=== PATIENT | female | born 1965 | race Caucasian/White ===

== ENCOUNTER 2017-04-22 16:47 | Emergency (ER) | payer OTHER ==
[2017-04-22 16:56] VITALS: TEMP 98.2
[2017-04-22 19:36] LABS: Basophils # (A) 0.1 k/uL (0-0.2); Basophils % (A) 0 %; Eosinophils # (A) 0.7 k/uL (0-0.7); Eosinophils % (A) 6 %; HCT 38.9 % (34.0-46.0); Hypochromasia Slight; Lymphocytes # (A) 2.4 k/uL (1.0-4.8); Lymphocytes % (A) 23 %; MCH 26.1 pg (25.0-35.0); MCHC 30.9 g/dL (31.0-37.0); MCV 84.5 fL (80.0-100.0); Mean Platelet Volume 7.1; Monocytes # (A) 0.6 k/uL (0-1.0); Monocytes % (A) 6 %; Neutrophils # (A) 6.9 k/uL (1.3-7.7); Neutrophils % (A) 64 %; Platelet Count 452 k/uL (150-450); RDW 14.7 % (11.5-15.5); WBC 10.8 k/uL (3.8-10.6)
[2017-04-22 19:46] LABS: Partial Thromboplastin Time 22.3 sec (22.0-30.0)
[2017-04-22 19:47] LABS: Anion Gap 12 mmol/L; Blood Urea Nitrogen 22 mg/dL (7-17); Carbon Dioxide 32 mmol/L (22-30); Chloride 96 mmol/L (98-107); Glucose 332 mg/dL (74-99); Potassium 5.9 mmol/L (3.5-5.1); Sodium 140 mmol/L (137-145)
[2017-04-22 19:48] LABS: ALT 27 U/L (9-52); AST 28 U/L (14-36); Albumin 3.9 g/dL (3.5-5.0); Alkaline Phosphatase 129 U/L (38-126); Magnesium 1.9 mg/dL (1.6-2.3); Total Bilirubin 0.6 mg/dL (0.2-1.3); Total Protein 7.1 g/dL (6.3-8.2)
[2017-04-22 19:50] LABS: Prothrombin Time 9.5 sec (9.0-12.0)
--- NOTE | 2017-04-22 19:55 | XR ---
EXAMINATION TYPE: XR chest 2V DATE OF EXAM: 04/22/2017 COMPARISON: 05/04/2014 HISTORY: Chest pain TECHNIQUE: Frontal and lateral views of the chest are obtained. FINDINGS: There is consolidation in the left lower lobe with blunting of left costophrenic angle. Th ere is slight blunting of right costophrenic angle. There is no gross heart failure. There are chest leads. Heart appears enlarged. There is cervical spine fusion surgery. There are chest leads. IMPRESSION: There is new left lower lobe pulmonary consolidation compared to old exam and consistent with pneumonia. New bilateral pleural effusions. Mild heart failure cannot be entirely excluded.
[2017-04-22 19:56] LABS: Creatine Kinase 28 U/L (30-135)
[2017-04-22 20:09] LABS: Creatine Kinase MB 0.3 ng/mL (0.0-2.4); Troponin I <0.012 ng/mL (0.000-0.034)
--- NOTE | 2017-04-22 20:21 | ED ---
Chest Pain HPI - General Chief Complaint: Chest Pain Stated Complaint: Chest Pain Time Seen by Provider: 04/22/17 16:58 Source: patient, RN notes reviewed Mode of arrival: ambulatory Limitations: no limitations - History of Present Illness Initial Comments: Is a 51-year-old female who presents with complaints of some sharp left-sided chest pain that occurred after she was vacuuming today and while she was vacuuming. Lasted for short period time is been gone she has no new complaints of shortness of breath fevers chills nausea vomiting sweats or cough. She recently did have a prolonged period at [facility] he did have a pleural effusion that was drained somewhat she was just discharged in the last several days. Other than this she voices no new complaints. MD Complaint: chest pain - Related Data Home Medications Medication Instructions Recorded Confirmed Acetaminophen-Codeine 300-30mg 1 tab PO Q6H PRN 04/22/17 04/22/17 [Tylenol #3] Atorvastatin [Lipitor] 40 mg PO HS 04/22/17 04/22/17 Cetirizine HCl [Zyrtec] 10 mg PO DAILY 04/22/17 04/22/17 Cyclobenzaprine [Flexeril] 10 mg PO TID 04/22/17 04/22/17 DULoxetine HCL [Cymbalta] 30 mg PO HS 04/22/17 04/22/17 Furosemide [Lasix] 20 mg PO DAILY 04/22/17 04/22/17 Gabapentin [Neurontin] 300 mg PO TID 04/22/17 04/22/17 Insulin Regular, Human [humulin R 90 unit SQ AC-TID 04/22/17 04/22/17 U-500 Kwikpen] Ipratropium-Albuterol Nebulize 3 ml INHALATION RT-Q4H PRN 04/22/17 04/22/17 [Duoneb 0.5 mg-3 mg/3 ml Soln] Lisdexamfetamine Dimesylate 50 mg PO QAM 04/22/17 04/22/17 [Vyvanse] Losartan Potassium [Cozaar] 100 mg PO HS 04/22/17 04/22/17 Metoclopramide HCl [Reglan] 10 mg PO DAILY 04/22/17 04/22/17 Montelukast [Singulair] 10 mg PO HS 04/22/17 04/22/17 Ondansetron HCl [Zofran] 8 mg PO Q8H PRN 04/22/17 04/22/17 Pantoprazole Sodium [Protonix] 40 mg PO DAILY 04/22/17 04/22/17 Ranitidine HCl [Zantac] 150 mg PO BID 04/22/17 04/22/17 Tolterodine ER [Detrol LA] 4 mg PO HS 04/22/17 04/22/17 amLODIPine [Norvasc] 10 mg PO DAILY 04/22/17 04/22/17 traMADol HCL [Ultram] 50 mg PO Q8H PRN 04/22/17 04/22/17 Previous Rx's Medication Instructions Recorded Aspirin 81 mg PO DAILY #1 chewable 05/05/14 Allergies Allergy/AdvReac Type Severity Reaction Status Date / Time Sulfa (Sulfonamide Allergy Anaphylaxis Verified 04/22/17 18:58 Antibiotics) Review of Systems ROS Statement: Those systems with pertinent positive or pertinent negative responses have been documented in the HPI. ROS Other: All systems not noted in ROS Statement are negative. EKG Findings - EKG Results: EKG: interpreted by ERMD (Sinus rhythm rate of 11. Interval 182 QRS duration 90 QT since QTC 312/404 possible left atrial enlargement nonspecific T-wave configuration.) Past Medical History Past Medical History: Diabetes Mellitus, Eye Disorder, Hyperlipidemia, Hypertension Additional Past Medical History / Comment(s): 05/04/14 Pt presented to [facility] ER with substernal chest pain that started 24 hhours before coming to ER. She noticed the chest pain when she woke up yesterday. It is a heaviness and is intermittent with variable duration. She also states she had alittle nausea with it. Other HX: Pt had recent (03/30/14)cataract surgery with lens implants bilaterally at [facility]-post op she had low O2 saturations and was told she had a very narrow airway-instead of going home same day, she was in the hospital for a couple days until her saturations improved. She was discharged with home O2 which she wears at 2L/NC at [facility] and was to follow up today for testing for sleep apnea. Pt states she also has diarrhea fairly frequently. 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 History of Any Multi-Drug Resistant Organisms: MRSA Date of last positivie culture/infection: 2010 MDRO Source:: legs and breasts. Past Surgical History: Cholecystectomy, Hysterectomy, Orthopedic Surgery Additional Past Surgical History / Comment(s): Bilateral cataract sx with lens implants, bilateral retinal repair. Cervical rodding for 3 ruptured discs. Past Anesthesia/Blood Transfusion Reactions: Postoperative Nausea & Vomiting ( PONV) Additional Past Anesthesia/Blood Transfusion Reaction / Comment(s): Pt had cataract and lens implant at [facility] on 03/30/14 and afterwards she desaturated and was hospitalized. She was told she has a very narrow airway. Pt has never recieved blood. Past Psychological History: No Psychological Hx Reported Smoking Status: Former smoker Past Alcohol Use History: None Reported Past Drug Use History: None Reported - Past Family History Father Family Medical History: Cancer, Diabetes Mellitus, Myocardial Infarction (SD) Additional Family Medical History / Comment(s): Father had 5 SD's and of bone cancer. Mother Family Medical History: Cancer, Diabetes Mellitus Additional Family Medical History / Comment(s): Mother had cervical cancer and from it. General Exam - General Exam Comments Initial Comments: This is a well-developed well-nourished awake alert oriented 3 female Limitations: no limitations General appearance: alert, in no apparent distress Head exam: Present: atraumatic, normocephalic, normal inspection Eye exam: Present: normal appearance, PERRL, EOMI. Absent: scleral icterus, conjunctival injection, periorbital swelling ENT exam: Present: normal exam, mucous membranes moist Neck exam: Present: normal inspection. Absent: tenderness, meningismus, lymphadenopathy Respiratory exam: Present: chest wall tenderness (Reproducible tenderness palpation along the left costochondral margin.), other (Decreased breath sounds otherwise breath sounds are clear with good aeration.). Absent: respiratory distress, wheezes, rales, rhonchi, stridor Cardiovascular Exam: Present: regular rate, normal rhythm, normal heart sounds. Absent: systolic murmur, diastolic murmur, rubs, gallop, clicks GI/Abdominal exam: Present: soft, normal bowel sounds. Absent: distended, tenderness, guarding, rebound, rigid Extremities exam: Present: normal inspection, full ROM, normal capillary refill. Absent: tenderness, pedal edema, joint swelling, calf tenderness Back exam: Present: normal inspection Neurological exam: Present: alert, oriented X3, CN II-XII intact Psychiatric exam: Present: normal affect, normal mood Skin exam: Present: warm, dry, intact, normal color. Absent: rash Course Vital Signs 04/22/17 04/22/17 04/22/17 16:52 18:51 20:25 Temperature 98.2 F Pulse Rate 98 97 94 Respiratory 20 18 16 Rate Blood Pressure 171/70 158/72 158/67 O2 Sat by Pulse 94 L 95 97 Oximetry Chest Pain MDM - MDM Review the imaging shows evidence of some fluid in the left lung is patient already knows. She is a follow-up with her doctor the presentation consistent with costochondritis. She does have ibuprofen home she'll be discharged she is to use her ibuprofen as needed. He will follow-up with her doctors and return when necessary Disposition Clinical Impression: Costalchondritis, Chest wall syndrome Disposition: HOME SELF-CARE Condition: Good Instructions: Costochondritis (ED) Additional Instructions: Usual ibuprofen for pain at home Referrals: Lavon Garza MD [Primary Care Provider] - 1-2 days
[2017-04-22 20:26] VITALS: BP 158/67; PULSE 94; RESP 16
== END 2017-04-22 21:02 | disposition home or self-care (01) ==
LOC: EC 16:47
DX: M94.0 Chondrocostal junction syndrome [Tietze] (principal); E11.9 Type 2 diabetes mellitus without complications; E78.5 Hyperlipidemia, unspecified; I10 Essential (primary) hypertension; Z86.14 Personal history of Methicillin resistant Staphylococcus aureus infection; Z88.2 Allergy status to sulfonamides; Z79.4 Long term (current) use of insulin; Z79.899 Other long term (current) drug therapy; Z87.891 Personal history of nicotine dependence
CPT/HCPCS: 36415; 71046; 80053; 82550; 82553; 83735; 84484; 85025; 85610; 85730; 93005; 99285

== ENCOUNTER → 2019-11-11 | Outpatient (CLI) | payer MEDICARE, OTHER ==
[2019-11-11 13:12] LABS: Anisocytosis Slight; HCT 38.6 % (34.0-46.0); Hypochromasia Slight; MCH 26.2 pg (25.0-35.0); MCHC 31.2 g/dL (31.0-37.0); MCV 83.8 fL (80.0-100.0); Mean Platelet Volume 7.9; Platelet Count 287 k/uL (150-450); RDW 16.9 % (11.5-15.5); WBC 13.3 k/uL (3.8-10.6)
[2019-11-11 18:32] LABS: INR 0.92 (0.90-1.11); Partial Thromboplastin Time 26.9 sec (24.7-29.9); Prothrombin Time 9.9 sec (9.9-11.9)
[2019-11-11 19:13] LABS: % Iron Saturation 11.8 (12.00-45.00); Albumin 4.2 g/dL (3.80-4.90); Albumin/Globulin Ratio 1.83 (1.60-3.17); Anion Gap 11.5 mmol/L (4.00-12.00); Calcium 9.3 mg/dL (8.7-10.3); Carbon Dioxide 28.5 mmol/L (21.6-31.8); Chol/HDL Ratio 2.81; Globulin 2.3 g/dL (1.6-3.3); LDL Cholesterol,Calculated 75.8 mg/dL (0.0-131.0); Magnesium 1.9 mg/dL (1.5-2.4); Non-African American GFR(CKD) 72.5 (60.0-200.0); Phosphorus 4.2 mg/dL (2.4-5.1); Potassium 4.6 mmol/L (3.5-5.5); Total Bilirubin 0.6 mg/dL (0.3-1.2); Total Protein 6.5 g/dL (6.2-8.2); VLDL Calculation 27.2 mg/dL (5.00-40.00)
[2019-11-11 19:20] LABS: Ferritin 91.3 ng/mL (10.0-291.0)
[2019-11-11 19:29] LABS: Folate, Serum 12.8 ng/mL
[2019-11-12 14:22] LABS: Vit B1(Thiamine) 82 ug/L (38-122)
[2019-11-12 15:09] LABS: Zinc, Serum 50 ug/dL (60-130)
== END | disposition home or self-care (01) ==
LOC: LABWHC1 11:00
PROVIDERS: ATTEND Surgery Plastic and Reconstructive Surgery
DX: E89.1 Postprocedural hypoinsulinemia (principal); D50.8 Other iron deficiency anemias; K90.89 Other intestinal malabsorption; E55.9 Vitamin D deficiency, unspecified; K74.1 Hepatic sclerosis; N19 Unspecified kidney failure; K50.90 Crohn's disease, unspecified, without complications; E66.01 Morbid (severe) obesity due to excess calories
CPT/HCPCS: 36415; 80053; 80061; 82306; 82525; 82607; 82728; 82746; 83540; 83550; 83735; 83970; 84100; 84134; 84255; 84425; 84443; 84590; 84630; 85027; 85610; 85730; 93005

== ENCOUNTER → 2019-11-19 | Outpatient (CLI) | payer MEDICARE, OTHER ==
--- NOTE | 2019-11-19 11:56 | FL ---
Barium swallow history: Dysphagia 0.47 minutes fluoroscopy time. 7 images obtained. Patient was given high density barium to drink. The swallowing mechanism is normal. There is no extrinsic or intrinsic esophageal lesion. No hiatal h ernia or gastroesophageal reflux. IMPRESSION: Normal barium swallow.
== END | disposition home or self-care (01) ==
LOC: RADUSWWP 10:01
PROVIDERS: ATTEND Surgery Plastic and Reconstructive Surgery
DX: R13.10 Dysphagia, unspecified (principal)
CPT/HCPCS: 74220

== ENCOUNTER → 2020-01-17 | Outpatient (CLI) | payer MEDICARE, OTHER ==
[2020-01-17 12:43] VITALS: BMI 59.2
== END | disposition home or self-care (01) ==
LOC: BARWHC3 08:28
PROVIDERS: ATTEND Surgery Plastic and Reconstructive Surgery
DX: E66.01 Morbid (severe) obesity due to excess calories (principal); Z71.3 Dietary counseling and surveillance; Z68.43 Body mass index [BMI] 50.0-59.9, adult
CPT/HCPCS: 97804

== ENCOUNTER → 2020-03-22 | Outpatient (CLI) | payer MEDICARE, OTHER ==
[2020-03-22 15:16] VITALS: BP 166/63; PULSE 88; RESP 18; TEMP 98.1; BMI 56.4
--- NOTE | 2020-03-22 15:37 | P.PN ---
Subjective Progress Note Date: 03/22/20 DATE OF SERVICE: 03/22/2020 CHIEF COMPLAINT: Morbid obesity HISTORY OF PRESENT ILLNESS: Anjali Jha is a 54-year-old female who comes with lifelong morbid obesity. She is looking into the sleeve gastrectomy. She has completed medical supervised weight loss with moderate improvement of her blood sugar glucose to 117 in the mornings. She has lost weight. She has completed cardiac risk assessment. She is excited for her weight loss procedure. She is taking her multivitamin. She has completed psych assessment and medical risk assessment. At height of 5 feet 5 inches, her ideal body weight is 149 pounds. She comes in 338 pounds from 346 pounds, 4 months ago. She has lost 8 pounds in 4 months. Her body mass index is down from 57.7 to 56.4. She is 189 pounds overweight. PAST MEDICAL HISTORY: 1. Morbid obesity due to excess calories 2. Body mass index of 57.7, initial 3. Gastroesophageal reflux disease 4. Obstructive sleep apnea 5. Hyperlipidemia 6. Diabetes type 2, insulin dependent 7. Osteoarthritis of the knees 8. Osteoarthritis of the back 9. Neuropathy 10. Depressive disorder 11. History of MRSA infection 12. Post op nausea and vomiting PAST SURGICAL HISTORY: 1. Cholecystectomy 2. Hysterectomy 3. Cervical rodding 4. Bilateral retinal repair HOME MEDICATIONS: Home Medications Medication Instructions Recorded Confirmed Atorvastatin [Lipitor] 20 mg PO HS 04/22/17 01/19/20 Gabapentin [Neurontin] 400 mg PO TID 04/22/17 01/19/20 Insulin Regular, Human [humulin R 90 unit SQ AC-TID 04/22/17 01/19/20 U-500 Kwikpen] Montelukast [Singulair] 10 mg PO HS 04/22/17 01/19/20 Pantoprazole Sodium [Protonix] 40 mg PO DAILY 04/22/17 01/19/20 amLODIPine [Norvasc] 10 mg PO DAILY 04/22/17 01/19/20 Canagliflozin [Invokana] 300 mg PO DAILY 11/10/19 01/19/20 Ibuprofen [Motrin] 800 mg PO Q6H 11/10/19 01/19/20 Ketoconazole 2% Cream [Nizoral 2%] 1 unit TOPICAL BID 11/10/19 01/19/20 Meloxicam [Mobic] 7.5 mg PO DAILY 11/10/19 01/19/20 Mirabegron [Myrbetriq] 50 mg PO DAILY 11/10/19 01/19/20 PARoxetine HCL 30 mg PO DAILY 11/10/19 01/19/20 Semaglutide [Ozempic] 1 mg SQ WEEKLY 11/10/19 01/19/20 metFORMIN HCL [metFORMIN HCL ER] 500 mg PO BID 11/10/19 01/19/20 Ergocalciferol [Vitamin D2 5,000 unit PO WEEKLY 11/12/19 01/19/20 (DRISDOL)] Iron 64 mg PO BID 11/12/19 01/19/20 Previous Rx's Medication Instructions Recorded Aspirin 81 mg PO DAILY #1 chewable 05/05/14 ALLERGIES: Allergies Allergy/AdvReac Type Severity Reaction Status Date / Time Sulfa (Sulfonamide Allergy Anaphylaxis Verified 04/22/17 18:58 Antibiotics) SOCIAL HISTORY: Past tobacco use. FAMILY HISTORY: No family history of ulcerative colitis disease or Crohn's disease. Family history of morbid obesity. No lupus in the family. No reports of stomach or esophageal cancer. REVIEW OF ORGAN SYSTEMS: CONSTITUTIONAL: At height of 5 feet 5 inches, her ideal body weight is 149 pounds. Her highest weight is 346 pounds. Her body mass index is 57.7. She is 197 pounds overweight. HEENT: Denies any active troubles with vision or hearing. Has troubles with swallowing. ENDOCRINE: Has diabetes. No hypothyroidism. CARDIOVASCULAR: Past reports of palpitations or heart attacks or chest pain. Has hyperlipidemia. Has hypertension. RESPIRATORY: Has daytime somnolence. Has asthma. GASTROINTESTINAL: Denies any bright red blood per rectum. No diarrhea. No constipation. Has gastroesophageal reflux disease. MUSCULOSKELETAL: Has lower back pain and joint pain. Has osteoarthritis of the knees. NEURO: No headaches. No seizure disorders. Has neuropathy. PSYCH: Has depression. No suicidal ideation. RHEUMATOLOGIC: No lupus. No rheumatoid arthritis. HEMATOLOGIC: Denies any abnormal bleeding or bruising. No personal history of DVTs. SKIN: No rash. No skin cancer. PHYSICAL EXAM: VITAL SIGNS: Height 5 foot 5 inches, weight 338 pounds. BMI 56.4 Vital Signs Temp 98.1 F 03/22/20 15:11 Pulse 88 03/22/20 15:11 Resp 18 01/13/21 15:11 BP 166/63 03/22/20 15:11 Pulse Ox GENERAL: Well-developed in no acute distress. HEENT: No scleral icterus. Extraocular movements grossly intact. Hears conversational speech. No nasal drainage. NECK: Supple without lymphadenopathy. CHEST: Nonlabored respirations with equal bilateral excursions. CARDIOVASCULAR: Regular rate and regular rhythm. Distal 2+ pulses. ABDOMEN: Obese, soft, nontender, nondistended. MUSCULOSKELETAL: No clubbing, cyanosis. NEURO: No focal or lateralizing signs. Cranial nerves 2 through 12 grossly within normal limits. PSYCH: Appropriate affect. Alert and oriented to person, place and time. SKIN: Good skin turgor. Well perfused. LABS: WBC elevated. Iron is low. Vitamin D is low. Zinc is low. EKG: Left atrial enlargement STUDIES: Barium swallow independently reviewed with evidence of intra-esophageal reflux disease. No large hiatal hernia identified. ASSESSMENT: 1. Morbid obesity due to excess calories 2. Body mass index of 57.7, initial 3. Gastroesophageal reflux disease 4. Obstructive sleep apnea 5. Hyperlipidemia 6. Diabetes type 2, insulin dependent 7. Osteoarthritis of the knees 8. Osteoarthritis of the back 9. Neuropathy 10. Depressive disorder 11. History of MRSA infection 12. 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 Iron deficiency anemia 15. Vitamin D deficiency 16. Zinc deficiency. PLAN: 1. Bariatric options between a sleeve, band and a Fern-en-Y gastric bypass were reviewed in detail. The patient elected for a sleeve gastrectomy. Robotic assisted approach described. 2. The [place] [facility] Data was also reviewed with benefits and risks as described. 3. An 8 page second-generation bariatric consent form was reviewed in detail including potential of bleeding, infection, leaks, adequate weight loss, nutritional deficiencies which the patient demonstrated understanding of the risks. 4. A 2 week high-protein low caloric 800 kcal diet described to address hepatomegaly. 5. Preoperative labs including complete metabolic panel and CBC with type and screen recommended. 6. DVT prophylaxis per [place] [facility]. 7. Antibiotic prophylaxis. 8. Inpatient hospitalization anticipated for more than 2 nights. 9. All questions and concerns were addressed with the patient. 10. She is at elevated risk for perioperative complications with pre-existing heart disease and BMI over 50. 11. Overall, patient has expressed understanding of bariatric care including postoperative diet and commitment of lifestyle. Patient should benefit from surgical intervention for correction of her morbid obesity. 12. Vitamin D 50,000 units weekly advised 13. Zinc 50 mg daily advised 14. She is taking iron supplements 15. Monitor WBC. Persistent elevated will need referral to fraud examiner. 16. Cardiac risk assessment was obtained for abnormal EKG. Objective - Vital Signs Vital signs: Vital Signs Temp 98.1 F 03/22/20 15:11 Pulse 88 03/22/20 15:11 Resp 18 03/22/20 15:11 BP 166/63 03/22/20 15:11 Pulse Ox Intake & Output 03/21/20 03/22/20 03/22/20 18:59 06:59 18:59 Weight 153.768 kg
== END | disposition home or self-care (01) ==
LOC: BARWHC3 14:15
PROVIDERS: ATTEND Surgery Plastic and Reconstructive Surgery
DX: E66.1 Drug-induced obesity (principal); K21.9 Gastro-esophageal reflux disease without esophagitis; G47.33 Obstructive sleep apnea (adult) (pediatric); E78.5 Hyperlipidemia, unspecified; E11.9 Type 2 diabetes mellitus without complications; M17.0 Bilateral primary osteoarthritis of knee; M47.9 Spondylosis, unspecified; E11.40 Type 2 diabetes mellitus with diabetic neuropathy, unspecified; F32.9 Major depressive disorder, single episode, unspecified; R11.2 Nausea with vomiting, unspecified; D72.829 Elevated white blood cell count, unspecified; D50.9 Iron deficiency anemia, unspecified; E55.9 Vitamin D deficiency, unspecified; E60 Dietary zinc deficiency; Z86.14 Personal history of Methicillin resistant Staphylococcus aureus infection; Z68.43 Body mass index [BMI] 50.0-59.9, adult; Z88.2 Allergy status to sulfonamides; Z79.4 Long term (current) use of insulin; Z79.82 Long term (current) use of aspirin; Z79.899 Other long term (current) drug therapy; Z79.891 Long term (current) use of opiate analgesic; Z79.1 Long term (current) use of non-steroidal anti-inflammatories (NSAID); Z90.49 Acquired absence of other specified parts of digestive tract; Z90.710 Acquired absence of both cervix and uterus
CPT/HCPCS: 99211

== ENCOUNTER → 2020-03-24 | Outpatient (CLI) | payer MEDICARE, OTHER ==
[2020-03-24 15:42] LABS: Anisocytosis Slight; Basophils # (A) 0.1 k/uL (0-0.2); Basophils % (A) 0 %; Eosinophils # (A) 0.3 k/uL (0-0.7); Eosinophils % (A) 2 %; HCT 41.5 % (34.0-46.0); HGB 13.9 gm/dL (11.4-16.0); Lymphocytes # (A) 2.5 k/uL (1.0-4.8); Lymphocytes % (A) 17 %; MCHC 33.3 g/dL (31.0-37.0); MCV 81.1 fL (80.0-100.0); Mean Platelet Volume 7.7; Monocytes # (A) 0.6 k/uL (0-1.0); Monocytes % (A) 4 %; Neutrophils # (A) 10.9 k/uL (1.3-7.7); Neutrophils % (A) 75 %; Platelet Count 287 k/uL (150-450); RBC 5.12 m/uL (3.80-5.40); WBC 14.4 k/uL (3.8-10.6)
[2020-03-24 15:44] LABS: ALT 28 U/L (4-34); AST 39 U/L (14-36); African American GFR (CKD) >90 (>60 ml/min/1.73 sqM); Albumin 4.1 g/dL (3.5-5.0); Alkaline Phosphatase 113 U/L (38-126); Anion Gap 15 mmol/L; Blood Urea Nitrogen 25 mg/dL (7-17); Calcium 9.2 mg/dL (8.4-10.2); Carbon Dioxide 20 mmol/L (22-30); Chloride 102 mmol/L (98-107); Glucose 129 mg/dL (74-99); Non-African American GFR(CKD) 87 (>60 ml/min/1.73 sqM); Potassium 4.6 mmol/L (3.5-5.1); Sodium 137 mmol/L (137-145); Total Bilirubin 0.7 mg/dL (0.2-1.3); Total Protein 7.3 g/dL (6.3-8.2)
== END | disposition home or self-care (01) ==
LOC: LABPAT 14:54
PROVIDERS: ATTEND Surgery Plastic and Reconstructive Surgery
DX: Z01.818 Encounter for other preprocedural examination (principal)
CPT/HCPCS: 36415; 80053; 85025

== ENCOUNTER → 2020-03-29 | Outpatient (CLI) | payer MEDICARE, OTHER ==
[2020-03-29 15:18] VITALS: BP 148/73; PULSE 89; RESP 18; TEMP 98.2; BMI 56.0
--- NOTE | 2020-03-29 15:35 | P.PN ---
Subjective Progress Note Date: 03/29/20 DATE OF SERVICE: 03/29/2020 CHIEF COMPLAINT: Morbid obesity HISTORY OF PRESENT ILLNESS: Anjali Jha is a 54-year-old female who comes in looking into the sleeve gastrectomy. She comes in with new pain along her pannus. She has persistently high WBC getting worse over 3+ years. She saw her primary care provider and was prescribed Nystatin and cefuroxime for severe panniculitis. She has an active infection. At height of 5 feet 5 inches, her ideal body weight is 149 pounds. She comes in 336 pounds from 338 pounds, 1 week ago. She has lost 2 pounds in 1 week. Her body mass index is down from 57.7 to 56.1. She is 187 pounds overweight. PHYSICAL EXAM: VITAL SIGNS: Height 5 foot 5 inches, weight 336 pounds. BMI 56.1 Vital Signs Temp 98.2 F 03/29/20 15:14 Pulse 89 03/29/20 15:14 Resp 18 03/29/20 15:14 BP 148/73 03/29/20 15:14 Pulse Ox GENERAL: Well-developed in no acute distress. HEENT: No scleral icterus. Extraocular movements grossly intact. Hears conversational speech. No nasal drainage. NECK: Supple without lymphadenopathy. CHEST: Nonlabored respirations with equal bilateral excursions. CARDIOVASCULAR: Regular rate and regular rhythm. Distal 2+ pulses. ABDOMEN: Obese, soft, nontender, nondistended. Severe panniculitis MUSCULOSKELETAL: No clubbing, cyanosis. NEURO: No focal or lateralizing signs. Cranial nerves 2 through 12 grossly within normal limits. PSYCH: Appropriate affect. Alert and oriented to person, place and time. SKIN: Good skin turgor. Well perfused. LABS: WBC elevated over 14.4. AST is elevated. ASSESSMENT: 1. Morbid obesity due to excess calories 2. Body mass index of 57.7, initial 3. Gastroesophageal reflux disease 4. Obstructive sleep apnea 5. Hyperlipidemia 6. Diabetes type 2, insulin dependent 7. Osteoarthritis of the knees 8. Osteoarthritis of the back 9. Neuropathy 10. Depressive disorder 11. History of MRSA infection 12. 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 Iron deficiency anemia 15. Vitamin D deficiency 16. Zinc deficiency. PLAN: 1. She has an active infection and recommend continued antibiotics. 2. Recommend Dr. Hastings assessment for persistent leukocytosis over 3+ years. Objective - Vital Signs Vital signs: Vital Signs Temp 98.2 F 03/29/20 15:14 Pulse 89 03/29/20 15:14 Resp 18 03/29/20 15:14 BP 148/73 03/29/20 15:14 Pulse Ox Intake & Output 03/28/20 03/29/20 03/29/20 18:59 06:59 18:59 Weight 152.861 kg
== END | disposition home or self-care (01) ==
LOC: BARWHC3 14:18
PROVIDERS: ATTEND Surgery Plastic and Reconstructive Surgery
DX: E66.01 Morbid (severe) obesity due to excess calories (principal); K21.9 Gastro-esophageal reflux disease without esophagitis; G47.33 Obstructive sleep apnea (adult) (pediatric); E78.5 Hyperlipidemia, unspecified; E11.40 Type 2 diabetes mellitus with diabetic neuropathy, unspecified; M17.0 Bilateral primary osteoarthritis of knee; F32.9 Major depressive disorder, single episode, unspecified; Z86.14 Personal history of Methicillin resistant Staphylococcus aureus infection; R11.2 Nausea with vomiting, unspecified; D50.9 Iron deficiency anemia, unspecified; E55.9 Vitamin D deficiency, unspecified; D72.829 Elevated white blood cell count, unspecified; E60 Dietary zinc deficiency; Z79.2 Long term (current) use of antibiotics
CPT/HCPCS: 99211

== ENCOUNTER → 2020-05-05 | Outpatient (CLI) | payer MEDICARE, OTHER ==
[2020-05-05 09:29] LABS: Anisocytosis Slight; Basophils % (A) 0 %; Eosinophils # (A) 0.4 k/uL (0-0.7); Eosinophils % (A) 3 %; HCT 41.6 % (34.0-46.0); HGB 13.7 gm/dL (11.4-16.0); Lymphocytes # (A) 2.5 k/uL (1.0-4.8); Lymphocytes % (A) 19 %; MCH 27.2 pg (25.0-35.0); MCV 82.4 fL (80.0-100.0); Mean Platelet Volume 7.7; Microcytosis Slight; Monocytes # (A) 0.5 k/uL (0-1.0); Monocytes % (A) 4 %; Neutrophils # (A) 9.7 k/uL (1.3-7.7); Neutrophils % (A) 73 %; Platelet Count 270 k/uL (150-450); RBC 5.05 m/uL (3.80-5.40); RDW 17.8 % (11.5-15.5); WBC 13.2 k/uL (3.8-10.6)
[2020-05-05 09:39] LABS: African American GFR (CKD) >90 (>60 ml/min/1.73 sqM); Blood Urea Nitrogen 19 mg/dL (7-17); Non-African American GFR(CKD) 87 (>60 ml/min/1.73 sqM); Potassium 4.3 mmol/L (3.5-5.1)
== END | disposition home or self-care (01) ==
LOC: LABPAT 08:57
PROVIDERS: ATTEND Surgery Plastic and Reconstructive Surgery
DX: Z01.818 Encounter for other preprocedural examination (principal)
CPT/HCPCS: 36415; 82565; 84132; 84520; 85025

== ENCOUNTER 2020-05-08 07:30 | Inpatient (IN) | payer MEDICARE, OTHER ==
--- NOTE | 2020-05-08 05:49 | P.GSHP ---
History of Present Illness H&P Date: 05/08/20 CHIEF COMPLAINT: Morbid obesity HISTORY OF PRESENT ILLNESS: Anjali Jha is a 54-year-old female who comes with lifelong morbid obesity. She is looking into the sleeve gastrectomy. She has comorbidities including obstructive sleep apnea, insulin-dependent diabetes type 2, osteoarthritis of the knees and back At height of 5 feet 5 inches, her ideal body weight is 149 pounds. She comes in 339 pounds. Her body mass index is down from 57.7 to 56.6. She is 189 pounds overweight. PAST MEDICAL HISTORY: 1. Morbid obesity due to excess calories 2. Body mass index of 57.7, initial 3. Gastroesophageal reflux disease 4. Obstructive sleep apnea 5. Hyperlipidemia 6. Diabetes type 2, insulin dependent 7. Osteoarthritis of the knees 8. Osteoarthritis of the back 9. Neuropathy 10. Depressive disorder 11. History of MRSA infection 12. Post op nausea and vomiting PAST SURGICAL HISTORY: 1. Cholecystectomy 2. Hysterectomy 3. Cervical rodding 4. Bilateral retinal repair HOME MEDICATIONS: Home Medications Medication Instructions Recorded Confirmed Atorvastatin [Lipitor] 20 mg PO HS 04/22/17 01/19/20 Gabapentin [Neurontin] 400 mg PO TID 04/22/17 01/19/20 Insulin Regular, Human [humulin R 90 unit SQ AC-TID 04/22/17 01/19/20 U-500 Kwikpen] Montelukast [Singulair] 10 mg PO HS 04/22/17 01/19/20 Pantoprazole Sodium [Protonix] 40 mg PO DAILY 04/22/17 01/19/20 amLODIPine [Norvasc] 10 mg PO DAILY 04/22/17 01/19/20 Canagliflozin [Invokana] 300 mg PO DAILY 11/10/19 01/19/20 Ibuprofen [Motrin] 800 mg PO Q6H 11/10/19 01/19/20 Ketoconazole 2% Cream [Nizoral 2%] 1 unit TOPICAL BID 11/10/19 01/19/20 Meloxicam [Mobic] 7.5 mg PO DAILY 11/10/19 01/19/20 Mirabegron [Myrbetriq] 50 mg PO DAILY 11/10/19 01/19/20 PARoxetine HCL 30 mg PO DAILY 11/10/19 01/19/20 Semaglutide [Ozempic] 1 mg SQ WEEKLY 11/10/19 01/19/20 metFORMIN HCL [metFORMIN HCL ER] 500 mg PO BID 11/10/19 01/19/20 Ergocalciferol [Vitamin D2 5,000 unit PO WEEKLY 11/12/19 01/19/20 (DRISDOL)] Iron 64 mg PO BID 11/12/19 01/19/20 Previous Rx's Medication Instructions Recorded Aspirin 81 mg PO DAILY #1 chewable 05/05/14 ALLERGIES: Allergies Allergy/AdvReac Type Severity Reaction Status Date / Time Sulfa (Sulfonamide Allergy Anaphylaxis Verified 04/22/17 18:58 Antibiotics) SOCIAL HISTORY: Past tobacco use. FAMILY HISTORY: No family history of ulcerative colitis disease or Crohn's disease. Family history of morbid obesity. No lupus in the family. No reports of stomach or esophageal cancer. REVIEW OF ORGAN SYSTEMS: CONSTITUTIONAL: At height of 5 feet 5 inches, her ideal body weight is 149 pounds. Her highest weight is 346 pounds. Her body mass index is 57.7. She is 197 pounds overweight. HEENT: Denies any active troubles with vision or hearing. Has troubles with swallowing. ENDOCRINE: Has diabetes. No hypothyroidism. CARDIOVASCULAR: Past reports of palpitations or heart attacks or chest pain. Has hyperlipidemia. Has hypertension. RESPIRATORY: Has daytime somnolence. Has asthma. GASTROINTESTINAL: Denies any bright red blood per rectum. No diarrhea. No constipation. Has gastroesophageal reflux disease. MUSCULOSKELETAL: Has lower back pain and joint pain. Has osteoarthritis of the knees. NEURO: No headaches. No seizure disorders. Has neuropathy. PSYCH: Has depression. No suicidal ideation. RHEUMATOLOGIC: No lupus. No rheumatoid arthritis. HEMATOLOGIC: Denies any abnormal bleeding or bruising. No personal history of DVTs. SKIN: No rash. No skin cancer. PHYSICAL EXAM: VITAL SIGNS: Height 5 foot 5 inches, weight 338 pounds. BMI 56.4 GENERAL: Well-developed in no acute distress. HEENT: No scleral icterus. Extraocular movements grossly intact. Hears conversational speech. No nasal drainage. NECK: Supple without lymphadenopathy. CHEST: Nonlabored respirations with equal bilateral excursions. CARDIOVASCULAR: Regular rate and regular rhythm. Distal 2+ pulses. ABDOMEN: Obese, soft, nontender, nondistended. MUSCULOSKELETAL: No clubbing, cyanosis. NEURO: No focal or lateralizing signs. Cranial nerves 2 through 12 grossly within normal limits. PSYCH: Appropriate affect. Alert and oriented to person, place and time. SKIN: Good skin turgor. Well perfused. ASSESSMENT: 1. Morbid obesity due to excess calories 2. Body mass index of 57.7, initial 3. Gastroesophageal reflux disease 4. Obstructive sleep apnea 5. Hyperlipidemia 6. Diabetes type 2, insulin dependent 7. Osteoarthritis of the knees 8. Osteoarthritis of the back 9. Neuropathy 10. Depressive disorder 11. History of MRSA infection 12. 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 Iron deficiency anemia 15. Vitamin D deficiency 16. Zinc deficiency. PLAN: 1. Bariatric options between a sleeve, band and a Fern-en-Y gastric bypass were reviewed in detail. The patient elected for a sleeve gastrectomy. Robotic assisted approach described. 2. DVT prophylaxis per [place] [facility] collaborative. 3. Antibiotic prophylaxis. 4. Inpatient hospitalization anticipated for more than 2 nights. 5. She is at elevated risk for perioperative complications with pre-existing heart disease and BMI over 50. Past Medical History Past Medical History: Diabetes Mellitus, Eye Disorder, GERD/Reflux, Hyperlipidemia, Hypertension, Skin Disorder, Sleep Apnea/CPAP/BIPAP Additional Past Medical History / Comment(s): 2018 - fluid on lungs removed, DDD., uses c-pap machine., claustrophobic., diabetic retinapathy-legally blind right eye., neuropathy feet., gout., occasional yeast infection in folds of skin., OAB., Iron deficiency anemia- states iron transfusion at [facility] on 05/05/20., chronic elevated wbc's., pt states currently on high protein diet per Dr. Torres instructions. History of Any Multi-Drug Resistant Organisms: MRSA Date of last positivie culture/infection: 2010 MDRO Source:: legs and breasts. Past Surgical History: Cholecystectomy, Hysterectomy, Orthopedic Surgery Additional Past Surgical History / Comment(s): cataract sx with lens implants, iftikhar retinal repair. Cervical rodding for 3 ruptured discs. Past Anesthesia/Blood Transfusion Reactions: Postoperative Nausea & Vomiting (PONV) Additional Past Anesthesia/Blood Transfusion Reaction / Comment(s): cataract surgery @ [facility] on 03/30/14 and afterwards oxygen was low and she was hospitalized (later diagnosed with sleep apnea), states they told her she had a very narrow airway.-denies receiving a letter . Past Psychological History: No Psychological Hx Reported Additional Psychological History / Comment(s): states severe claustrophobic. Smoking Status: Former smoker Past Alcohol Use History: None Reported Additional Past Alcohol Use History / Comment(s): quit smoking 2013, smoked 1 ppd, started smoking age 18. Past Drug Use History: None Reported - Past Family History Father Family Medical History: Cancer, Myocardial Infarction (MA) Additional Family Medical History / Comment(s): Father had 5 MA's and of bone cancer. Mother Family Medical History: Cancer Additional Family Medical History / Comment(s): cervical cancer Medications and Allergies Home Medications Medication Instructions Recorded Confirmed Type Aspirin 81 mg PO DAILY #1 chewable 05/05/14 05/05/20 Rx Atorvastatin [Lipitor] 20 mg PO DAILY 04/22/17 05/05/20 History Gabapentin [Neurontin] 800 mg PO BID 04/22/17 05/05/20 History Montelukast [Singulair] 10 mg PO DAILY 04/22/17 05/05/20 History Pantoprazole Sodium [Protonix] 40 mg PO DAILY 04/22/17 05/05/20 History amLODIPine [Norvasc] 10 mg PO DAILY 04/22/17 05/05/20 History Canagliflozin [Invokana] 300 mg PO DAILY 11/10/19 05/05/20 History Ibuprofen [Motrin] 800 mg PO DIRECTED PRN 11/10/19 05/05/20 History Mirabegron [Myrbetriq] 50 mg PO DAILY 11/10/19 05/05/20 History PARoxetine HCL 30 mg PO DAILY 11/10/19 05/05/20 History metFORMIN HCL [metFORMIN HCL ER] 1,000 mg PO AC-BID 11/10/19 05/05/20 History Allopurinol [Zyloprim] 100 mg PO DAILY 03/28/20 05/05/20 History Ergocalciferol [Vitamin D2 (1250 1,250 mcg PO WE 03/28/20 05/05/20 History Mcg = 64157 Iu)] Ferrous Sulfate [Iron (65 MG 325 mg PO QAM 03/28/20 05/05/20 History Elemental)] Gabapentin [Neurontin] 400 mg PO 1200 03/28/20 05/05/20 History Insulin Glargine,Hum.rec.anlog 50 unit SQ QAM 03/28/20 05/05/20 History [Lantus Solostar] Loratadine 10 mg PO DAILY 03/28/20 05/05/20 History Nystatin 100,000 Unit/gm Oint 1 applic TOPICAL BID 03/29/20 05/05/20 History [Mycostatin Oint] Zinc 22 mg PO TID 05/01/20 05/05/20 History Allergies Allergy/AdvReac Type Severity Reaction Status Date / Time Sulfa (Sulfonamide Allergy Anaphylaxis Verified 05/05/20 09:17 Antibiotics)
[~2020-05-08 07:30] MED LIST: ACETAMINOPHEN TAB 500 MG TAB PO STA; CHLORHEXIDINE GLUCONATE 15 ML CUP MUCOUS MEM PRN; DEXAMETHASONE SOD PHOSPHATE 4 MG/ML 1 ML VIAL IV ONE; ENOXAPARIN 40 MG/0.4 ML SYRINGE SQ PRN; GABAPENTIN 300 MG CAP PO STA; LIDOCAINE 1% (10MG/ML) FOR IV START INTRADERMA PRN; MELOXICAM 7.5 MG TAB PO STA; MIDAZOLAM 2 MG/2 ML VIAL IV PRN; PANTOPRAZOLE 40 MG/10 ML VIAL IVP PRN; SCOPOLAMINE 1.5MG/72HR PATCH TRANSDERM SCH; ceFAZolin 3 GM in SODIUM CHLORIDE 0.9% 100 ML IVPB PRN
[2020-05-08] MEDS: LACTATED RINGERS 1,000 ML IV SCH (10:10)
[2020-05-08 10:11] LABS: Glucose,Whole Blood 127 mg/dL (75-99)
[2020-05-08] MEDS: ONDANSETRON 4 MG/2 ML VIAL IVP ONE ×2 (10:25→14:38)
[2020-05-08] MEDS ORDERED: HYDROmorphone (PF) 1 MG/ML ONE (11:58)
[2020-05-08] MEDS ORDERED: GLYCOPYRROLATE 0.2 MG/ML 2 ML VIAL ONE (11:58)
[2020-05-08] MEDS ORDERED: fentaNYL (PF) 50 MCG/ML 2 ML AMP ONE (11:58)
[2020-05-08] MEDS ORDERED: KETOROLAC 15 MG/ML 1 ML VIAL ONE (11:58)
[2020-05-08] MEDS ORDERED: SUCCINYLCHOLINE CHLORIDE VIAL 200 MG/10 ML VIAL IV ONE (11:58)
[2020-05-08] MEDS ORDERED: MIDAZOLAM 2 MG/2 ML VIAL ONE (11:58)
[2020-05-08] MEDS ORDERED: NEOSTIGMINE 1 MG/ML 10 ML VIAL ONE (11:58)
[2020-05-08] MEDS ORDERED: PROPOFOL 10 MG/ML 20 ML VIAL IV ONE (11:58)
[2020-05-08] MEDS ORDERED: ROCURONIUM 10 MG/ML (5 ML VIAL) IV ONE (11:58)
[2020-05-08] MEDS ORDERED: LACTATED RINGERS 1,000 ML IV ONE (12:30)
[2020-05-08] MEDS ORDERED: LIDOCAINE 2%-EPI 1:100,000 20 ML VIAL SQ ONE (12:31)
[2020-05-08] MEDS ORDERED: diphenhydrAMINE 50 MG/ML 1 ML VIAL IVP PRN (14:02)
[2020-05-08] MEDS ORDERED: NALOXONE 0.4 MG/ML 1 ML VIAL IV PRN (14:02)
[2020-05-08] MEDS ORDERED: DEXAMETHASONE SOD PHOSPHATE 10 MG/ML 1 ML VIAL IV PRN (14:06)
--- NOTE | 2020-05-08 14:13 | P.OP ---
Date of Procedure: 05/08/20 Description of Procedure: SURGEON: QIAN VELOZ MD PREOPERATIVE DIAGNOSES: 1. Morbid obesity due to excess calories 2. Body mass index of 57.7, initial 3. Gastroesophageal reflux disease 4. Obstructive sleep apnea 5. Hyperlipidemia 6. Diabetes type 2, insulin dependent 7. Osteoarthritis of the knees 8. Osteoarthritis of the back 9. Neuropathy 10. Depressive disorder 11. History of MRSA infection 12. 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 Iron deficiency anemia 15. Vitamin D deficiency 16. Zinc deficiency. POSTOPERATIVE DIAGNOSES: 1. Morbid obesity due to excess calories 2. Body mass index of 57.7, initial 3. Gastroesophageal reflux disease 4. Obstructive sleep apnea 5. Hyperlipidemia 6. Diabetes type 2, insulin dependent 7. Osteoarthritis of the knees 8. Osteoarthritis of the back 9. Neuropathy 10. Depressive disorder 11. History of MRSA infection 12. 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 Iron deficiency anemia 15. Vitamin D deficiency 16. Zinc deficiency. OPERATION: 1. Robotic assisted daVinci Xi laparoscopic sleeve gastrectomy with 40-Northern Irish bougie, multiport. 2. Intraoperative esophagogastroduodenoscopy. ANESTHESIA: Gen. local anesthetic ESTIMATED BLOOD LOSS: 5 mL SPECIMENS REMOVED: Sleeve gastrectomy COMPLICATIONS: None. FINDINGS: 1. Negative intraoperative esophagogastrojejunoscopy leak test. 2. No hepatomegaly and no large hiatus hernia. 3. Total of 7 staplers used including 2 - 60 mm black robot dell and 5 - 60 mm green robot loads used to create the gastric sleeve. 4. Sleeve gastrectomy, 31 x 6 cm INDICATIONS: Anjali Jha is a 54-year-old female who comes with lifelong morbid obesity. She is looking into the sleeve gastrectomy. She has comorbidities including obstructive sleep apnea, insulin-dependent diabetes type 2, osteoarthritis of the knees and back At height of 5 feet 5 inches, her ideal body weight is 149 pounds. She comes in 316 pounds from 339 pounds, 1 month ago. She lost 23 pounds in 1 month. Her body mass index is down from 57.7 to 51.2. She is 167 pounds overweight. All surgical options for morbid obesity had been described using the [place] bariat[facility] surgery collaborative comorbidity resolution including complication risk score. A second-generation bariatric consent form was described in detail including the possibility of protein malnutrition, leaks, gastric stricture, venous thrombosis, gastroesophageal reflux disease, need for further surgery for which she demonstrated understanding. Benefits and risks of the procedure were described at length. Informed consent was obtained. DESCRIPTION: The patient was brought into the operating room theater. Preoperatively she had received Lovenox subcutaneously for DVT prophylaxis. Additionally she had Peridex oral solution as an oral decontaminant. After general induction, the abdomen was prepped and draped in standard sterile fashion. An Ioban draping was placed along the abdomen. A robotic da Skye Xi system was prepped and primed. Length of her torso from xiphoid to umbilicus is 31 cm. At 15 cm from the xiphoid, proposed port sites were marked with indelible marker along the anterior axillary line bilaterally, mid axillary line bilaterally with each ports were marked 10 to 15 cm from each other. The assistant produce manager port was marked along the left lateral abdominal wall. The robotic stapler port was marked for the right midclavicular line. A 5 mm 0 degrees laparoscopic trocar entry was performed along the left upper quadrant. The abdomen was insufflated to 15 mmHg pressure was tolerated well. Diagnostic laparoscopy demonstrated no injury to bowel, viscera, or mesentery. No evidence of large hiatus hernia was identified. The liver edge was sharp consistent with 2 week low-carb high-protein diet. A 8 mm port was placed along the left upper abdominal wall after exchanging the 5 mm port. A separate 8 mm port was placed along the left lateral abdominal wall. Please note that the ports were placed at least 20 cm away from the target anatomy. Care was taken to check each robotic arms were safely away from collision with the bed or the patient. At the epigastrium, a medium sized Maria L liver retractor was placed under direct visualization with the Iron Shop Teacher placed under the right shoulder of the patient. Next, 12-mm robot stapler port was placed along the right upper quadrant. The camera 8-mm port was maintained along the epigastrium. The patient was repositioned in reverse Trendelenburg position at 21-degrees after lowering the bed. The robot was docked along the left side of the patient. Using a grasper for arm 4, a vessel sealer for arm 3, including grasper for arm 1, the robotic system was docked and primed as described. Instruments were interchanged by the assistant produce manager for stapler loads. The camera was placed at 30- degrees down. I had sat at the console. The pylorus was identified and 6 cm proximally along the greater curvature of the stomach, the short gastrics were mobilized upwards to the angle of His using a vessel sealer. Hemostasis was excellent during this portion of the procedure. Next, the upper pole of the stomach was adherent to the left calos, which was gently dissected free using atraumatic grasper. I went to the head of the bed and placed 40-Northern Irish blunt bougie into the stomach. The bougie was readjusted by the nurse behavior management specialist. Robotic stapler black load 60 mm 2 followed by green 60 mm x 5 loads were used to create the sleeve. Initial firing was across the antrum of the stomach towards the angle of His. The staple line was linear without corkscrewing. The space from the angularis incisura of the sleeve was approximately 4 cm. I then went to the head of the bed to perform the intraoperative esophagogastroduodenoscopy leak test. The bougie was withdrawn. The upper pole of the stomach was bathed using normal saline solution. The scope was withdrawn with careful inspection along the staple line for which no leaks were found along the entire length. Additionally,the sleeve was completely hemostatic without any encroachment along the angularis incisura. Its topology was a soft "J". No stricture was encountered upon placement of the scope. The GI tract was desufflated. The patient tolerated this portion of the procedure well. The scope was completely withdrawn. The robot was undocked. I then rescrubbed into case, whereby the irrigation fluid was aspirated from the abdominal cavity. Tisseel fibrin sealant was placed along the entire staple length. Once dried the Maria L liver retractor was removed. Attention was now brought to removal of the specimen. The distal end of the sleeve gastrectomy specimen was brought out through the 12 mm port at the left upper quadrant. The specimen was gently removed en total. No contamination had occurred during this process. All instruments and pneumoperitoneum including irrigation fluid was removed from the abdominal cavity. The 12 mm port site was closed using 0-Vicryl and Jose Miguelquita Dawnson and irrigated with diluted hydrogen peroxide. The final incisions were closed using subcuticular interrupted suture of 4-0 Monocryl. Exofin was applied to the skin once the skin had been cleansed. OptiFoam dressing was placed along the stomach extraction site. The sleeve specimen was measured and checked also for leaks which none were found. At the end of the procedure, needle, sponge, and instrument count was verified correct by the surgical dental assistant. The patient was taken to the postanesthesia care unit in stable condition. She had tolerated the procedure well. Intraoperative films and findings were reviewed with the patient's family.
[2020-05-08 14:17] LABS: Glucose,Whole Blood 197 mg/dL (75-99)
[2020-05-08] MEDS: HYDROmorphone 0.5 MG/0.5 ML SYRINGE IVP PRN ×2 (14:38→14:43)
[2020-05-08] MEDS: 0.9% NACL WITH KCL 20 MEQ/L 1,000 ML IV SCH ×2 (14:51→20:45)
[2020-05-08] MEDS ORDERED: IPRATROPIUM-ALBUTEROL 3 ML NEB ONE (17:11)
[2020-05-08] MEDS: ALBUTEROL NEBULIZED 2.5 MG/3 ML INHALATION SCH ×2 (17:12→19:52)
[2020-05-08] MEDS: ACETAMINOPHEN IV (For NPO) 1,000 MG in EMPTY BAG 1 BAG IVPB SCH ×2 (17:32→23:29)
[2020-05-08] MEDS: KETOROLAC 15 MG/ML 1 ML VIAL IVP SCH ×2 (17:33→23:11)
[2020-05-08] MEDS: DEXAMETHASONE SOD PHOSPHATE 4 MG/ML 1 ML VIAL IV SCH ×2 (17:33→23:11)
[2020-05-08] MEDS: SIMETHICONE 40 MG/0.6 ML DROPS 2,000 MG/30 ML BOTTLE PO SCH ×2 (17:33→23:12)
[2020-05-08] MEDS: HYOSCYAMINE ORAL DROPS 1.875 MG/15 ML BOTTLE PO SCH ×2 (17:34→23:12)
[2020-05-08] MEDS: GABAPENTIN 400 MG CAP PO SCH (19:17)
[2020-05-08] MEDS ORDERED: ceFAZolin 3 GM in SODIUM CHLORIDE 0.9% 100 ML IVPB SCH (20:00)
[2020-05-09] MEDS: LACTATED RINGERS 1,000 ML IV SCH (00:02)
[2020-05-09] MEDS: 0.9% NACL WITH KCL 20 MEQ/L 1,000 ML IV SCH (00:02)
[2020-05-09] MEDS: KETOROLAC 15 MG/ML 1 ML VIAL IVP SCH ×4 (05:18→23:08)
[2020-05-09] MEDS: HYOSCYAMINE ORAL DROPS 1.875 MG/15 ML BOTTLE PO SCH ×4 (05:19→23:09)
[2020-05-09] MEDS: ACETAMINOPHEN IV (For NPO) 1,000 MG in EMPTY BAG 1 BAG IVPB SCH ×4 (05:19→23:08)
[2020-05-09] MEDS: DEXAMETHASONE SOD PHOSPHATE 4 MG/ML 1 ML VIAL IV SCH ×4 (05:19→23:08)
[2020-05-09] MEDS: SIMETHICONE 40 MG/0.6 ML DROPS 2,000 MG/30 ML BOTTLE PO SCH ×4 (05:20→23:09)
[2020-05-09 07:18] LABS: Glucose,Whole Blood 228 mg/dL (75-99)
[2020-05-09] MEDS: allopurinoL 100 MG TAB PO SCH (08:00)
[2020-05-09] MEDS ORDERED: 1: MVI, ADULT NO.4 WITH VIT K 10 ML, THIAMINE 100 MG, FOLIC ACID 1 MG, POTASSIUM CHLORID IV SCH ×6 (08:00)
[2020-05-09] MEDS: MONTELUKAST 10 MG TAB PO SCH (08:00)
[2020-05-09] MEDS: amLODIPine 10 MG TAB PO SCH (08:00)
[2020-05-09] MEDS: ENOXAPARIN 40 MG/0.4 ML SYRINGE SQ SCH (08:00)
[2020-05-09] MEDS: GABAPENTIN 400 MG CAP PO SCH ×3 (08:01→21:55)
[2020-05-09] MEDS: PARoxetine 10 MG TAB PO SCH (08:01)
[2020-05-09] MEDS ORDERED: SODIUM CHLORIDE 0.9% 1,000 ML IV ONE ×2 (08:51)
[2020-05-09] MEDS: ALBUTEROL NEBULIZED 2.5 MG/3 ML INHALATION SCH ×4 (08:58→19:35)
[2020-05-09 09:27] LABS: Basophils # (A) 0.03 X 10*3/uL (0.00-0.10); Basophils % (A) 0.2 %; Eosinophils # (A) 0 X 10*3/uL (0.04-0.35); Eosinophils % (A) 0 %; HCT 40.9 % (37.2-46.3); HGB 12.9 g/dL (12.0-15.0); Lymphocytes % (A) 10.1 %; MCH 26.8 pg (27.0-32.0); MCHC 31.5 g/dL (32.0-37.0); MCV 84.9 fL (80.0-97.0); Mean Platelet Volume 10.4 fL (9.5-12.2); Monocytes % (A) 2.3 %; Neutrophils # (A) 11.13 X 10*3/uL (1.80-7.70); Neutrophils % (A) 86.4 %; Platelet Count 301 X 10*3/uL (140-440); RBC 4.82 X 10*6/uL (4.10-5.20); RDW 19.2 % (11.5-14.5); WBC 12.89 X 10*3/uL (4.50-10.00)
[2020-05-09 09:47] LABS: African American GFR (CKD) 49.2 (60.0-200.0); Anion Gap 21.8 mmol/L (4.00-12.00); Calcium 8.6 mg/dL (8.7-10.3); Carbon Dioxide 14.2 mmol/L (21.6-31.8); Non-African American GFR(CKD) 42.5 (60.0-200.0); Phosphorus 4.2 mg/dL (2.4-5.1); Potassium 5.3 mmol/L (3.5-5.5)
[2020-05-09 11:17] VITALS: BMI 51.1
[2020-05-09] MEDS: INSULIN ASPART (NovoLOG) 100 UNIT/ML VIAL SQ SCH ×3 (11:46→21:55)
[2020-05-09 11:48] LABS: Glucose,Whole Blood 225 mg/dL (75-99)
--- NOTE | 2020-05-09 12:09 | FL ---
EXAMINATION TYPE: FL UGI DATE OF EXAM: 05/09/2020 COMPARISON: None HISTORY: Postop gastric sleeve TECHNIQUE: A single contrast UGI study is performed. FINDINGS: Fluoroscopy time: 26 seconds Images: 26 Contrast passes from the distal esophagus through the gastric sleeve with mild hesitancy. No extravas ation of contrast is evident. No free air is noted during this examination. Overhead radiographs were obtained which are unremarkable. IMPRESSIONS: 1. Normal post gastric sleeve without obstruction or hesitancy. No extravasation.
--- NOTE | 2020-05-09 13:59 | P.PN ---
Subjective Progress Note Date: 05/09/20 CHIEF COMPLAINT: Morbid obesity HISTORY OF PRESENT ILLNESS: Patient is postop day #1 status post Robotic assisted daVinci Xi laparoscopic sleeve gastrectomy and Intraoperative esophagogastroduodenoscopy. Her upper GI shows normal post gastric sleeve without obstruction or hesitancy. No extravasation. Patient received reports being able to swallow her bariatric clear liquids without difficulty. She denies any nausea or vomiting. She reports that her pain is controlled. She has been up and ambulating. Denies any flatus or BM. Afebrile. Heart rate 111 blood pressure 170/75 WBC 12.89 slightly elevated possibly due to steroids. Hgb 12.9 sodium 139 potassium 5.3 creatinine 1.4 magnesium 2.0 glucose 225 PHYSICAL EXAM: VITAL SIGNS: Reviewed GENERAL: Well-developed in no acute distress. HEENT: No sclera icterus. Extraocular movements grossly intact. Moist buccal mucosa. Head is atraumatic, normocephalic. Hears conversational speech. No nasal drainage. NECK: Supple without lymphadenopathy. CHEST: Non-labored respirations and equal bilateral excursions. CARDIOVASCULAR: Palpable 2+ radial pulses. ABDOMEN: Soft. Nondistended. Nontender. MUSCULOSKELETAL: No clubbing or cyanosis. NEUROLOGIC: No focal or lateralizing signs. Cranial nerves II through XII grossly intact. PSYCH: Appropriate affect. Alert and oriented to person, place and time. SKIN: Well perfused. Good skin turgor. ASSESSMENT: 1. Morbid obesity due to excess calories 2. Body mass index of 57.7, initial 3. Gastroesophageal reflux disease 4. Obstructive sleep apnea 5. Hyperlipidemia 6. Diabetes type 2, insulin dependent 7. Osteoarthritis of the knees 8. Osteoarthritis of the back 9. Neuropathy 10. Depressive disorder 11. History of MRSA infection 12. 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 Iron deficiency anemia 15. Vitamin D deficiency 16. Zinc deficiency. PLAN: -Patient received a 2 L fluid bolus this morning -Continue bariatric clear liquid diet -Continue pain medications -Add Humalog sliding scale coverage for elevated blood sugars -Check hemoglobin A1c -We'll remove potassium from fluids due to K level of 5.3 -Continue hypertensive medications -Encourage incentive spirometer use and to ambulate Physician Cafeteria Cook note has been reviewed by physician. Signing provider agrees with the documented findings, assessment, and plan of care. Objective - Vital Signs Vital signs: Vital Signs Temp 98 F 05/09/20 13:47 Pulse 111 H 05/09/20 13:47 Resp 19 05/09/20 13:47 BP 170/75 05/09/20 13:47 Pulse Ox 96 05/09/20 13:47 Intake & Output 05/08/20 05/09/20 05/09/20 18:59 06:59 18:59 Intake Total 2100 Output Total 5 Balance 2094 Weight 143.8 kg 143.8 kg Intake: IV 2100 Output: Estimated Blood Loss 5 Other: Voiding Method Toilet # Voids 2 - Labs CBC & Chem 7: 05/09/20 06:27 05/09/20 06:27 Labs: Abnormal Lab Results - Last 24 Hours (Table) 05/08/20 05/09/20 05/09/20 Range/Units 14:16 06:27 06:27 WBC 12.89 H (4.50-10.00) X 10*3/uL MCH 26.8 L (27.0-32.0) pg MCHC 31.5 L (32.0-37.0) g/dL RDW 19.2 H (11.5-14.5) % Immature Gran # 0.13 H (0.00-0.04) X 10*3/uL Neutrophils # 11.13 H (1.80-7.70) X 10*3/uL Eosinophils # 0 L (0.04-0.35) X 10*3/uL Carbon Dioxide 14.2 L (21.6-31.8) mmol/L Anion Gap 21.80 H (4.00-12.00) mmol/L Est GFR (CKD-EPI)AfAm 49.2 L (60.0-200.0) Est GFR (CKD-EPI)NonAf 42.5 L (60.0-200.0) POC Glucose (mg/dL) 197 H (75-99) mg/dL Calcium 8.6 L (8.7-10.3) mg/dL 05/09/20 05/09/20 Range/Units 07:17 11:45 WBC (4.50-10.00) X 10*3/uL MCH (27.0-32.0) pg MCHC (32.0-37.0) g/dL RDW (11.5-14.5) % Immature Gran # (0.00-0.04) X 10*3/uL Neutrophils # (1.80-7.70) X 10*3/uL Eosinophils # (0.04-0.35) X 10*3/uL Carbon Dioxide (21.6-31.8) mmol/L Anion Gap (4.00-12.00) mmol/L Est GFR (CKD-EPI)AfAm (60.0-200.0) Est GFR (CKD-EPI)NonAf (60.0-200.0) POC Glucose (mg/dL) 228 H 225 H (75-99) mg/dL Calcium (8.7-10.3) mg/dL
[2020-05-09 15:09] LABS: Hemoglobin A1C 9.8 % (4.0-6.0)
[2020-05-09] MEDS: 1: MVI, ADULT NO.4 WITH VIT K 10 ML, THIAMINE 100 MG, FOLIC ACID 1 MG in SODIUM CHLORIDE IV SCH ×4 (16:38)
[2020-05-09 17:05] LABS: Glucose,Whole Blood 235 mg/dL (75-99)
[2020-05-09 21:26] LABS: Glucose,Whole Blood 201 mg/dL (75-99)
[2020-05-10] MEDS: KETOROLAC 15 MG/ML 1 ML VIAL IVP SCH ×2 (05:30→11:58)
[2020-05-10] MEDS: ACETAMINOPHEN IV (For NPO) 1,000 MG in EMPTY BAG 1 BAG IVPB SCH ×2 (05:30→11:58)
[2020-05-10] MEDS: DEXAMETHASONE SOD PHOSPHATE 4 MG/ML 1 ML VIAL IV SCH ×2 (05:30→12:00)
[2020-05-10] MEDS: SIMETHICONE 40 MG/0.6 ML DROPS 2,000 MG/30 ML BOTTLE PO SCH ×2 (05:31→11:59)
[2020-05-10] MEDS: 1: MVI, ADULT NO.4 WITH VIT K 10 ML, THIAMINE 100 MG, FOLIC ACID 1 MG in SODIUM CHLORIDE IV SCH ×4 (05:31)
[2020-05-10] MEDS: HYOSCYAMINE ORAL DROPS 1.875 MG/15 ML BOTTLE PO SCH ×2 (05:31→12:00)
[2020-05-10] MEDS ORDERED: INSULIN DETEMIR (LEVEMIR) 100 UNIT/ML SYR SQ SCH (07:00)
[2020-05-10 07:26] LABS: Glucose,Whole Blood 182 mg/dL (75-99)
[2020-05-10] MEDS: PARoxetine 10 MG TAB PO SCH (07:38)
[2020-05-10] MEDS: MONTELUKAST 10 MG TAB PO SCH (07:38)
[2020-05-10] MEDS: amLODIPine 10 MG TAB PO SCH (07:38)
[2020-05-10] MEDS: INSULIN ASPART (NovoLOG) 100 UNIT/ML VIAL SQ SCH ×2 (07:38→11:59)
[2020-05-10] MEDS: GABAPENTIN 400 MG CAP PO SCH ×2 (07:38→11:58)
[2020-05-10] MEDS: allopurinoL 100 MG TAB PO SCH (07:38)
[2020-05-10] MEDS: ENOXAPARIN 40 MG/0.4 ML SYRINGE SQ SCH (07:38)
[2020-05-10] MEDS: ALBUTEROL NEBULIZED 2.5 MG/3 ML INHALATION SCH ×3 (07:57→15:26)
[2020-05-10] MEDS ORDERED: bisacodyL 5 MG TABLET.DR PO PRN (08:00)
[2020-05-10 09:37] VITALS: TEMP 98.2
[2020-05-10 10:34] LABS: Basophils # (A) 0.03 X 10*3/uL (0.00-0.10); Basophils % (A) 0.2 %; Eosinophils # (A) 0 X 10*3/uL (0.04-0.35); Eosinophils % (A) 0 %; HCT 41.5 % (37.2-46.3); HGB 13.1 g/dL (12.0-15.0); Lymphocytes # (A) 1.48 X 10*3/uL (0.90-5.00); Lymphocytes % (A) 12.2 %; MCH 26.4 pg (27.0-32.0); MCHC 31.6 g/dL (32.0-37.0); MCV 83.7 fL (80.0-97.0); Monocytes # (A) 0.37 X 10*3/uL (0.20-1.00); Monocytes % (A) 3.1 %; Neutrophils # (A) 10.15 X 10*3/uL (1.80-7.70); Neutrophils % (A) 83.8 %; Platelet Count 310 X 10*3/uL (140-440); RBC 4.96 X 10*6/uL (4.10-5.20); RDW 19.9 % (11.5-14.5); WBC 12.11 X 10*3/uL (4.50-10.00)
[2020-05-10 10:49] LABS: African American GFR (CKD) 59.3 (60.0-200.0); Anion Gap 16.1 mmol/L (4.00-12.00); BUN/Creat Ratio 17.5 Ratio (12.00-20.00); Calcium 8.8 mg/dL (8.7-10.3); Carbon Dioxide 16.9 mmol/L (21.6-31.8); Non-African American GFR(CKD) 51.2 (60.0-200.0); Potassium 4.7 mmol/L (3.5-5.5)
[2020-05-10 11:25] LABS: Glucose,Whole Blood 209 mg/dL (75-99)
--- NOTE | 2020-05-10 15:12 | P.DS ---
Providers Date of admission: 05/08/20 09:12 Expected date of discharge: 05/10/20 Attending physician: Octavia Hein Primary care physician: Jesi Huizar Hospital Course: Discharge diagnosis 1. Morbid obesity due to excess calories 2. Body mass index of 57.7, initial 3. Gastroesophageal reflux disease 4. Obstructive sleep apnea 5. Hyperlipidemia 6. Diabetes type 2, insulin dependent 7. Osteoarthritis of the knees 8. Osteoarthritis of the back 9. Neuropathy 10. Depressive disorder 11. History of MRSA infection 12. 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 Iron deficiency anemia 15. Vitamin D deficiency 16. Zinc deficiency. Hospital course June Abhijeet is a 54-year-old female who comes with lifelong morbid obesity. She has comorbidities including obstructive sleep apnea, insulin-dependent diabetes type 2, osteoarthritis of the knees and back. Patient is status post Robotic assisted daVinci Xi laparoscopic sleeve gastrectomy and Intraoperative esophagogastroduodenoscopy. Her upper GI shows normal post gastric sleeve without obstruction or hesitancy. No extravasation. Patient is tolerating her bariatric clear liquid diet. She is up and ambulating. She is passing gas. Her pain is controlled. She is afebrile. Patient is stable for discharge. Physician [employer] note has been reviewed by physician. Signing provider agrees with the documented findings, assessment, and plan of care. Patient Condition at Discharge: Stable Plan - Discharge Summary Discharge Rx Participant: Yes New Discharge Prescriptions: Continue Pantoprazole Sodium [Protonix] 40 mg PO DAILY amLODIPine [Norvasc] 10 mg PO DAILY Montelukast [Singulair] 10 mg PO DAILY Gabapentin [Neurontin] 800 mg PO BID metFORMIN HCL [metFORMIN HCL ER] 1,000 mg PO AC-BID PARoxetine HCL 30 mg PO DAILY Mirabegron [Myrbetriq] 50 mg PO DAILY Allopurinol [Zyloprim] 100 mg PO DAILY Gabapentin [Neurontin] 400 mg PO 1200 Insulin Glargine,Hum.rec.anlog [Lantus Solostar] 50 unit SQ QAM Loratadine 10 mg PO DAILY Discontinued Aspirin 81 mg PO DAILY #1 chewable Atorvastatin [Lipitor] 20 mg PO DAILY Canagliflozin [Invokana] 300 mg PO DAILY Ibuprofen [Motrin] 800 mg PO DIRECTED PRN PRN Reason: Pain Ergocalciferol [Vitamin D2 (1250 Mcg = 85561 Iu)] 1,250 mcg PO WE Ferrous Sulfate [Iron (65 MG Elemental)] 325 mg PO QAM Nystatin 100,000 Unit/gm Oint [Mycostatin Oint] 1 applic TOPICAL BID Zinc 22 mg PO TID Discharge Medication List Gabapentin [Neurontin] 800 mg PO BID 04/22/17 [History] Montelukast [Singulair] 10 mg PO DAILY 04/22/17 [History] Pantoprazole Sodium [Protonix] 40 mg PO DAILY 04/22/17 [History] amLODIPine [Norvasc] 10 mg PO DAILY 04/22/17 [History] Mirabegron [Myrbetriq] 50 mg PO DAILY 11/10/19 [History] PARoxetine HCL 30 mg PO DAILY 11/10/19 [History] metFORMIN HCL [metFORMIN HCL ER] 1,000 mg PO AC-BID 11/10/19 [History] Allopurinol [Zyloprim] 100 mg PO DAILY 03/28/20 [History] Gabapentin [Neurontin] 400 mg PO 1200 03/28/20 [History] Insulin Glargine,Hum.rec.anlog [Lantus Solostar] 50 unit SQ QAM 03/28/20 [History] Loratadine 10 mg PO DAILY 03/28/20 [History] [facility] [place] [facility] [place] [facility]12[facility]20 9:00 am Patient Instructions/Handouts: Nutrition after Bariatric Surgery (GEN), Laparoscopic Sleeve Gastrectomy (GEN) Activity/Diet/Wound Care/Special Instructions: Liquid diet only for 2 weeks until May 22 No lifting over 4 pounds in 4 weeks, June 05July Shower. No soaking in bath tubs, May 22 Please notify your surgeon if you develop nausea and vomiting including new onset of abdominal pain. Continue to use incentive spirometry to prevent pneumonias. Please continue to ambulate at home to prevent blood clots in legs. You have new prescriptions at your local pharmacy. Follow-up at the bariatric center. May shower. Dressings to be discontinued by surgeon in the office. Drink 64 oz of fluid daily. Start protein shakes on . Notify bariatric center for temp over 101.0, increased pain, drainage from incisions. No straws or carbonated beverages. Liquid diet only. Sugar content should be less than 6 g to avoid dumping syndrome. Take MOM for constipation. CRUSH, OPEN, OR CUT TABLETS LARGER THAN A SIZE OF A TIC TAC Discharge Disposition: HOME SELF-CARE
[2020-05-10 15:13] VITALS: BP 140/74; PULSE 81; RESP 18
== END 2020-05-10 16:42 | disposition home or self-care (01) | DRG 621 ==
LOC: 2ORMAIN 09:12 → 4SSUR 14:37
PROVIDERS: ADMIT Surgery Plastic and Reconstructive Surgery; ATTEND Surgery Plastic and Reconstructive Surgery
PROC: 8E0W4CZ Robotic Assisted Procedure of Trunk Region, Percutaneous Endoscopic Approach (ICD-10-PCS; 2020-05-08)
PROC: 0DJ08ZZ Inspection of Upper Intestinal Tract, Via Natural or Artificial Opening Endoscopic (ICD-10-PCS; 2020-05-08)
PROC: 0DB64Z3 Excision of Stomach, Percutaneous Endoscopic Approach, Vertical (ICD-10-PCS; principal; 2020-05-08 10:40)
DX: E66.01 Morbid (severe) obesity due to excess calories (principal); E11.319 Type 2 diabetes mellitus with unspecified diabetic retinopathy without macular edema; E11.42 Type 2 diabetes mellitus with diabetic polyneuropathy; Z68.43 Body mass index [BMI] 50.0-59.9, adult; K21.9 Gastro-esophageal reflux disease without esophagitis; Z79.4 Long term (current) use of insulin; G47.33 Obstructive sleep apnea (adult) (pediatric); E78.5 Hyperlipidemia, unspecified; M17.0 Bilateral primary osteoarthritis of knee; M47.9 Spondylosis, unspecified; F32.9 Major depressive disorder, single episode, unspecified; D50.9 Iron deficiency anemia, unspecified; E55.9 Vitamin D deficiency, unspecified; E60 Dietary zinc deficiency; I10 Essential (primary) hypertension; M10.9 Gout, unspecified; H54.8 Legal blindness, as defined in USA; M51.36 Other intervertebral disc degeneration, lumbar region; F40.240 Claustrophobia; B37.9 Candidiasis, unspecified; Z79.899 Other long term (current) drug therapy; Z79.82 Long term (current) use of aspirin; Z87.891 Personal history of nicotine dependence; Z86.14 Personal history of Methicillin resistant Staphylococcus aureus infection; Z90.710 Acquired absence of both cervix and uterus; Z90.49 Acquired absence of other specified parts of digestive tract; Z98.42 Cataract extraction status, left eye; Z98.41 Cataract extraction status, right eye; Z96.1 Presence of intraocular lens; Z98.890 Other specified postprocedural states; Z88.2 Allergy status to sulfonamides; Z83.49 Family history of other endocrine, nutritional and metabolic diseases; Z82.49 Family history of ischemic heart disease and other diseases of the circulatory system; Z80.49 Family history of malignant neoplasm of other genital organs
CPT/HCPCS: 36415; 74240; 80048; 80051; 82310; 82565; 83036; 83735; 84100; 84132; 84520; 85025; 86850; 86900; 86901; 88307; 94640; 94760; 94762; 96365

== ENCOUNTER → 2020-05-12 | Outpatient (CLI) | payer MEDICARE, OTHER ==
--- NOTE | 2020-05-12 09:29 | P.PN ---
Subjective Progress Note Date: 05/12/20 DATE OF SERVICE: 05/12/2020 CHIEF COMPLAINT: Status post sleeve gastrectomy HISTORY OF PRESENT ILLNESS: Anjali Jha is a 54-year-old female status post sleeve gastrectomy, 05/08/2020. She is doing well. She is postop day 4. She is passing flatus. No bowel movement. She has pre-existing constipation. She is taking omeprazole. Her blood sugars under 120 with no additional insulin. She is on metformin. Andrez instructions are for pounds 4 weeks described. Additionally discontinuing antihyperglycemic medication should blood sugar dropped under 100. Adequate protein intake 75 g daily and described including adequate IV fluid hydration at least 64 ounces reviewed. Follow-up in 2 weeks. At height of 5 feet 5 inches, her ideal body weight is 149 pounds. She comes in 319 pounds from 336 pounds, 2 months ago. She has lost 17 pounds in 2 months. Her body mass index is down from 57.7 to 56.1. Her lifetime weight loss is 27 pounds. Percent excess lifetime weight loss is 14%. She is 170 pounds overweight. PHYSICAL EXAM: VITAL SIGNS: Height 5 foot 5 inches, weight 319 pounds. BMI 53.3 Vital Signs Temp 98.0 F 05/12/20 09:04 Pulse 80 05/12/20 09:04 Resp BP 145/78 05/12/20 09:04 Pulse Ox GENERAL: Well-developed in no acute distress. HEENT: No scleral icterus. Extraocular movements grossly intact. Hears conversational speech. No nasal drainage. NECK: Supple without lymphadenopathy. CHEST: Nonlabored respirations with equal bilateral excursions. CARDIOVASCULAR: Regular rate and regular rhythm. Distal 2+ pulses. ABDOMEN: Obese, soft, nontender, nondistended. Severe panniculitis MUSCULOSKELETAL: No clubbing, cyanosis. NEURO: No focal or lateralizing signs. Cranial nerves 2 through 12 grossly within normal limits. PSYCH: Appropriate affect. Alert and oriented to person, place and time. SKIN: Good skin turgor. Well perfused. ASSESSMENT: 1. Morbid obesity due to excess calories 2. Body mass index of 57.7, initial to 53.3 3. Gastroesophageal reflux disease 4. Obstructive sleep apnea 5. Hyperlipidemia 6. Diabetes type 2, insulin dependent 7. Osteoarthritis of the knees 8. Osteoarthritis of the back 9. Neuropathy 10. Depressive disorder 11. History of MRSA infection 12. 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 Iron deficiency anemia 15. Vitamin D deficiency 16. Zinc deficiency. 17. Status post sleeve gastrectomy PLAN: 1. Discharge instructions included no lifting over 4 pounds in 4 weeks d escribed. 2. Recommend discontinue antihyperglycemic medication should her blood sugar drop under 100. 3. Will need adequate protein intake 75 g daily. 4. Recommend IV fluid hydration at least 64 ounces reviewed. 5. Follow-up in 2 weeks. Objective - Vital Signs Vital signs: Intake & Output 05/11/20 05/12/20 05/12/20 18:59 06:59 18:59 Weight 145.15 kg
== END | disposition home or self-care (01) ==
CPT/HCPCS: 99211

== ENCOUNTER 2020-05-14 21:54 | Emergency (ER) | payer MEDICARE, OTHER ==
[2020-05-14 21:57] VITALS: TEMP 97.6
[2020-05-14] MEDS ORDERED: SODIUM CHLORIDE 0.9% 500 ML 500 ML IV STA (22:38)
[2020-05-14] MEDS ORDERED: MORPHINE SULFATE 4 MG/ML SYRINGE IV STA (22:38)
[2020-05-14] MEDS ORDERED: ONDANSETRON 4 MG/2 ML VIAL IVP STA (22:38)
[2020-05-14] MEDS ORDERED: METOCLOPRAMIDE 5 MG/ML 2 ML VIAL IVP STA (22:38)
[2020-05-14] MEDS ORDERED: SODIUM CHLORIDE 0.9% 1,000 ML IV STA ×2 (22:38)
[2020-05-14] MEDS ORDERED: PANTOPRAZOLE 40 MG/10 ML VIAL IVP STA (22:38)
[2020-05-14 23:25] LABS: Anisocytosis Slight; Basophils % (A) 0 %; Eosinophils # (A) 0.5 k/uL (0-0.7); Eosinophils % (A) 4 %; HCT 41.6 % (34.0-46.0); HGB 13.7 gm/dL (11.4-16.0); Lymphocytes # (A) 2.8 k/uL (1.0-4.8); Lymphocytes % (A) 23 %; MCH 27.1 pg (25.0-35.0); MCHC 32.9 g/dL (31.0-37.0); MCV 82.5 fL (80.0-100.0); Mean Platelet Volume 8.4; Microcytosis Slight; Monocytes # (A) 0.6 k/uL (0-1.0); Monocytes % (A) 5 %; Neutrophils # (A) 8.2 k/uL (1.3-7.7); Neutrophils % (A) 66 %; Platelet Count 256 k/uL (150-450); RBC 5.04 m/uL (3.80-5.40); RDW 18.6 % (11.5-15.5); WBC 12.4 k/uL (3.8-10.6)
[2020-05-14 23:38] LABS: Albumin 3.9 g/dL (3.5-5.0); Calcium 9.1 mg/dL (8.4-10.2); Potassium 4.2 mmol/L (3.5-5.1); Total Bilirubin 0.5 mg/dL (0.2-1.3); Total Protein 6.7 g/dL (6.3-8.2)
--- NOTE | 2020-05-14 23:39 | ED ---
Dizziness HPI - General Chief Complaint: Dizziness Stated Complaint: Dizziness Time Seen by Provider: 05/14/20 22:29 Source: patient, RN notes reviewed, old records reviewed Mode of arrival: ambulatory Limitations: no limitations - History of Present Illness Initial Comments: This is a 54-year-old female DF for evaluation of dizziness dizziness lighthea dedness especially change of position. Patient feels very weak when she goes from positions of sitting or lying down to standing. Patient also has complicated recent medical history of surgery, patient had a gastric bypass by Dr. Pinzon a week ago. Otherwise no travel show sick contacts no fevers. Patient has no postop complications at this point MD Complaint: dizziness, lightheadedness, difficulty walking -: hour(s) Timing: gradual onset Description: "room spinning", lightheadedness History of Same: Yes History of Trauma: No Severity: moderate Improves With: nothing Worsens With: position, exertion Associated Symptoms: weakness - Related Data Home Medications Medication Instructions Recorded Confirmed Gabapentin [Neurontin] 800 mg PO BID 04/22/17 05/12/20 Montelukast [Singulair] 10 mg PO DAILY 04/22/17 05/12/20 Pantoprazole Sodium [Protonix] 40 mg PO DAILY 04/22/17 05/12/20 amLODIPine [Norvasc] 10 mg PO DAILY 04/22/17 05/12/20 Mirabegron [Myrbetriq] 50 mg PO DAILY 11/10/19 05/12/20 PARoxetine HCL 30 mg PO DAILY 11/10/19 05/12/20 metFORMIN HCL [metFORMIN HCL ER] 1,000 mg PO AC-BID 11/10/19 05/12/20 Allopurinol [Zyloprim] 100 mg PO DAILY 03/28/20 05/12/20 Gabapentin [Neurontin] 400 mg PO 1200 03/28/20 05/12/20 Insulin Glargine,Hum.rec.anlog 50 unit SQ QAM 03/28/20 05/12/20 [Lantus Solostar] Loratadine 10 mg PO DAILY 03/28/20 05/12/20 Previous Rx's Medication Instructions Recorded Acetaminophen Oral Susp [Tylenol] 1,000 mg PO Q4-6H #400 ml 05/10/20 Omeprazole [PriLOSEC] 40 mg PO DAILY #30 capsule. 05/10/20 Ondansetron Odt [Zofran Odt] 4 mg PO Q8HR PRN #9 tab 05/10/20 Simethicone 40 mg/0.6 ml Drops 40 mg PO PCHS PRN #30 ml 05/10/20 [Mylicon Drops] bisacodyL [Dulcolax] 5 mg PO DAILY PRN #10 tablet. 05/10/20 Allergies Allergy/AdvReac Type Severity Reaction Status Date / Time Sulfa (Sulfonamide Allergy Anaphylaxis Verified 05/14/20 21:57 Antibiotics) Review of Systems ROS Statement: Those systems with pertinent positive or pertinent negative responses have been documented in the HPI. ROS Other: All systems not noted in ROS Statement are negative. Past Medical History Past Medical History: Diabetes Mellitus, Eye Disorder, Hyperlipidemia, Hypertension Additional Past Medical History / Comment(s): 05/04/14 Pt presented to [facility] ER with substernal chest pain that started 24 hhours before coming to ER. She noticed the chest pain when she woke up yesterday. It is a heaviness and is intermittent with variable duration. She also states she had alittle nausea with it. Other HX: Pt had recent (03/30/14)cataract surgery with lens implants bilaterally at [facility]-post op she had low O2 saturations and was told she had a very narrow airway-instead of going home same day, she was in the hospital for a couple days until her saturations improved. She was discharged with home O2 which she wears at 2L/NC at nite and was to follow up today for testing for sleep apnea. Pt states she also has diarrhea fairly frequently. 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 2018 - intermittently in hospital for 3 months for fluid on lungs, had fluid removed History of Any Multi-Drug Resistant Organisms: MRSA Date of last positivie culture/infection: 2010 MDRO Source:: legs and breasts. Past Surgical History: Bariatric Surgery, Cholecystectomy, Hysterectomy, Orthopedic Surgery Additional Past Surgical History / Comment(s): Bilateral cataract sx with lens implants, bilateral retinal repair. Cervical rodding for 3 ruptured discs. sleeve gastrectomy 05-08-20 Past Anesthesia/Blood Transfusion Reactions: Postoperative Nausea & Vomiting (PONV) Additional Past Anesthesia/Blood Transfusion Reaction / Comment(s): Pt had cataract and lens implant at [facility] on 03/30/14 and afterwards she de saturated and was hospitalized. She was told she has a very narrow airway. Pt has never recieved blood. Past Psychological History: No Psychological Hx Reported Smoking Status: Former smoker Past Alcohol Use History: None Reported Past Drug Use History: None Reported - Past Family History Father Family Medical History: Cancer, Myocardial Infarction (LA) Additional Family Medical History / Comment(s): Father had 5 LA's and of bone cancer. Mother Family Medical History: Cancer Additional Family Medical History / Comment(s): cervical cancer General Exam Limitations: no limitations General appearance: alert, in no apparent distress Head exam: Present: atraumatic, normocephalic, normal inspection Eye exam: Present: normal appearance, PERRL, EOMI. Absent: scleral icterus, conjunctival injection, periorbital swelling ENT exam: Present: normal exam, mucous membranes moist Neck exam: Present: normal inspection. Absent: tenderness, meningismus, lymphadenopathy Respiratory exam: Present: normal lung sounds bilaterally. Absent: respiratory distress, wheezes, rales, rhonchi, stridor Cardiovascular Exam: Present: regular rate, normal rhythm, normal heart sounds. Absent: systolic murmur, diastolic murmur, rubs, gallop, clicks GI/Abdominal exam: Present: soft, normal bowel sounds. Absent: distended, tenderness, guarding, rebound, rigid Extremities exam: Present: normal inspection, full ROM, normal capillary refill. Absent: tenderness, pedal edema, joint swelling, calf tenderness Back exam: Present: normal inspection Neurological exam: Present: alert, oriented X3, CN II-XII intact Psychiatric exam: Present: normal affect, normal mood Skin exam: Present: warm, dry, intact, normal color. Absent: rash Course Vital Signs 05/14/20 21:55 Temperature 97.6 F Pulse Rate 88 Respiratory 18 Rate Blood Pressure 134/68 O2 Sat by Pulse 99 Oximetry - Reevaluation(s) Reevaluation #1: 05/15/20 00:46 Medical record is reviewed Reevaluation #2: 05/15/20 00:46 Patient symptoms are improved Reevaluation #3: 05/15/20 00:46 Patient feels okay for discharge home, informed of results - Consultations Consultation #1: spoke w DR Campbell for Dr Hein a patient to get hydration and discharged EKG Findings - EKG Comments: EKG Findings:: EKG shows sinus rhythm 77 NE 192 QRS 86 QTc 434 Medical Decision Making - Medical Decision Making 54 female with dizziness. Patient has had dizziness for quite some time presents today with dizziness at this point patient has no significant complaints or findings feeling improved and can be discharged home - Lab Data Result diagrams: 05/14/20 22:51 05/14/20 22:51 Lab Results 05/14/20 05/14/20 05/14/20 Range/Units 22:51 22:51 22:51 WBC 12.4 H (3.8-10.6) k/uL RBC 5.04 (3.80-5.40) m/uL Hgb 13.7 (11.4-16.0) gm/dL Hct 41.6 (34.0-46.0) % MCV 82.5 (80.0-100.0) fL MCH 27.1 (25.0-35.0) pg MCHC 32.9 (31.0-37.0) g/dL RDW 18.6 H (11.5-15.5) % Plt Count 256 (150-450) k/uL MPV 8.4 Neutrophils % 66 % Lymphocytes % 23 % Monocytes % 5 % Eosinophils % 4 % Basophils % 0 % Neutrophils # 8.2 H (1.3-7.7) k/uL Lymphocytes # 2.8 (1.0-4.8) k/uL Monocytes # 0.6 (0-1.0) k/uL Eosinophils # 0.5 (0-0.7) k/uL Basophils # 0.0 (0-0.2) k/uL Anisocytosis Slight Microcytosis Slight Sodium 136 L (137-145) mmol/L Potassium 4.2 (3.5-5.1) mmol/L Chloride 102 (98-107) mmol/L Carbon Dioxide 15 L (22-30) mmol/L Anion Gap 19 mmol/L BUN 20 H (7-17) mg/dL Creatinine 0.86 (0.52-1.04) mg/dL Est GFR (CKD-EPI)AfAm 89 (>60 ml/min/1.73 sqM) Est GFR (CKD-EPI)NonAf 77 (>60 ml/min/1.73 sqM) Glucose 238 H (74-99) mg/dL Plasma Lactic Acid Alejandro 1.2 (0.7-2.0) mmol/L Calcium 9.1 (8.4-10.2) mg/dL Total Bilirubin 0.5 (0.2-1.3) mg/dL AST 24 (14-36) U/L ALT 16 (4-34) U/L Alkaline Phosphatase 96 (38-126) U/L Creatine Kinase 54 (30-135) U/L Total Protein 6.7 (6.3-8.2) g/dL Albumin 3.9 (3.5-5.0) g/dL Amylase 40 (30-110) U/L Lipase 210 (23-300) U/L - Radiology Data Radiology results: report reviewed (X-ray KUB is negative for acute disease), image reviewed Disposition Clinical Impression: Dehydration, Dizziness Disposition: HOME SELF-CARE Condition: Good Instructions (If sedation given, give patient instructions): Dizziness (ED) Is patient prescribed a controlled substance at d/c from ED?: No Referrals: Deshawn Lyon MD [Primary Care Provider] - 1-2 days
--- NOTE | 2020-05-14 23:41 | XR ---
EXAMINATION TYPE: XR KUB DATE OF EXAM: 05/14/2020 COMPARISON: NONE HISTORY: Abnormal pain. Gastric surgery. TECHNIQUE: 2 views supine FINDINGS: There is no sign of intestinal obstruction or pneumoperitoneum. Fecal pattern is normal. Th ere is no evidence of a mass. There is some gas-filled small bowel in the mid abdomen. This could be minimal ileus. There are clips from cholecystectomy. IMPRESSION: Possible minimal jejunal ileus. No free air.
[2020-05-15 01:39] VITALS: BP 115/68; PULSE 79; RESP 16
== END 2020-05-15 01:39 | disposition home or self-care (01) ==
LOC: EC 21:54
DX: E86.0 Dehydration (principal); E11.9 Type 2 diabetes mellitus without complications; E78.5 Hyperlipidemia, unspecified; I10 Essential (primary) hypertension; Z79.4 Long term (current) use of insulin; Z79.899 Other long term (current) drug therapy; Z88.2 Allergy status to sulfonamides; Z90.49 Acquired absence of other specified parts of digestive tract; Z98.84 Bariatric surgery status; Z98.42 Cataract extraction status, left eye; Z98.41 Cataract extraction status, right eye; Z96.1 Presence of intraocular lens; Z90.710 Acquired absence of both cervix and uterus; Z86.14 Personal history of Methicillin resistant Staphylococcus aureus infection; Z87.891 Personal history of nicotine dependence; Z80.49 Family history of malignant neoplasm of other genital organs; Z82.49 Family history of ischemic heart disease and other diseases of the circulatory system; Z80.8 Family history of malignant neoplasm of other organs or systems
CPT/HCPCS: 93005; 80053; 82150; 82550; 83605; 83690; 85025; 74018; J2270; J2765; J2405; C9113; 36415; 96361; 96374; 96375; 99285

== ENCOUNTER 2020-05-15 14:37 | Inpatient (IN) | payer MEDICARE, OTHER ==
[2020-05-15] MEDS ORDERED: SODIUM CHLORIDE 0.9% 1,000 ML IV STA (15:43)
--- NOTE | 2020-05-15 15:59 | ED ---
General Adult HPI - General Chief complaint: Dizziness Stated complaint: dizziness Time Seen by Provider: 05/15/20 15:31 Source: patient, RN notes reviewed, old records reviewed Mode of arrival: wheelchair Limitations: no limitations - History of Present Illness Initial comments: 54-year-old female presenting for evaluation of lightheadedness, dizziness. Symptoms 7 present for the past several days. She was seen in the emergency department yesterday and had been discharged home feeling somewhat better. She states she has been drinking but had recent bariatric surgery and her intake has been limited. She denies worsening abdominal pain. She denies fever. She has had no dysuria. She reports good urine output and has not had any bowel moveme nts, no diarrhea. No chest pain or dyspnea. No focal numbness or weakness. - Related Data Home Medications Medication Instructions Recorded Confirmed Gabapentin [Neurontin] 800 mg PO BID 04/22/17 05/12/20 Montelukast [Singulair] 10 mg PO DAILY 04/22/17 05/12/20 Pantoprazole Sodium [Protonix] 40 mg PO DAILY 04/22/17 05/12/20 amLODIPine [Norvasc] 10 mg PO DAILY 04/22/17 05/12/20 Mirabegron [Myrbetriq] 50 mg PO DAILY 11/10/19 05/12/20 PARoxetine HCL 30 mg PO DAILY 11/10/19 05/12/20 metFORMIN HCL [metFORMIN HCL ER] 1,000 mg PO AC-BID 11/10/19 05/12/20 Allopurinol [Zyloprim] 100 mg PO DAILY 03/28/20 05/12/20 Gabapentin [Neurontin] 400 mg PO 1200 03/28/20 05/12/20 Insulin Glargine,Hum.rec.anlog 50 unit SQ QAM 03/28/20 05/12/20 [Lantus Solostar] Loratadine 10 mg PO DAILY 03/28/20 05/12/20 Previous Rx's Medication Instructions Recorded Acetaminophen Oral Susp [Tylenol] 1,000 mg PO Q4-6H #400 ml 05/10/20 Omeprazole [PriLOSEC] 40 mg PO DAILY #30 capsule. 05/10/20 Ondansetron Odt [Zofran Odt] 4 mg PO Q8HR PRN #9 tab 05/10/20 Simethicone 40 mg/0.6 ml Drops 40 mg PO PCHS PRN #30 ml 05/10/20 [Mylicon Drops] bisacodyL [Dulcolax] 5 mg PO DAILY PRN #10 tablet. 05/10/20 Allergies Allergy/AdvReac Type Severity Reaction Status Date / Time Sulfa (Sulfonamide Allergy Anaphylaxis Verified 05/15/20 14:41 Antibiotics) Review of Systems ROS Statement: Those systems with pertinent positive or pertinent negative responses have been documented in the HPI. ROS Other: All systems not noted in ROS Statement are negative. Past Medical History Past Medical History: Diabetes Mellitus, Eye Disorder, Hyperlipidemia, Hypertension Additional Past Medical History / Comment(s): 05/04/14 Pt presented to [facility] ER with substernal chest pain that started 24 hhours before coming to ER. She noticed the chest pain when she woke up yesterday. It is a heaviness and is intermittent with variable duration. She also states she had alittle nausea with it. Other HX: Pt had recent (03/30/14)cataract surgery with lens implants bilaterally at [facility]-post op she had low O2 saturations and was told she had a very narrow airway-instead of going home same day, she was in the hospital for a couple days until her saturations improved. She was discharged with home O2 which she wears at 2L/NC at [facility] and was to follow up today for testing for sleep apnea. Pt states she also has diarrhea fairly frequently. 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 2018 - intermittently in hospital for 3 months for fluid on lungs, had fluid removed History of Any Multi-Drug Resistant Organisms: MRSA Date of last positivie culture/infection: 2010 MDRO Source:: legs and breasts. Past Surgical History: Bariatric Surgery, Cholecystectomy, Hysterectomy, Orthopedic Surgery Additional Past Surgical History / Comment(s): Bilateral cataract sx with lens implants, bilateral retinal repair. Cervical rodding for 3 ruptured discs. 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 She was told she has a very narrow airway. Pt has never recieved blood. Past Psychological History: No Psychological Hx Reported Smoking Status: Former smoker Past Alcohol Use History: None Reported Past Drug Use History: None Reported - Past Family History Father Family Medical History: Cancer, Myocardial Infarction ([place]) Additional Family Medical History / Comment(s): Father had 5 [place]'s and of bone cancer. Mother Family Medical History: Cancer Additional Family Medical History / Comment(s): cervical cancer General Exam Limitations: no limitations General appearance: alert, in no apparent distress Head exam: Present: atraumatic, normocephalic Eye exam: Present: normal appearance, PERRL ENT exam: Present: mucous membranes dry Neck exam: Present: normal inspection Respiratory exam: Present: normal lung sounds bilaterally. Absent: respiratory distress, wheezes Cardiovascular Exam: Present: regular rate, normal rhythm GI/Abdominal exam: Present: soft, tenderness (Mild postoperative tenderness,). Absent: distended, guarding, rebound Extremities exam: Present: normal inspection, normal capillary refill. Absent: pedal edema Neurological exam: Present: alert, oriented X3, CN II-XII intact. Absent: motor sensory deficit Psychiatric exam: Present: normal affect, normal mood Skin exam: Present: warm, dry, intact Course Vital Signs 05/15/20 05/15/20 14:39 16:27 Temperature 98.0 F Pulse Rate 88 Pulse Rate [ 82 Sitting Pulse Oximetery] Pulse Rate [ 99 Standing Pulse Oximetery] Pulse Rate [ 78 Supine Pulse Oximetery] Respiratory 18 Rate Blood Pressure 128/69 Blood Pressure 109/51 [Right Arm Sitting] Blood Pressure 107/58 [Right Arm Standing] Blood Pressure 127/60 [Right Arm Supine] O2 Sat by Pulse 100 Oximetry EKG Findings - EKG Comments: EKG Findings:: EKG: Sinus rhythm with arrhythmia, rate of 75, WI interval 176, QRS duration 88, QTC 424 Medical Decision Making - Medical Decision Making 54-year-old female presenting for evaluation of lightheadedness, dehydration. Patient does appear dehydrated, she has orthostatic positive. She has mild leukocytosis, stable hemoglobin. CMP showing an anion gap of 22 and a CO2 of 14 with a mildly elevated blood glucose. This is consistent with a combination of likely diabetic ketoacidosis and the starvation ketosis. There is no concurrent lactic acidosis. Urinalysis shows 4+ glucose, 4+ ketones, as well as signs of UTI. She is started on IV fluid, IV antibiotics and IV insulin. She will be admitted to Dr. Ramirez who is aware of the patient. - Lab Data Result diagrams: 05/15/20 16:25 05/15/20 16:25 Lab Results 05/15/20 05/15/20 05/15/20 Range/Units 16:11 16:25 16:25 WBC 13.5 H (3.8-10.6) k/uL RBC 5.24 (3.80-5.40) m/uL Hgb 14.4 (11.4-16.0) gm/dL Hct 43.5 (34.0-46.0) % MCV 82.9 (80.0-100.0) fL MCH 27.5 (25.0-35.0) pg MCHC 33.2 (31.0-37.0) g/dL RDW 18.5 H (11.5-15.5) % Plt Count 239 (150-450) k/uL MPV 7.6 Neutrophils % 75 % Lymphocytes % 18 % Monocytes % 3 % Eosinophils % 2 % Basophils % 0 % Neutrophils # 10.2 H (1.3-7.7) k/uL Lymphocytes # 2.4 (1.0-4.8) k/uL Monocytes # 0.5 (0-1.0) k/uL Eosinophils # 0.3 (0-0.7) k/uL Basophils # 0.0 (0-0.2) k/uL Poikilocytosis Slight Anisocytosis Slight Microcytosis Slight PT 9.9 (9.0-12.0) sec INR 0.9 (<1.2) APTT 22.0 (22.0-30.0) sec Sodium (137-145) mmol/L Potassium (3.5-5.1) mmol/L Chloride (98-107) mmol/L Carbon Dioxide (22-30) mmol/L Anion Gap mmol/L BUN (7-17) mg/dL Creatinine (0.52-1.04) mg/dL Est GFR (CKD-EPI)AfAm (>60 ml/min/1.73 sqM) Est GFR (CKD-EPI)NonAf (>60 ml/min/1.73 sqM) Glucose (74-99) mg/dL Plasma Lactic Acid Alejandro (0.7-2.0) mmol/L Calcium (8.4-10.2) mg/dL Magnesium (1.6-2.3) mg/dL Total Bilirubin (0.2-1.3) mg/dL AST (14-36) U/L ALT (4-34) U/L Alkaline Phosphatase (38-126) U/L Troponin I (0.000-0.034) ng/mL Total Protein (6.3-8.2) g/dL Albumin (3.5-5.0) g/dL Urine Color Light Yellow Urine Appearance Cloudy H (Clear) Urine pH 5.5 (5.0-8.0) Ur Specific [place] 1.019 (1.001-1.035) Urine Protein 1+ H (Negative) Urine Glucose (UA) 4+ H (Negative) Urine Ketones 4+ H (Negative) Urine Blood Moderate H (Negative) Urine Nitrite Negative (Negative) Urine Bilirubin Negative (Negative) Urine Urobilinogen <2.0 (<2.0) mg/dL Ur Leukocyte Esterase Large H (Negative) Urine RBC 55 H (0-5) /hpf Urine WBC >182 H (0-5) /hpf Urine WBC Clumps Many H (None) /hpf Ur Squamous Epith Cells 3 (0-4) /hpf Hyaline Casts 3 H (0-2) /lpf Urine Yeast (Budding) Many H (None) /hpf 05/15/20 05/15/20 05/15/20 Range/Units 16:25 16:25 16:25 WBC (3.8-10.6) k/uL RBC (3.80-5.40) m/uL Hgb (11.4-16.0) gm/dL Hct (34.0-46.0) % MCV (80.0-100.0) fL MCH (25.0-35.0) pg MCHC (31.0-37.0) g/dL RDW (11.5-15.5) % Plt Count (150-450) k/uL MPV Neutrophils % % Lymphocytes % % Monocytes % % Eosinophils % % Basophils % % Neutrophils # (1.3-7.7) k/uL Lymphocytes # (1.0-4.8) k/uL Monocytes # (0-1.0) k/uL Eosinophils # (0-0.7) k/uL Basophils # (0-0.2) k/uL Poikilocytosis Anisocytosis Microcytosis PT (9.0-12.0) sec INR (<1.2) APTT (22.0-30.0) sec Sodium 138 (137-145) mmol/L Potassium 4.2 (3.5-5.1) mmol/L Chloride 102 (98-107) mmol/L Carbon Dioxide 14 L (22-30) mmol/L Anion Gap 22 mmol/L BUN 18 H (7-17) mg/dL Creatinine 0.84 (0.52-1.04) mg/dL Est GFR (CKD-EPI)AfAm >90 (>60 ml/min/1.73 sqM) Est GFR (CKD-EPI)NonAf 79 (>60 ml/min/1.73 sqM) Glucose 237 H (74-99) mg/dL Plasma Lactic Acid Alejandro 0.9 (0.7-2.0) mmol/L Calcium 9.0 (8.4-10.2) mg/dL Magnesium 2.1 (1.6-2.3) mg/dL Total Bilirubin 0.5 (0.2-1.3) mg/dL AST 23 (14-36) U/L ALT 17 (4-34) U/L Alkaline Phosphatase 100 (38-126) U/L Troponin I <0.012 (0.000-0.034) ng/mL Total Protein 6.9 (6.3-8.2) g/dL Albumin 4.2 (3.5-5.0) g/dL Urine Color Urine Appearance (Clear) Urine pH (5.0-8.0) Ur Specific [place] (1.001-1.035) Urine Protein (Negative) Urine Glucose (UA) (Negative) Urine Ketones (Negative) Urine Blood (Negative) Urine Nitrite (Negative) Urine Bilirubin (Negative) Urine Urobilinogen (<2.0) mg/dL Ur Leukocyte Esterase (Negative) Urine RBC (0-5) /hpf Urine WBC (0-5) /hpf Urine WBC Clumps (None) /hpf Ur Squamous Epith Cells (0-4) /hpf Hyaline Casts (0-2) /lpf Urine Yeast (Budding) (None) /hpf Disposition Clinical Impression: Dehydration, DKA (diabetic ketoacidoses), UTI (urinary tract infection) Disposition: ADMITTED IP TO THIS HOSP Condition: Stable Is patient prescribed a controlled substance at d/c from ED?: No Referrals: Deshawn Lyon MD [Primary Care Provider] - 1-2 days Decision Date: 05/15/20 Decision Time: 17:29
[2020-05-15 16:22] LABS: Appearance,Urine Cloudy (Clear); Bilirubin,Urine Negative (Negative); Blood,Urine Moderate (Negative); Budding Yeast,Urine Many /hpf; Color,Urine Light Yellow; Glucose,Urine (UA) 4+ (Negative); Hyaline Casts,Urine 3 /lpf (0-2); Leukocyte Esterase,Urine Large (Negative); Nitrite,Urine Negative (Negative); PH, Urine 5.5 (5.0-8.0); Protein,Urine 1+ (Negative); RBC,Urine 55 /hpf (0-5); Specific Gravity,Urine 1.019 (1.001-1.035); Squamous Epithelial Cell,Urine 3 /hpf (0-4); Urobilinogen,Urine <2.0 mg/dL (<2.0); WBC,Urine >182 /hpf (0-5)
[2020-05-15 16:23] LABS: Ketones,Urine 4+ (Negative)
[2020-05-15 16:37] LABS: Anisocytosis Slight; Basophils % (A) 0 %; Eosinophils # (A) 0.3 k/uL (0-0.7); Eosinophils % (A) 2 %; HCT 43.5 % (34.0-46.0); HGB 14.4 gm/dL (11.4-16.0); Lymphocytes # (A) 2.4 k/uL (1.0-4.8); Lymphocytes % (A) 18 %; MCH 27.5 pg (25.0-35.0); MCHC 33.2 g/dL (31.0-37.0); MCV 82.9 fL (80.0-100.0); Mean Platelet Volume 7.6; Microcytosis Slight; Monocytes # (A) 0.5 k/uL (0-1.0); Monocytes % (A) 3 %; Neutrophils # (A) 10.2 k/uL (1.3-7.7); Neutrophils % (A) 75 %; Platelet Count 239 k/uL (150-450); Poikilocytosis Slight; RBC 5.24 m/uL (3.80-5.40); RDW 18.5 % (11.5-15.5); WBC 13.5 k/uL (3.8-10.6)
[2020-05-15 16:46] LABS: ALT 17 U/L (4-34); AST 23 U/L (14-36); African American GFR (CKD) >90 (>60 ml/min/1.73 sqM); Albumin 4.2 g/dL (3.5-5.0); Alkaline Phosphatase 100 U/L (38-126); Anion Gap 22 mmol/L; Blood Urea Nitrogen 18 mg/dL (7-17); Carbon Dioxide 14 mmol/L (22-30); Chloride 102 mmol/L (98-107); Glucose 237 mg/dL (74-99); Magnesium 2.1 mg/dL (1.6-2.3); Non-African American GFR(CKD) 79 (>60 ml/min/1.73 sqM); Potassium 4.2 mmol/L (3.5-5.1); Sodium 138 mmol/L (137-145); Total Bilirubin 0.5 mg/dL (0.2-1.3); Total Protein 6.9 g/dL (6.3-8.2)
[2020-05-15 16:47] LABS: INR 0.9 (<1.2); Prothrombin Time 9.9 sec (9.0-12.0)
[2020-05-15] MEDS ORDERED: cefTRIAXone IN SWFI 1,000 MG/10 ML SYRINGE IVP STA (16:58)
[2020-05-15] MEDS ORDERED: SODIUM CHLORIDE 0.9% 500 ML 500 ML IV ONE (17:20)
[2020-05-15] MEDS ORDERED: ACETAMINOPHEN TAB 325 MG TAB PO PRN (17:22)
[2020-05-15] MEDS ORDERED: NALOXONE 0.4 MG/ML 1 ML VIAL IV PRN (17:22)
[2020-05-15] MEDS: SODIUM CHLORIDE 0.9% 1,000 ML IV SCH (17:47)
[2020-05-15] MEDS: INSULIN REGULAR 100 UNIT in SODIUM CHLORIDE 0.9% 100 ML IV SCH (17:59)
[2020-05-15 18:03] LABS: Glucose,Whole Blood 203 mg/dL (75-99)
[2020-05-15] MEDS: D5-0.45% NACL WITH KCL 20MEQ/L 1,000 ML IV SCH (18:44)
[2020-05-15 19:08] LABS: Glucose,Whole Blood 134 mg/dL (75-99)
[2020-05-15 20:06] LABS: Glucose,Whole Blood 105 mg/dL (75-99)
[2020-05-15 20:50] LABS: African American GFR (CKD) >90 (>60 ml/min/1.73 sqM); Anion Gap 17 mmol/L; Carbon Dioxide 11 mmol/L (22-30); Chloride 108 mmol/L (98-107); Glucose 100 mg/dL (74-99); Non-African American GFR(CKD) >90 (>60 ml/min/1.73 sqM); Phosphorus 2.5 mg/dL (2.5-4.5); Potassium 4.6 mmol/L (3.5-5.1); Sodium 136 mmol/L (137-145)
[2020-05-15] MEDS ORDERED: IBUPROFEN 800 MG TAB PO PRN (21:33)
[2020-05-15 21:51] LABS: Glucose,Whole Blood 90 mg/dL (75-99)
[2020-05-15] MEDS: GABAPENTIN 400 MG CAP PO SCH (23:11)
[2020-05-15 23:19] LABS: Glucose,Whole Blood 113 mg/dL (75-99)
[2020-05-16 00:46] LABS: African American GFR (CKD) >90 (>60 ml/min/1.73 sqM); Anion Gap 14 mmol/L; Carbon Dioxide 15 mmol/L (22-30); Chloride 107 mmol/L (98-107); Glucose 126 mg/dL (74-99); Non-African American GFR(CKD) >90 (>60 ml/min/1.73 sqM); Phosphorus 2.8 mg/dL (2.5-4.5); Potassium 4.1 mmol/L (3.5-5.1); Sodium 136 mmol/L (137-145)
[2020-05-16 01:19] LABS: Glucose,Whole Blood 121 mg/dL (75-99)
[2020-05-16 03:17] LABS: Glucose,Whole Blood 140 mg/dL (75-99)
[2020-05-16 05:18] LABS: Glucose,Whole Blood 190 mg/dL (75-99)
[2020-05-16] MEDS: INSULIN REGULAR 100 UNIT in SODIUM CHLORIDE 0.9% 100 ML IV SCH ×2 (07:28→10:16)
[2020-05-16 07:30] LABS: Glucose,Whole Blood 179 mg/dL (75-99)
[2020-05-16] MEDS: D5-0.45% NACL WITH KCL 20MEQ/L 1,000 ML IV SCH (07:31)
[2020-05-16] MEDS: SODIUM CHLORIDE 0.9% 1,000 ML IV SCH ×2 (07:31→10:16)
[2020-05-16] MEDS ORDERED: PANTOPRAZOLE 40 MG TABLET PO SCH (09:00)
[2020-05-16 09:19] LABS: Glucose,Whole Blood 210 mg/dL (75-99)
[2020-05-16 10:13] LABS: Anisocytosis Slight; HGB 13.9 gm/dL (11.4-16.0); MCH 27.2 pg (25.0-35.0); MCHC 32.4 g/dL (31.0-37.0); MCV 84.1 fL (80.0-100.0); Mean Platelet Volume 7.6; Platelet Count 226 k/uL (150-450); Poikilocytosis Slight; RBC 5.12 m/uL (3.80-5.40); RDW 18.6 % (11.5-15.5); WBC 10.5 k/uL (3.8-10.6)
[2020-05-16 10:15] LABS: Glucose,Whole Blood 198 mg/dL (75-99)
[2020-05-16] MEDS: ASPIRIN 81 MG PO SCH (10:15)
[2020-05-16] MEDS: allopurinoL 100 MG TAB PO SCH (10:15)
[2020-05-16] MEDS: PARoxetine 10 MG TAB PO SCH (10:15)
[2020-05-16] MEDS: GABAPENTIN 400 MG CAP PO SCH ×3 (10:15→22:45)
[2020-05-16] MEDS: amLODIPine 10 MG TAB PO SCH (10:15)
[2020-05-16] MEDS: PANTOPRAZOLE 40 MG TABLET PO SCH (10:15)
[2020-05-16] MEDS: INSULIN DETEMIR (LEVEMIR) 100 UNIT/ML SYR SQ SCH (10:15)
[2020-05-16] MEDS: ATORVASTATIN 20 MG TAB PO SCH (10:15)
[2020-05-16] MEDS: NYSTATIN 100,000UNIT/GM CREAM 30 GM TUBE TOPICAL SCH ×2 (10:17→21:59)
[2020-05-16] MEDS: NON FORMULARY DRUG (Mirabegron [Myrbetriq] 50 MG Tab.Er.24h) PO SCH (10:17)
[2020-05-16] MEDS: LORATADINE 10 MG TAB PO SCH (10:20)
[2020-05-16 10:21] LABS: African American GFR (CKD) >90 (>60 ml/min/1.73 sqM); Anion Gap 16 mmol/L; Blood Urea Nitrogen 13 mg/dL (7-17); Calcium 8.9 mg/dL (8.4-10.2); Carbon Dioxide 15 mmol/L (22-30); Chloride 106 mmol/L (98-107); Glucose 221 mg/dL (74-99); Non-African American GFR(CKD) 78 (>60 ml/min/1.73 sqM); Sodium 137 mmol/L (137-145)
--- NOTE | 2020-05-16 11:15 | P.HPIM ---
History of Present Illness H&P Date: 05/16/20 Chief Complaint: Dizziness HISTORY OF PRESENT ILLNESS This is a 54-year-old female patient of Dr. Lyon and Dr. Kory Hanna with past medical history of hypertension, hyperlipidemia, diabetes mellitus type 2, diabetic neuropathy, chronic gout, recurrent depression, gastroesophageal reflux disease, morbid obesity with BMI of 47. On May 08, patient underwent robotic-assisted da Skye laparoscopic sleeve gastrectomy with Dr. Hein. Patient presented to the ER on May 14 with complaints of dizziness and lightheadedness especially when changing positions. Patient was discharged home. She returned to the emergency center on May 15 again with dizziness lightheadedness. She has had decreased oral intake due to recent gastric surgery. She does complain of abdominal pain. No fever or chills. No diarrhea. WBC was 13.5, hemoglobin 14.4 platelet count 239. Sodium 138, potassium 4.2, chloride 102, CO2 14, BUN 18 and creatinine 0.84. Blood sugar 237. Troponin was negative. Urinalysis was blood moderate, nitrate negative leukoesterase large, RBCs 55, WBCs greater than 182. Patient was started on IV antibiotics and admitted to the [facility] floor on insulin drip and protocol. This morning, patient states that she still has dizziness about the same as yesterday. Her blood sugars are running 179-221. Orthostatics were positive yesterday and will be rechecked. REVIEW OF SYSTEMS Constitutional: No fever, no chills, no night sweats. No weight change. No weakness, fatigue or lethargy. No daytime sleepiness. EENT: No headache. No blurred vision or double vision, no loss of vision. No loss of Hearing, no ringing in the ears, no dizziness. No nasal drainage or congestion. No epistaxis. No sore throat. Lungs: No shortness of breath, cough, no sputum production. No wheezing. Cardiovascular: No chest pain, no lower extremity edema. No palpitations. No paroxysmal nocturnal dyspnea. No orthopnea. Reports lightheadedness and dizziness. No syncopal episodes. Abdominal: No abdominal pain. No nausea, vomiting. No diarrhea. No constipation. No bloody or tarry stools.. No loss of appetite. Genitourinary: No dysuria, increased frequency, urgency. No urinary retention. Musculoskeletal: No myalgias. No muscle weakness, no gait dysfunction, no frequent falls. No back pain. No neck pain. Integumentary: No wounds, no lesions. No rash or pruritus. No unusual bruising. No change in hair or nails. Neurologic: No aphasia. No facial droop. No change in mentation. No head injury. No headache. No paralysis. No paresthesia. Psychiatric: No depression. No anxiety. No mood swings. Endocrine: Reports abnormal blood sugars. No weight change. No excessive sweating or thirst. No cold intolerance. SOCIAL HISTORY Patient was a smoker and quit 7 years ago. She denies any alcohol or illicit drug use. FAMILY HISTORY Father in his 60s after his fifth myocardial infarction. He from bone cancer. Mother at age 62 and cervical cancer with history of diabetes. Patient has a total of 4 sisters all have diabetes. One is past with end-stage renal disease. Patient has one brother living. Patient has 2 brothers passed 1 from an overdose and one from pneumonia. PHYSICAL EXAMINATION Gen: This is a morbidly obese 54-year-old female. Patient is resting in a recliner and appears to be comfortable. HEENT: Head is atraumatic, normocephalic. Pupils equal, round. Sclerae is anicteric. NECK: Supple. No JVD. No lymphadenopathy. No thyromegaly. LUNGS: Clear to auscultation. No wheezes or rhonchi. No intercostal retractions. HEART: Regular rate and rhythm. No murmur. ABDOMEN: Morbidly obese. Soft. Bowel sounds are present. No masses. No tenderness. Puncture sites show no signs of infection. EXTREMITIES: No pedal edema. No calf tenderness. NEUROLOGICAL: Patient is awake, alert and oriented x3. Cranial nerves 2 through 12 are grossly intact. ASSESSMENT AND PLAN 1. Hyperosmolar hyperglycemic state in a patient with diabetes mellitus type 2. Insulin drip will be discontinued. Patient will be resumed on Lantus 30 units daily and NovoLog scale before meals and at bedtime, consistent carb diet has been changed to bariatric diet. Hold Invokana, hold metformin 2. Dizziness most likely secondary to orthostatic hypotension. Repeat orthostatics today. Continue IV fluids changed to 0.9 normal saline at 100 mL per hour. 3. Diabetes mellitus type 2. Continue as in #1. 4. Diabetic neuropathy. Continue gabapentin 800 mg 3 times daily. 5. Acute urinary tract infection. Continue Rocephin 1 g IV piggyback daily, monitor urinary culture. 6. Morbid obesity status post gastric sleeve on May 08. Patient to be on a bariatric diet. 7. Hypertension. Continue Norvasc 10 mg daily. 8. Hyperlipidemia. Continue Lipitor 20 g daily. 9. Chronic gout. Continue allopurinol 100 mg daily. 10. Gastroesophageal reflux disease. Continue Protonix 40 mg daily. 11. Recurrent depression. Continue Paxil 30 mg daily. 12. DVT prophylaxis. Lovenox subcu. Patient will be admitted to the hospital for a minimum of 2 night stay. DISCHARGE PLAN [ ]. Impression and plan of care have been directed as dictated by the signing physician. Vida Shah nurse practitioner acting as scribe for signing physician. Past Medical History Past Medical History: Diabetes Mellitus, Eye Disorder, Hyperlipidemia, Hypertension Additional Past Medical History / Comment(s): 05/04/14 Pt presented to [facility] ER with substernal chest pain that started 24 hhours before coming to ER. She noticed the chest pain when she woke up yesterday. It is a heaviness and is intermittent with variable duration. She also states she had alittle nausea with it. Other HX: Pt had recent (03/30/14)cataract surgery with lens implants bilaterally at [facility]-post op she had low O2 saturations and was told she had a very narrow airway-instead of going home same day, she was in the hospital for a couple days until her saturations improved. She was discharged with home O2 which she wears at 2L/NC at [facility] and was to follow up today for testing for sleep apnea. Pt states she also has diarrhea fairly frequently. 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 2018 - intermittently in hospital for 3 months for fluid on lungs, had fluid removed History of Any Multi-Drug Resistant Organisms: MRSA Date of last positivie culture/infection: 2010 MDRO Source:: legs and breasts. Past Surgical History: Bariatric Surgery, Cholecystectomy, Hysterectomy, Orthopedic Surgery Additional Past Surgical History / Comment(s): Bilateral cataract sx with lens implants, bilateral retinal repair. Cervical rodding for 3 ruptured discs. sleeve gastrectomy 05-08-20 Past Anesthesia/Blood Transfusion Reactions: Postoperative Nausea & Vomiting (PONV) Additional Past Anesthesia/Blood Transfusion Reaction / Comment(s): Pt had cataract and lens implant at [facility] on 03/30/14 and afterwards she desaturated and was hospitalized. She was told she has a very narrow airway. Pt has never recieved blood. Past Psychological History: No Psychological Hx Reported Additional Psychological History / Comment(s): Pt has severe clausterphobia which is getting worse as she ages. Pt recently placed on home O2 at 2L/NC which she wears at [facility]. She was to have a sleep apnea workup and was to have her 1st appt for that today. She lives at home with her . She is independent. She drives school bus. She uses no assistive devices. Smoking Status: Former smoker Past Alcohol Use History: None Reported Additional Past Alcohol Use History / Comment(s): quit smoking 2013, smoked 1 ppd, started smoking age 18. Past Drug Use History: None Reported - Past Family History Father Family Medical History: Cancer, Myocardial Infarction (LA) Additional Family Medical History / Comment(s): Father had 5 LA's and of bone cancer. Mother Family Medical History: Cancer Additional Family Medical History / Comment(s): cervical cancer Medications and Allergies Home Medications Medication Instructions Recorded Confirmed Type Montelukast [Singulair] 10 mg PO DAILY 04/22/17 05/15/20 History Pantoprazole Sodium [Protonix] 40 mg PO DAILY 04/22/17 05/15/20 History amLODIPine [Norvasc] 10 mg PO DAILY 04/22/17 05/15/20 History Mirabegron [Myrbetriq] 50 mg PO DAILY 11/10/19 05/15/20 History PARoxetine HCL 30 mg PO DAILY 11/10/19 05/15/20 History metFORMIN HCL [metFORMIN HCL ER] 1,000 mg PO AC-BID 11/10/19 05/15/20 History Allopurinol [Zyloprim] 100 mg PO DAILY 03/28/20 05/15/20 History Gabapentin [Neurontin] 800 mg PO TID 03/28/20 05/15/20 History Insulin Glargine,Hum.rec.anlog 50 unit SQ DAILY 03/28/20 05/15/20 History [Lantus Solostar] Omeprazole [PriLOSEC] 40 mg PO DAILY #30 capsule. 05/10/20 05/15/20 Rx Aspirin EC [Ecotrin Low Dose] 81 mg PO DAILY 05/15/20 05/15/20 History Atorvastatin [Lipitor] 20 mg PO DAILY 05/15/20 05/15/20 History Canagliflozin [Invokana] 300 mg PO DAILY 05/15/20 05/15/20 History Cetirizine HCl [Zyrtec] 10 mg PO DAILY 05/15/20 05/15/20 History Ergocalciferol (Vitamin D2) 1,250 mcg PO Q7D 05/15/20 05/15/20 History [Drisdol (50,000 Iu)] Ibuprofen [Motrin] 800 mg PO Q6H PRN 05/15/20 05/15/20 History Nystatin 100,000Unit/gm Cream 1 applic TOPICAL BID 05/15/20 05/15/20 History [Mycostatin Cream] Allergies Allergy/AdvReac Type Severity Reaction Status Date / Time Sulfa (Sulfonamide Allergy Anaphylaxis Verified 05/15/20 18:47 Antibiotics) Physical Exam Vitals: Vital Signs Temp Pulse Pulse Pulse Pulse Resp BP 05/16/20 03:43 97.8 F 71 18 05/16/20 01:56 71 99 78 18 05/16/20 00:00 97.8 F 71 18 05/15/20 20:30 98.0 F 83 18 156/85 05/15/20 20:00 97.8 F 105 H 18 05/15/20 18:49 84 18 125/67 05/15/20 16:27 82 99 78 05/15/20 14:39 98.0 F 88 18 128/69 BP BP BP Pulse Ox 05/16/20 03:43 109/69 94 L 05/16/20 01:56 05/16/20 00:00 89/54 95 05/15/20 20:30 97 05/15/20 20:00 129/74 93 L 05/15/20 18:49 100 05/15/20 16:27 109/51 107/58 127/60 05/15/20 14:39 100 Intake and Output 05/15/20 05/16/20 05/16/20 22:59 06:59 14:59 Intake Total 21.690 16.072 0.95 Output Total 0 Balance 21.690 16.072 0.95 Intake: Intake, IV Titration 21.690 16.072 0.95 Amount Insulin Regular 100 unit 21.690 16.072 0.95 In Sodium Chloride 0.9% 100 ml @ 0.1 UNITS/KG/HR 13.148 mls/hr IV .Q7H41M [facility] Rx#:[id number] Output: Urine 0 Other: Voiding Method Toilet # Voids 0 Weight 130.181 kg 133.1 kg Results CBC & Chem 7: 05/16/20 09:48 05/16/20 09:48 Labs: Abnormal Lab Results - Last 24 Hours (Table) 05/15/20 05/15/20 05/15/20 Range/Units 16:11 16:25 16:25 WBC 13.5 H (3.8-10.6) k/uL RDW 18.5 H (11.5-15.5) % Neutrophils # 10.2 H (1.3-7.7) k/uL Sodium (137-145) mmol/L Chloride (98-107) mmol/L Carbon Dioxide 14 L (22-30) mmol/L BUN 18 H (7-17) mg/dL Glucose 237 H (74-99) mg/dL POC Glucose (mg/dL) (75-99) mg/dL Urine Appearance Cloudy H (Clear) Urine Protein 1+ H (Negative) Urine Glucose (UA) 4+ H (Negative) Urine Ketones 4+ H (Negative) Urine Blood Moderate H (Negative) Ur Leukocyte Esterase Large H (Negative) Urine RBC 55 H (0-5) /hpf Urine WBC >182 H (0-5) /hpf Urine WBC Clumps Many H (None) /hpf Hyaline Casts 3 H (0-2) /lpf Urine Yeast (Budding) Many H (None) /hpf 05/15/20 05/15/20 05/15/20 Range/Units 17:56 19:06 20:05 WBC (3.8-10.6) k/uL RDW (11.5-15.5) % Neutrophils # (1.3-7.7) k/uL Sodium (137-145) mmol/L Chloride (98-107) mmol/L Carbon Dioxide (22-30) mmol/L BUN (7-17) mg/dL Glucose (74-99) mg/dL POC Glucose (mg/dL) 203 H 134 H 105 H (75-99) mg/dL Urine Appearance (Clear) Urine Protein (Negative) Urine Glucose (UA) (Negative) Urine Ketones (Negative) Urine Blood (Negative) Ur Leukocyte Esterase (Negative) Urine RBC (0-5) /hpf Urine WBC (0-5) /hpf Urine WBC Clumps (None) /hpf Hyaline Casts (0-2) /lpf Urine Yeast (Budding) (None) /hpf 05/15/20 05/15/20 05/16/20 Range/Units 20:27 23:10 00:15 WBC (3.8-10.6) k/uL RDW (11.5-15.5) % Neutrophils # (1.3-7.7) k/uL Sodium 136 L 136 L (137-145) mmol/L Chloride 108 H (98-107) mmol/L Carbon Dioxide 11 L 15 L (22-30) mmol/L BUN (7-17) mg/dL Glucose 100 H 126 H (74-99) mg/dL POC Glucose (mg/dL) 113 H (75-99) mg/dL Urine Appearance (Clear) Urine Protein (Negative) Urine Glucose (UA) (Negative) Urine Ketones (Negative) Urine Blood (Negative) Ur Leukocyte Esterase (Negative) Urine RBC (0-5) /hpf Urine WBC (0-5) /hpf Urine WBC Clumps (None) /hpf Hyaline Casts (0-2) /lpf Urine Yeast (Budding) (None) /hpf 05/16/20 05/16/20 05/16/20 Range/Units 01:18 03:16 05:07 WBC (3.8-10.6) k/uL RDW (11.5-15.5) % Neutrophils # (1.3-7.7) k/uL Sodium (137-145) mmol/L Chloride (98-107) mmol/L Carbon Dioxide (22-30) mmol/L BUN (7-17) mg/dL Glucose (74-99) mg/dL POC Glucose (mg/dL) 121 H 140 H 190 H (75-99) mg/dL Urine Appearance (Clear) Urine Protein (Negative) Urine Glucose (UA) (Negative) Urine Ketones (Negative) Urine Blood (Negative) Ur Leukocyte Esterase (Negative) Urine RBC (0-5) /hpf Urine WBC (0-5) /hpf Urine WBC Clumps (None) /hpf Hyaline Casts (0-2) /lpf Urine Yeast (Budding) (None) /hpf 05/16/20 Range/Units 07:15 WBC (3.8-10.6) k/uL RDW (11.5-15.5) % Neutrophils # (1.3-7.7) k/uL Sodium (137-145) mmol/L Chloride (98-107) mmol/L Carbon Dioxide (22-30) mmol/L BUN (7-17) mg/dL Glucose (74-99) mg/dL POC Glucose (mg/dL) 179 H (75-99) mg/dL Urine Appearance (Clear) Urine Protein (Negative) Urine Glucose (UA) (Negative) Urine Ketones (Negative) Urine Blood (Negative) Ur Leukocyte Esterase (Negative) Urine RBC (0-5) /hpf Urine WBC (0-5) /hpf Urine WBC Clumps (None) /hpf Hyaline Casts (0-2) /lpf Urine Yeast (Budding) (None) /hpf Microbiology - Last 24 Hours (Table) 05/15/20 16:11 Urine Culture - Preliminary Urine,Clean Catch Thrombosis Risk Factor Assmnt - Choose All That Apply Each Factor Represents 1 point: Age 41-60 years Thrombosis Risk Factor Assessment Total Risk Factor Score: 1 Thrombosis Risk Factor Assessment Level: Low Risk
[2020-05-16 11:34] VITALS: BMI 47.3
[2020-05-16 11:57] LABS: Glucose,Whole Blood 193 mg/dL (75-99)
[2020-05-16 12:53] LABS: Glucose,Whole Blood 208 mg/dL (75-99)
[2020-05-16] MEDS: INSULIN ASPART (NovoLOG) 100 UNIT/ML VIAL SQ SCH ×3 (12:56→20:38)
[2020-05-16 17:06] LABS: Glucose,Whole Blood 186 mg/dL (75-99)
[2020-05-16 20:26] LABS: Glucose,Whole Blood 204 mg/dL (75-99)
[2020-05-16] MEDS: MONTELUKAST 10 MG TAB PO SCH (20:38)
[2020-05-17 06:12] LABS: Glucose,Whole Blood 125 mg/dL (75-99)
[2020-05-17] MEDS: INSULIN ASPART (NovoLOG) 100 UNIT/ML VIAL SQ SCH ×4 (06:40→20:40)
[2020-05-17 07:41] LABS: Glucose,Whole Blood 145 mg/dL (75-99)
[2020-05-17] MEDS: ENOXAPARIN 40 MG/0.4 ML SYRINGE SQ SCH (07:44)
[2020-05-17] MEDS: SODIUM CHLORIDE 0.9% 1,000 ML IV SCH ×3 (07:45→12:16)
[2020-05-17] MEDS: INSULIN DETEMIR (LEVEMIR) 100 UNIT/ML SYR SQ SCH (07:45)
[2020-05-17] MEDS: PANTOPRAZOLE 40 MG TABLET PO SCH (07:46)
[2020-05-17] MEDS: ASPIRIN 81 MG PO SCH (07:46)
[2020-05-17] MEDS: amLODIPine 10 MG TAB PO SCH (07:46)
[2020-05-17] MEDS: allopurinoL 100 MG TAB PO SCH (07:47)
[2020-05-17] MEDS: NON FORMULARY DRUG (Mirabegron [Myrbetriq] 50 MG Tab.Er.24h) PO SCH (07:47)
[2020-05-17] MEDS: PARoxetine 10 MG TAB PO SCH (07:47)
[2020-05-17] MEDS: ATORVASTATIN 20 MG TAB PO SCH (07:47)
[2020-05-17] MEDS: NYSTATIN 100,000UNIT/GM CREAM 30 GM TUBE TOPICAL SCH ×2 (07:47→22:00)
[2020-05-17] MEDS: LORATADINE 10 MG TAB PO SCH (07:47)
[2020-05-17] MEDS: GABAPENTIN 400 MG CAP PO SCH ×3 (07:47→22:36)
[2020-05-17 08:12] LABS: Anisocytosis Slight; HCT 40.6 % (34.0-46.0); HGB 13.7 gm/dL (11.4-16.0); MCH 28.1 pg (25.0-35.0); MCHC 33.7 g/dL (31.0-37.0); MCV 83.4 fL (80.0-100.0); Microcytosis Slight; Platelet Count 205 k/uL (150-450); RBC 4.86 m/uL (3.80-5.40); RDW 18.7 % (11.5-15.5); WBC 8.7 k/uL (3.8-10.6)
[2020-05-17 08:24] LABS: African American GFR (CKD) >90 (>60 ml/min/1.73 sqM); Anion Gap 13 mmol/L; Blood Urea Nitrogen 12 mg/dL (7-17); Calcium 8.8 mg/dL (8.4-10.2); Carbon Dioxide 18 mmol/L (22-30); Chloride 108 mmol/L (98-107); Glucose 138 mg/dL (74-99); Non-African American GFR(CKD) >90 (>60 ml/min/1.73 sqM); Potassium 3.6 mmol/L (3.5-5.1); Sodium 139 mmol/L (137-145)
[2020-05-17] MEDS ORDERED: SODIUM CHLORIDE 0.9% 1,000 ML IV ONE (09:27)
[2020-05-17 11:49] LABS: Glucose,Whole Blood 190 mg/dL (75-99)
--- NOTE | 2020-05-17 14:12 | P.PN ---
Subjective Progress Note Date: 05/17/20 HISTORY OF PRESENT ILLNESS This is a 54-year-old female patient of Dr. Lyon and Dr. Kory Hanna with past medical history of hypertension, hyperlipidemia, diabetes mellitus type 2, diabetic neuropathy, chronic gout, recurrent depression, gastroesophageal reflux disease, morbid obesity with BMI of 47. On May 08, patient underwent robotic-assisted da [place] laparoscopic sleeve gastrectomy with Dr. Hein. Patient presented to the ER on May 14 with complaints of diz ziness and lightheadedness especially when changing positions. Patient was discharged home. She returned to the emergency center on May 15 again with dizziness lightheadedness. She has had decreased oral intake due to recent gastric surgery. She does complain of abdominal pain. No fever or chills. No diarrhea. WBC was 13.5, hemoglobin 14.4 platelet count 239. Sodium 138, potassium 4.2, chloride 102, CO2 14, BUN 18 and creatinine 0.84. Blood sugar 237. Troponin was negative. Urinalysis was blood moderate, nitrate negative leukoesterase large, RBCs 55, WBCs greater than 182. Patient was started on IV antibiotics and admitted to the [facility] floor on insulin drip and protocol. This morning, patient states that she still has dizziness about the same as yesterday. Her blood sugars are running 179-221. Orthostatics were positive yesterday and will be rechecked. 05/17: The patient had orthostatic changes yesterday. Repeat orthostatics done today revealed systolic of 127 flat and 78 standing. Patient ordered for 1 L of IV fluids. Cortisol level ordered for the morning. She has been afebrile, heart rate 75, blood pressure 143/66, pulse ox 100% on room air. Blood sugars are improved running between 125 and 190. CBC is unremarkable. CO2 18. Urine culture finalized with skin aga. Patient was anticipating discharge home today but we will plan to monitor overnight and check cortisol level and repeat orthostatics. Possible discharge by tomorrow. REVIEW OF SYSTEMS Constitutional: No fever, no chills, no night sweats. No weight change. No weakness, fatigue or lethargy. No daytime sleepiness. EENT: No headache. No blurred vision or double vision, no loss of vision. No loss of Hearing, no ringing in the ears, no dizziness. No nasal drainage or congestion. No epistaxis. No sore throat. Lungs: No shortness of breath, cough, no sputum production. No wheezing. Cardiovascular: No chest pain, no lower extremity edema. No palpitations. No paroxysmal nocturnal dyspnea. No orthopnea. Reports lightheadedness and reports dizziness. No syncopal episodes. Abdominal: No abdominal pain. No nausea, vomiting. No diarrhea. No c onstipation. No bloody or tarry stools.. No loss of appetite. Genitourinary: No dysuria, increased frequency, urgency. No urinary retention. Musculoskeletal: No myalgias. No muscle weakness, no gait dysfunction, no frequent falls. No back pain. No neck pain. Integumentary: No wounds, no lesions. No rash or pruritus. No unusual bruising. No change in hair or nails. Neurologic: No aphasia. No facial droop. No change in mentation. No head injury. No headache. No paralysis. No paresthesia. Psychiatric: No depression. No anxiety. No mood swings. Endocrine: Reports abnormal blood sugars. No weight change. No excessive sweating or thirst. No cold intolerance. PHYSICAL EXAMINATION Gen: This is a morbidly obese 54-year-old female. Patient is resting in a recliner and appears to be comfortable. HEENT: Head is atraumatic, normocephalic. Pupils equal, round. Sclerae is anicteric. NECK: Supple. No JVD. No lymphadenopathy. No thyromegaly. LUNGS: Clear to auscultation. No wheezes or rhonchi. No intercostal retractions. HEART: Regular rate and rhythm. No murmur. ABDOMEN: Morbidly obese. Soft. Bowel sounds are present. No masses. No tendern ess. Puncture sites show no signs of infection. EXTREMITIES: No pedal edema. No calf tenderness. NEUROLOGICAL: Patient is awake, alert and oriented x3. Cranial nerves 2 through 12 are grossly intact. ASSESSMENT AND PLAN 1. Hyperosmolar hyperglycemic state in a patient with diabetes mellitus type 2. Continue Lantus 30 units daily and NovoLog scale before meals and at bedtime, consistent carb diet has been changed to bariatric diet. Hold Invokana, hold metformin 2. Dizziness most likely secondary to orthostatic hypotension. Repeat orthostatics in the morning. 1 L of IV fluids. 3. Diabetes mellitus type 2. Continue as in #1. 4. Diabetic neuropathy. Continue gabapentin 800 mg 3 times daily. 5. Acute urinary tract infection. Continue Rocephin 1 g IV piggyback daily, monitor urinary culture. 6. Morbid obesity status post gastric sleeve on May 08. Patient to be on a bariatric diet. 7. Hypertension. Continue Norvasc 10 mg daily. 8. Hyperlipidemia. Continue Lipitor 20 g daily. 9. Chronic gout. Continue allopurinol 100 mg daily. 10. Gastroesophageal reflux disease. Continue Protonix 40 mg daily. 11. Recurrent depression. Continue Paxil 30 mg daily. 12. DVT prophylaxis. Lovenox subcu. Patient will be admitted to the hospital for a minimum of 2 night stay. DISCHARGE PLAN Home on . Impression and plan of care have been directed as dictated by the signing physician. Vida Shah nurse practitioner acting as scribe for signing physician. Objective - Vital Signs Vital signs: Vital Signs Temp 97.4 F L 05/17/20 07:56 Pulse 75 05/17/20 07:56 Resp 20 05/17/20 07:56 BP 143/66 05/17/20 07:56 Pulse Ox 100 05/17/20 07:56 Intake & Output 05/16/20 05/17/20 05/17/20 18:59 06:59 18:59 Intake Total 1760.95 480 Balance 1760.95 480 Weight 133.1 kg 133 kg Intake: Intake, IV Titration 0.95 Amount Insulin Regular 100 unit 0.95 In Sodium Chloride 0.9% 100 ml @ 0.1 UNITS/KG/HR 13.148 mls/hr IV .Q7H41M [facility] Rx#:[id number] Oral 1760 480 Other: Voiding Method Toilet # Voids 1 - Labs CBC & Chem 7: 05/17/20 07:20 05/17/20 07:20 Labs: Abnormal Lab Results - Last 24 Hours (Table) 05/16/20 05/16/20 05/16/20 Range/Units 09:48 09:48 10:14 RDW 18.6 H (11.5-15.5) % Chloride (98-107) mmol/L Carbon Dioxide 15 L (22-30) mmol/L Glucose 221 H (74-99) mg/dL POC Glucose (mg/dL) 198 H (75-99) mg/dL 05/16/20 05/16/20 05/16/20 Range/Units 11:54 12:52 17:01 RDW (11.5-15.5) % Chloride (98-107) mmol/L Carbon Dioxide (22-30) mmol/L Glucose (74-99) mg/dL POC Glucose (mg/dL) 193 H 208 H 186 H (75-99) mg/dL 05/16/20 05/17/20 05/17/20 Range/Units 20:24 06:11 07:20 RDW 18.7 H (11.5-15.5) % Chloride (98-107) mmol/L Carbon Dioxide (22-30) mmol/L Glucose (74-99) mg/dL POC Glucose (mg/dL) 204 H 125 H (75-99) mg/dL 05/17/20 05/17/20 Range/Units 07:20 07:40 RDW (11.5-15.5) % Chloride 108 H (98-107) mmol/L Carbon Dioxide 18 L (22-30) mmol/L Glucose 138 H (74-99) mg/dL POC Glucose (mg/dL) 145 H (75-99) mg/dL Microbiology - Last 24 Hours (Table) 05/15/20 16:11 Urine Culture - Final Urine,Clean Catch
[2020-05-17 16:46] LABS: Glucose,Whole Blood 183 mg/dL (75-99)
[2020-05-17 20:05] LABS: Glucose,Whole Blood 177 mg/dL (75-99)
[2020-05-17] MEDS: MONTELUKAST 10 MG TAB PO SCH (20:40)
[2020-05-17 22:38] VITALS: RESP 16
[2020-05-18 05:55] LABS: Glucose,Whole Blood 110 mg/dL (75-99)
[2020-05-18] MEDS: SODIUM CHLORIDE 0.9% 1,000 ML IV SCH (06:30)
[2020-05-18] MEDS: INSULIN ASPART (NovoLOG) 100 UNIT/ML VIAL SQ SCH (08:52)
[2020-05-18] MEDS: allopurinoL 100 MG TAB PO SCH (09:01)
[2020-05-18] MEDS: PANTOPRAZOLE 40 MG TABLET PO SCH (09:01)
[2020-05-18] MEDS: LORATADINE 10 MG TAB PO SCH (09:01)
[2020-05-18] MEDS: ASPIRIN 81 MG PO SCH (09:01)
[2020-05-18] MEDS: GABAPENTIN 400 MG CAP PO SCH (09:01)
[2020-05-18] MEDS: ATORVASTATIN 20 MG TAB PO SCH (09:01)
[2020-05-18] MEDS: amLODIPine 10 MG TAB PO SCH (09:01)
[2020-05-18] MEDS: NYSTATIN 100,000UNIT/GM CREAM 30 GM TUBE TOPICAL SCH (09:02)
[2020-05-18] MEDS: NON FORMULARY DRUG (Mirabegron [Myrbetriq] 50 MG Tab.Er.24h) PO SCH (09:02)
[2020-05-18] MEDS: INSULIN DETEMIR (LEVEMIR) 100 UNIT/ML SYR SQ SCH (09:02)
[2020-05-18] MEDS: ENOXAPARIN 40 MG/0.4 ML SYRINGE SQ SCH (09:02)
[2020-05-18] MEDS: PARoxetine 10 MG TAB PO SCH (09:03)
[2020-05-18 09:39] VITALS: BP 138/87; PULSE 85; TEMP 98.6
--- NOTE | 2020-05-18 10:05 | P.DS ---
Providers Date of admission: 05/15/20 17:22 Expected date of discharge: 05/18/20 Attending physician: Melisa Ramirez MD Primary care physician: Deshawn Lyon [facility] Course: HISTORY OF PRESENT ILLNESS This is a 54-year-old female patient of Dr. Lyon and Dr. Kory Hanna with past medical history of hypertension, hyperlipidemia, diabetes mellitus type 2, diabetic neuropathy, chronic gout, recurrent depression, gastroesophageal reflux disease, morbid obesity with BMI of 47. On May 08, patient underwent robotic-assisted [place] laparoscopic sleeve gastrectomy with Dr. Hein. Patient presented to the ER on May 14 with complaints of dizziness and lightheadedness especially when changing positions. Patient was discharged home. She returned to the emergency center on May 15 again with dizziness lightheadedness. She has had decreased oral intake due to recent gastric surgery. She does complain of abdominal pain. No fever or chills. No diarrhea. WBC was 13.5, hemoglobin 14.4 platelet count 239. Sodium 138, potassium 4.2, chloride 102, CO2 14, BUN 18 and creatinine 0.84. Blood sugar 237. Troponin was negative. Urinalysis was blood moderate, nitrate negative leukoesterase large, RBCs 55, WBCs greater than 182. Patient was started on IV antibiotics and admitted to the [facility] floor on insulin drip and protocol. This morning, patient states that she still has dizziness about the same as yesterday. Her blood sugars are running 179-221. Orthostatics were positive yesterday and will be rechecked. 05/17: The patient had orthostatic changes yesterday. Repeat orthostatics done today revealed systolic of 127 flat and 78 standing. Patient ordered for 1 L of IV fluids. Cortisol level ordered for the morning. She has been afebrile, heart rate 75, blood pressure 143/66, pulse ox 100% on room air. Blood sugars are improved running between 125 and 190. CBC is unremarkable. CO2 18. Urine culture finalized with skin aga. Patient was anticipating discharge home to day but we will plan to monitor overnight and check cortisol level and repeat orthostatics. Possible discharge by tomorrow. 05/18: Patient is seen today in follow-up. She states she has no dizziness. Patient stood up and ambulated in the room and experienced no dizziness or lightheadedness. Overall blood pressures are improved this morning at 138/87, pulse ox 100%, heart rate 85, afebrile. Blood sugars are running between 110 in the 183. The patient will be discharged home today in stable condition. No changes made to her home medication list. ASSESSMENT AND PLAN 1. Hyperosmolar hyperglycemic state in a patient with diabetes mellitus type 2. 2. Dizziness most likely secondary to orthostatic hypotension status post IV fluids. 3. Diabetes mellitus type 2. 4. Diabetic neuropathy. 5. Acute urinary tract infection, completed antibiotics. 6. Morbid obesity status post gastric sleeve on May 08. 7. Hypertension. 8. Hyperlipidemia. 9. Chronic gout. 10. Gastroesophageal reflux disease. 11. Recurrent depression. DISCHARGE PLAN Home. Impression and plan of care have been directed as dictated by the signing physician. Vida Shah nurse practitioner acting as scribe for signing physician. Patient Condition at Discharge: Good Plan - Discharge Summary New Discharge Prescriptions: Continue Pantoprazole Sodium [Protonix] 40 mg PO DAILY amLODIPine [Norvasc] 10 mg PO DAILY Montelukast [Singulair] 10 mg PO DAILY metFORMIN HCL [metFORMIN HCL ER] 1,000 mg PO AC-BID PARoxetine HCL 30 mg PO DAILY Mirabegron [Myrbetriq] 50 mg PO DAILY Allopurinol [Zyloprim] 100 mg PO DAILY Gabapentin [Neurontin] 800 mg PO TID Insulin Glargine,Hum.rec.anlog [Lantus Solostar] 50 unit SQ DAILY Omeprazole [PriLOSEC] 40 mg PO DAILY #30 capsule. Canagliflozin [Invokana] 300 mg PO DAILY Aspirin EC [Ecotrin Low Dose] 81 mg PO DAILY Atorvastatin [Lipitor] 20 mg PO DAILY Nystatin 100,000Unit/gm Cream [Mycostatin Cream] 1 applic TOPICAL BID Ibuprofen [Motrin] 800 mg PO Q6H PRN PRN Reason: Pain Ergocalciferol (Vitamin D2) [Drisdol (50,000 Iu)] 1,250 mcg PO Q7D Cetirizine HCl [Zyrtec] 10 mg PO DAILY Discharge Medication List Montelukast [Singulair] 10 mg PO DAILY 04/22/17 [History] Pantoprazole Sodium [Protonix] 40 mg PO DAILY 04/22/17 [History] amLODIPine [Norvasc] 10 mg PO DAILY 04/22/17 [History] Mirabegron [Myrbetriq] 50 mg PO DAILY 11/10/19 [History] PARoxetine HCL 30 mg PO DAILY 11/10/19 [History] metFORMIN HCL [metFORMIN HCL ER] 1,000 mg PO AC-BID 11/10/19 [History] Allopurinol [Zyloprim] 100 mg PO DAILY 03/28/20 [History] Gabapentin [Neurontin] 800 mg PO TID 03/28/20 [History] Insulin Glargine,Hum.rec.anlog [Lantus Solostar] 50 unit SQ DAILY 03/28/20 [History] Omeprazole [PriLOSEC] 40 mg PO DAILY #30 capsule. 05/10/20 [Rx] Aspirin EC [Ecotrin Low Dose] 81 mg PO DAILY 05/15/20 [History] Atorvastatin [Lipitor] 20 mg PO DAILY 05/15/20 [History] Canagliflozin [Invokana] 300 mg PO DAILY 05/15/20 [History] Cetirizine HCl [Zyrtec] 10 mg PO DAILY 05/15/20 [History] Ergocalciferol (Vitamin D2) [Drisdol (50,000 Iu)] 1,250 mcg PO Q7D 05/15/20 [History] Ibuprofen [Motrin] 800 mg PO Q6H PRN 05/15/20 [History] Nystatin 100,000Unit/gm Cream [Mycostatin Cream] 1 applic TOPICAL BID 05/15/20 [History] Follow up Appointment(s)/Referral(s): Melisa Ramirez MD [Medical Doctor] - 05/25/20 1:00 pm (Call office for new patient registration.) Patient Instructions/Handouts: Dehydration (DC), Hyperosmolar Hyperglycemic State (DC) Discharge Disposition: HOME SELF-CARE
[2020-05-18 12:17] LABS: Glucose,Whole Blood 162 mg/dL (75-99)
[2020-05-19] MEDS ORDERED: ERGOCALCIFEROL 1,250 MCG (50,000 IU) CAPSULE PO SCH (09:00)
== END 2020-05-18 13:38 | disposition home or self-care (01) | DRG 638 ==
LOC: EC 14:37 → 3SCARD 17:22
PROVIDERS: ADMIT Internal Medicine; ATTEND Internal Medicine
DX: E11.00 Type 2 diabetes mellitus with hyperosmolarity without nonketotic hyperglycemic-hyperosmolar coma (NKHHC) (principal); N39.0 Urinary tract infection, site not specified; F33.9 Major depressive disorder, recurrent, unspecified; Z68.42 Body mass index [BMI] 45.0-49.9, adult; E11.40 Type 2 diabetes mellitus with diabetic neuropathy, unspecified; E66.01 Morbid (severe) obesity due to excess calories; Z79.4 Long term (current) use of insulin; Z20.822 Contact with and (suspected) exposure to COVID-19; E86.0 Dehydration; I95.1 Orthostatic hypotension; K21.9 Gastro-esophageal reflux disease without esophagitis; M1A.9XX0 Chronic gout, unspecified, without tophus (tophi); E78.5 Hyperlipidemia, unspecified; I10 Essential (primary) hypertension; Z98.84 Bariatric surgery status; Z88.2 Allergy status to sulfonamides; Z79.899 Other long term (current) drug therapy; Z87.891 Personal history of nicotine dependence
CPT/HCPCS: 36415; 80048; 80051; 80053; 81001; 82565; 82947; 83605; 83735; 84100; 84484; 85025; 85027; 85610; 85730; 87086; 87635; 93005; 96361; 96374; 99285

== ENCOUNTER 2020-05-18 21:32 | Emergency (ER) | payer MEDICARE, OTHER ==
[2020-05-18 21:41] VITALS: BP 123/66; PULSE 83; TEMP 99.2
[2020-05-18 22:31] VITALS: RESP 20
--- NOTE | 2020-05-18 23:18 | ED ---
URI HPI - General Chief Complaint: Upper Respiratory Infection Stated Complaint: chest congestion/cough Time Seen by Provider: 05/18/20 22:12 Source: patient Mode of arrival: ambulatory Limitations: no limitations - History of Present Illness Initial Comments: Patient is a 54-year-old female presenting to the emergency Department with complaints of cold exposure. Patient states she was discharged today from the hospital for dehydration and found out her daughter had tested positive for Covid. Patient states she started having a headache, nausea and a mild cough that started today. Patient would like a Covid test. She denies any fever or chills, no shortness of breath, no chest pain. She has no further complaints at this time. Upon arrival to the ER, her vital signs are stable. - Related Data Home Medications Medication Instructions Recorded Confirmed Montelukast [Singulair] 10 mg PO DAILY 04/22/17 05/15/20 Pantoprazole Sodium [Protonix] 40 mg PO DAILY 04/22/17 05/15/20 amLODIPine [Norvasc] 10 mg PO DAILY 04/22/17 05/15/20 Mirabegron [Myrbetriq] 50 mg PO DAILY 11/10/19 05/15/20 PARoxetine HCL 30 mg PO DAILY 11/10/19 05/15/20 metFORMIN HCL [metFORMIN HCL ER] 1,000 mg PO AC-BID 11/10/19 05/15/20 Allopurinol [Zyloprim] 100 mg PO DAILY 03/28/20 05/15/20 Gabapentin [Neurontin] 800 mg PO TID 03/28/20 05/15/20 Insulin Glargine,Hum.rec.anlog 50 unit SQ DAILY 03/28/20 05/15/20 [Lantus Solostar] Aspirin EC [Ecotrin Low Dose] 81 mg PO DAILY 05/15/20 05/15/20 Atorvastatin [Lipitor] 20 mg PO DAILY 05/15/20 05/15/20 Canagliflozin [Invokana] 300 mg PO DAILY 05/15/20 05/15/20 Cetirizine HCl [Zyrtec] 10 mg PO DAILY 05/15/20 05/15/20 Ergocalciferol (Vitamin D2) 1,250 mcg PO Q7D 05/15/20 05/15/20 [Drisdol (50,000 Iu)] Ibuprofen [Motrin] 800 mg PO Q6H PRN 05/15/20 05/15/20 Nystatin 100,000Unit/gm Cream 1 applic TOPICAL BID 05/15/20 05/15/20 [Mycostatin Cream] Previous Rx's Medication Instructions Recorded Omeprazole [PriLOSEC] 40 mg PO DAILY #30 capsule. 05/10/20 Allergies Allergy/AdvReac Type Severity Reaction Status Date / Time Sulfa (Sulfonamide Allergy Anaphylaxis Verified 05/18/20 21:41 Antibiotics) Review of Systems ROS Statement: Those systems with pertinent positive or pertinent negative responses have been documented in the HPI. ROS Other: All systems not noted in ROS Statement are negative. Past Medical History Past Medical History: Diabetes Mellitus, Eye Disorder, Hyperlipidemia, Hypertension Additional Past Medical History / Comment(s): 05/04/14 Pt presented to [facility] ER with substernal chest pain that started 24 hhours before coming to ER. She noticed the chest pain when she woke up yesterday. It is a heaviness and is intermittent with variable duration. She also states she had alittle nausea with it. Other HX: Pt had recent (03/30/14)cataract surgery with lens implants bilaterally at -post op she had low O2 saturations and was told she had a very narrow airway-instead of going home same day, she was in the hospital for a couple days until her saturations improved. She was discharged with home O2 which she wears at 2L/NC at nite and was to follow up today for testing for sleep apnea. Pt states she also has diarrhea fairly frequently. 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 2018 - intermittently in hospital for 3 months for fluid on lungs, had fluid removed History of Any Multi-Drug Resistant Organisms: MRSA Date of last positivie culture/infection: 2010 MDRO Source:: legs and breasts. Past Surgical History: Bariatric Surgery, Cholecystectomy, Hysterectomy, Orthopedic Surgery Additional Past Surgical History / Comment(s): Bilateral cataract sx with lens implants, bilateral retinal repair. Cervical rodding for 3 ruptured discs. sleeve gastrectomy 05-08-20 Past Anesthesia/Blood Transfusion Reactions: Postoperative Nausea & Vomiting (PONV) Additional Past Anesthesia/Blood Transfusion Reaction / Comment(s): Pt had cataract and lens implant at [facility] on 03/30/14 and afterwards she desaturated and was hospitalized. She was told she has a very narrow airway. Pt has never recieved blood. Past Psychological History: No Psychological Hx Reported Smoking Status: Former smoker Past Alcohol Use History: None Reported Past Drug Use History: None Reported - Past Family History Father Family Medical History: Cancer, Myocardial Infarction ([place]) Additional Family Medical History / Comment(s): Father had 5 VA's and of bone cancer. Mother Family Medical History: Cancer Additional Family Medical History / Comment(s): cervical cancer General Exam - General Exam Comments Initial Comments: GENERAL: Patient is well-developed and well-nourished. Patient is nontoxic and in no acute distress. HEAD: Atraumatic, normocephalic. EYES: Pupils equal round and reactive to light, extraocular movements intact, sclera anicteric, conjunctiva are normal. Eyelids were unremarkable. ENT: TMs normal, nares patent, oropharynx clear without exudates. Moist mucous membranes. NECK: Normal range of motion, supple without lymphadenopathy or JVD. LUNGS: Unlabored respirations. Breath sounds clear to auscultation bilaterally and equal. No wheezes rales or rhonchi. HEART: Regular rate and rhythm without murmurs, rubs or gallops. ABDOMEN: Soft, nontender, normoactive bowel sounds. No guarding, no rebound. No masses appreciated. : Deferred MUSCULOSKELETAL: Normal extremities with adequate strength and normal range of motion, no pitting or edema. No clubbing or cyanosis. NEUROLOGICAL: Patient is alert and oriented x 3. Motor and sensory are also intact. Cranial nerves II through XII grossly intact. Symmetrical smile. Normal speech, normal gait. PSYCH: Normal mood, normal affect. SKIN: Warm, Dry, normal turgor, no rashes or lesions noted. Limitations: no limitations Course Vital Signs 05/18/20 05/18/20 21:37 22:29 Temperature 99.2 F Pulse Rate 83 Respiratory 17 20 Rate Blood Pressure 123/66 O2 Sat by Pulse 97 Oximetry Medical Decision Making - Medical Decision Making Patient is a 54-year-old female here with concerns of recent Covid exposure. She has a mild cough, mild headache. Patient's daughter recently tested positive. Her vital signs are stable, her exam is unremarkable. Patient's rapid Covid is positive. Patient refused a chest x-ray today. Patient will take Tylenol Motrin for her headache and increase her fluid intake. She can follow-up with her doctor. Return parameters were discussed with the patient and she verbalized understanding. Case discussed with Reji. - Lab Data Lab Results 05/18/20 Range/Units 22:15 Coronavirus (PCR) Detected A (Not Detectd) Disposition Clinical Impression: Viral respiratory illness, COVID-19 Disposition: HOME SELF-CARE Condition: Stable Instructions (If sedation given, give patient instructions): Coronavirus Disease 2019 (COVID-19) Additional Instructions: Please return to the Emergency Department if symptoms worsen or any other concerns. Covid test positive today. Continue with Tylenol or Motrin for headache or symptom relief. Increase fluid intake. Please follow-up with your regular doctor. Is patient prescribed a controlled substance at d/c from ED?: No Referrals: Deshawn Lyon MD [Primary Care Provider] - 1-2 days
== END 2020-05-18 23:35 | disposition home or self-care (01) ==
LOC: EC 21:32
DX: U07.1 COVID-19 (principal); E11.36 Type 2 diabetes mellitus with diabetic cataract; E78.5 Hyperlipidemia, unspecified; I10 Essential (primary) hypertension; Z79.1 Long term (current) use of non-steroidal anti-inflammatories (NSAID); Z87.891 Personal history of nicotine dependence
CPT/HCPCS: 87635; 99283

== ENCOUNTER 2020-05-19 21:40 | Emergency (ER) | payer MEDICARE, OTHER ==
--- NOTE | 2020-05-19 22:42 | ED ---
General Adult HPI - General Chief complaint: Shortness of Breath Stated complaint: COVID+, ELA, dizziness Time Seen by Provider: 05/19/20 21:48 Source: patient Mode of arrival: wheelchair Limitations: no limitations - History of Present Illness Initial comments: Patient is a 54-year-old female, history of diabetes, hypertension, presenting to emergency Department with complaints of increasing cough, headache and dizziness when she stands up. Patient was in the ER yesterday, diagnosed with Covid. A little bit worse today and also inquiring about antibody treatment. Patient states she is still having low-grade temperatures, she is taking Tylenol at home. She has been drinking a little bit of water, low appetite. She denies any abdominal pain, some mild nausea, no vomiting or diarrhea. She denies any chest pains, mild shortness of breath with exertion. She has no further complaints at this time. Upon arrival to the ER, her temperature is 99.8, 97% on room air, rest of vitals normal. - Related Data Home Medications Medication Instructions Recorded Confirmed Montelukast [Singulair] 10 mg PO DAILY 04/22/17 05/15/20 Pantoprazole Sodium [Protonix] 40 mg PO DAILY 04/22/17 05/15/20 amLODIPine [Norvasc] 10 mg PO DAILY 04/22/17 05/15/20 Mirabegron [Myrbetriq] 50 mg PO DAILY 11/10/19 05/15/20 PARoxetine HCL 30 mg PO DAILY 11/10/19 05/15/20 metFORMIN HCL [metFORMIN HCL ER] 1,000 mg PO AC-BID 11/10/19 05/15/20 Allopurinol [Zyloprim] 100 mg PO DAILY 03/28/20 05/15/20 Gabapentin [Neurontin] 800 mg PO TID 03/28/20 05/15/20 Insulin Glargine,Hum.rec.anlog 50 unit SQ DAILY 03/28/20 05/15/20 [Lantus Solostar] Aspirin EC [Ecotrin Low Dose] 81 mg PO DAILY 05/15/20 05/15/20 Atorvastatin [Lipitor] 20 mg PO DAILY 05/15/20 05/15/20 Canagliflozin [Invokana] 300 mg PO DAILY 05/15/20 05/15/20 Cetirizine HCl [Zyrtec] 10 mg PO DAILY 05/15/20 05/15/20 Ergocalciferol (Vitamin D2) 1,250 mcg PO Q7D 05/15/20 05/15/20 [Drisdol (50,000 Iu)] Ibuprofen [Motrin] 800 mg PO Q6H PRN 05/15/20 05/15/20 Nystatin 100,000Unit/gm Cream 1 applic TOPICAL BID 05/15/20 05/15/20 [Mycostatin Cream] Previous Rx's Medication Instructions Recorded Omeprazole [PriLOSEC] 40 mg PO DAILY #30 capsule. 05/10/20 Allergies Allergy/AdvReac Type Severity Reaction Status Date / Time Sulfa (Sulfonamide Allergy Anaphylaxis Verified 05/19/20 21:46 Antibiotics) Review of Systems ROS Statement: Those systems with pertinent positive or pertinent negative responses have been documented in the HPI. ROS Other: All systems not noted in ROS Statement are negative. Past Medical History Past Medical History: Diabetes Mellitus, Eye Disorder, Hyperlipidemia, Hypertension Additional Past Medical History / Comment(s): 05/04/14 Pt presented to [facility] ER with substernal chest pain that started 24 hhours before coming to ER. She noticed the chest pain when she woke up yesterday. It is a heaviness and is intermittent with variable duration. She also states she had alittle nausea with it. Other HX: Pt had recent (03/30/14)cataract surgery with lens implants bilaterally at [facility]-post op she had low O2 saturations and was told she had a very narrow airway-instead of going home same day, she was in the hospital for a couple days until her saturations improved. She was discharged with home O2 which she wears at 2L/NC at [facility] and was to follow up today for testing for sleep apnea. Pt states she also has diarrhea fairly frequently. 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 2018 - intermittently in hospital for 3 months for fluid on lungs, had fluid removed History of Any Multi-Drug Resistant Organisms: MRSA Date of last positivie culture/infection: 2010 MDRO Source:: legs and breasts. Past Surgical History: Bariatric Surgery, Cholecystectomy, Hysterectomy, Orthopedic Surgery Additional Past Surgical History / Comment(s): Bilateral cataract sx with lens implants, bilateral retinal repair. Cervical rodding for 3 ruptured discs. sleeve gastrectomy 3-1-21 Past Anesthesia/Blood Transfusion Reactions: Postoperative Nausea & Vomiting (PONV) Additional Past Anesthesia/Blood Transfusion Reaction / Comment(s): Pt had cataract and lens implant at [facility] on 03/30/14 and afterwards she desaturated and was hospitalized. She was told she has a very narrow airway. Pt has never recieved blood. Past Psychological History: No Psychological Hx Reported Smoking Status: Former smoker Past Alcohol Use History: None Reported Past Drug Use History: None Reported - Past Family History Father Family Medical History: Cancer, Myocardial Infarction ([place]) Additional Family Medical History / Comment(s): Father had 5 [place]'s and of bone cancer. Mother Family Medical History: Cancer Additional Family Medical History / Comment(s): cervical cancer General Exam - General Exam Comments Initial Comments: GENERAL: Patient is well-developed and well-nourished. Patient is nontoxic and in no acute distress. HEAD: Atraumatic, normocephalic. EYES: Pupils equal round and reactive to light, extraocular movements intact, sclera anicteric, conjunctiva are normal. Eyelids were unremarkable. ENT: TMs normal, nares patent, oropharynx clear without exudates. Moist mucous membranes. NECK: Normal range of motion, supple without lymphadenopathy or JVD. LUNGS: Unlabored respirations. Breath sounds clear to auscultation bilaterally and equal. No wheezes rales or rhonchi. HEART: Regular rate and rhythm without murmurs, rubs or gallops. ABDOMEN: Soft, nontender, normoactive bowel sounds. No guarding, no rebound. No masses appreciated. : Deferred MUSCULOSKELETAL: Normal extremities with adequate strength and normal range of motion, no pitting or edema. No clubbing or cyanosis. NEUROLOGICAL: Patient is alert and oriented x 3. Motor and sensory are also intact. Cranial nerves II through XII grossly intact. Symmetrical smile. Normal speech, normal gait. PSYCH: Normal mood, normal affect. SKIN: Warm, Dry, normal turgor, no rashes or lesions noted. Limitations: no limitations Course Vital Signs 05/19/20 05/19/20 05/20/20 21:43 22:50 00:18 Temperature 99.8 F H Pulse Rate 86 80 Respiratory 20 18 16 Rate Blood Pressure 128/68 131/56 O2 Sat by Pulse 97 94 L Oximetry 05/20/20 01:34 Temperature 99.0 F Pulse Rate 87 Respiratory 16 Rate Blood Pressure 129/73 O2 Sat by Pulse 98 Oximetry EKG Findings - EKG Comments: EKG Findings:: Normal sinus rhythm, normal ECG, no signs of acute process. Ventricular rate 80, VT interval 172, QT 390. Medical Decision Making - Medical Decision Making Patient is a 54-year-old female with history of diabetes, hypertension, presenting for increase in cough, shortness of breath with exertion, dizziness when she stands up since yesterday. She was diagnosed with Covid yesterday. She is also inquiring about antibody treatment. Her vital signs are stable today. Her exam is unremarkable, she is in no acute distress. EKG shows no acute process. Chest x-ray shows mild subsegmental atelectasis, no heart failure, no pleural effusion. Labs show a normal white count, CRP is up at 32, lactic acid is normal at 1.1. Patient's vital signs remained stable here. Patient does qualify for Covid antibody treatment. Patient tolerated treatment well. Patient stable for discharge. Recommend continuing with Tylenol or Motrin for any discomfort, follow-up with her regular doctor. She is in agreement with this plan of care. She stable for discharge. Return parameters were discussed with the patient she verbalized understanding. Case discussed with Dr. Guzman. - Lab Data Result diagrams: 05/19/20 23:10 05/19/20 23:10 Lab Results 05/19/20 05/19/20 05/19/20 Range/Units 23:10 23:10 23:10 WBC 8.5 (3.8-10.6) k/uL RBC 4.77 (3.80-5.40) m/uL Hgb 13.3 (11.4-16.0) gm/dL Hct 38.7 (34.0-46.0) % MCV 81.1 (80.0-100.0) fL MCH 27.8 (25.0-35.0) pg MCHC 34.3 (31.0-37.0) g/dL RDW 18.4 H (11.5-15.5) % Plt Count 190 (150-450) k/uL MPV 8.1 Neutrophils % 69 % Lymphocytes % 17 % Monocytes % 10 % Eosinophils % 2 % Basophils % 0 % Neutrophils # 5.8 (1.3-7.7) k/uL Lymphocytes # 1.4 (1.0-4.8) k/uL Monocytes # 0.8 (0-1.0) k/uL Eosinophils # 0.2 (0-0.7) k/uL Basophils # 0.0 (0-0.2) k/uL Anisocytosis Slight Microcytosis Slight PT 10.2 (9.0-12.0) sec INR 0.9 (<1.2) APTT 23.3 (22.0-30.0) sec Sodium 134 L (137-145) mmol/L Potassium 4.0 (3.5-5.1) mmol/L Chloride 99 (98-107) mmol/L Carbon Dioxide 20 L (22-30) mmol/L Anion Gap 15 mmol/L BUN 6 L (7-17) mg/dL Creatinine 0.64 (0.52-1.04) mg/dL Est GFR (CKD-EPI)AfAm >90 (>60 ml/min/1.73 sqM) Est GFR (CKD-EPI)NonAf >90 (>60 ml/min/1.73 sqM) Glucose 175 H (74-99) mg/dL Plasma Lactic Acid Alejandro (0.7-2.0) mmol/L Calcium 8.5 (8.4-10.2) mg/dL Magnesium 2.2 (1.6-2.3) mg/dL Total Bilirubin 0.5 (0.2-1.3) mg/dL AST 41 H (14-36) U/L ALT 28 (4-34) U/L Alkaline Phosphatase 104 (38-126) U/L Lactate Dehydrogenase 661 H (313-618) U/L C-Reactive Protein 32.4 H (<10.0) mg/L Total Protein 5.9 L (6.3-8.2) g/dL Albumin 3.5 (3.5-5.0) g/dL 05/19/20 Range/Units 23:10 WBC (3.8-10.6) k/uL RBC (3.80-5.40) m/uL Hgb (11.4-16.0) gm/dL Hct (34.0-46.0) % MCV (80.0-100.0) fL MCH (25.0-35.0) pg MCHC (31.0-37.0) g/dL RDW (11.5-15.5) % Plt Count (150-450) k/uL MPV Neutrophils % % Lymphocytes % % Monocytes % % Eosinophils % % Basophils % % Neutrophils # (1.3-7.7) k/uL Lymphocytes # (1.0-4.8) k/uL Monocytes # (0-1.0) k/uL Eosinophils # (0-0.7) k/uL Basophils # (0-0.2) k/uL Anisocytosis Microcytosis PT (9.0-12.0) sec INR (<1.2) APTT (22.0-30.0) sec Sodium (137-145) mmol/L Potassium (3.5-5.1) mmol/L Chloride (98-107) mmol/L Carbon Dioxide (22-30) mmol/L Anion Gap mmol/L BUN (7-17) mg/dL Creatinine (0.52-1.04) mg/dL Est GFR (CKD-EPI)AfAm (>60 ml/min/1.73 sqM) Est GFR (CKD-EPI)NonAf (>60 ml/min/1.73 sqM) Glucose (74-99) mg/dL Plasma Lactic Acid Alejandro 1.0 (0.7-2.0) mmol/L Calcium (8.4-10.2) mg/dL Magnesium (1.6-2.3) mg/dL Total Bilirubin (0.2-1.3) mg/dL AST (14-36) U/L ALT (4-34) U/L Alkaline Phosphatase (38-126) U/L Lactate Dehydrogenase (313-618) U/L C-Reactive Protein (<10.0) mg/L Total Protein (6.3-8.2) g/dL Albumin (3.5-5.0) g/dL Disposition Clinical Impression: COVID-19, Dehydration Disposition: HOME SELF-CARE Condition: Stable Instructions (If sedation given, give patient instructions): Coronavirus Disease 2019 (COVID-19) Additional Instructions: Please return to the Emergency Department if symptoms worsen or any other concerns. Continue with Tylenol Motrin for fever control. Increase fluid intake. Please follow-up with your regular doctor. Is patient prescribed a controlled substance at d/c from ED?: No Referrals: Deshawn Lyon MD [Primary Care Provider] - 1-2 days
--- NOTE | 2020-05-19 22:45 | XR ---
EXAMINATION TYPE: XR chest 1V portable DATE OF EXAM: 05/19/2020 COMPARISON: 04/22/2017 HISTORY: Chest pain There is some linear density left midlung. The other lung ocasio are clear. There are no hilar ralph s. Heart size is normal. Bony thorax is intact. There is no pleural effusion. IMPRESSION: Mild subsegmental atelectasis. Pleural fluid and infiltrate mostly cleared compared to ol d exam in the left lower lobe. No heart failure.
[2020-05-19] MEDS ORDERED: BAMLANIVIMAB 700 MG in SODIUM CHLORIDE 0.9% 50 ML IVPB ONE (23:00)
[2020-05-19 23:21] LABS: Anisocytosis Slight; Basophils % (A) 0 %; Eosinophils # (A) 0.2 k/uL (0-0.7); Eosinophils % (A) 2 %; HCT 38.7 % (34.0-46.0); HGB 13.3 gm/dL (11.4-16.0); Lymphocytes # (A) 1.4 k/uL (1.0-4.8); Lymphocytes % (A) 17 %; MCH 27.8 pg (25.0-35.0); MCHC 34.3 g/dL (31.0-37.0); MCV 81.1 fL (80.0-100.0); Mean Platelet Volume 8.1; Microcytosis Slight; Monocytes # (A) 0.8 k/uL (0-1.0); Monocytes % (A) 10 %; Neutrophils # (A) 5.8 k/uL (1.3-7.7); Neutrophils % (A) 69 %; Platelet Count 190 k/uL (150-450); RBC 4.77 m/uL (3.80-5.40); RDW 18.4 % (11.5-15.5); WBC 8.5 k/uL (3.8-10.6)
[2020-05-19 23:35] LABS: INR 0.9 (<1.2); Partial Thromboplastin Time 23.3 sec (22.0-30.0); Prothrombin Time 10.2 sec (9.0-12.0)
[2020-05-19 23:36] LABS: ALT 28 U/L (4-34); AST 41 U/L (14-36); African American GFR (CKD) >90 (>60 ml/min/1.73 sqM); Albumin 3.5 g/dL (3.5-5.0); Alkaline Phosphatase 104 U/L (38-126); Anion Gap 15 mmol/L; Blood Urea Nitrogen 6 mg/dL (7-17); C Reactive Protein 32.4 mg/L (<10.0); Calcium 8.5 mg/dL (8.4-10.2); Carbon Dioxide 20 mmol/L (22-30); Chloride 99 mmol/L (98-107); Glucose 175 mg/dL (74-99); LDH 661 U/L (313-618); Magnesium 2.2 mg/dL (1.6-2.3); Non-African American GFR(CKD) >90 (>60 ml/min/1.73 sqM); Sodium 134 mmol/L (137-145); Total Bilirubin 0.5 mg/dL (0.2-1.3); Total Protein 5.9 g/dL (6.3-8.2)
[2020-05-20 00:19] VITALS: RESP 16
[2020-05-20 01:36] VITALS: BP 129/73; PULSE 87; TEMP 99
[2020-05-20 13:13] LABS: Ferritin 1693.9 ng/mL (10.0-291.0)
== END 2020-05-20 01:35 | disposition home or self-care (01) ==
LOC: EC 21:40
DX: U07.1 COVID-19 (principal); E86.0 Dehydration; E11.36 Type 2 diabetes mellitus with diabetic cataract; E78.5 Hyperlipidemia, unspecified; I10 Essential (primary) hypertension; Z79.1 Long term (current) use of non-steroidal anti-inflammatories (NSAID); Z79.4 Long term (current) use of insulin; Z79.82 Long term (current) use of aspirin; Z87.891 Personal history of nicotine dependence
CPT/HCPCS: 36415; 93005; 80053; 82728; 83605; 83615; 83735; 85025; 85610; 85730; 86140; 87040; 71045; 99285; 96374; Q0239

== ENCOUNTER → 2020-06-07 | Outpatient (CLI) | payer MEDICARE, OTHER ==
[2020-06-07 14:57] VITALS: BP 109/69; PULSE 87; RESP 18; TEMP 98.4; BMI 50.4
--- NOTE | 2020-06-07 15:04 | P.PN ---
Subjective Progress Note Date: 06/07/20 She caught COVID 2 weeks ago. She had gone to the ER for dehydration. She has lost 60 pounds. She has mild erythema. Weight loss for panniculitis. She reports minimal emesis and she is eating to fast and eating too quickly. Still using omeprazole. Recommend blood work in 1 week. She is on 1 protein shake. Recommend 3 protein shake. Objective - Vital Signs Vital signs: Vital Signs Temp 98.4 F 06/07/20 14:33 Pulse 87 06/07/20 14:33 Resp 18 06/07/20 14:33 BP 109/69 06/07/20 14:33 Pulse Ox Intake & Output 06/06/20 06/07/20 06/07/20 18:59 06:59 18:59 Weight 137.438 kg
[2020-06-07 15:46] LABS: Anisocytosis Slight; HCT 36.8 % (34.0-46.0); HGB 12.6 gm/dL (11.4-16.0); MCHC 34.3 g/dL (31.0-37.0); MCV 84.5 fL (80.0-100.0); Platelet Count 233 k/uL (150-450); RBC 4.35 m/uL (3.80-5.40); RDW 18.5 % (11.5-15.5); WBC 10.4 k/uL (3.8-10.6)
[2020-06-07 23:32] LABS: INR 0.94 (0.90-1.11); Partial Thromboplastin Time 23.7 sec (23.5-31.0); Prothrombin Time 10.3 sec (9.9-11.9)
[2020-06-08 02:12] LABS: Hemoglobin A1C 10.5 % (4.0-6.0)
[2020-06-08 02:50] LABS: % Iron Saturation 15.56 (12.00-45.00); African American GFR (CKD) 96.9 (60.0-200.0); Albumin/Globulin Ratio 1.9 (1.60-3.17); Anion Gap 10.3 mmol/L (4.00-12.00); Calcium 9.2 mg/dL (8.7-10.3); Carbon Dioxide 27.7 mmol/L (21.6-31.8); Chol/HDL Ratio 3.55; Globulin 2.1 g/dL (1.6-3.3); LDL Cholesterol,Calculated 68.8 mg/dL (0.0-131.0); Magnesium 1.7 mg/dL (1.5-2.4); Non-African American GFR(CKD) 83.6 (60.0-200.0); Phosphorus 4.1 mg/dL (2.4-5.1); Potassium 4.3 mmol/L (3.5-5.5); Total Bilirubin 0.4 mg/dL (0.3-1.2); Total Protein 6.1 g/dL (6.2-8.2); VLDL Calculation 38.2 mg/dL (5.00-40.00)
[2020-06-08 03:57] LABS: Ferritin 918.9 ng/mL (10.0-291.0); Folate, Serum 13.1 ng/mL
[2020-06-08 13:17] LABS: Zinc, Serum 61 ug/dL (60-130)
[2020-06-09 10:33] LABS: Vitamin A 53 ug/dL (38-106)
[2020-06-09 10:45] LABS: Vit B1(Thiamine) 69 ug/L (38-122)
[2020-06-11 17:51] LABS: Selenium 124 mcg/L (63-160)
== END ==
LOC: BARWHC3 13:54
PROVIDERS: ATTEND Surgery Plastic and Reconstructive Surgery
DX: E66.01 Morbid (severe) obesity due to excess calories (principal); E89.1 Postprocedural hypoinsulinemia; D50.8 Other iron deficiency anemias; E44.0 Moderate protein-calorie malnutrition; E55.9 Vitamin D deficiency, unspecified; K74.1 Hepatic sclerosis; N19 Unspecified kidney failure; K50.90 Crohn's disease, unspecified, without complications; Z68.43 Body mass index [BMI] 50.0-59.9, adult; Z87.891 Personal history of nicotine dependence
CPT/HCPCS: 84255; 84134; 84425; 80061; 80053; 82607; 82728; 82525; 82746; 83540; 83550; 83735; 84100; 84443; 84590; 84630; 85027; 85610; 85730; 82306; 83970; 83036; 97803; G0463; 99211

== ENCOUNTER 2020-07-04 19:09 | Emergency (ER) | payer MEDICARE, OTHER ==
[2020-07-04 19:22] VITALS: RESP 18
[2020-07-04 19:44] LABS: Anisocytosis Slight; Basophils # (A) 0.1 k/uL (0-0.2); Basophils % (A) 1 %; Eosinophils # (A) 0.2 k/uL (0-0.7); Eosinophils % (A) 2 %; HCT 38.6 % (34.0-46.0); HGB 13.1 gm/dL (11.4-16.0); Lymphocytes % (A) 24 %; MCH 28.9 pg (25.0-35.0); MCHC 33.9 g/dL (31.0-37.0); MCV 85.2 fL (80.0-100.0); Mean Platelet Volume 8.1; Monocytes # (A) 0.5 k/uL (0-1.0); Monocytes % (A) 6 %; Neutrophils # (A) 5.6 k/uL (1.3-7.7); Neutrophils % (A) 66 %; Platelet Count 240 k/uL (150-450); RBC 4.53 m/uL (3.80-5.40); RDW 16.6 % (11.5-15.5); WBC 8.5 k/uL (3.8-10.6)
[2020-07-04 19:55] LABS: ALT 25 U/L (4-34); AST 34 U/L (14-36); African American GFR (CKD) >90 (>60 ml/min/1.73 sqM); Albumin 4.2 g/dL (3.5-5.0); Alkaline Phosphatase 116 U/L (38-126); Anion Gap 8 mmol/L; Blood Urea Nitrogen 16 mg/dL (7-17); Calcium 9.6 mg/dL (8.4-10.2); Carbon Dioxide 28 mmol/L (22-30); Chloride 102 mmol/L (98-107); Glucose 170 mg/dL (74-99); Non-African American GFR(CKD) >90 (>60 ml/min/1.73 sqM); Prothrombin Time 10.4 sec (9.0-12.0); Sodium 138 mmol/L (137-145); Total Bilirubin 0.6 mg/dL (0.2-1.3)
[2020-07-04] MEDS ORDERED: SODIUM CHLORIDE 0.9% 1,000 ML IV STA (20:35)
--- NOTE | 2020-07-04 20:50 | ED ---
General Adult HPI - General Chief complaint: Dizziness Stated complaint: Dizziness/vomiting Time Seen by Provider: 07/04/20 20:35 Source: patient Mode of arrival: ambulatory Limitations: no limitations - History of Present Illness Initial comments: Dictation was produced using [employer] dictation software. please excuse any grammatical, word or spelling errors. This patient was cared for during a federal and state declared state of emergency secondary to Covid 19 Chief Complaint: 55-year-old female past medical history of gastric sleep performed 2 months ago, diabetes discussed hypertension presents with epigastric pain 3 days History of Present Illness: She is a 55-year-old female she presents today with epigastric pain, poor appetite, headache. States she developed these symptoms 3 days ago. 2 months ago patient had a gastric sleep performed. She had a relatively uncomplicated postoperative course. Patient denies any sore throat, cough or shortness of breath. She got Covid recently and was given that unremarkable antibody infusion. Denies any constitutional symptoms. Patient feels that she is dehydrated. She has been having poor appetite. She complains of some mild nausea but no vomiting. She states that she feels nauseated even with the sight of food. The ROS documented in this emergency department record has been reviewed and confirmed by me. Those systems with pertinent positive or negative responses have been documented in the HPI. All other systems are other negative and/or noncontributory. PHYSICAL EXAM: General Impression: Alert and oriented x3, not in acute distress HEENT: Normocephalic atraumatic, extra-ocular movements intact, pupils equal and reactive to light bilaterally, mucous membranes moist. Cardiovascular: Heart regular rate and rhythm Chest: Able to complete full sentences, no retractions, no tachypnea Abdomen: abdomen soft, mild tenderness to the epigastric area, non-distended, no organomegaly Musculoskeletal: Pulses present and equal in all extremities, no peripheral edema Motor: no focal deficits noted Neurological: CN II-XII grossly intact, no focal motor or sensory deficits noted Skin: Intact with no visualized rashes Psych: Normal affect and mood ED course: 55-year-old female presents with poor appetite, epigastric pain nausea signs upon arrival are within acceptable limits. Patient is well- appearing at bedside. Patient has benign abdominal exam though she has some mild tenderness to palpation in the epigastric area. Chart review shows that patient had a gastric sleep performed on May 08 of this year. EKGs benign Laboratory evaluation obtained showing no acute processes. Abdominal levels are negative. No inflammatory markers. X-ray shows nonacute abdomen. Patient well-appearing at bedside. COVID-19 test is negative. Patient stable for discharge. She is advised to follow up with her primary care physician. Return parameters discussed. She is feeling much better after intravenous fluids. EKG interpretation: Ventricular rate 81, normal sinus rhythm,. 170, QRS 84, QTC 460. No TN prolongation, no QTC prolongation, no ST or T-wave changes noted. Overall, this EKG is unremarkable - Related Data Home Medications Medication Instructions Recorded Confirmed Montelukast [Singulair] 10 mg PO DAILY 04/22/17 07/04/20 Pantoprazole Sodium [Protonix] 40 mg PO DAILY 04/22/17 07/04/20 amLODIPine [Norvasc] 10 mg PO DAILY 04/22/17 07/04/20 Mirabegron [Myrbetriq] 50 mg PO DAILY 11/10/19 07/04/20 PARoxetine HCL 30 mg PO HS 11/10/19 07/04/20 Allopurinol [Zyloprim] 100 mg PO DAILY 03/28/20 07/04/20 Gabapentin [Neurontin] 800 mg PO TID 03/28/20 07/04/20 Insulin Glargine,Hum.rec.anlog 80 unit SQ DAILY 03/28/20 07/04/20 [Lantus Solostar] Aspirin EC [Ecotrin Low Dose] 81 mg PO DAILY 05/15/20 07/04/20 Atorvastatin [Lipitor] 20 mg PO DAILY 05/15/20 07/04/20 Ergocalciferol (Vitamin D2) 1,250 mcg PO WE 05/15/20 07/04/20 [Drisdol (50,000 Iu)] Bisacodyl 5 mg PO DAILY PRN 07/04/20 07/04/20 Cholecalciferol [Vitamin D3 (25 25 mcg PO DAILY 07/04/20 07/04/20 Mcg = 1000 Iu)] Escitalopram [Lexapro] 10 mg PO DAILY 07/04/20 07/04/20 Ferrous Sulfate [Feosol] 325 mg PO DAILY 07/04/20 07/04/20 INSULIN LISPRO (humaLOG) [humaLOG] 80 units SQ AC-TID PRN 07/04/20 07/04/20 Loratadine 10 mg PO DAILY 07/04/20 07/04/20 Multivitamin/Iron/Folic Acid 1 tab PO DAILY 07/04/20 07/04/20 [Centrum Women Tablet] Zinc 50 mg PO DAILY 07/04/20 07/04/20 Previous Rx's Medication Instructions Recorded Omeprazole [PriLOSEC] 40 mg PO DAILY #30 capsule. 05/10/20 Allergies Allergy/AdvReac Type Severity Reaction Status Date / Time Sulfa (Sulfonamide Allergy Anaphylaxis Verified 07/04/20 21:53 Antibiotics) Review of Systems ROS Statement: Those systems with pertinent positive or pertinent negative responses have been documented in the HPI. ROS Other: All systems not noted in ROS Statement are negative. Past Medical History Past Medical History: Diabetes Mellitus, Eye Disorder, Hyperlipidemia, Hypertension Additional Past Medical History / Comment(s): 05/04/14 Pt presented to [facility] ER with substernal chest pain that started 24 hhours before coming to ER. She noticed the chest pain when she woke up yesterday. It is a heaviness and is intermittent with variable duration. She also states she had alittle nausea with it. Other HX: Pt had recent (03/30/14)cataract surgery with lens implants bilaterally at [facility]-post op she had low O2 saturations and was told she had a very narrow airway-instead of going home same day, she was in the hospital for a couple days until her saturations improved. She was discharged with home O2 which she wears at 2L/NC at [facility] and was to follow up today for testing for sleep apnea. Pt states she also has diarrhea fairly frequently. 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 2018 - intermittently in hospital for 3 months for fluid on lungs, had fluid removed History of Any Multi-Drug Resistant Organisms: MRSA Date of last positivie culture/infection: 2010 MDRO Source:: legs and breasts. Past Surgical History: Bariatric Surgery, Cholecystectomy, Hysterectomy, Orthopedic Surgery Additional Past Surgical History / Comment(s): Bilateral cataract sx with lens implants, bilateral retinal repair. Cervical rodding for 3 ruptured discs. 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 Past Anesthesia/Blood Transfusion Reactions: Postoperative Nausea & Vomiting (PONV) Additional Past Anesthesia/Blood Transfusion Reaction / Comment(s): Pt had cataract and lens implant at [facility] on 03/30/14 and afterwards she desaturated and was hospitalized. She was told she has a very narrow airway. Pt has never recieved blood. Past Psychological History: No Psychological Hx Reported Smoking Status: Former smoker Past Alcohol Use History: None Reported Past Drug Use History: None Reported - Past Family History Father Family Medical History: Cancer, Myocardial Infarction ([place]) Additional Family Medical History / Comment(s): Father had 5 [place]'s and of bone cancer. Mother Family Medical History: Cancer Additional Family Medical History / Comment(s): cervical cancer General Exam Limitations: no limitations Course Vital Signs 07/04/20 19:20 Temperature 98.7 F Pulse Rate 84 Respiratory 18 Rate Blood Pressure 164/80 O2 Sat by Pulse 97 Oximetry Medical Decision Making - Lab Data Result diagrams: 07/04/20 19:23 07/04/20 19:23 Lab Results 07/04/20 07/04/20 07/04/20 Range/Units 19:23 19:23 19:23 WBC 8.5 (3.8-10.6) k/uL RBC 4.53 (3.80-5.40) m/uL Hgb 13.1 (11.4-16.0) gm/dL Hct 38.6 (34.0-46.0) % MCV 85.2 (80.0-100.0) fL MCH 28.9 (25.0-35.0) pg MCHC 33.9 (31.0-37.0) g/dL RDW 16.6 H (11.5-15.5) % Plt Count 240 (150-450) k/uL MPV 8.1 Neutrophils % 66 % Lymphocytes % 24 % Monocytes % 6 % Eosinophils % 2 % Basophils % 1 % Neutrophils # 5.6 (1.3-7.7) k/uL Lymphocytes # 2.0 (1.0-4.8) k/uL Monocytes # 0.5 (0-1.0) k/uL Eosinophils # 0.2 (0-0.7) k/uL Basophils # 0.1 (0-0.2) k/uL Anisocytosis Slight PT 10.4 (9.0-12.0) sec INR 1.0 (<1.2) Sodium 138 (137-145) mmol/L Potassium 4.0 (3.5-5.1) mmol/L Chloride 102 (98-107) mmol/L Carbon Dioxide 28 (22-30) mmol/L Anion Gap 8 mmol/L BUN 16 (7-17) mg/dL Creatinine 0.71 (0.52-1.04) mg/dL Est GFR (CKD-EPI)AfAm >90 (>60 ml/min/1.73 sqM) Est GFR (CKD-EPI)NonAf >90 (>60 ml/min/1.73 sqM) Glucose 170 H (74-99) mg/dL Plasma Lactic Acid Alejandro (0.7-2.0) mmol/L Calcium 9.6 (8.4-10.2) mg/dL Total Bilirubin 0.6 (0.2-1.3) mg/dL AST 34 (14-36) U/L ALT 25 (4-34) U/L Alkaline Phosphatase 116 (38-126) U/L Troponin I (0.000-0.034) ng/mL Total Protein 7.0 (6.3-8.2) g/dL Albumin 4.2 (3.5-5.0) g/dL Influenza Type A (PCR) (Not Detectd) Influenza Type B (PCR) (Not Detectd) RSV (PCR) (Not Detectd) SARS-CoV-2 (PCR) (Not Detectd) 07/04/20 07/04/20 07/04/20 Range/Units 19:23 19:23 21:12 WBC (3.8-10.6) k/uL RBC (3.80-5.40) m/uL Hgb (11.4-16.0) gm/dL Hct (34.0-46.0) % MCV (80.0-100.0) fL MCH (25.0-35.0) pg MCHC (31.0-37.0) g/dL RDW (11.5-15.5) % Plt Count (150-450) k/uL MPV Neutrophils % % Lymphocytes % % Monocytes % % Eosinophils % % Basophils % % Neutrophils # (1.3-7.7) k/uL Lymphocytes # (1.0-4.8) k/uL Monocytes # (0-1.0) k/uL Eosinophils # (0-0.7) k/uL Basophils # (0-0.2) k/uL Anisocytosis PT (9.0-12.0) sec INR (<1.2) Sodium (137-145) mmol/L Potassium (3.5-5.1) mmol/L Chloride (98-107) mmol/L Carbon Dioxide (22-30) mmol/L Anion Gap mmol/L BUN (7-17) mg/dL Creatinine (0.52-1.04) mg/dL Est GFR (CKD-EPI)AfAm (>60 ml/min/1.73 sqM) Est GFR (CKD-EPI)NonAf (>60 ml/min/1.73 sqM) Glucose (74-99) mg/dL Plasma Lactic Acid Alejandro 1.1 (0.7-2.0) mmol/L Calcium (8.4-10.2) mg/dL Total Bilirubin (0.2-1.3) mg/dL AST (14-36) U/L ALT (4-34) U/L Alkaline Phosphatase (38-126) U/L Troponin I <0.012 (0.000-0.034) ng/mL Total Protein (6.3-8.2) g/dL Albumin (3.5-5.0) g/dL Influenza Type A (PCR) Not Detected (Not Detectd) Influenza Type B (PCR) Not Detected (Not Detectd) RSV (PCR) Not Detected (Not Detectd) SARS-CoV-2 (PCR) Not Detected (Not Detectd) Disposition Clinical Impression: Abdominal pain Disposition: HOME SELF-CARE Condition: Good Instructions (If sedation given, give patient instructions): Abdominal Pain (ED) Is patient prescribed a controlled substance at d/c from ED?: No Referrals: Melisa Ramirez MD [Primary Care Provider] - 1-2 days Time of Disposition: 22:35
--- NOTE | 2020-07-04 22:12 | XR ---
EXAMINATION TYPE: XR abdomen 1V DATE OF EXAM: 07/04/2020 COMPARISON: 05/14/2020 HISTORY: Pain TECHNIQUE: 2 views upright FINDINGS: There is no sign of intestinal obstruction or pneumoperitoneum. Fecal pattern is normal. Th ere are clips from cholecystectomy. Lung bases are clear. There are no pathologic calcifications over the kidneys. IMPRESSION: Nonacute abdomen.
[2020-07-05] MEDS ORDERED: ONDANSETRON ODT 4 MG TAB PO STA
[2020-07-05] MEDS ORDERED: ONDANSETRON 4 MG ODT STARTER PACK 2 TAB BTL PO STA
[2020-07-05] MEDS ORDERED: SODIUM CHLORIDE 0.9% 1,000 ML IV STA
[2020-07-05] MEDS ORDERED: ONDANSETRON 4 MG/2 ML VIAL IVP STA
[2020-07-05] MEDS ORDERED: PROCHLORPERAZINE INJ 10 MG/2 ML VIAL IVP STA
[2020-07-05 00:33] LABS: Appearance,Urine Cloudy (Clear); Bacteria,Urine Rare /hpf; Bilirubin,Urine Negative (Negative); Blood,Urine Small (Negative); Budding Yeast,Urine Many /hpf; Color,Urine Yellow; Glucose,Urine (UA) Negative (Negative); Hyaline Casts,Urine 6 /lpf (0-2); Ketones,Urine 1+ (Negative); Leukocyte Esterase,Urine Large (Negative); Mucus,Urine Moderate /hpf; Nitrite,Urine Negative (Negative); PH, Urine 5.5 (5.0-8.0); Protein,Urine 1+ (Negative); RBC,Urine 49 /hpf (0-5); Specific Gravity,Urine 1.019 (1.001-1.035); Squamous Epithelial Cell,Urine 14 /hpf (0-4); Urobilinogen,Urine <2.0 mg/dL (<2.0); WBC,Urine 162 /hpf (0-5)
[2020-07-05 01:35] VITALS: BP 142/65; PULSE 89; TEMP 99.2
== END 2020-07-05 01:34 | disposition home or self-care (01) ==
LOC: EC 19:09
DX: R10.13 Epigastric pain (principal); R51.9 Headache, unspecified; R42 Dizziness and giddiness; Z20.822 Contact with and (suspected) exposure to COVID-19; E11.9 Type 2 diabetes mellitus without complications; I10 Essential (primary) hypertension; E78.5 Hyperlipidemia, unspecified; Z79.51 Long term (current) use of inhaled steroids; Z79.4 Long term (current) use of insulin; Z79.82 Long term (current) use of aspirin; Z79.899 Other long term (current) drug therapy; Z88.2 Allergy status to sulfonamides; Z87.891 Personal history of nicotine dependence; Z98.84 Bariatric surgery status
CPT/HCPCS: 36415; 74018; 80053; 81001; 83605; 84484; 85025; 85610; 87086; 87636; 93005; 96361; 96374; 96375; 99284

== ENCOUNTER 2020-07-26 17:34 | Emergency (ER) | payer MEDICARE, OTHER ==
[2020-07-26] MEDS ORDERED: ACETAMINOPHEN TAB 500 MG TAB PO STA (18:24)
--- NOTE | 2020-07-26 18:35 | ED ---
Extremity Problem HPI - General Chief complaint: Extremity Problem,Nontraumatic Stated complaint: fall/knee pain Time Seen by Provider: 07/26/20 18:07 Source: patient, family Mode of arrival: wheelchair Limitations: no limitations - History of Present Illness Initial comments: Patient is a 55-year-old female presenting to the emergency Department with c omplaints of left knee pain after she slipped and fell about 2 hours prior to arrival. Patient states she slipped on some juice from her grandson and landed onto her knees, she is complaining of pain in her left knee. She states 2 years ago she had a fracture of her proximal tibia, no hardware present. She states it feels pain in the same area. She was not able to ambulate afterwards. She denies pain anywhere else, no pain of her right knee or upper extremities. She denies hitting her head. She has no further complaints at this time. She did not take anything for pain prior to arrival. - Related Data Home Medications Medication Instructions Recorded Confirmed Montelukast [Singulair] 10 mg PO DAILY 04/22/17 07/12/20 Pantoprazole Sodium [Protonix] 40 mg PO DAILY 04/22/17 07/12/20 amLODIPine [Norvasc] 10 mg PO DAILY 04/22/17 07/12/20 Mirabegron [Myrbetriq] 50 mg PO DAILY 11/10/19 07/12/20 PARoxetine HCL 30 mg PO HS 11/10/19 07/12/20 Allopurinol [Zyloprim] 100 mg PO DAILY 03/28/20 07/12/20 Gabapentin [Neurontin] 800 mg PO TID 03/28/20 07/12/20 Insulin Glargine,Hum.rec.anlog 80 unit SQ DAILY 03/28/20 07/12/20 [Lantus Solostar] Aspirin EC [Ecotrin Low Dose] 81 mg PO DAILY 05/15/20 07/12/20 Atorvastatin [Lipitor] 20 mg PO DAILY 05/15/20 07/12/20 Ergocalciferol (Vitamin D2) 1,250 mcg PO WE 05/15/20 07/12/20 [Drisdol (50,000 Iu)] Bisacodyl 5 mg PO DAILY PRN 07/04/20 07/12/20 Cholecalciferol [Vitamin D3 (25 25 mcg PO DAILY 07/04/20 07/12/20 Mcg = 1000 Iu)] Escitalopram [Lexapro] 10 mg PO DAILY 07/04/20 07/12/20 Ferrous Sulfate [Feosol] 325 mg PO DAILY 07/04/20 07/12/20 INSULIN LISPRO (humaLOG) [humaLOG] 80 units SQ AC-TID PRN 07/04/20 07/12/20 Loratadine 10 mg PO DAILY 07/04/20 07/12/20 Multivitamin/Iron/Folic Acid 1 tab PO DAILY 07/04/20 07/12/20 [Centrum Women Tablet] Zinc 50 mg PO DAILY 07/04/20 07/12/20 Levofloxacin [Levaquin] 250 mg PO DAILY 07/12/20 07/12/20 Sennosides [Senna] 8.6 mg PO DAILY 07/12/20 07/12/20 bisacodyL [Dulcolax] 5 mg PO DAILY 07/12/20 07/12/20 Previous Rx's Medication Instructions Recorded Omeprazole [PriLOSEC] 40 mg PO DAILY #30 capsule. 05/10/20 HYDROcodone/APAP 5-325MG [Seaman 1 tab PO Q6HR PRN 3 Days #12 tab 07/26/20 5-325] Allergies Allergy/AdvReac Type Severity Reaction Status Date / Time Sulfa (Sulfonamide Allergy Anaphylaxis Verified 07/26/20 17:59 Antibiotics) Review of Systems ROS Statement: Those systems with pertinent positive or pertinent negative responses have been documented in the HPI. ROS Other: All systems not noted in ROS Statement are negative. Past Medical History Past Medical History: Diabetes Mellitus, Eye Disorder, Hyperlipidemia, Hypertension Additional Past Medical History / Comment(s): 05/04/14 Pt presented to [facility] ER with substernal chest pain that started 24 hhours before coming to ER. She noticed the chest pain when she woke up yesterday. It is a heaviness and is intermittent with variable duration. She also states she had alittle nausea with it. Other HX: Pt had recent (03/30/14)cataract surgery with lens implants bilaterally at [facility]-post op she had low O2 saturations and was told she had a very narrow airway-instead of going home same day, she was in the hospital for a couple days until her saturations improved. She was discharged with home O2 which she wears at 2L/[facility] at [facility] and was to follow up today for testing for sleep apnea. Pt states she also has diarrhea fairly frequently. 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 2018 - intermittently in hospital for 3 months for fluid on lungs, had fluid removed History of Any Multi-Drug Resistant Organisms: MRSA Date of last positivie culture/infection: 2010 MDRO Source:: legs and breasts. Past Surgical History: Bariatric Surgery, Cholecystectomy, Hysterectomy, Orthopedic Surgery Additional Past Surgical History / Comment(s): Bilateral cataract sx with lens implants, bilateral retinal repair. Cervical rodding for 3 ruptured discs. 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 Past Anesthesia/Blood Transfusion Reactions: Postoperative Nausea & Vomiting (PONV) Additional Past Anesthesia/Blood Transfusion Reaction / Comment(s): Pt had cataract and lens implant at [facility] on 03/30/14 and afterwards she desaturated and was hospitalized. She was told she has a very narrow airway. Pt has never recieved blood. Past Psychological History: No Psychological Hx Reported Smoking Status: Former smoker Past Alcohol Use History: None Reported Past Drug Use History: None Reported - Past Family History Father Family Medical History: Cancer, Myocardial Infarction ([place]) Additional Family Medical History / Comment(s): Father had 5 [place]'s and of bone cancer. Mother Family Medical History: Cancer Additional Family Medical History / Comment(s): cervical cancer General Exam - General Exam Comments Initial Comments: GENERAL: Patient is well-developed and well-nourished. Patient is nontoxic and in no acute distress. HEAD: Atraumatic, normocephalic. EYES: Pupils equal round and reactive to light, extraocular movements intact, sclera anicteric, conjunctiva are normal. Eyelids were unremarkable. ENT: TMs normal, nares patent, oropharynx clear without exudates. Moist mucous membranes. NECK: Normal range of motion, supple without lymphadenopathy or JVD. LUNGS: Unlabored respirations. Breath sounds clear to auscultation bilaterally and equal. No wheezes rales or rhonchi. HEART: Regular rate and rhythm without murmurs, rubs or gallops. ABDOMEN: Soft, nontender, normoactive bowel sounds. No guarding, no rebound. No masses appreciated. : Deferred MUSCULOSKELETAL: Patient has pain with palpation of the distal portion of the left knee, across the proximal tibial area, she does have full extension 4 over is very painful with any sort of flexion. She denies pain of her left ankle or left foot, no pain of her left hip as well. She is neurovascular intact. She does have some mild bruising present. No clubbing or cyanosis. NEUROLOGICAL: Patient is alert and oriented x 3. Motor and sensory are also intact. Cranial nerves II through XII grossly intact. Symmetrical smile. Normal speech. PSYCH: Normal mood, normal affect. SKIN: Warm, Dry, normal turgor, no rashes or lesions noted. Limitations: no limitations Course Vital Signs 07/26/20 07/26/20 17:57 20:59 Temperature 98.4 F 98.1 F Pulse Rate 77 75 Respiratory 18 20 Rate Blood Pressure 114/57 135/65 O2 Sat by Pulse 98 95 Oximetry Procedures - Orthopedic Splinting/Casting Injury #1 Side: left Lower Extremity Injury Location: knee Lower Extremity Immobilizer: knee immobilizer Other Orthopedic Equipment: crutches Medical Decision Making - Medical Decision Making Patient is a 55-year-old female here for left knee pain after she slipped and fell on some juice today. She does have history of a left proximal tibia fracture 2 years ago, no hardware present. She did not hit her head. X-rays of the left knee initially show a possible depression of the lateral tibial plateau, they did recommend a CT for further evaluation. CT of the left knee shows a subtle nondisplaced lateral tibial plateau fracture. I did discuss case with Marty Alvarado, with consultation with Dr. Gupta, who recommended placing patient in a knee immobilizer, nonweightbearing, crutches and they will follow up with her in 1-2 days. Patient is in agreement with this plan of care. We did apply a knee immobilizer, crutches were given. Patient was initially just given Tylenol as she declined everything else. I did give her Seaman tablet to go home with, did send for a few tablets to her pharmacy. She will follow up with orthopedics. She is stable for discharge. Case discussed with Dr. Leal. Disposition Clinical Impression: Fracture of left tibial plateau Disposition: HOME SELF-CARE Condition: Stable Instructions (If sedation given, give patient instructions): Leg Fracture (ED) Additional Instructions: Please return to the Emergency Department if symptoms worsen or any other concerns. Please wear immobilizer as discussed. Do not place any weight on the left leg. Take Tylenol for any discomfort, for more severe pain, you may take a Seaman. Follow up with orthopedics as discussed. Prescriptions: HYDROcodone/APAP 5-325MG [Seaman 5-325] 1 tab PO Q6HR PRN 3 Days #12 tab PRN Reason: Pain Is patient prescribed a controlled substance at d/c from ED?: Yes When asked, does pt state using other controlled substances?: No If prescribed controlled substance>3 days was MAPS reviewed?: Prescribed <3 Days If opioid is for acute pain is fill amount 7 days or less?: Yes If Rx opioid, was Start Talking consent form obtained?: Yes Referrals: Melisa Ramirez MD [Primary Care Provider] - 1-2 days Jayy Gupta DO [Doctor of Osteopathic Medicine] - 1-2 days Time of Disposition: 21:00
--- NOTE | 2020-07-26 19:03 | XR ---
RESULT: HISTORY: slip and fall, pain TECHNIQUE: 3 views of the left knee. 2 views of the left tibia-fibula. COMPARISON: None. FINDINGS: There is mild depression of the lateral tibial plateau. No evidence of dislocation. 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 No fracture of the distal tibia-fibula. IMPRESSION: Depression of the lateral tibial plateau, concerning for fracture. CT for confirmation may be obtaine d as indicated.
--- NOTE | 2020-07-26 20:03 | CT ---
EXAMINATION TYPE: CT knee LT wo con DATE OF EXAM: 07/26/2020 COMPARISON: Same day radiographs. HISTORY: Fall, left knee pain. CT DLP: 281.[address] images of the left knee was performed without contrast. Coronal, sagittal and 3-D reformats were generated and reviewed. Automated exposure control for dose reduction was used. FINDINGS: There is mild depression of the lateral tibial plateau with subtle cortical break at the lateral aspe ct, consistent with nondisplaced fracture and better appreciated on 3-D reformats. There is mild tric ompartmental osteoarthritis. There is small knee joint effusion. No evidence of dislocation. There is mild soft tissue edema about the knee. IMPRESSION: SUBTLE NONDISPLACED LATERAL TIBIAL PLATEAU FRACTURE (TYPE I/II SCHATZKER CLASSIFICATION.
[2020-07-26] MEDS ORDERED: HYDROcodone/APAP 5-325MG 1 EACH TAB PO STA (20:44)
[2020-07-26 21:01] VITALS: BP 135/65; PULSE 75; RESP 20; TEMP 98.1
== END 2020-07-26 21:29 | disposition home or self-care (01) ==
LOC: EC 17:34
DX: S82.145A Nondisplaced bicondylar fracture of left tibia, initial encounter for closed fracture (principal); E78.5 Hyperlipidemia, unspecified; I10 Essential (primary) hypertension; E11.9 Type 2 diabetes mellitus without complications; Z79.4 Long term (current) use of insulin; Z87.891 Personal history of nicotine dependence; W01.0XXA Fall on same level from slipping, tripping and stumbling without subsequent striking against object, initial encounter
CPT/HCPCS: 73590; 73562; 73700; 99284; L1830

== ENCOUNTER 2020-08-23 18:43 | Observation (INO) | payer MEDICARE, OTHER ==
--- NOTE | 2020-08-23 19:15 | ED ---
General Adult HPI - General Chief complaint: Fall Stated complaint: Fall, Back Pain Time Seen by Provider: 08/23/20 18:49 Source: patient, RN notes reviewed, old records reviewed (Chart reviewed from [facility]) Mode of arrival: EMS Limitations: no limitations - History of Present Illness Initial comments: Patient is a pleasant 55-year-old female presenting to the emergency department with complaints of low back pain. Patient states incident occurred today, couple of hours ago. Patient was reaching for a child who was running when she fell back. Patient landed directly on her back. Patient has moderate to severe discomfort of her lower back. Patient did receive a pain injection at [facility]. No weakness. No loss of control of bowel or bladder. No loss of sensation. - Related Data Home Medications Medication Instructions Recorded Confirmed Montelukast [Singulair] 10 mg PO DAILY 04/22/17 07/12/20 Pantoprazole Sodium [Protonix] 40 mg PO DAILY 04/22/17 07/12/20 amLODIPine [Norvasc] 10 mg PO DAILY 04/22/17 07/12/20 Mirabegron [Myrbetriq] 50 mg PO DAILY 11/10/19 07/12/20 PARoxetine HCL 30 mg PO HS 11/10/19 07/12/20 Allopurinol [Zyloprim] 100 mg PO DAILY 03/28/20 07/12/20 Gabapentin [Neurontin] 800 mg PO TID 03/28/20 07/12/20 Insulin Glargine,Hum.rec.anlog 80 unit SQ DAILY 03/28/20 07/12/20 [Lantus Solostar] Aspirin EC [Ecotrin Low Dose] 81 mg PO DAILY 05/15/20 07/12/20 Atorvastatin [Lipitor] 20 mg PO DAILY 05/15/20 07/12/20 Ergocalciferol (Vitamin D2) 1,250 mcg PO WE 05/15/20 07/12/20 [Drisdol (50,000 Iu)] Bisacodyl 5 mg PO DAILY PRN 07/04/20 07/12/20 Cholecalciferol [Vitamin D3 (25 25 mcg PO DAILY 07/04/20 07/12/20 Mcg = 1000 Iu)] Escitalopram [Lexapro] 10 mg PO DAILY 07/04/20 07/12/20 Ferrous Sulfate [Feosol] 325 mg PO DAILY 07/04/20 07/12/20 INSULIN LISPRO (humaLOG) [humaLOG] 80 units SQ AC-TID PRN 07/04/20 07/12/20 Loratadine 10 mg PO DAILY 07/04/20 07/12/20 Multivitamin/Iron/Folic Acid 1 tab PO DAILY 07/04/20 07/12/20 [Centrum Women Tablet] Zinc 50 mg PO DAILY 07/04/20 07/12/20 Levofloxacin [Levaquin] 250 mg PO DAILY 07/12/20 07/12/20 Sennosides [Senna] 8.6 mg PO DAILY 07/12/20 07/12/20 bisacodyL [Dulcolax] 5 mg PO DAILY 07/12/20 07/12/20 Previous Rx's Medication Instructions Recorded Omeprazole [PriLOSEC] 40 mg PO DAILY #30 capsule. 05/10/20 HYDROcodone/APAP 5-325MG [[place] 1 tab PO Q6HR PRN 3 Days #12 tab 07/26/20 5-325] Allergies Allergy/AdvReac Type Severity Reaction Status Date / Time Sulfa (Sulfonamide Allergy Anaphylaxis Verified 08/23/20 19:03 Antibiotics) Review of Systems ROS Statement: Those systems with pertinent positive or pertinent negative responses have been documented in the HPI. ROS Other: All systems not noted in ROS Statement are negative. Constitutional: Denies: fever Eyes: Denies: eye pain ENT: Denies: ear pain Respiratory: Denies: cough Cardiovascular: Denies: chest pain Endocrine: Denies: fatigue Gastrointestinal: Denies: abdominal pain Genitourinary: Denies: dysuria Musculoskeletal: Reports: as per HPI Skin: Denies: rash Neurological: Denies: headache, weakness, paresthesias Past Medical History Past Medical History: Diabetes Mellitus, Eye Disorder, Hyperlipidemia, Hyperte nsion Additional Past Medical History / Comment(s): 05/04/14 Pt presented to [facility] ER with substernal chest pain that started 24 hhours before coming to ER. She noticed the chest pain when she woke up yesterday. It is a heaviness and is intermittent with variable duration. She also states she had alittle nausea with it. Other HX: Pt had recent (03/30/14)cataract surgery with lens implants bilaterally at [facility]-post op she had low O2 saturations and was told she had a very narrow airway-instead of going home same day, she was in the hospital for a couple days until her saturations improved. She was discharged with home O2 which she wears at 2L/NC at nite and was to follow up today for testing for sleep apnea. Pt states she also has diarrhea fairly frequently. 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 2018 - intermittently in hospital for 3 months for fluid on lungs, had fluid removed History of Any Multi-Drug Resistant Organisms: MRSA Date of last positivie culture/infection: 2010 MDRO Source:: legs and breasts. Past Surgical History: Bariatric Surgery, Cholecystectomy, Hysterectomy, Orthopedic Surgery Additional Past Surgical History / Comment(s): Bilateral cataract sx with lens implants, bilateral retinal repair. Cervical rodding for 3 ruptured discs. 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 Past Anesthesia/Blood Transfusion Reactions: Postoperative Nausea & Vomiting (PONV) Additional Past Anesthesia/Blood Transfusion Reaction / Comment(s): Pt had cataract and lens implant at [facility] on 03/30/14 and afterwards she kim aturated and was hospitalized. She was told she has a very narrow airway. Pt has never recieved blood. Past Psychological History: No Psychological Hx Reported Smoking Status: Former smoker Past Alcohol Use History: None Reported Past Drug Use History: None Reported - Past Family History Father Family Medical History: Cancer, Myocardial Infarction ([place]) Additional Family Medical History / Comment(s): Father had 5 OH's and of bone cancer. Mother Family Medical History: Cancer Additional Family Medical History / Comment(s): cervical cancer General Exam Limitations: no limitations General appearance: alert, in no apparent distress Head exam: Present: atraumatic Eye exam: Present: normal appearance Neck exam: Present: normal inspection. Absent: tenderness Respiratory exam: Present: normal lung sounds bilaterally Cardiovascular Exam: Present: regular rate, normal rhythm Expanded Peripheral pulses: 2+: Dorsalis Pedis (R), Dorsalis Pedis (L) GI/Abdominal exam: Present: soft. Absent: distended, tenderness Extremities exam: Present: normal inspection, full ROM. Absent: tenderness Back exam: Present: vertebral tenderness (Mild lower thoracic, moderate lower lumbar) Neurological exam: Present: alert. Absent: motor sensory deficit Expanded Motor strength exam: RUE: 5, LUE: 5, RLE: 5, LLE: 5 Psychiatric exam: Present: normal affect, normal mood Skin exam: Present: normal color Course Vital Signs 08/23/20 19:04 Temperature 98.3 F Pulse Rate 74 Respiratory 18 Rate Blood Pressure 135/60 O2 Sat by Pulse 99 Oximetry Medical Decision Making - Medical Decision Making Case was discussed with Dr. Potts. He states patient can be admitted or he could follow up with patient in the office. Patient was updated and does want to stay. Disposition Clinical Impression: Compression fracture of L4 vertebra Disposition: ADMITTED IP TO THIS HOSP Is patient prescribed a controlled substance at d/c from ED?: No Referrals: Melisa Ramirez MD [Primary Care Provider] - 1-2 days Decision Time: 19:28
[2020-08-23] MEDS ORDERED: NALOXONE 0.4 MG/ML 1 ML VIAL IV PRN (19:29)
[2020-08-23] MEDS ORDERED: ACETAMINOPHEN TAB 325 MG TAB PO PRN (19:29)
[2020-08-23] MEDS: HYDROmorphone 1 MG/ML 1 ML SYRINGE IVP PRN (20:21)
[2020-08-23] MEDS: SODIUM CHLORIDE 0.9% 1,000 ML IV SCH (20:23)
[2020-08-23 20:25] LABS: Basophils % (A) 0 %; Eosinophils # (A) 0.4 k/uL (0-0.7); Eosinophils % (A) 4 %; HCT 39.1 % (34.0-46.0); HGB 13.2 gm/dL (11.4-16.0); Lymphocytes # (A) 2.4 k/uL (1.0-4.8); Lymphocytes % (A) 22 %; MCH 29.3 pg (25.0-35.0); MCHC 33.7 g/dL (31.0-37.0); MCV 86.8 fL (80.0-100.0); Mean Platelet Volume 8.1; Monocytes # (A) 0.4 k/uL (0-1.0); Monocytes % (A) 3 %; Neutrophils # (A) 7.4 k/uL (1.3-7.7); Neutrophils % (A) 69 %; Platelet Count 239 k/uL (150-450); RDW 15.2 % (11.5-15.5); WBC 10.6 k/uL (3.8-10.6)
[2020-08-23 20:34] LABS: Partial Thromboplastin Time 22.9 sec (22.0-30.0); Prothrombin Time 10.3 sec (9.0-12.0)
[2020-08-23 20:38] LABS: ALT 24 U/L (4-34); AST 42 U/L (14-36); African American GFR (CKD) >90 (>60 ml/min/1.73 sqM); Albumin 4.5 g/dL (3.5-5.0); Alkaline Phosphatase 111 U/L (38-126); Anion Gap 8 mmol/L; Blood Urea Nitrogen 19 mg/dL (7-17); Carbon Dioxide 28 mmol/L (22-30); Chloride 105 mmol/L (98-107); Glucose 124 mg/dL (74-99); Non-African American GFR(CKD) 86 (>60 ml/min/1.73 sqM); Potassium 4.1 mmol/L (3.5-5.1); Sodium 141 mmol/L (137-145); Total Bilirubin 0.7 mg/dL (0.2-1.3); Total Protein 7.2 g/dL (6.3-8.2)
[2020-08-24] MEDS: HYDROmorphone 0.5 MG/0.5 ML SYRINGE IVP PRN ×3 (04:55→12:23)
[2020-08-24 06:28] LABS: Glucose,Whole Blood 90 mg/dL (75-99)
[2020-08-24] MEDS: INSULIN ASPART (NovoLOG) 100 UNIT/ML VIAL SQ SCH ×4 (06:43→21:12)
[2020-08-24] MEDS: INSULIN DETEMIR (LEVEMIR) 100 UNIT/ML SYR SQ SCH (08:48)
[2020-08-24] MEDS ORDERED: HYDROcodone/APAP 7.5-325MG 1 EACH TAB PO PRN ×2 (09:40→13:45)
--- NOTE | 2020-08-24 09:40 | P.HPOR ---
History of Present Illness H&P Date: 08/24/20 Chief Complaint: Low back pain Patient is a pleasant 55-year-old female who sustained a fall yesterday while reaching for one of her kids. She fell back onto her back set sudden acute pain at her lower back. She did not have a new changes in her lower extremities. She is having weakness in her lower extremities. She denies any problems with her bowel or bladder function. The pain is primarily located at her lower back and toward her right gluteus. She denies problems at that area before. She was able to walk but she says she has pain at the area and she presented to [facility] and had evaluation. She had imaging testing and a computed tomography scan which showed a 10-15% endplate compression fracture at L4 which was apparently new. She is jenkins sferred here to [facility] as she was having significant difficulty with her mobilization and they do not have any spine service. We discussed the case with the emergency room and patient was admitted for observation. Review of Systems Denies any fevers chills. She had an acute fall yesterday. Denies any changes in bowel bladder function. Denies any numbness tingling or lower extremity. Denies any weakness in her lower extremity. She has a history of cervical spine issues with neck pain and upper extremity symptoms for which she underwent cervical decompression and fusion in the past with our service. She says that is doing well. Past Medical History Past Medical History: Diabetes Mellitus, Eye Disorder, Hyperlipidemia, Hypertension Additional Past Medical History / Comment(s): 05/04/14 Pt presented to [facility] ER with substernal chest pain that started 24 hhours before coming to ER. She noticed the chest pain when she woke up yesterday. It is a heaviness and is intermittent with variable duration. She also states she had alittle nausea with it. Other HX: Pt had recent (03/30/14)cataract surgery with lens implants bilaterally at [facility]-post op she had low O2 saturations and was told she had a very narrow airway-instead of going home same day, she was in the hospital for a couple days until her saturations improved. She was discharged with home O2 which she wears at 2L/NC at [facility] and was to follow up today for testing for sleep apnea. Pt states she also has diarrhea fairly frequently. 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 2018 - intermittently in hospital for 3 months for fluid on lungs, had fluid removed History of Any Multi-Drug Resistant Organisms: MRSA Date of last positivie culture/infection: 2010 MDRO Source:: legs and breasts. Past Surgical History: Bariatric Surgery, Cholecystectomy, Hysterectomy, Orthopedic Surgery Additional Past Surgical History / Comment(s): Bilateral cataract sx with lens implants, bilateral retinal repair. Cervical rodding for 3 ruptured discs. 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 Past Anesthesia/Blood Transfusion Reactions: Postoperative Nausea & Vomiting (PONV) Additional Past Anesthesia/Blood Transfusion Reaction / Comment(s): Pt had cataract and lens implant at [facility] on 03/30/14 and afterwards she desaturated and was hospitalized. She was told she has a very narrow airway. Pt has never recieved blood. Past Psychological History: No Psychological Hx Reported Smoking Status: Former smoker Past Alcohol Use History: None Reported Additional Past Alcohol Use History / Comment(s): quit smoking 2013, smoked 1 ppd, started smoking age 18. Past Drug Use History: None Reported - Past Family History Father Family Medical History: Cancer, Myocardial Infarction ([place]) Additional Family Medical History / Comment(s): Father had 5 OR's and of bone cancer. Mother Family Medical History: Cancer Additional Family Medical History / Comment(s): cervical cancer Medications and Allergies Home Medications Medication Instructions Recorded Confirmed Type Montelukast [Singulair] 10 mg PO DAILY 04/22/17 08/23/20 History amLODIPine [Norvasc] 10 mg PO DAILY 04/22/17 08/23/20 History Mirabegron [Myrbetriq] 50 mg PO DAILY 11/10/19 08/23/20 History PARoxetine HCL 30 mg PO HS 11/10/19 08/23/20 History Allopurinol [Zyloprim] 100 mg PO DAILY 03/28/20 08/23/20 History Gabapentin [Neurontin] 800 mg PO BID@0700,1800 03/28/20 08/23/20 History Insulin Glargine,Hum.rec.anlog 50 unit SQ DAILY 03/28/20 08/23/20 History [Lantus Solostar] Aspirin EC [Ecotrin Low Dose] 81 mg PO HS 05/15/20 08/23/20 History Atorvastatin [Lipitor] 20 mg PO DAILY 05/15/20 08/23/20 History Cholecalciferol [Vitamin D3 (25 25 mcg PO DAILY 07/04/20 08/23/20 History Mcg = 1000 Iu)] Escitalopram [Lexapro] 10 mg PO DAILY 07/04/20 08/23/20 History Multivitamin/Iron/Folic Acid 1 tab PO DAILY 07/04/20 08/23/20 History [Centrum Women Tablet] HYDROcodone/APAP 5-325MG [[place] 1 tab PO Q6HR PRN 3 Days #12 tab 07/26/20 08/23/20 Rx 5-325] Docusate [Colace] 100 mg PO HS 08/23/20 08/23/20 History Gabapentin [Neurontin] 400 mg PO DAILY@1200 08/23/20 08/23/20 History Vitamin B Complex Drops 1 drop PO DAILY 08/23/20 08/23/20 History Hydrocodone/Acetaminophen [[place] 1 tab PO Q4HR PRN 3 Days #42 tab 08/24/20 Rx 7.5-325] Allergies Allergy/AdvReac Type Severity Reaction Status Date / Time Sulfa (Sulfonamide Allergy Anaphylaxis Verified 08/23/20 20:29 Antibiotics) Physical Examination Osteopathic Statement: *. No significant issues noted on an osteopathic structural exam other than those noted in the History and Physical/Consult. - L Spine: dermatomal strength & reflexes bilateral Strength: hip flexion: 5/5 (At her back there is no open wounds lacerations or abrasions. There is no ecchymosis. She is obese. She has tenderness to palpation at her lower back and toward her right gluteal area. She has no pain with hip internal/external rotation. She is able to lift her legs up off the bed independently) Strength: hip extension: 5/5 (Her compartments in her lower extremities are soft. Her abdomen is obese but soft and nontender. Pelvis stable. Her upper extremity suspected active and passive range of motion throughout with good strength. Her neck is nontender to palpation range motion. She has well-healed incision at her ne) Results - Labs Labs: Abnormal Lab Results - Last 24 Hours (Table) 08/23/20 Range/Units 20:15 BUN 19 H (7-17) mg/dL Glucose 124 H (74-99) mg/dL AST 42 H (14-36) U/L H & H 08/23/20 Range/Units 20:15 Hgb 13.2 (11.4-16.0) gm/dL Hct 39.1 (34.0-46.0) % Coagulation 08/23/20 Range/Units 20:15 INR 1.0 (<1.2) Result Diagrams: 08/23/20 20:15 08/23/20 20:15 - Diagnostic results CT Scan - lumbar: report reviewed (Her lumbar images are not available for review but I was able to review the report which shows a 10:15 percent endplate compression fracture L4. There is no retropulsion there is no evidence of significant stenosis there is no obvious listhesis or instability) Assessment and Plan Assessment: Acute L4 compression fracture, traumatic due to a fall low back pain No evidence of neurologic deficit Plan: Acute L4 compression fracture, traumatic due to a fall low back pain No evidence of neurologic deficit The patient's has a lumbar compression fracture due to her fall which is acute. She is not having neurologic deficit and the fracture pattern further report overall appears stable. I do not think that we will plan any acute surgical intervention. We can try to treat her conservatively with bracing. We will order an LSO brace for her. She should wear the brace whenever she is up out of bed but did not need to use the brace while in bed or during bathing. We have written a prescription for her in the chart and Case management acquiring the LSO brace. It is okay for her to mobilize and ambulate we will have physical therapy see her and start her mobilization. It is okay for physical therapy to work with her without the brace today. It is okay for her to weight-bear as tolerated. She should avoid any repetitive bending or any significant lifting. We will order her some pain medication as she is having having some trouble with her pain control. I think that she can do well with oral medications and if she is tolerating this adequately think it is okay for her to be discharged home to day. Plan to see her back in approximately 1-2 weeks for recheck evaluation and repeat x-rays. She could be a candidate for surgical intervention with kyphoplasty but I think that she can do well with conservative treatment and we will plan to pursue this. I discussed this with her and she understands.
[2020-08-24 12:42] LABS: Hemoglobin A1C 7.6 % (4.0-6.0)
[2020-08-24 12:54] LABS: Glucose,Whole Blood 128 mg/dL (75-99)
[2020-08-24] MEDS: HYDROcodone/APAP 7.5-325MG 1 EACH TAB PO PRN ×2 (14:44→18:48)
[2020-08-24 17:54] LABS: Glucose,Whole Blood 120 mg/dL (75-99)
[2020-08-24] MEDS: HYDROmorphone 1 MG/ML 1 ML SYRINGE IVP PRN (20:04)
[2020-08-24] MEDS: SODIUM CHLORIDE 0.9% 1,000 ML IV SCH (20:41)
[2020-08-24 21:10] LABS: Glucose,Whole Blood 189 mg/dL (75-99)
[2020-08-25] MEDS: HYDROcodone/APAP 7.5-325MG 1 EACH TAB PO PRN ×4 (00:48→09:07)
[2020-08-25] MEDS: HYDROmorphone 1 MG/ML 1 ML SYRINGE IVP PRN (00:50)
[2020-08-25 06:25] LABS: Glucose,Whole Blood 108 mg/dL (75-99)
[2020-08-25] MEDS: INSULIN ASPART (NovoLOG) 100 UNIT/ML VIAL SQ SCH ×3 (07:44→18:48)
[2020-08-25] MEDS: INSULIN DETEMIR (LEVEMIR) 100 UNIT/ML SYR SQ SCH (08:40)
[2020-08-25] MEDS ORDERED: CYCLOBENZAPRINE 10 MG TAB PO PRN (11:53)
[2020-08-25 12:31] LABS: Glucose,Whole Blood 149 mg/dL (75-99)
--- NOTE | 2020-08-25 12:41 | P.DS ---
Providers Date of admission: 08/23/20 19:31 Expected date of discharge: 08/25/20 Attending physician: Prateek Potts Primary care physician: Melisa Ramirez MD - Discharge Diagnosis(es) (1) Status post fall Current Visit: Yes Status: Acute (2) Hypertension Current Visit: Yes Status: Acute (3) Hyperlipidemia Current Visit: Yes Status: Acute (4) Diabetes mellitus Current Visit: Yes Status: Acute (5) Compression fracture of L4 vertebra Current Visit: Yes Status: Acute (6) Morbid obesity due to excess calories Current Visit: No Status: Acute Hospital Course: This is a pleasant 55-year-old female who presented with an L4 compression fracture deformity status post fall. She was admitted for further treatment and evaluation. She's had some difficulty with pain control during her admission. We have been able to increase her [place] 5 mg/325 mg to 1-2 tabs every 6 hours as the of her pain and then cyclobenzaprine 10 mg 3 times a day. She was also previously prescribed a [employer] LSO brace a couple years ago for her chronic low back pain. This has been able to be delivered to the room by her . With her using the brace along with her medication regimen, she does feel she may be ready for discharge home today. Condition on day of discharge stable. Patient will be discharged home. Patient currently denies any nausea, vomiting, fever, or chills. Patient is eating and voiding freely without difficulty. Patient should wear her LSO brace for comfort and support while sitting upright at greater than 45, while working with therapy, and during increased activities; patient does not have to wear the brace while lying in bed or bathing. Patient should avoid excessive bending, twisting, and lifting; no lifting greater than 10 pounds. Patient also has a walker at home which we discussed she may use to aid in ambulation as needed. MAPS has been reviewed today, 08/25/2020, with an Overall Overdose Risk Score of 140. An "Opiod Start Talking" Form has been signed and placed in the patient's chart. A prescription has been written for [place] 7.5 mg/325 mg 1-2 tabs every 6 hours as needed for pain, dispensed #56. She is also given a prescription for cyclobenzaprine 1 tab 3 times a day as needed for muscle spasm, dispensed #60. Patient's other medical diagnoses include diabetes mellitus, hyperlipidemia, hypertension, and obesity. Physical Exam on day of discharge: Patient is awake, alert, and oriented 3 Vital signs stable Good chest excursion with deep inspiration and expiration Patient does have some increased pain while sitting up in bed without her brace intact Examination of the lumbar spine shows no bruising, erythema, or obvious sign of infection Pain with palpation along the midline of the lower lumbar spine and towards the right sacroiliac joint No signs or symptoms of DVT; calves are soft bilaterally Patient is able to perform knee extension bilaterally without difficulty Extensor hallucis longus, plantarflexion, and dorsiflexion positive sustained bilateral lower extremities Patient Condition at Discharge: Stable Plan - Discharge Summary Discharge Rx Participant: Yes New Discharge Prescriptions: New Cyclobenzaprine [Flexeril] 10 mg PO TID PRN #60 tab PRN Reason: Muscle Spasm HYDROcodone/APAP 7.5-325MG [[place] 7.5-325] 1 - 2 each PO Q6HR PRN #56 tab PRN Reason: Pain No Action amLODIPine [Norvasc] 10 mg PO DAILY Montelukast [Singulair] 10 mg PO DAILY PARoxetine HCL 30 mg PO HS Mirabegron [Myrbetriq] 50 mg PO DAILY Allopurinol [Zyloprim] 100 mg PO DAILY Gabapentin [Neurontin] 800 mg PO BID@0700,1800 Insulin Glargine,Hum.rec.anlog [Lantus Solostar] 50 unit SQ DAILY Aspirin EC [Ecotrin Low Dose] 81 mg PO HS Atorvastatin [Lipitor] 20 mg PO DAILY Gabapentin [Neurontin] 400 mg PO DAILY@1200 Vitamin B Complex Drops 1 drop PO DAILY Cholecalciferol [Vitamin D3 (25 Mcg = 1000 Iu)] 25 mcg PO DAILY Escitalopram [Lexapro] 10 mg PO DAILY Multivitamin/Iron/Folic Acid [Centrum Women Tablet] 1 tab PO DAILY Docusate [Colace] 100 mg PO HS Discharge Medication List Montelukast [Singulair] 10 mg PO DAILY 04/22/17 [History] amLODIPine [Norvasc] 10 mg PO DAILY 04/22/17 [History] Mirabegron [Myrbetriq] 50 mg PO DAILY 11/10/19 [History] PARoxetine HCL 30 mg PO HS 11/10/19 [History] Allopurinol [Zyloprim] 100 mg PO DAILY 03/28/20 [History] Gabapentin [Neurontin] 800 mg PO BID@0700,1800 03/28/20 [History] Insulin Glargine,Hum.rec.anlog [Lantus Solostar] 50 unit SQ DAILY 03/28/20 [History] Aspirin EC [Ecotrin Low Dose] 81 mg PO HS 05/15/20 [History] Atorvastatin [Lipitor] 20 mg PO DAILY 05/15/20 [History] Cholecalciferol [Vitamin D3 (25 Mcg = 1000 Iu)] 25 mcg PO DAILY 07/04/20 [History] Escitalopram [Lexapro] 10 mg PO DAILY 07/04/20 [History] Multivitamin/Iron/Folic Acid [Centrum Women Tablet] 1 tab PO DAILY 07/04/20 [Hi story] Docusate [Colace] 100 mg PO HS 08/23/20 [History] Gabapentin [Neurontin] 400 mg PO DAILY@1200 08/23/20 [History] Vitamin B Complex Drops 1 drop PO DAILY 08/23/20 [History] Cyclobenzaprine [Flexeril] 10 mg PO TID PRN #60 tab 08/25/20 [Rx] HYDROcodone/APAP 7.5-325MG [[place] 7.5-325] 1 - 2 each PO Q6HR PRN #56 tab 08/25/20 [Rx] Follow up Appointment(s)/Referral(s): Melisa Ramirez MD [Primary Care Provider] - 1-2 days Prateek Potts DO [Doctor of Osteopathic Medicine] - 1 Week Activity/Diet/Wound Care/Special Instructions: No lifting greater than 15 pounds Patient should wear her LSO brace for comfort support while sitting upright at greater than 45, during ambulation, and during increased activities Patient does not have to wear the brace while lying in bed or while bathing May ambulate as tolerated. Avoid heavy or rigorous activity. No repetitive bending twisting or lifting. No overhead work. Discharge Disposition: HOME SELF-CARE
[2020-08-25 14:25] VITALS: BP 108/67; PULSE 78; RESP 16; TEMP 98.6
[2020-08-25 17:57] LABS: Glucose,Whole Blood 79 mg/dL (75-99)
== END 2020-08-25 18:20 | disposition home or self-care (01) ==
LOC: EC 18:43 → 6NMEDSUR 19:31 → 6PED 22:44
PROVIDERS: ADMIT Orthopaedic Surgery Orthopaedic Surgery of the Spine; ATTEND Orthopaedic Surgery Orthopaedic Surgery of the Spine
DX: M48.56XA Collapsed vertebra, not elsewhere classified, lumbar region, initial encounter for fracture (principal); W19.XXXA Unspecified fall, initial encounter; I10 Essential (primary) hypertension; E78.5 Hyperlipidemia, unspecified; E11.9 Type 2 diabetes mellitus without complications; E66.01 Morbid (severe) obesity due to excess calories; Z20.822 Contact with and (suspected) exposure to COVID-19; G89.29 Other chronic pain; M54.5 Low back pain; R19.7 Diarrhea, unspecified; Z79.4 Long term (current) use of insulin; Z79.82 Long term (current) use of aspirin; Z79.899 Other long term (current) drug therapy; Z88.2 Allergy status to sulfonamides; Z87.891 Personal history of nicotine dependence; Z98.84 Bariatric surgery status; Z90.710 Acquired absence of both cervix and uterus; Z16.24 Resistance to multiple antibiotics; Z90.49 Acquired absence of other specified parts of digestive tract; Z96.1 Presence of intraocular lens; Z82.49 Family history of ischemic heart disease and other diseases of the circulatory system; Z80.49 Family history of malignant neoplasm of other genital organs; Z80.8 Family history of malignant neoplasm of other organs or systems
CPT/HCPCS: 96376 ×3; 96374; 99285; 97162; 80053; 85025; 85610; 85730; 83036; 87635; G0378 ×4; J1170 ×4

== ENCOUNTER 2020-09-02 13:41 | Emergency (ER) | payer MEDICARE, OTHER ==
[2020-09-02] MEDS ORDERED: SODIUM CHLORIDE 0.9% 1,000 ML IV STA (14:06)
[2020-09-02 14:45] LABS: Basophils % (A) 0 %; Eosinophils # (A) 0.5 k/uL (0-0.7); Eosinophils % (A) 5 %; HCT 37.3 % (34.0-46.0); HGB 12.9 gm/dL (11.4-16.0); Lymphocytes # (A) 2.2 k/uL (1.0-4.8); Lymphocytes % (A) 25 %; MCH 29.7 pg (25.0-35.0); MCHC 34.4 g/dL (31.0-37.0); MCV 86.1 fL (80.0-100.0); Mean Platelet Volume 7.8; Monocytes # (A) 0.3 k/uL (0-1.0); Monocytes % (A) 4 %; Neutrophils # (A) 5.7 k/uL (1.3-7.7); Neutrophils % (A) 65 %; Platelet Count 248 k/uL (150-450); RBC 4.33 m/uL (3.80-5.40); RDW 14.6 % (11.5-15.5); WBC 8.8 k/uL (3.8-10.6)
[2020-09-02 15:06] LABS: ALT 22 U/L (4-34); AST 33 U/L (14-36); African American GFR (CKD) >90 (>60 ml/min/1.73 sqM); Albumin 4.3 g/dL (3.5-5.0); Alkaline Phosphatase 143 U/L (38-126); Anion Gap 11 mmol/L; Blood Urea Nitrogen 19 mg/dL (7-17); Calcium 9.7 mg/dL (8.4-10.2); Carbon Dioxide 27 mmol/L (22-30); Chloride 102 mmol/L (98-107); Glucose 160 mg/dL (74-99); Non-African American GFR(CKD) >90 (>60 ml/min/1.73 sqM); Potassium 4.1 mmol/L (3.5-5.1); Sodium 140 mmol/L (137-145); Total Bilirubin 0.6 mg/dL (0.2-1.3); Total Protein 7.1 g/dL (6.3-8.2)
--- NOTE | 2020-09-02 15:13 | ED ---
Dizziness HPI - General Chief Complaint: Dizziness Stated Complaint: Back injury Time Seen by Provider: 09/02/20 13:57 Source: patient, RN notes reviewed Mode of arrival: ambulatory Limitations: no limitations - History of Present Illness Initial Comments: Patient is a 55-year-old female that presents to emergency department complaining of dizziness. She notes that she was up walking around the kitchen when she felt dizzy. Patient was a poor historian and cannot recall events very well. notes that he was standing right next to her and noted that her knee was giving out several times as he tried to hold her up and prevent her from falling. Patient was recently seen in the emergency room for a L4 compression fracture. She was seen by orthopedist Dr. Potts who stated that conservative management by using a brace for now was okay. Patient notes that she did have bariatric surgery which has decreased her oral intake of food and fluids. Patient was well-appearing in no apparent distress while sitting in bed during the exam interview. She denied any chest pain shortness of breath headache nausea vomiting diarrhea constipation fever fatigue chills change in vision. - Related Data Home Medications Medication Instructions Recorded Confirmed Montelukast [Singulair] 10 mg PO DAILY 04/22/17 08/23/20 amLODIPine [Norvasc] 10 mg PO DAILY 04/22/17 08/23/20 Mirabegron [Myrbetriq] 50 mg PO DAILY 11/10/19 08/23/20 PARoxetine HCL 30 mg PO HS 11/10/19 08/23/20 Allopurinol [Zyloprim] 100 mg PO DAILY 03/28/20 08/23/20 Gabapentin [Neurontin] 800 mg PO BID@0700,1800 03/28/20 08/23/20 Insulin Glargine,Hum.rec.anlog 50 unit SQ DAILY 03/28/20 08/23/20 [Lantus Solostar] Aspirin EC [Ecotrin Low Dose] 81 mg PO HS 05/15/20 08/23/20 Atorvastatin [Lipitor] 20 mg PO DAILY 05/15/20 08/23/20 Cholecalciferol [Vitamin D3 (25 25 mcg PO DAILY 07/04/20 08/23/20 Mcg = 1000 Iu)] Escitalopram [Lexapro] 10 mg PO DAILY 07/04/20 08/23/20 Multivitamin/Iron/Folic Acid 1 tab PO DAILY 07/04/20 08/23/20 [Centrum Women Tablet] Docusate [Colace] 100 mg PO HS 08/23/20 08/23/20 Gabapentin [Neurontin] 400 mg PO DAILY@1200 08/23/20 08/23/20 Vitamin B Complex Drops 1 drop PO DAILY 08/23/20 08/23/20 Previous Rx's Medication Instructions Recorded Cyclobenzaprine [Flexeril] 10 mg PO TID PRN #60 tab 08/25/20 HYDROcodone/APAP 7.5-325MG [[place] 1 - 2 each PO Q6HR PRN #56 tab 08/25/20 7.5-325] Allergies Allergy/AdvReac Type Severity Reaction Status Date / Time Sulfa (Sulfonamide Allergy Anaphylaxis Verified 09/02/20 13:49 Antibiotics) Review of Systems ROS Statement: Those systems with pertinent positive or pertinent negative responses have been documented in the HPI. ROS Other: All systems not noted in ROS Statement are negative. Past Medical History Past Medical History: Diabetes Mellitus, Eye Disorder, Hyperlipidemia, Hypertension Additional Past Medical History / Comment(s): 05/04/14 Pt presented to [facility] ER with substernal chest pain that started 24 hhours before coming to ER. She noticed the chest pain when she woke up yesterday. It is a heaviness and is intermittent with variable duration. She also states she had alittle nausea with it. Other HX: Pt had recent (03/30/14)cataract surgery with lens implants bilaterally at [facility]-post op she had low O2 saturations and was told she had a very narrow airway-instead of going home same day, she was in the hospital for a couple days until her saturations improved. She was discharged w [facility] home O2 which she wears at 2L/NC at [facility] and was to follow up today for testing for sleep apnea. Pt states she also has diarrhea fairly frequently. 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 2018 - intermittently in hospital for 3 months for fluid on lungs, had fluid removed History of Any Multi-Drug Resistant Organisms: MRSA Date of last positivie culture/infection: 2010 MDRO Source:: legs and breasts. Past Surgical History: Bariatric Surgery, Cholecystectomy, Hysterectomy, Orthopedic Surgery Additional Past Surgical History / Comment(s): Bilateral cataract sx with lens implants, bilateral retinal repair. Cervical rodding for 3 ruptured discs. sleeve gastrectomy 05-08-20 Past Anesthesia/Blood Transfusion Reactions: Postoperative Nausea & Vomiting (PONV) Additional Past Anesthesia/Blood Transfusion Reaction / Comment(s): Pt had cataract and lens implant at [facility] on 03/30/14 and afterwards she desaturated and was hospitalized. She was told she has a very narrow airway. Pt has never recieved blood. Past Psychological History: No Psychological Hx Reported Smoking Status: Former smoker Past Alcohol Use History: None Reported Past Drug Use History: None Reported - Past Family History Father Family Medical History: Cancer, Myocardial Infarction (MO) Additional Family Medical History / Comment(s): Father had 5 MO's and of bone cancer. Mother Family Medical History: Cancer Additional Family Medical History / Comment(s): cervical cancer General Exam Limitations: no limitations General appearance: alert, in no apparent distress, obese, other (LSO back brace in place.) Head exam: Present: atraumatic, normocephalic, normal inspection Eye exam: Present: normal appearance, PERRL, EOMI. Absent: scleral icterus, conjunctival injection, periorbital swelling Neck exam: Present: normal inspection Respiratory exam: Present: normal lung sounds bilaterally. Absent: respiratory distress, wheezes, rales, rhonchi, stridor Cardiovascular Exam: Present: regular rate, normal rhythm, normal heart sounds. Absent: systolic murmur, diastolic murmur, rubs, gallop, clicks Extremities exam: Present: normal inspection, full ROM, normal capillary refill. Absent: tenderness, pedal edema, joint swelling, calf tenderness Back exam: Present: normal inspection Neurological exam: Present: alert, oriented X3 Psychiatric exam: Present: normal affect, agitated Skin exam: Present: warm, dry, intact, normal color. Absent: rash Course Vital Signs 09/02/20 09/02/20 13:46 14:40 Temperature 98.1 F Pulse Rate 83 Pulse Rate [ 76 Sitting Pulse Oximetery] Pulse Rate [ 74 Standing Pulse Oximetery] Pulse Rate [ 75 Supine Pulse Oximetery] Respiratory 18 Rate Blood Pressure 142/69 Blood Pressure 132/70 [Right Arm Sitting] Blood Pressure 109/63 [Right Arm Standing] Blood Pressure 140/77 [Right Arm Supine] O2 Sat by Pulse 98 Oximetry EKG Findings - EKG Comments: EKG Findings:: Ventricular rate 77 bpm, ID interval 188 ms, QRS duration 80 ms, QTC 470 ms, PRT axes 61//28. Normal sinus rhythm, cannot rule out anterior infarct age undetermined. Abnormal ECG. Medical Decision Making - Medical Decision Making 55-year-old female complaining of dizziness presented emergency department. Labs, orthostatic vitals, chest x-ray, 1 L normal saline, EKG, monitoring and evaluation advisor ordered. Patient blood pressure significantly dropped from sitting to standing. Sitting blood pressure was 132/70, standing blood pressure was 109/63. Urine shows dehydration. Given clinical findings and exam patient most likely dehydrated causing dizziness upon standing. Case discussed with Dr. Larson, patient can discharge home with follow-up to primary care. - Lab Data Result diagrams: 09/02/20 14:27 09/02/20 14:27 Lab Results 09/02/20 09/02/20 09/02/20 Range/Units 14:27 14:27 14:27 WBC 8.8 (3.8-10.6) k/uL RBC 4.33 (3.80-5.40) m/uL Hgb 12.9 (11.4-16.0) gm/dL Hct 37.3 (34.0-46.0) % MCV 86.1 (80.0-100.0) fL MCH 29.7 (25.0-35.0) pg MCHC 34.4 (31.0-37.0) g/dL RDW 14.6 (11.5-15.5) % Plt Count 248 (150-450) k/uL MPV 7.8 Neutrophils % 65 % Lymphocytes % 25 % Monocytes % 4 % Eosinophils % 5 % Basophils % 0 % Neutrophils # 5.7 (1.3-7.7) k/uL Lymphocytes # 2.2 (1.0-4.8) k/uL Monocytes # 0.3 (0-1.0) k/uL Eosinophils # 0.5 (0-0.7) k/uL Basophils # 0.0 (0-0.2) k/uL PT 10.5 (9.0-12.0) sec INR 1.0 (<1.2) Sodium (137-145) mmol/L Potassium (3.5-5.1) mmol/L Chloride (98-107) mmol/L Carbon Dioxide (22-30) mmol/L Anion Gap mmol/L BUN (7-17) mg/dL Creatinine (0.52-1.04) mg/dL Est GFR (CKD-EPI)AfAm (>60 ml/min/1.73 sqM) Est GFR (CKD-EPI)NonAf (>60 ml/min/1.73 sqM) Glucose (74-99) mg/dL Calcium (8.4-10.2) mg/dL Total Bilirubin (0.2-1.3) mg/dL AST (14-36) U/L ALT (4-34) U/L Alkaline Phosphatase (38-126) U/L Troponin I (0.000-0.034) ng/mL Total Protein (6.3-8.2) g/dL Albumin (3.5-5.0) g/dL Urine Color Yellow Urine Appearance Cloudy H (Clear) Urine pH 5.5 (5.0-8.0) Ur Specific [place] 1.022 (1.001-1.035) Urine Protein 1+ H (Negative) Urine Glucose (UA) Negative (Negative) Urine Ketones 1+ H (Negative) Urine Blood Negative (Negative) Urine Nitrite Negative (Negative) Urine Bilirubin Negative (Negative) Urine Urobilinogen <2.0 (<2.0) mg/dL Ur Leukocyte Esterase Moderate H (Negative) Urine RBC 1 (0-5) /hpf Urine WBC 43 H (0-5) /hpf Ur Squamous Epith Cells 7 H (0-4) /hpf Urine Bacteria Rare H (None) /hpf Urine Mucus Rare H (None) /hpf Urine Yeast (Budding) Occasional H (None) /hpf 09/02/20 09/02/20 Range/Units 14:27 14:27 WBC (3.8-10.6) k/uL RBC (3.80-5.40) m/uL Hgb (11.4-16.0) gm/dL Hct (34.0-46.0) % MCV (80.0-100.0) fL MCH (25.0-35.0) pg MCHC (31.0-37.0) g/dL RDW (11.5-15.5) % Plt Count (150-450) k/uL MPV Neutrophils % % Lymphocytes % % Monocytes % % Eosinophils % % Basophils % % Neutrophils # (1.3-7.7) k/uL Lymphocytes # (1.0-4.8) k/uL Monocytes # (0-1.0) k/uL Eosinophils # (0-0.7) k/uL Basophils # (0-0.2) k/uL PT (9.0-12.0) sec INR (<1.2) Sodium 140 (137-145) mmol/L Potassium 4.1 (3.5-5.1) mmol/L Chloride 102 (98-107) mmol/L Carbon Dioxide 27 (22-30) mmol/L Anion Gap 11 mmol/L BUN 19 H (7-17) mg/dL Creatinine 0.65 (0.52-1.04) mg/dL Est GFR (CKD-EPI)AfAm >90 (>60 ml/min/1.73 sqM) Est GFR (CKD-EPI)NonAf >90 (>60 ml/min/1.73 sqM) Glucose 160 H (74-99) mg/dL Calcium 9.7 (8.4-10.2) mg/dL Total Bilirubin 0.6 (0.2-1.3) mg/dL AST 33 (14-36) U/L ALT 22 (4-34) U/L Alkaline Phosphatase 143 H (38-126) U/L Troponin I <0.012 (0.000-0.034) ng/mL Total Protein 7.1 (6.3-8.2) g/dL Albumin 4.3 (3.5-5.0) g/dL Urine Color Urine Appearance (Clear) Urine pH (5.0-8.0) Ur Specific [place] (1.001-1.035) Urine Protein (Negative) Urine Glucose (UA) (Negative) Urine Ketones (Negative) Urine Blood (Negative) Urine Nitrite (Negative) Urine Bilirubin (Negative) Urine Urobilinogen (<2.0) mg/dL Ur Leukocyte Esterase (Negative) Urine RBC (0-5) /hpf Urine WBC (0-5) /hpf Ur Squamous Epith Cells (0-4) /hpf Urine Bacteria (None) /hpf Urine Mucus (None) /hpf Urine Yeast (Budding) (None) /hpf - EKG Data -: EKG Interpreted by Co EKG shows normal: sinus rhythm Rate: normal EKG Comments: Ventricular rate 77 bpm, ID interval 188 ms, QRS duration 80 ms, QTC 470 ms, PRT axes 61/31/28. Normal sinus rhythm, cannot rule out anterior infarct age undetermined. Abnormal ECG. - Radiology Data Radiology results: report reviewed, image reviewed Chest x-ray: No active cardiopulmonary disease. Normal heart. No adverse change. Disposition Clinical Impression: Dehydration, Dizziness Disposition: HOME SELF-CARE Condition: Stable Instructions (If sedation given, give patient instructions): Dizziness (ED) Additional Instructions: Please return to the Emergency Department if symptoms worsen or any other concerns. Increase oral fluids, should be drinking approximately 80-100 ounces of water per day. Avoid any strenuous activity or exercise due to recent lumbar compression fracture. Continue to follow-up with orthopedist as planned. Continue take at home medications as prescribed. Is patient prescribed a controlled substance at d/c from ED?: No Referrals: Melisa Ramirez MD [Primary Care Provider] - 1-2 days Time of Disposition: 15:35
[2020-09-02 15:14] LABS: Appearance,Urine Cloudy (Clear); Bacteria,Urine Rare /hpf; Bilirubin,Urine Negative (Negative); Blood,Urine Negative (Negative); Budding Yeast,Urine Occasional /hpf; Color,Urine Yellow; Glucose,Urine (UA) Negative (Negative); Ketones,Urine 1+ (Negative); Leukocyte Esterase,Urine Moderate (Negative); Mucus,Urine Rare /hpf; Nitrite,Urine Negative (Negative); PH, Urine 5.5 (5.0-8.0); Protein,Urine 1+ (Negative); Prothrombin Time 10.5 sec (9.0-12.0); RBC,Urine 1 /hpf (0-5); Specific Gravity,Urine 1.022 (1.001-1.035); Squamous Epithelial Cell,Urine 7 /hpf (0-4); Urobilinogen,Urine <2.0 mg/dL (<2.0); WBC,Urine 43 /hpf (0-5)
--- NOTE | 2020-09-02 15:20 | XR ---
EXAMINATION TYPE: XR chest 2V DATE OF EXAM: 09/02/2020 COMPARISON: 05/19/2020 HISTORY: Short of breath. Headache. TECHNIQUE: 2 views FINDINGS: Heart and mediastinum are normal. Lungs are clear. Diaphragm is normal. Bony thorax is inta ct. There is cervical spine fusion surgery. IMPRESSION: No active cardiopulmonary disease. Normal heart. No adverse change.
[2020-09-02 16:04] VITALS: BP 120/86; PULSE 81; RESP 20; TEMP 98
== END 2020-09-02 16:04 | disposition home or self-care (01) ==
LOC: EC 13:41
DX: E86.0 Dehydration (principal); E11.9 Type 2 diabetes mellitus without complications; I10 Essential (primary) hypertension; E78.5 Hyperlipidemia, unspecified; G47.30 Sleep apnea, unspecified; Z87.891 Personal history of nicotine dependence; Z79.82 Long term (current) use of aspirin; Z79.4 Long term (current) use of insulin; Z88.2 Allergy status to sulfonamides
CPT/HCPCS: 36415; 71046; 80053; 81001; 84484; 85025; 85610; 87086; 93005; 96360; 99284

== ENCOUNTER → 2020-09-06 | Outpatient (CLI) | payer MEDICARE, OTHER ==
[2020-09-06 16:04] LABS: Glucose,Whole Blood 194 mg/dL (75-99)
--- NOTE | 2020-09-06 16:27 | P.PN ---
Subjective Progress Note Date: 09/06/20 DATE OF SERVICE: 09/06/2020 CHIEF COMPLAINT: Status post sleeve gastrectomy HISTORY OF PRESENT ILLNESS: Anjali Jha is a 55-year-old female status post sleeve gastrectomy, 05/08/2020. She is over 3 months out. She comes in as her blood pressure is low. She has lost 90+ pounds. She broke her back 3 weeks ago and needed surgery. She has been falling much and was hospitalized. She comes in with management of her morbid obesity. She has hypertensive heart disease and is on blood pressure medications. At height of 5 feet 5 inches, her ideal body weight is 149 pounds. Her highest weight is 366 pounds, BMI 61.0. She comes in 264 pounds from 289 pounds, 1 month ago. She has lost 25 pound in 1 month. Her body mass index is down to 44.1. Her lifetime weight loss is 102 pounds. Percent excess lifetime weight loss is 47 %. She is 115 pounds overweight. PHYSICAL EXAM: VITAL SIGNS: Height 5 foot 5 inches, weight 289 pounds. BMI 48.3 Vital Signs Temp 98 F 09/06/20 16:34 Pulse 94 09/06/20 16:34 Resp BP 134/73 09/06/20 16:34 Pulse Ox GENERAL: Well-developed in no acute distress. HEENT: No scleral icterus. Extraocular movements grossly intact. Hears conversational speech. No nasal drainage. NECK: Supple without lymphadenopathy. CHEST: Nonlabored respirations with equal bilateral excursions. CARDIOVASCULAR: Regular rate and regular rhythm. Distal 2+ pulses. ABDOMEN: Obese, soft, nontender, nondistended. MUSCULOSKELETAL: No clubbing, cyanosis. NEURO: No focal or lateralizing signs. Cranial nerves 2 through 12 grossly within normal limits. PSYCH: Appropriate affect. Alert and oriented to person, place and time. SKIN: Good skin turgor. Well perfused. ASSESSMENT: 1. Morbid obesity due to excess calories 2. Body mass index of 61.0, initial to 44.1 3. Gastroesophageal reflux disease 4. Obstructive sleep apnea 5. Hyperlipidemia 6. Diabetes type 2, insulin dependent 7. Osteoarthritis of the knees 8. Osteoarthritis of the back 9. Neuropathy 10. Depressive disorder 11. History of MRSA infection 12. 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 Iron deficiency anemia 15. Vitamin D deficiency 16. Zinc deficiency. 17. Status post sleeve gastrectomy 18. COVID pneumonia 19. Dehydration. 20. Chronic panniculitis 21. Bariatric noncompliant to dietary guidelines 22. Inadequate protein intake 23. Dietary surveillance and counseling 24. Hypertensive heart disease. PLAN: 1. Recommend full bariatric blood work. 2. May need neurology assessment for chronic falls. 3. Recommend protein intake of 65 to 75 grams daily. Objective - Labs Labs: Abnormal Lab Results - Last 24 Hours (Table) 09/06/20 Range/Units 15:54 POC Glucose (mg/dL) 194 H (75-99) mg/dL
[2020-09-06 16:39] VITALS: BP 134/73; PULSE 94; TEMP 98; BMI 44.1
== END ==
LOC: BARWHC3 15:10
PROVIDERS: ATTEND Surgery Plastic and Reconstructive Surgery
DX: E66.01 Morbid (severe) obesity due to excess calories (principal); D50.9 Iron deficiency anemia, unspecified; E11.40 Type 2 diabetes mellitus with diabetic neuropathy, unspecified; E55.9 Vitamin D deficiency, unspecified; E78.5 Hyperlipidemia, unspecified; E86.0 Dehydration; F32.9 Major depressive disorder, single episode, unspecified; G47.33 Obstructive sleep apnea (adult) (pediatric); U07.1 COVID-19; I11.9 Hypertensive heart disease without heart failure; J12.82 Pneumonia due to coronavirus disease 2019; D72.829 Elevated white blood cell count, unspecified; E60 Dietary zinc deficiency; M47.9 Spondylosis, unspecified; K21.9 Gastro-esophageal reflux disease without esophagitis; M17.0 Bilateral primary osteoarthritis of knee; M79.3 Panniculitis, unspecified; Z79.4 Long term (current) use of insulin; Z98.84 Bariatric surgery status; Z68.41 Body mass index [BMI] 40.0-44.9, adult; Z86.14 Personal history of Methicillin resistant Staphylococcus aureus infection; Z71.3 Dietary counseling and surveillance; Z88.2 Allergy status to sulfonamides; Z87.891 Personal history of nicotine dependence
CPT/HCPCS: 99211

== ENCOUNTER → 2020-09-15 | Outpatient (CLI) | payer MEDICARE, OTHER ==
[2020-09-15 14:57] LABS: Partial Thromboplastin Time 22.8 sec (22.0-30.0); Prothrombin Time 10.4 sec (9.0-12.0)
[2020-09-16 01:56] LABS: HCT 35.7 % (37.2-46.3); HGB 11.6 g/dL (12.0-15.0); MCH 29.1 pg (27.0-32.0); MCHC 32.5 g/dL (32.0-37.0); MCV 89.7 fL (80.0-97.0); Mean Platelet Volume 12.2 fL (9.5-12.2); Platelet Count 227 X 10*3/uL (140-440); RBC 3.98 X 10*6/uL (4.10-5.20); RDW 14.1 % (11.5-14.5); WBC 7.18 X 10*3/uL (4.50-10.00)
[2020-09-16 04:05] LABS: % Iron Saturation 22.26 (12.00-45.00); ALT 28 U/L (8-44); AST 33 U/L (13-35); African American GFR (CKD) 83.4 (60.0-200.0); Albumin/Globulin Ratio 1.72 (1.60-3.17); Alkaline Phosphatase 137 U/L (41-126); BUN/Creat Ratio 14.44 Ratio (12.00-20.00); Calcium 9.4 mg/dL (8.7-10.3); Chloride 105 mmol/L (96-109); Chol/HDL Ratio 3.86; Cholesterol 143 mg/dL (0-200); Ferritin 765.5 ng/mL (10.0-291.0); Folate, Serum >24.0 ng/mL; Globulin 2.5 g/dL (1.6-3.3); Glucose 255 mg/dL (70-110); Iron 61 ug/dL (50-170); LDL Cholesterol,Calculated 80.4 mg/dL (0.0-131.0); Magnesium 1.8 mg/dL (1.5-2.4); Phosphorus 3.9 mg/dL (2.4-5.1); Potassium 4.6 mmol/L (3.5-5.5); Sodium 141 mmol/L (135-145); Total Bilirubin 0.6 mg/dL (0.3-1.2); Total Iron Binding Capacity 274 ug/dL (228-460); Total Protein 6.8 g/dL (6.2-8.2)
[2020-09-16 04:54] LABS: Hemoglobin A1C 7.8 % (4.0-6.0)
== END | disposition home or self-care (01) ==
LOC: LABWHC1 13:12
PROVIDERS: ATTEND Surgery Plastic and Reconstructive Surgery
DX: E66.01 Morbid (severe) obesity due to excess calories (principal); E89.1 Postprocedural hypoinsulinemia; D50.8 Other iron deficiency anemias; E44.0 Moderate protein-calorie malnutrition; E55.9 Vitamin D deficiency, unspecified; K74.1 Hepatic sclerosis; N19 Unspecified kidney failure; K50.90 Crohn's disease, unspecified, without complications; Z98.84 Bariatric surgery status
CPT/HCPCS: 36415; 80053; 80061; 82306; 82525; 82607; 82728; 82746; 83036; 83540; 83550; 83735; 83970; 84100; 84134; 84255; 84425; 84443; 84590; 84630; 85027; 85610; 85730

== ENCOUNTER → 2020-10-06 | Outpatient (CLI) | payer MEDICARE, OTHER ==
--- NOTE | 2020-10-10 10:14 | MM ---
Reason for exam: screening (asymptomatic). Last mammogram was performed 15 years ago. History: Took hormonal contraceptives for 2 months. Physical Findings: A clinical breast exam by your physician is recommended on an annual basis and results should be correlated with mammographic findings. MG Screening Mammo w CAD Bilateral CC and MLO view(s) were taken. No prior studies available for comparison. There are scattered fibroglandular densities. There is no discrete abnormality. ASSESSMENT: Negative, BI-RAD 1 RECOMMENDATION: Routine screening mammogram of both breasts in 1 year.
== END | disposition home or self-care (01) ==
LOC: RADMAMWWP 08:50
PROVIDERS: ATTEND Internal Medicine
DX: Z12.31 Encounter for screening mammogram for malignant neoplasm of breast (principal); Z79.3 Long term (current) use of hormonal contraceptives
CPT/HCPCS: 77067

== ENCOUNTER → 2020-11-21 | Outpatient (CLI) | payer MEDICARE, OTHER ==
--- NOTE | 2020-11-21 19:59 | BD ---
EXAMINATION TYPE: Axial Bone Density DATE OF EXAM: 11/21/2020 COMPARISON: NONE CLINICAL HISTORY: Postmenopausal screening Height: 64 Weight: 243.9 FRAX RISK QUESTIONS: Alcohol (3 or more units per day): no Family History (Parent hip fracture): yes Glucocorticoids (More than 3mos): no (Ex: prednisone, prednisolone, methylprednisolone, dexamethasone, and hydrocortisone). History of Fracture in Adulthood: yes Secondary Osteoporosis: 1. Type 1 Diabetes: no 2. Hyperthyroidism: no 3. Menopause before 45: yes 4. Malnutrition: no 5. Chronic liver disease: no Rheumatoid Arthritis: yes Current Tobacco Use: no RISK FACTORS HISTORY OF: Spine Fracture: lumbar spine When: 1 1/2 months ago Surgery to Spine/Hip(right/left)/Wrist (right/left): no Family History of Osteoporosis: no Active: yes Diet low in dairy products/other sources of calcium: yes Postmenopausal woman: yes Lost more than 2 inches in height since high school: no MEDICATIONS: Additional History: EXAM MEASUREMENTS: Bone mineral densitometry was performed using the [employer] System. Bone mineral density about the R hip (g/cm2): 0.920 Bone mineral density about the L hip (g/cm2): 0.835 T Score values are as follows: -----R Neck: -0.8 -----L Neck: -1.5 -----R Total: -0.4 -----L Total: -0.3 Bone mineral density : baseline Bone mineral density about the L Wrist (g/cm2): 0.795 T Score values are as follows: -----Dist. R+U: 0.8 -----Prox. R+U: 2.8 -----Radius total: 2.0 Bone mineral density : baseline IMPRESSION: Osteopenia (T Score between -2.5 and -1). There is slightly increased risk of fracture and the patient may be considered for treatment. Re-Screen 2-5 years. NOTE: T-SCORE=SD OF THE YOUNG ADULT MEAN.
== END | disposition home or self-care (01) ==
LOC: RADBDWWP 13:56
PROVIDERS: ATTEND Internal Medicine
DX: Z13.820 Encounter for screening for osteoporosis (principal); M85.89 Other specified disorders of bone density and structure, multiple sites; Z78.0 Asymptomatic menopausal state; M06.9 Rheumatoid arthritis, unspecified
CPT/HCPCS: 77080

== ENCOUNTER → 2022-01-16 | Outpatient (CLI) | payer MEDICARE, OTHER ==
[2022-01-16 16:10] VITALS: BP 120/75; PULSE 70; TEMP 98.4; BMI 37.8
--- NOTE | 2022-01-16 16:25 | P.BASOAP ---
Subjective Progress Note Date: 01/16/22 Recommend blood sugar. She has high blood sugar glucose. She has not had recent labs. Recommend see jewelry dipper. Needs cardiac clearance. Patient is taken to undergo skin removal surgery. Inpatient Services Rn and obtained Objective - Vital Signs Vital signs: Vital Signs Temp 98.4 F 01/16/22 16:06 Pulse 70 01/16/22 16:06 Resp BP 120/75 01/16/22 16:06 Pulse Ox FiO2 Intake & Output 01/15/22 01/16/22 01/16/22 18:59 06:59 18:59 Weight 102.965 kg Assessment/Plan Plan: Date: 01/16/22 Initial Weight: 157.397 kg Initial BMI: 57.7 Current Weight: 102.965 kg Current BMI: 37.8 Type of Surgery: Total Volume in Band: Previous Volume: Volume Removed: Volume Added: Band Size:
== END ==
LOC: BARWHC3 15:23
PROVIDERS: ATTEND Surgery Plastic and Reconstructive Surgery
DX: E66.01 Morbid (severe) obesity due to excess calories (principal); Z68.37 Body mass index [BMI] 37.0-37.9, adult; Z88.2 Allergy status to sulfonamides; Z87.891 Personal history of nicotine dependence
CPT/HCPCS: 99211

== ENCOUNTER → 2022-01-21 | Outpatient (CLI) | payer MEDICARE, OTHER ==
[2022-01-21 17:32] LABS: INR 0.9 (<1.2); Prothrombin Time 9.6 sec (9.0-12.0)
[2022-01-21 23:00] LABS: HGB 12.2 g/dL (12.0-15.0); MCHC 31.3 g/dL (32.0-37.0); MCV 89.7 fL (80.0-97.0); NRBC Per 100 WBC 0 /100 WBCS (0.0-0.0); Platelet Count 271 X 10*3/uL (140-440); RBC 4.35 X 10*6/uL (4.10-5.20); RDW 14.6 % (11.5-14.5); WBC 10.14 X 10*3/uL (4.50-10.00)
[2022-01-22 00:13] LABS: Chol/HDL Ratio 3.55 Ratio; LDL Cholesterol,Calculated 110.7 mg/dL (0.0-131.0)
[2022-01-22 00:17] LABS: % Iron Saturation 19.89 (12.00-45.00); ALT 22 U/L (8-44); AST 25 U/L (13-35); African American GFR (CKD) 81.1 (60.0-200.0); Albumin 4.2 g/dL (3.8-4.9); Albumin/Globulin Ratio 1.51 (1.60-3.17); Alkaline Phosphatase 84 U/L (41-126); BUN/Creat Ratio 27.29 Ratio (12.00-20.00); Carbon Dioxide 25.5 mmol/L (20.0-27.5); Chloride 96 mmol/L (96-109); Globulin 2.8 g/dL (1.6-3.3); Glucose 289 mg/dL (70-110); Iron 70 ug/dL (50-170); Magnesium 2.5 mg/dL (1.5-2.4); Potassium 4.3 mmol/L (3.5-5.5); Prealbumin 21.4 mg/dL (18.0-42.0); Sodium 135 mmol/L (135-145); Total Iron Binding Capacity 350 ug/dL (228-460)
[2022-01-22 14:42] LABS: Zinc, Serum 75 ug/dL (60-130)
[2022-01-23 06:03] LABS: Vitamin A 69 ug/dL (38-106)
[2022-01-23 06:17] LABS: Vit B1(Thiamine) 83 ug/L (38-122)
== END | disposition home or self-care (01) ==
LOC: LABWHC1 15:52
PROVIDERS: ATTEND Surgery Plastic and Reconstructive Surgery
DX: E66.01 Morbid (severe) obesity due to excess calories (principal); D50.8 Other iron deficiency anemias; D50.9 Iron deficiency anemia, unspecified; K91.2 Postsurgical malabsorption, not elsewhere classified; E44.0 Moderate protein-calorie malnutrition; E44.1 Mild protein-calorie malnutrition; E45 Retarded development following protein-calorie malnutrition; E46 Unspecified protein-calorie malnutrition; E55.9 Vitamin D deficiency, unspecified; K74.1 Hepatic sclerosis; N19 Unspecified kidney failure; T56.894A Toxic effect of other metals, undetermined, initial encounter
CPT/HCPCS: 36415; 80053; 80061; 82306; 82525; 82607; 82746; 83036; 83540; 83550; 83735; 83970; 84100; 84134; 84255; 84425; 84443; 84590; 84630; 85027; 85610; 85730

== ENCOUNTER → 2022-04-01 | Outpatient (CLI) | payer MEDICARE, OTHER ==
--- NOTE | 2022-04-02 21:00 | MM ---
Reason for Exam: Screening (asymptomatic). Last mammogram was performed 1 year(s) and 6 month(s) ago. Patient History: Menarche at age 14. First Full-Term at age 19. Postmenopausal. Hormonal Contraceptives for 2 months. Last menstrual period: Risk Values: [place]is 5 year model risk: 0.8%. NCI Lifetime model risk: 5.3%. Prior Study Comparison: 10/04/2005 Bilateral Screening Mammogram, [facility]. 10/06/2020 Bilateral Screening Mammogram, [facility]. Tissue Density: There are scattered fibroglandular densities. Findings: Analyzed By CAD. There is no suspicious group of microcalcifications or new suspicious mass in either breast. Overall Assessment: Negative, BI-RAD 1 Management: Screening Mammogram of both breasts in 1 year. 1. Patient should continue monthly self breast exams. 2. A clinical breast exam by your physician is recommended on an annual basis. 3. This exam should not preclude additional follow-up of suspicious palpable abnormalities. Electronically signed and approved by: Vicenta Kwon M.D. Radiologist
== END | disposition home or self-care (01) ==
LOC: RADMAMWWP 16:07
PROVIDERS: ATTEND Family Medicine
DX: Z12.31 Encounter for screening mammogram for malignant neoplasm of breast (principal); Z78.0 Asymptomatic menopausal state
CPT/HCPCS: 77063; 77067

== ENCOUNTER 2022-06-05 19:03 | Emergency (ER) | payer MEDICARE, OTHER ==
[2022-06-05 19:34] VITALS: PULSE 79
--- NOTE | 2022-06-05 19:47 | ED ---
URI HPI - General Source: patient, RN notes reviewed Mode of arrival: ambulatory Limitations: no limitations <Brittany Herrera - Last Filed: 06/05/22 19:45> <Bautista Pitts - Last Filed: 06/05/22 23:50> - General Chief Complaint: Upper Respiratory Infection Stated Complaint: sore throat Time Seen by Provider: 06/05/22 19:45 - History of Present Illness Initial Comments: Patient is a 56-year-old female who presents to the emergency department with a chief complaint of sore throat. It started 1 week ago and is not improving. Patient also reports dry cough and congestion. She denies chest pain and shortness of breath. No fever. Denies history of asthma and COPD. Denies recent sick contacts. (Brittany Herrera) Patient is a 56-year-old female presenting with chief complaint of URI-like symptoms. Patient has had a sore throat, cough, and congestion for the last week. She is also complaining of frontal headache. She has been taking Tylenol for her symptoms. No fevers or chills. No nausea or vomiting. No difficulty breathing or swallowing. No chest pain. (Bautista Pitts) - Related Data Home Medications Medication Instructions Recorded Confirmed Montelukast [Singulair] 10 mg PO DAILY 04/22/17 01/16/22 Mirabegron [Myrbetriq] 50 mg PO DAILY 11/10/19 01/16/22 Gabapentin [Neurontin] 800 mg PO BID 03/28/20 01/16/22 Aspirin EC [Ecotrin Low Dose] 81 mg PO HS 05/15/20 01/16/22 Atorvastatin [Lipitor] 20 mg PO DAILY 05/15/20 01/16/22 Escitalopram [Lexapro] 10 mg PO DAILY 07/04/20 01/16/22 Multivitamin/Iron/Folic Acid 1 tab PO DAILY 07/04/20 01/16/22 [Centrum Women Tablet] Atorvastatin [Lipitor] 20 mg PO DAILY 12/05/21 01/16/22 Empagliflozin [Jardiance] 10 mg PO DAILY 12/05/21 01/16/22 Ergocalciferol [Vitamin D2 (1250 1,250 mcg PO WEEKLY 12/05/21 01/16/22 Mcg = 90384 Iu)] Fluconazole [Diflucan] 100 mg PO DAILY 12/05/21 01/16/22 Glimepiride [Amaryl] 4 mg PO BID 12/05/21 01/16/22 Ipratropium [place] 0.06%Nasal 2 spray EA NOSTRIL BID 12/05/21 01/16/22 [Atrovent Nasal 0.06%] Midodrine HCl [ProAmatine] 10 mg PO BID 12/05/21 01/16/22 Omeprazole [PriLOSEC] 10 mg PO DAILY 12/05/21 01/16/22 PARoxetine HCL [Paxil] 30 mg PO DAILY 12/05/21 01/16/22 Pioglitazone HCl 30 mg PO DAILY 12/05/21 01/16/22 lisinopriL [Zestril] 5 mg PO DAILY 12/05/21 01/16/22 traMADol HCL 50 mg PO Q6H PRN 12/05/21 01/16/22 traZODone HCL [Desyrel] 50 mg PO HS 12/05/21 01/16/22 Insulin Glargine,Hum.rec.anlog 0 units SQ DAILY 01/16/22 01/16/22 [Lantus Solostar Pen] Previous Rx's Medication Instructions Recorded Nystatin 100,000 Unit/gm Powd 1 applic TOPICAL BID #60 gm 11/22/20 [Mycostatin Powder] Benzonatate [Tessalon Perles] 100 mg PO TID PRN #12 capsule 06/05/22 Allergies Allergy/AdvReac Type Severity Reaction Status Date / Time Sulfa (Sulfonamide Allergy Anaphylaxis Verified 06/05/22 19:34 Antibiotics) Review of Systems ROS Other: All systems not noted in ROS Statement are negative. <Brittany Herrera - Last Filed: 06/05/22 19:45> ROS Other: All systems not noted in ROS Statement are negative. <Bautista Pitts - Last Filed: 06/05/22 23:50> ROS Statement: Those systems with pertinent positive or pertinent negative responses have been documented in the HPI. Past Medical History Past Medical History: Diabetes Mellitus, Eye Disorder, Hyperlipidemia, Hypertension Additional Past Medical History / Comment(s): 05/04/14 Pt presented to [facility] ER with substernal chest pain that started 24 hhours before coming to ER. She noticed the chest pain when she woke up yesterday. It is a heaviness and is intermittent with variable duration. She also states she had alittle nausea with it. Other HX: Pt had recent (03/30/14)cataract surgery with lens implants bilaterally at [facility]-post op she had low O2 saturations and was told she had a very narrow airway-instead of going home same day, she was in the hospital for a couple days until her saturations improved. She was discharged with home O2 which she wears at 2L/NC at [facility] and was to follow up today for testing for sleep apnea. Pt states she also has diarrhea fairly frequently. 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 2018 - intermittently in hospital for 3 months for fluid on lungs, had fluid removed History of Any Multi-Drug Resistant Organisms: MRSA Date of last positivie culture/infection: 2010 MDRO Source:: legs and breasts. Past Surgical History: Bariatric Surgery, Cholecystectomy, Hysterectomy, Orthopedic Surgery Additional Past Surgical History / Comment(s): Bilateral cataract sx with lens implants, bilateral retinal repair. Cervical rodding for 3 ruptured discs. 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 She was told she has a very narrow airway. Pt has never recieved blood. Past Psychological History: No Psychological Hx Reported Smoking Status: Former smoker Past Alcohol Use History: None Reported Past Drug Use History: None Reported - Past Family History Father Family Medical History: Cancer, Myocardial Infarction (IA) Additional Family Medical History / Comment(s): Father had 5 IA's and of bone cancer. Mother Family Medical History: Cancer Additional Family Medical History / Comment(s): cervical cancer <Brittany Herrera - Last Filed: 06/05/22 19:45> General Exam Limitations: no limitations <Brittany Herrera - Last Filed: 06/05/22 19:45> Limitations: no limitations General appearance: alert, in no apparent distress Head exam: Present: atraumatic, normocephalic, normal inspection Eye exam: Present: normal appearance ENT exam: Present: normal exam, normal oropharynx, mucous membranes moist Neck exam: Present: normal inspection, full ROM, lymphadenopathy Respiratory exam: Present: normal lung sounds bilaterally. Absent: respiratory distress, wheezes, rales, rhonchi, stridor Cardiovascular Exam: Present: regular rate, normal rhythm, normal heart sounds. Absent: systolic murmur, diastolic murmur, rubs, gallop, clicks Neurological exam: Present: alert, oriented X3, CN II-XII intact Psychiatric exam: Present: normal affect, normal mood Skin exam: Present: warm, dry, intact, normal color. Absent: rash <Bautista Pitts - Last Filed: 06/05/22 23:50> Course Vital Signs 06/05/22 06/05/22 19:29 23:01 Temperature 97.9 F 98.1 F Pulse Rate 79 79 Respiratory 16 17 Rate Blood Pressure 116/68 157/77 O2 Sat by Pulse 99 99 Oximetry Medical Decision Making <Bautista Pitts - Last Filed: 06/05/22 23:50> - Medical Decision Making Was pt. sent in by a medical professional or institution (, PA, PHYSICIAN EXTENDER, urgent care, hospital, or residential...) When possible be specific @ -No Did you speak to anyone other than the patient for history (EMS, parent, family, police, friend...)? What history was obtained from this source @ -No Did you review nursing and triage notes (agree or disagree)? Why? @ -I reviewed and agree with nursing and triage notes Were old charts reviewed (outside hosp., previous admission, EMS record, old EKG, old radiological studies, urgent care reports/EKG's, residential records)? Report findings @ -No old charts were reviewed Differential Diagnosis (chest pain, altered mental status, abdominal pain women, abdominal pain men, vaginal bleeding, weakness, fever, dyspnea, syncope, headache, dizziness, GI bleed, back pain, seizure, CVA, palpatations, mental health, musculoskeletal)? @ Differential includes URI, bronchitis, pneumonia, strep pharyngitis, this is not an all inclusive list EKG interpreted by me (3pts min.). @ -As above X-rays interpreted by me (1pt min.). @ -Chest x-ray shows no acute process CT interpreted by me (1pt min.). @ -None done U/S interpreted by me (1pt. min.). @ -None done What testing was considered but not performed or refused? (CT, X-rays, U/S, labs)? Why? @ -None What meds were considered but not given or refused? Why? @ -None Did you discuss the management of the patient with other professionals (professionals i.e. Dr., PA, PHYSICIAN EXTENDER, lab, RT, psych nurse, aids social worker, operational trainer, teacher, certified juvenile probation officer, pillowcase turner)? Give summary @ -No Was smoking cessation discussed for >3mins.? @ -No Was critical care preformed (if so, how long)? @ -No Were there social determinants of health that impacted care today? How? (Homelessness, low income, unemployed, alcoholism, drug addiction, transportation, low edu. Level, literacy, decrease access to med. care, prison, rehab)? @ -No Was there de-escalation of care discussed even if they declined (Discuss DNR or withdrawal of care, Hospice)? DNR status @ -No What co-morbidities impacted this encounter? (DM, HTN, Smoking, COPD, CAD, C ancer, CVA, ARF, Chemo, Hep., AIDS, mental health diagnosis, sleep apnea, morbid obesity)? @ -None Was patient admitted / discharged? Hospital course, mention meds given and route, prescriptions, significant lab abnormalities, going to OR and other pertinent info. @ -Patient is a 56-year-old female presenting with chief complaint of cough, congestion, sore throat, and headache. On physical examination heart and lungs are clear to auscultation, normal HEENT exam. Chest x-ray is negative. Patient is negative for coronavirus in group A strep. She is resting comfortably no signs of distress. Patient is educated on these findings and on supportive treatment at home. She is given a prescription for Tessalon Perles. Follow-up with PCP. Report back to ER with any new or worsening symptoms. Discussed return parameters and answered all questions. Patient conveyed verbal understanding and agreed to the plan. I discussed this case in detail with my attending Dr. Leal Undiagnosed new problem with uncertain prognosis? @ -No Drug Therapy requiring intensive monitoring for toxicity (Heparin, Nitro, Insulin, Cardizem)? @ -No Were any procedures done? @ -No Diagnosis/symptom? @ -URI Acute, or Chronic, or Acute on Chronic? @ -Acute Uncomplicated (without systemic symptoms) or Complicated (systemic symptoms)? @ -Uncomplicated Side effects of treatment? @ -No Exacerbation, Progression, or Severe Exacerbation? @ -No Poses a threat to life or bodily function? How? (Chest pain, USA, IA, pneumonia, PE, COPD, DKA, ARF, appy, cholecystitis, CVA, Diverticulitis, Homicidal, Suicidal, threat to staff... and all critical care pts) @ -No (Bautista Pitts) - Lab Data Lab Results 06/05/22 06/05/22 Range/Units 19:35 22:55 Coronavirus (PCR) Not Detected (Not Detectd) Group A Strep (PCR) NOT DETECTED (Not Detectd) Disposition <Brittany Herrera - Last Filed: 06/05/22 19:45> Is patient prescribed a controlled substance at d/c from ED?: No Time of Disposition: 23:44 <Bautista Pitts - Last Filed: 06/05/22 23:50> Clinical Impression: Upper respiratory tract infection Disposition: HOME SELF-CARE Condition: Good Instructions (If sedation given, give patient instructions): Upper Respiratory Infection (ED) Additional Instructions: Follow-up with PCP. Report back to ER with any new or worsening symptoms. Take medication as prescribed. Take Motrin and Tylenol as needed. Stay well- hydrated and get plenty of rest. Prescriptions: Benzonatate [Tessalon Perles] 100 mg PO TID PRN #12 capsule PRN Reason: Cough Referrals: Kizzy Monahan MD [Primary Care Provider] - 1-2 days
[2022-06-05] MEDS ORDERED: KETOROLAC 15 MG/ML 1 ML VIAL IM STA (22:39)
--- NOTE | 2022-06-05 22:59 | XR ---
EXAMINATION TYPE: XR chest 2V DATE OF EXAM: 06/05/2022 COMPARISON: 09/02/2020 HISTORY: Syncope TECHNIQUE: 2 views FINDINGS: Heart is normal. Lungs are clear of infiltrate. No heart failure. There are no hilar masses . There is old healed fracture lateral left seventh rib no pleural effusion. IMPRESSION: No active cardiopulmonary disease. No adverse change.
[2022-06-05 23:01] VITALS: BP 157/77; RESP 17; TEMP 98.1
== END 2022-06-05 23:56 | disposition home or self-care (01) ==
LOC: EC 19:03
DX: J06.9 Acute upper respiratory infection, unspecified (principal); E78.5 Hyperlipidemia, unspecified; E11.9 Type 2 diabetes mellitus without complications; I10 Essential (primary) hypertension; Z79.82 Long term (current) use of aspirin; Z79.84 Long term (current) use of oral hypoglycemic drugs; Z79.4 Long term (current) use of insulin; Z79.899 Other long term (current) drug therapy; Z88.2 Allergy status to sulfonamides; Z20.822 Contact with and (suspected) exposure to COVID-19; Z88.1 Allergy status to other antibiotic agents; Z87.891 Personal history of nicotine dependence
CPT/HCPCS: 99283 ×2; 96372 ×2; 87651; 87635; 71046; J1885

== ENCOUNTER → 2023-04-02 | Outpatient (CLI) | payer MEDICARE ==
--- NOTE | 2023-04-02 19:46 | BD ---
EXAMINATION TYPE: Axial Bone Density DATE OF EXAM: 04/02/2023 CLINICAL HISTORY: 57 years old Female. ICD-10 CODE: M85.9 DISORDER OF BONE DENSITY AN Height: 65" Weight: 234.2lbs FRAX RISK QUESTIONS: Alcohol (3 or more units per day): No Family History (Parent hip fracture): No Glucocorticoids (More than 3mos): No (Ex: prednisone, prednisolone, methylprednisolone, dexamethasone, and hydrocortisone). History of Fracture in Adulthood: Yes, spine and left knee Secondary Osteoporosis: 1. Type 1 Diabetes: No 2. Hyperthyroidism: No 3. Menopause before 45: Yes 4. Malnutrition: No 5. Chronic liver disease: No Rheumatoid Arthritis: No Current Tobacco Use: No RISK FACTORS HISTORY OF: Hip Fracture (Right/Left): No Spine Fracture: Yes, lumbar When: 2020 History of Wrist Fracture: No Surgery to Spine/Hip(right/left)/Wrist (right/left): No MEDICATIONS: Thyroid Medications: No Osteoporosis Medications: No EXAM MEASUREMENTS: Bone mineral densitometry was performed using the [employer] System. Bone mineral density about the R hip (g/cm2): 0.838 Bone mineral density about the L hip (g/cm2): 0.823 T Score values are as follows: -----R Neck: -1.4 -----L Neck: -1.5 -----R Total: -1.7 -----L Total: -2.1 Z Score values are as follows: -----R Neck: -1.4 -----L Neck: -1.5 -----R Total: -1.3 -----L Total: -1.7 Bone mineral density has: decreased -14.0% since study of: 11/21/2020 Bone mineral density about the L Wrist (g/cm2): 0.735 T Score values are as follows: -----Dist. R+U: 0.0 -----Prox. R+U: 1.4 -----Radius total: 1.0 Z Score values are as follows: -----Dist. R+U: 0.8 -----Prox. R+U: 2.1 -----Radius total: 1.7 Bone mineral density has: decreased -10.8% since study of: FRAX%s: The graph provided illustrates a 14.0% chance for a major osteoporotic fx and a 1.8% chance f or the hips probability for fx in 10 years time. IMPRESSION: Osteopenia (T Score between -2.5 and -1). There is slightly increased risk of fracture and the patient may be considered for treatment. Re-Screen 2-5 years. NOTE: T-SCORE=SD OF THE YOUNG ADULT MEAN.
--- NOTE | 2023-04-03 08:54 | MM ---
Reason for Exam: Screening (asymptomatic). Last screening mammogram was performed 12 month(s) ago. Patient History: Menarche at age 14. First Full-Term at age 19. Postmenopausal. Hormonal Contraceptives for 2 months. Risk Values: Chikis 5 year model risk: 0.8%. NCI Lifetime model risk: 5.2%. Prior Study Comparison: 10/04/2005 Bilateral Screening Mammogram, [facility]. 10/06/2020 Bilateral Screening Mammogram, [facility]. 04/01/2022 Bilateral MG 3D screening mammo w/cad, [facility]. Tissue Density: The breast tissue is almost entirely fat. Findings: Analyzed By CAD. There is no suspicious group of microcalcifications or new suspicious mass. Overall Assessment: Negative, BI-RAD 1 Management: Screening Mammogram of both breasts in [address] [facility] will attempt to contact patient to return for supplemental views and ultrasound if indicated. Patient should continue monthly self-breast exams. A clinical breast exam by your physician is recommended on an annual basis. This exam should not preclude additional follow-up of suspicious palpable abnormalities. Note on Chikis scores and lifetime risk: 1. A Chikis score greater than 3% is considered moderate risk. If this is the case, consider specialist referral to assess eligibility for a risk reducing agent. 2. If overall lifetime risk for the development of breast cancer is 20% or higher, the patient may qualify for future screening with alternating mammogram and breast MRI. Electronically signed and approved by: Mikie Gale DO
== END | disposition home or self-care (01) ==
LOC: RADMAMWWP 12:08
PROVIDERS: ATTEND Family Medicine
DX: Z12.31 Encounter for screening mammogram for malignant neoplasm of breast (principal); M85.89 Other specified disorders of bone density and structure, multiple sites; Z78.0 Asymptomatic menopausal state
CPT/HCPCS: 77063; 77067; 77080

== ENCOUNTER 2023-04-17 18:37 | Emergency (ER) | payer MEDICARE ==
--- NOTE | 2023-04-17 19:40 | ED ---
General Adult HPI - General Stated complaint: Syncope, Dizziness Time Seen by Provider: 04/17/23 19:38 Source: patient, family Mode of arrival: wheelchair Limitations: no limitations - History of Present Illness Initial comments: 57-year-old female presenting with chief complaint of weakness. Patient states that has been getting dizzy when she stands up, states that this has been happening for a while. She has been seen 3 times at [facility] for this issue. She states that today when she went to stand up her legs felt like Jell- O and her family members had to catch her. No chest pain or difficulty breathing. States that she has not been eating or drinking much today. Patient takes Motrin 10 mg twice daily and has not taken her evening dose. No abdominal pain, nausea, vomiting. No headache, vision or hearing changes, numbness, tingling. - Related Data Home Medications Medication Instructions Recorded Confirmed Montelukast [Singulair] 10 mg PO DAILY 04/22/17 04/17/23 Mirabegron [Myrbetriq] 50 mg PO DAILY 11/10/19 04/17/23 Aspirin EC [Ecotrin Low Dose] 81 mg PO HS 05/15/20 04/17/23 Empagliflozin [Jardiance] 10 mg PO DAILY 12/05/21 04/17/23 Ergocalciferol [Vitamin D2 (1250 1,250 mcg PO SA 12/05/21 04/17/23 Mcg = 49286 Iu)] Midodrine HCl [ProAmatine] 10 mg PO TID-W/MEALS 12/05/21 04/17/23 Pioglitazone HCl 30 mg PO DAILY 12/05/21 04/17/23 traMADol HCL 50 mg PO Q6H PRN 12/05/21 04/17/23 Escitalopram [Lexapro] 20 mg PO DAILY 04/17/23 04/17/23 Insuln Asp Prt/Insulin Aspart 15 - 20 unit SQ HS 04/17/23 04/17/23 [NovoLOG MIX 70-30 VIAL] Insuln Asp Prt/Insulin Aspart 40 unit SQ DAILY 04/17/23 04/17/23 [NovoLOG MIX 70-30 VIAL] Omeprazole 40 mg PO DAILY 04/17/23 04/17/23 Pregabalin [Lyrica] 150 mg PO TID 04/17/23 04/17/23 Rosuvastatin [Crestor] 20 mg PO HS 04/17/23 04/17/23 Semaglutide [Ozempic] 1 mg SQ TU 04/17/23 04/17/23 lisinopriL [Zestril] 20 mg PO DAILY 04/17/23 04/17/23 Previous Rx's Medication Instructions Recorded Potassium Chloride ER [K-Dur 20] 20 meq PO DAILY #3 tab 04/17/23 Allergies Allergy/AdvReac Type Severity Reaction Status Date / Time Sulfa (Sulfonamide Allergy Rash, Verified 04/17/23 22:17 Antibiotics) hives, swelling Review of Systems ROS Statement: Those systems with pertinent positive or pertinent negative responses have been documented in the HPI. ROS Other: All systems not noted in ROS Statement are negative. Past Medical History Past Medical History: Diabetes Mellitus, Eye Disorder, Hyperlipidemia, Hypertension Additional Past Medical History / Comment(s): 05/04/14 Pt presented to [facility] ER with substernal chest pain that started 24 hhours before coming to ER. She noticed the chest pain when she woke up yesterday. It is a heaviness and is intermittent with variable duration. She also states she had alittle nausea with it. Other HX: Pt had recent (03/30/14)cataract surgery with lens implants bilaterally at [facility]-post op she had low O2 saturations and was told she had a very narrow airway-instead of going home same day, she was in the hospital for a couple days until her saturations improved. She was discharged with home O2 which she wears at 2L/NC at [facility] and was to follow up today for te sting for sleep apnea. Pt states she also has diarrhea fairly frequently. 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 2018 - intermittently in hospital for 3 months for fluid on lungs, had fluid removed History of Any Multi-Drug Resistant Organisms: MRSA Date of last positivie culture/infection: 2010 MDRO Source:: legs and breasts. Past Surgical History: Bariatric Surgery, Cholecystectomy, Hysterectomy, Orthopedic Surgery Additional Past Surgical History / Comment(s): Bilateral cataract sx with lens implants, bilateral retinal repair. Cervical rodding for 3 ruptured discs. 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 She was told she has a very narrow airway. Pt has never recieved blood. Past Psychological History: No Psychological Hx Reported Smoking Status: Former smoker Past Alcohol Use History: None Reported Past Drug Use History: None Reported - Past Family History Father Family Medical History: Cancer, Myocardial Infarction (NM) Additional Family Medical History / Comment(s): Father had 5 NM's and of bone cancer. Mother Family Medical History: Cancer Additional Family Medical History / Comment(s): cervical cancer General Exam - General Exam Comments Initial Comments: Visual Physical Exam Vital signs reviewed General: Well-appearing, nontoxic, no acute distress. Head: Normocephalic, atraumatic Eyes: PERRLA, EOMI ENT: Airway patent Chest: Nonlabored breathing Skin: No visual rash, normal skin tone Neuro: Alert and oriented 3 Musculoskeletal: No gross abnormalities Limitations: no limitations General appearance: alert, in no apparent distress Head exam: Present: atraumatic, normocephalic Eye exam: Present: normal appearance, PERRL, EOMI Neck exam: Present: normal inspection Respiratory exam: Present: normal lung sounds bilaterally. Absent: respiratory distress, wheezes, rales, rhonchi, stridor Cardiovascular Exam: Present: regular rate, normal rhythm, normal heart sounds. Absent: systolic murmur, diastolic murmur, rubs, gallop, clicks Extremities exam: Present: normal inspection, full ROM Neurological exam: Present: alert, oriented X3 Expanded Patient oriented to: Present: person, place, time Speech: Present: fluid speech Cranial nerves: EOM's Intact: Normal Sensory exam: Upper Extremity Light Touch: Normal, Lower Extremity Light Touch: Normal Motor strength exam: RUE: 5, LUE: 5, RLE: 5, LLE: 5 Eye Response: (4) open spontaneously Motor Response: (6) obeys commands Verbal Response: (5) oriented Lisa Total: 15 Psychiatric exam: Present: normal affect, normal mood Skin exam: Present: warm, dry Course Vital Signs 04/17/23 04/17/23 04/17/23 19:37 20:06 20:08 Temperature 98 F Pulse Rate 82 Pulse Rate [ 84 Sitting Manager House] Pulse Rate [ Standing Manager House ] Pulse Rate [ 74 Supine Manager House] Respiratory 18 Rate Blood Pressure 91/57 Blood Pressure [Right Arm Standing] Blood Pressure 97/51 87/52 [Right Arm Supine] O2 Sat by Pulse 100 Oximetry 04/17/23 04/17/23 04/17/23 20:10 21:50 23:11 Temperature Pulse Rate 86 95 Pulse Rate [ Sitting Manager House] Pulse Rate [ 87 Standing Manager House ] Pulse Rate [ Supine Manager House] Respiratory 16 16 Rate Blood Pressure 100/63 122/80 Blood Pressure 68/43 [Right Arm Standing] Blood Pressure [Right Arm Supine] O2 Sat by Pulse 100 98 Oximetry 04/17/23 23:56 Temperature 98 F Pulse Rate 78 Pulse Rate [ Sitting Manager House] Pulse Rate [ Standing Manager House ] Pulse Rate [ Supine Manager House] Respiratory 18 Rate Blood Pressure 120/66 Blood Pressure [Right Arm Standing] Blood Pressure [Right Arm Supine] O2 Sat by Pulse 98 Oximetry Medical Decision Making - Medical Decision Making Sinus rhythm ventricular rate 73. PA interval 171. QRS 105. QT 404. QTc 431. Normal axis. Was pt. sent in by a medical professional or institution (, PA, PROGRAM COUNSELOR, urgent care, hospital, or correction...) When possible be specific @ -No Did you speak to anyone other than the patient for history (EMS, parent, family, police, friend...)? What history was obtained from this source @ -History supplemented by family Did you review nursing and triage notes (agree or disagree)? Why? @ -I reviewed and agree with nursing and triage notes Were old charts reviewed (outside hosp., previous admission, EMS record, old EKG, old radiological studies, urgent care reports/EKG's, correction records)? Report findings @ -No old charts were reviewed Differential Diagnosis (chest pain, altered mental status, abdominal pain women, abdominal pain men, vaginal bleeding, weakness, fever, dyspnea, syncope, headache, dizziness, GI bleed, back pain, seizure, CVA, palpatations, mental health, musculoskeletal)? @ -MDM Differential Dizziness: Benign paroxysmal positional Vertigo, Menieres disease, otitis media, acoustic neuroma, vertebrobasilar insufficiency, cerebellar stroke, encephalitis, hypovolemic, arrhythmia, coronary artery syndrome, anemia this is not meant to be an all-inclusive list EKG interpreted by me (3pts min.). @ -As above X-rays interpreted by me (1pt min.). @ -Chest x-ray shows no acute radiographic process CT interpreted by me (1pt min.). @ -None done U/S interpreted by me (1pt. min.). @ -None done What testing was considered but not performed or refused? (CT, X-rays, U/S, labs)? Why? @ -None What meds were considered but not given or refused? Why? @ -None Did you discuss the management of the patient with other professionals (professionals i.e. , PA, PROGRAM COUNSELOR, lab, RT, psych nurse, social worker health services, vending service technician, teacher, admitting officer, binder caser)? Give summary @ -No Was smoking cessation discussed for >3mins.? @ -No Was critical care preformed (if so, how long)? @ -No Were there social determinants of health that impacted care today? How? (Homelessness, low income, unemployed, alcoholism, drug addiction, transportation, low edu. Level, literacy, decrease access to med. care, nursing home, rehab)? @ -No Was there de-escalation of care discussed even if they declined (Discuss DNR or withdrawal of care, Hospice)? DNR status @ -No What co-morbidities impacted this encounter? (DM, HTN, Smoking, COPD, CAD, Cancer, CVA, ARF, Chemo, Hep., AIDS, mental health diagnosis, sleep apnea, mo rbid obesity)? @ -None Was patient admitted / discharged? Hospital course, mention meds given and r oute, prescriptions, significant lab abnormalities, going to OR and other pertinent info. @ -57-year-old female presenting with chief complaint of dizziness. This has been an ongoing issue. Patient states that she has not been eating much or drinking water today. History and physical exam were conducted. No focal neurological deficits. Patient has positive orthostatic vitals. She is given I V fluid bolus and her evening dose of midodrine 10 mg. Potassium 3.1, she is given a dose of potassium here. BUN 26 and creatinine 1.24, receiving IV fluids. Chest x-ray shows no acute process. On reassessment patient's vital signs have improved, no further orthostatic hypotension. Patient is educated on today's findings. I stressed the importance of hydration. Sent short course of potassium supplements at home. Follow-up with PCP. Report back to ER with any new or worsening symptoms. Discussed return parameters and answered all questions. Patient conveyed verbal understanding and agreed to the plan. I discussed this case in detail with my attending Dr. Root Undiagnosed new problem with uncertain prognosis? @ -No Drug Therapy requiring intensive monitoring for toxicity (Heparin, Nitro, Insulin, Cardizem)? @ -No Were any procedures done? @ -No Diagnosis/symptom? @ -Dehydration, orthostatic hypotension Acute, or Chronic, or Acute on Chronic? @ -Acute Uncomplicated (without systemic symptoms) or Complicated (systemic symptoms)? @ -Complicated Side effects of treatment? @ -No Exacerbation, Progression, or Severe Exacerbation? @ -No Poses a threat to life or bodily function? How? (Chest pain, USA, NM, pneumonia, PE, COPD, DKA, ARF, appy, cholecystitis, CVA, Diverticulitis, Homicidal, Suicidal, threat to staff... and all critical care pts) @ -At this time low likelihood - Lab Data Result diagrams: 04/17/23 19:53 04/17/23 19:53 Lab Results 04/17/23 04/17/23 04/17/23 Range/Units 19:53 19:53 19:53 WBC 10.8 H (3.8-10.6) k/uL RBC 4.45 (3.80-5.40) m/uL Hgb 12.8 (11.4-16.0) gm/dL Hct 36.1 (34.0-46.0) % MCV 81.2 (80.0-100.0) fL MCH 28.7 (25.0-35.0) pg MCHC 35.4 (31.0-37.0) g/dL RDW 14.4 (11.5-15.5) % Plt Count 242 (150-450) k/uL MPV 9.3 Neutrophils % 46 % Lymphocytes % 43 % Monocytes % 5 % Eosinophils % 3 % Basophils % 1 % Neutrophils # 4.9 (1.3-7.7) k/uL Lymphocytes # 4.7 (1.0-4.8) k/uL Monocytes # 0.5 (0-1.0) k/uL Eosinophils # 0.3 (0-0.7) k/uL Basophils # 0.1 (0-0.2) k/uL Sodium 138 (137-145) mmol/L Potassium 3.1 L (3.5-5.1) mmol/L Chloride 103 (98-107) mmol/L Carbon Dioxide 27 (22-30) mmol/L Anion Gap 8 mmol/L BUN 26 H (7-17) mg/dL Creatinine 1.24 H (0.52-1.04) mg/dL Est GFR (CKD-EPI)AfAm 56 (>60 ml/min/1.73 sqM) Est GFR (CKD-EPI)NonAf 48 (>60 ml/min/1.73 sqM) Glucose 91 (74-99) mg/dL POC Glucose (mg/dL) (70-110) mg/dL POC Glu Batch Mixer ID Plasma Lactic Acid Alejandro 1.1 (0.7-2.0) mmol/L Calcium 9.1 (8.4-10.2) mg/dL Total Bilirubin 0.4 (0.2-1.3) mg/dL AST 38 H (14-36) U/L ALT 24 (4-34) U/L Alkaline Phosphatase 94 (38-126) U/L Troponin I (0.000-0.034) ng/mL Total Protein 7.1 (6.3-8.2) g/dL Albumin 4.2 (3.5-5.0) g/dL 04/17/23 04/17/23 Range/Units 19:53 22:53 WBC (3.8-10.6) k/uL RBC (3.80-5.40) m/uL Hgb (11.4-16.0) gm/dL Hct (34.0-46.0) % MCV (80.0-100.0) fL MCH (25.0-35.0) pg MCHC (31.0-37.0) g/dL RDW (11.5-15.5) % Plt Count (150-450) k/uL MPV Neutrophils % % Lymphocytes % % Monocytes % % Eosinophils % % Basophils % % Neutrophils # (1.3-7.7) k/uL Lymphocytes # (1.0-4.8) k/uL Monocytes # (0-1.0) k/uL Eosinophils # (0-0.7) k/uL Basophils # (0-0.2) k/uL Sodium (137-145) mmol/L Potassium (3.5-5.1) mmol/L Chloride (98-107) mmol/L Carbon Dioxide (22-30) mmol/L Anion Gap mmol/L BUN (7-17) mg/dL Creatinine (0.52-1.04) mg/dL Est GFR (CKD-EPI)AfAm (>60 ml/min/1.73 sqM) Est GFR (CKD-EPI)NonAf (>60 ml/min/1.73 sqM) Glucose (74-99) mg/dL POC Glucose (mg/dL) 90 (70-110) mg/dL POC Glu Batch Mixer ID Eliud Adrian Plasma Lactic Acid Alejandro (0.7-2.0) mmol/L Calcium (8.4-10.2) mg/dL Total Bilirubin (0.2-1.3) mg/dL AST (14-36) U/L ALT (4-34) U/L Alkaline Phosphatase (38-126) U/L Troponin I <0.012 (0.000-0.034) ng/mL Total Protein (6.3-8.2) g/dL Albumin (3.5-5.0) g/dL Disposition Clinical Impression: Orthostatic hypotension, Dehydration Disposition: HOME SELF-CARE Condition: Good Instructions (If sedation given, give patient instructions): Dehydration (ED), Hypotension (ED) Additional Instructions: Follow-up with PCP. Report back to ER with any new or worsening symptoms. Prescriptions: Potassium Chloride ER [K-Dur 20] 20 meq PO DAILY #3 tab Is patient prescribed a controlled substance at d/c from ED?: No Referrals: Kizzy Monahan MD [Primary Care Provider] - 1-2 days Time of Disposition: 23:44
[2023-04-17 19:47] VITALS: TEMP 98
[2023-04-17] MEDS: SODIUM CHLORIDE 0.9% 1,000 ML IV ONE ×2 (20:03→21:48)
[2023-04-17 20:16] LABS: Basophils # (A) 0.1 k/uL (0-0.2); Basophils % (A) 1 %; Eosinophils # (A) 0.3 k/uL (0-0.7); Eosinophils % (A) 3 %; HCT 36.1 % (34.0-46.0); HGB 12.8 gm/dL (11.4-16.0); Lymphocytes # (A) 4.7 k/uL (1.0-4.8); Lymphocytes % (A) 43 %; MCH 28.7 pg (25.0-35.0); MCHC 35.4 g/dL (31.0-37.0); MCV 81.2 fL (80.0-100.0); Mean Platelet Volume 9.3; Monocytes # (A) 0.5 k/uL (0-1.0); Monocytes % (A) 5 %; Neutrophils # (A) 4.9 k/uL (1.3-7.7); Neutrophils % (A) 46 %; Platelet Count 242 k/uL (150-450); RBC 4.45 m/uL (3.80-5.40); RDW 14.4 % (11.5-15.5); WBC 10.8 k/uL (3.8-10.6)
[2023-04-17 20:51] LABS: ALT 24 U/L (4-34); AST 38 U/L (14-36); African American GFR (CKD) 56 (>60 ml/min/1.73 sqM); Albumin 4.2 g/dL (3.5-5.0); Alkaline Phosphatase 94 U/L (38-126); Anion Gap 8 mmol/L; Blood Urea Nitrogen 26 mg/dL (7-17); Calcium 9.1 mg/dL (8.4-10.2); Carbon Dioxide 27 mmol/L (22-30); Chloride 103 mmol/L (98-107); Glucose 91 mg/dL (74-99); Non-African American GFR(CKD) 48 (>60 ml/min/1.73 sqM); Potassium 3.1 mmol/L (3.5-5.1); Sodium 138 mmol/L (137-145); Total Bilirubin 0.4 mg/dL (0.2-1.3); Total Protein 7.1 g/dL (6.3-8.2)
--- NOTE | 2023-04-17 21:07 | XR ---
EXAMINATION: XR chest 2V: 04/17/2023 8:55 PM CLINICAL INDICATION: dizziness TECHNIQUE: Departmental protocol COMPARISON: 06/05/2022 FINDINGS: EKG leads. The lungs are clear. The pleural spaces are negative. The cardiac silhouette is not enlarged. The remainder of the mediastinal silhouette is unremarkable. The skeletal structures and soft tissues are negative for acute findings. IMPRESSION: No acute radiographic process.
[2023-04-17] MEDS ORDERED: Potassium Replacement Protocol 1 EACH MISC MISCELLANE PRN (21:10)
[2023-04-17] MEDS: POTASSIUM CHLORIDE 10 MEQ in WATER FOR INJECTION 1 100ML.BAG IVPB SCH (21:48)
[2023-04-17] MEDS: MIDODRINE 5 MG TAB PO STA (21:48)
[2023-04-17 22:54] LABS: Glucose,Whole Blood 90 mg/dL (70-110)
[2023-04-18 00:34] VITALS: BP 120/66; PULSE 78; RESP 18
== END 2023-04-17 23:58 | disposition home or self-care (01) ==
LOC: EC 18:37
DX: I95.1 Orthostatic hypotension (principal); E86.0 Dehydration; E11.9 Type 2 diabetes mellitus without complications; E78.5 Hyperlipidemia, unspecified; I10 Essential (primary) hypertension; Z79.4 Long term (current) use of insulin; Z79.84 Long term (current) use of oral hypoglycemic drugs; Z79.899 Other long term (current) drug therapy; Z79.82 Long term (current) use of aspirin; Z88.2 Allergy status to sulfonamides; Z87.891 Personal history of nicotine dependence
CPT/HCPCS: 36415; 93005; 80053; 83605; 84484; 85025; 71046; 99284; 96365; 96366; 96361; J3480

== ENCOUNTER 2023-07-08 16:09 | Observation (INO) | payer MEDICARE ==
--- NOTE | 2023-07-08 16:49 | ED ---
General Adult HPI - General Stated complaint: Headache, Dizziness Time Seen by Provider: 07/08/23 16:48 Source: RN notes reviewed - History of Present Illness Initial comments: 58-year-old female with a past medical history significant for hypertension, hyperlipidemia, diabetes presenting to the ED with complaints of headache and dizziness. Patient reports that this has been ongoing for "months". Reports over the last few days seeming to worsen. States that when she walks she leans to the left secondary to her symptoms. Reports that whenever she gets dizzy she also has associated headache. Denies chest pain or shortness of breath. No fever or chills. No other complaints at this time. - Related Data Home Medications Medication Instructions Recorded Confirmed Montelukast [Singulair] 10 mg PO DAILY 04/22/17 04/17/23 Mirabegron [Myrbetriq] 50 mg PO DAILY 11/10/19 04/17/23 Aspirin EC [Ecotrin Low Dose] 81 mg PO HS 05/15/20 04/17/23 Empagliflozin [Jardiance] 10 mg PO DAILY 12/05/21 04/17/23 Ergocalciferol [Vitamin D2 (1250 1,250 mcg PO SA 12/05/21 04/17/23 Mcg = 81194 Iu)] Midodrine HCl [ProAmatine] 10 mg PO TID-W/MEALS 12/05/21 04/17/23 Pioglitazone HCl 30 mg PO DAILY 12/05/21 04/17/23 traMADol HCL 50 mg PO Q6H PRN 12/05/21 04/17/23 Escitalopram [Lexapro] 20 mg PO DAILY 04/17/23 04/17/23 Insuln Asp Prt/Insulin Aspart 15 - 20 unit SQ HS 04/17/23 04/17/23 [NovoLOG MIX 70-30 VIAL] Insuln Asp Prt/Insulin Aspart 40 unit SQ DAILY 04/17/23 04/17/23 [NovoLOG MIX 70-30 VIAL] Omeprazole 40 mg PO DAILY 04/17/23 04/17/23 Pregabalin [Lyrica] 150 mg PO TID 04/17/23 04/17/23 Rosuvastatin [Crestor] 20 mg PO HS 04/17/23 04/17/23 Semaglutide [Ozempic] 1 mg SQ TU 04/17/23 04/17/23 lisinopriL [Zestril] 20 mg PO DAILY 04/17/23 04/17/23 Previous Rx's Medication Instructions Recorded Potassium Chloride ER [K-Dur 20] 20 meq PO DAILY #3 tab 04/17/23 Allergies Allergy/AdvReac Type Severity Reaction Status Date / Time Sulfa (Sulfonamide Allergy Rash, Verified 07/08/23 16:56 Antibiotics) hives, swelling Review of Systems ROS Statement: Those systems with pertinent positive or pertinent negative responses have been documented in the HPI. ROS Other: All systems not noted in ROS Statement are negative. Past Medical History Past Medical History: Diabetes Mellitus, Eye Disorder, Hyperlipidemia, Hypertension Additional Past Medical History / Comment(s): 05/04/14 Pt presented to [facility] ER with substernal chest pain that started 24 hhours before coming to ER. She noticed the chest pain when she woke up yesterday. It is a heaviness and is intermittent with variable duration. She also states she had alittle nausea with it. Other HX: Pt had recent (03/30/14)cataract surgery with lens implants bilaterally at [facility]-post op she had low O2 saturations and was told she had a very narrow airway-instead of going home same day, she was in the hospital for a couple days until her saturations improved. She was discharged with home O2 which she wears at 2L/NC at [facility] and was to follow up today for testing for sleep apnea. Pt states she also has diarrhea fairly frequently. 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 2018 - intermittently in hospital for 3 months for fluid on lungs, had fluid removed History of Any Multi-Drug Resistant Organisms: MRSA Date of last positivie culture/infection: 2010 MDRO Source:: legs and breasts. Past Surgical History: Bariatric Surgery, Cholecystectomy, Hysterectomy, Orthopedic Surgery Additional Past Surgical History / Comment(s): Bilateral cataract sx with lens implants, bilateral retinal repair. Cervical rodding for 3 ruptured discs. sleeve gastrectomy 05-08-20 Past Anesthesia/Blood Transfusion Reactions: Postoperative Nausea & Vomiting (PONV) Additional Past Anesthesia/Blood Transfusion Reaction / Comment(s): Pt had cataract and lens implant at [facility] on 03/30/14 and afterwards she desaturated and was hospitalized. She was told she has a very narrow airway. Pt has never recieved blood. Past Psychological History: No Psychological Hx Reported Smoking Status: Former smoker Past Alcohol Use History: None Reported Past Drug Use History: None Reported - Past Family History Father Family Medical History: Cancer, Myocardial Infarction (VT) Additional Family Medical History / Comment(s): Father had 5 VT's and of bone cancer. Mother Family Medical History: Cancer Additional Family Medical History / Comment(s): cervical cancer General Exam - General Exam Comments Initial Comments: Visual Physical Exam Vital signs reviewed General: Well-appearing, nontoxic, no acute distress. Head: Normocephalic, atraumatic Eyes: PERRLA, EOMI ENT: Airway patent Chest: Nonlabored breathing Skin: No visual rash, normal skin tone Neuro: Alert and oriented 3 Musculoskeletal: No gross abnormalities General appearance: alert, in no apparent distress Eye exam: Present: normal appearance, PERRL, EOMI Neck exam: Present: normal inspection Respiratory exam: Present: normal lung sounds bilaterally Cardiovascular Exam: Present: regular rate GI/Abdominal exam: Present: soft Neurological exam: Present: alert, oriented X3, CN II-XII intact, abnormal gait (Ambulates to the left), other (Gfrgvr-rr-hnbp, jgva-ve-byjj, rapid alternating hand movements intact.) Skin exam: Present: warm, dry Course Vital Signs 07/08/23 07/08/23 16:45 21:21 Temperature 97.4 F L Pulse Rate 74 74 Respiratory 18 18 Rate Blood Pressure 87/56 126/70 O2 Sat by Pulse 99 98 Oximetry Medical Decision Making - Medical Decision Making Quicknote portion performed. Signed Fco Navarrete PA-C Was pt. sent in by a medical professional or institution ([facility], [facility], urgent care, hospital, or [facility]...) When possible be specific @ -No Did you speak to anyone other than the patient for history (EMS, parent, family, police, friend...)? What history was obtained from this source @ -No Did you review nursing and triage notes (agree or disagree)? Why? @ -I reviewed and agree with nursing and triage notes Were old charts reviewed (outside hosp., previous admission, EMS record, old EKG, old radiological studies, urgent care reports/EKG's, [facility] records)? Report findings @ -No old charts were reviewed Differential Diagnosis (chest pain, altered mental status, abdominal pain women, abdominal pain men, vaginal bleeding, weakness, fever, dyspnea, syncope, headache, dizziness, GI bleed, back pain, seizure, CVA, palpatations, mental health, musculoskeletal)? @ -Differential Dizziness: Benign paroxysmal positional Vertigo, Menieres disease, otitis media, acoustic neuroma, vertebrobasilar insufficiency, cerebellar stroke, encephalitis, hypovolemic, arrhythmia, coronary artery syndrome, anemia, this is not meant to be an all-inclusive list EKG interpreted by me (3pts min.). @ -EKG interpreted me showing a sinus rhythm with nonspecific findings. Rate of 72 bpm. IA 149, QRS 102, QT/QTc 408/432. X-rays interpreted by me (1pt min.). @ -None done CT interpreted by me (1pt min.). @ -CT brain interpreted me which revealed no evidence of acute finding. U/S interpreted by me (1pt. min.). @ -None done What testing was considered but not performed or refused? (CT, X-rays, U/S, labs)? Why? @ -None What meds were considered but not given or refused? Why? @ -None Did you discuss the management of the patient with other professionals (professionals i.e. , PA, [facility], lab, RT, psych nurse, director social welfare, firefighter type one, teacher, examining officer, senior case manager)? Give summary @ -Case discussed with Dr. Phillips, who accepts admission Was smoking cessation discussed for >3mins.? @ -No Was critical care preformed (if so, how long)? @ -No Were there social determinants of health that impacted care today? How? (Home lessness, low income, unemployed, alcoholism, drug addiction, transportation, low edu. Level, literacy, decrease access to med. care, usp, rehab)? @ -No Was there de-escalation of care discussed even if they declined (Discuss DNR or withdrawal of care, Hospice)? DNR status @ -No What co-morbidities impacted this encounter? (DM, HTN, Smoking, COPD, CAD, Cancer, CVA, ARF, Chemo, Hep., AIDS, mental health diagnosis, sleep apnea, morbid obesity)? @ -Obesity, diabetes, hyperlipidemia, hypertension Was patient admitted / discharged? Hospital course, mention meds given and route, prescriptions, significant lab abnormalities, going to OR and other pertinent info. @ -Admission 58-year-old female presented to the ED with complaints of dizziness ongoing for the past few months however recently worsening over the past 3 days. Laboratory studies reviewed. Chemistry panel does show hypokalemia at 3. This was repleted. CT of the brain revealed no evidence of acute finding. Patient will be admitted to observation with consult to neurology secondary to the dizziness and difficulty ambulating. Undiagnosed new problem with uncertain prognosis? @ -No Drug Therapy requiring intensive monitoring for toxicity (Heparin, Nitro, Insulin, Cardizem)? @ -No Were any procedures done? @ -No Diagnosis/symptom? @ -Dizziness, difficulty ambulating Acute, or Chronic, or Acute on Chronic? @ -Acute on chronic Uncomplicated (without systemic symptoms) or Complicated (systemic symptoms)? @ -Complicated Side effects of treatment? @ -No Exacerbation, Progression, or Severe Exacerbation? @ -No Poses a threat to life or bodily function? How? (Chest pain, USA, VT, pneumonia, PE, COPD, DKA, ARF, appy, cholecystitis, CVA, Diverticulitis, Homicidal, Suicidal, threat to staff... and all critical care pts) @ -Possibly, however unlikely at this time. - Lab Data Result diagrams: 07/08/23 17:04 07/08/23 17:04 Lab Results 07/08/23 07/08/23 07/08/23 Range/Units 17:04 17:04 17:04 WBC 12.8 H (3.8-10.6) k/uL RBC 4.51 (3.80-5.40) m/uL Hgb 12.8 (11.4-16.0) gm/dL Hct 37.9 (34.0-46.0) % MCV 84.0 (80.0-100.0) fL MCH 28.4 (25.0-35.0) pg MCHC 33.8 (31.0-37.0) g/dL RDW 14.9 (11.5-15.5) % Plt Count 252 (150-450) k/uL MPV 9.4 Neutrophils % 55 % Lymphocytes % 32 % Monocytes % 7 % Eosinophils % 2 % Basophils % 1 % Neutrophils # 7.0 (1.3-7.7) k/uL Lymphocytes # 4.1 (1.0-4.8) k/uL Monocytes # 0.9 (0-1.0) k/uL Eosinophils # 0.2 (0-0.7) k/uL Basophils # 0.1 (0-0.2) k/uL PT 9.6 L (10.0-12.5) sec INR 0.8 (<1.2) APTT 22.2 (22.0-30.0) sec Sodium 139 (137-145) mmol/L Potassium 3.0 L (3.5-5.1) mmol/L Chloride 101 (98-107) mmol/L Carbon Dioxide 31 H (22-30) mmol/L Anion Gap 7 mmol/L BUN 19 H (7-17) mg/dL Creatinine 1.30 H (0.52-1.04) mg/dL Est GFR (CKD-EPI)AfAm 52 (>60 ml/min/1.73 sqM) Est GFR (CKD-EPI)NonAf 46 (>60 ml/min/1.73 sqM) Glucose 65 L (74-99) mg/dL Calcium 9.0 (8.4-10.2) mg/dL Magnesium 2.0 (1.6-2.3) mg/dL Total Bilirubin 0.4 (0.2-1.3) mg/dL AST 25 (14-36) U/L ALT 19 (4-34) U/L Alkaline Phosphatase 100 (38-126) U/L Troponin I (0.000-0.034) ng/mL Total Protein 7.1 (6.3-8.2) g/dL Albumin 4.2 (3.5-5.0) g/dL 07/08/23 Range/Units 17:04 WBC (3.8-10.6) k/uL RBC (3.80-5.40) m/uL Hgb (11.4-16.0) gm/dL Hct (34.0-46.0) % MCV (80.0-100.0) fL MCH (25.0-35.0) pg MCHC (31.0-37.0) g/dL RDW (11.5-15.5) % Plt Count (150-450) k/uL MPV Neutrophils % % Lymphocytes % % Monocytes % % Eosinophils % % Basophils % % Neutrophils # (1.3-7.7) k/uL Lymphocytes # (1.0-4.8) k/uL Monocytes # (0-1.0) k/uL Eosinophils # (0-0.7) k/uL Basophils # (0-0.2) k/uL PT (10.0-12.5) sec INR (<1.2) APTT (22.0-30.0) sec Sodium (137-145) mmol/L Potassium (3.5-5.1) mmol/L Chloride (98-107) mmol/L Carbon Dioxide (22-30) mmol/L Anion Gap mmol/L BUN (7-17) mg/dL Creatinine (0.52-1.04) mg/dL Est GFR (CKD-EPI)AfAm (>60 ml/min/1.73 sqM) Est GFR (CKD-EPI)NonAf (>60 ml/min/1.73 sqM) Glucose (74-99) mg/dL Calcium (8.4-10.2) mg/dL Magnesium (1.6-2.3) mg/dL Total Bilirubin (0.2-1.3) mg/dL AST (14-36) U/L ALT (4-34) U/L Alkaline Phosphatase (38-126) U/L Troponin I <0.012 (0.000-0.034) ng/mL Total Protein (6.3-8.2) g/dL Albumin (3.5-5.0) g/dL Disposition Clinical Impression: Dizziness, Difficulty in walking Disposition: ADMITTED IP TO THIS HOSP Condition: Good Referrals: Kizzy Monahan MD [Primary Care Provider] - 1-2 days Time of Disposition: 21:30
[2023-07-08 17:21] LABS: INR 0.8 (<1.2); Partial Thromboplastin Time 22.2 sec (22.0-30.0); Prothrombin Time 9.6 sec (10.0-12.5)
[2023-07-08 17:24] LABS: Basophils # (A) 0.1 k/uL (0-0.2); Basophils % (A) 1 %; Eosinophils # (A) 0.2 k/uL (0-0.7); Eosinophils % (A) 2 %; HCT 37.9 % (34.0-46.0); HGB 12.8 gm/dL (11.4-16.0); Lymphocytes # (A) 4.1 k/uL (1.0-4.8); Lymphocytes % (A) 32 %; MCH 28.4 pg (25.0-35.0); MCHC 33.8 g/dL (31.0-37.0); Mean Platelet Volume 9.4; Monocytes # (A) 0.9 k/uL (0-1.0); Monocytes % (A) 7 %; Neutrophils % (A) 55 %; Platelet Count 252 k/uL (150-450); RBC 4.51 m/uL (3.80-5.40); RDW 14.9 % (11.5-15.5); WBC 12.8 k/uL (3.8-10.6)
[2023-07-08 17:41] LABS: ALT 19 U/L (4-34); AST 25 U/L (14-36); African American GFR (CKD) 52 (>60 ml/min/1.73 sqM); Albumin 4.2 g/dL (3.5-5.0); Alkaline Phosphatase 100 U/L (38-126); Anion Gap 7 mmol/L; Blood Urea Nitrogen 19 mg/dL (7-17); Carbon Dioxide 31 mmol/L (22-30); Chloride 101 mmol/L (98-107); Glucose 65 mg/dL (74-99); Non-African American GFR(CKD) 46 (>60 ml/min/1.73 sqM); Sodium 139 mmol/L (137-145); Total Bilirubin 0.4 mg/dL (0.2-1.3); Total Protein 7.1 g/dL (6.3-8.2)
--- NOTE | 2023-07-08 17:53 | XR ---
EXAMINATION TYPE: XR chest 2V DATE OF EXAM: 07/08/2023 COMPARISON: 04/17/2023 INDICATION: Dizziness headache TECHNIQUE: Frontal and lateral views of the chest are obtained. FINDINGS: The heart size is normal. The pulmonary vasculature is normal. Minimal platelike atelectasis at the left base. Lungs are otherwise clear. IMPRESSION: 1. Minimal left basilar plate atelectasis
--- NOTE | 2023-07-08 18:43 | CT ---
EXAMINATION TYPE: CT brain wo con DATE OF EXAM: 07/08/2023 COMPARISON: INDICATION: dizziness DLP: 1047.1 mGycm, Automated exposure control for dose reduction was used. CONTRAST: None CT of the brain is performed utilizing 3 mm thick sections through the posterior fossa and 3 mm thick sections through the remaining calvarium. Study is performed within 24 hours of arrival to the hosp ital. No abnormal hyperdensity is present to suggest an acute intracranial hemorrhage. No mass lesion is evident. No acute infarcts are evident. Ventricles and sulci are appropriate for the patient age. Minimal air-fluid level may be within the right maxillary sinus. Correlate for acute right maxillary sinusitis. Paranasal sinuses are otherwise clear. Mastoid air cells are clear. IMPRESSION: 1. No acute intracranial process. Follow-up MRI can be performed as clinically indicated. 2. Clinical consideration for acute right maxillary sinusitis is recommended.
[2023-07-08] MEDS ORDERED: NALOXONE 0.4 MG/ML 1 ML VIAL IV PRN (21:32)
[2023-07-08] MEDS ORDERED: ONDANSETRON 4 MG/2 ML VIAL IVP PRN (21:32)
[2023-07-08] MEDS ORDERED: HYDROmorphone 0.5 MG/0.5 ML SYRINGE IVP PRN (21:32)
[2023-07-08] MEDS: ACETAMINOPHEN TAB 500 MG TAB PO STA (21:47)
[2023-07-08] MEDS: POTASSIUM CHLORIDE ER 20 MEQ TAB.ER PO STA (21:48)
[2023-07-08] MEDS: SODIUM CHLORIDE 0.9% 1,000 ML IV STA (21:49)
[2023-07-08] MEDS: SODIUM CHLORIDE 0.9% 1,000 ML IV SCH (22:59)
[2023-07-08 23:22] LABS: Glucose,Whole Blood 275 mg/dL (70-110)
[2023-07-09 00:04] LABS: Appearance,Urine Cloudy (Clear); Bilirubin,Urine Negative (Negative); Blood,Urine Small (Negative); Color,Urine Colorless; Glucose,Urine (UA) 4+ (Negative); Ketones,Urine Negative (Negative); Leukocyte Esterase,Urine Large (Negative); Nitrite,Urine Negative (Negative); PH, Urine 5.5 (5.0-8.0); Protein,Urine 1+ (Negative); Urobilinogen,Urine <2.0 mg/dL (<2.0)
[2023-07-09 00:05] LABS: Budding Yeast,Urine Many /hpf; Mucus,Urine Rare /hpf; RBC,Urine 10 /hpf (0-5); Squamous Epithelial Cell,Urine 4 /hpf (0-4); WBC,Urine >182 /hpf (0-5)
[2023-07-09] MEDS: POTASSIUM CHLORIDE 20 MEQ in WATER FOR INJECTION 1 100ML.BAG IVPB SCH (06:54)
--- NOTE | 2023-07-09 07:17 | US ---
EXAMINATION TYPE: US carotid duplex BILAT DATE OF EXAM: 07/08/2023 COMPARISON: NONE CLINICAL INDICATION: Female, 58 years old with history of cva; dizziness TECHNIQUE: Carotid duplex ultrasound examination. Indirect Doppler criteria was utilized. FINDINGS: EXAM MEASUREMENTS: RIGHT: Peak Systolic Velocity (PSV) cm/sec ----- Right CCA: 89.1 ----- Right ICA: 118 ----- Right ECA: 119 ICA/CCA ratio: 1.3 RIGHT: End Diastole cm/sec ----- Right CCA: 25.5 ----- Right ICA: 27.0 ----- Right ECA: 10.2 LEFT: Peak Systolic Velocity (PSV) cm/sec ----- Left CCA: 91.1 ----- Left ICA: 92.7 ----- Left ECA: 133 ICA/CCA ratio: 1.0 LEFT: End Diastole cm/sec ----- Left CCA: 17.4 ----- Left ICA: 23.2 ----- Left ECA: 15.7 VERTEBRALS (direction of flow): Right Vertebral: Antegrade Left Vertebral: Antegrade Rhythm: Normal [employer] NOTES: Plaque seen in bilateral bulbs and prox ICA's IMPRESSION: Less than 50% stenosis of the carotid bifurcations. Criteria for Assigning % of Stenosis / Diameter reduction (Estimation based on the indirect measurements of the internal carotid artery velocities (ICA PSV). 1. Normal (no stenosis)=ICA PSV < 125 cm/s: ratio < 2.0: ICA EDV<40 cm/s. 2. Less than 50% stenosis=ICA PSV < 125 cm/s: ratio < 2.0: ICA EDV<40 cm/s. 3. 50 to 69% stenosis=ICA PSV of 125 to 230 cm/s: ration 2.0 ? 4.0: ICA EDV 40-100 cm/s. 4. Greater than 70% stenosis to near occlusion= ICA PSV > 230 cm/s: ratio > 4.0: ICA EDV > 100 cm/s. 5. Near occlusion= ICA PSV velocities may be low or undetectable: variable ratio and ICA EDV. 6. Total occlusion=unable to detect flow.
[2023-07-09] MEDS ORDERED: INSULIN ASPART (NovoLOG) 100 UNIT/ML VIAL SQ SCH (07:30)
[2023-07-09 07:37] LABS: Glucose,Whole Blood 202 mg/dL (70-110)
--- NOTE | 2023-07-09 07:56 | P.HPIM ---
History of Present Illness H&P Date: 07/09/23 HISTORY OF PRESENT ILLNESS: 58-year-old morbidly obese with active medical history of type 2 diabetes, hypertension, hyperlipidemia, chronic neuropathy, chronic GERD, depression, incontinence, vitamin D deficiency, chronic pain syndrome. She presented to the emergency department late last night with complaining of headache and dizziness has been symptomatic for 3 months with 3 days seems to be much worse and has been having weird symptoms of leaning toward the left side an attempt to walk and ambulate her dizziness has been associated with headache denies any other symptoms such as migraine, aura, numbness or weakness on one side of her body or the other, no seizure or lack of consciousness no syncope or presyncope. Patient has not had any change in medication recently no trauma of any type. On the presentation to the hospital her workup shows positive UA for UTI, acute kidney injury with creatinine 1.23 bun 19 GFR at 46 with significantly low potassium at 3.0 and hypo-/hyper glycemia also found to have white blood cell of 12.8 with normal hemoglobin hematocrit and differential. Chest x-ray showed minimal left base plate atelectasis, CAT scan of the brain shows no acute intracranial process Anacal consideration for acute right maxillary sinusitis. Patient was seen and evaluated by the emergency department and admit patient for possible need an MRI of the brain along with evaluation and seen by neurology. REVIEW OF SYSTEMS: CONSTITUTIONAL: Obese no acute respiratory distress EYES: No icterus sclerae, no conjunctivitis. EARS, NOSE, MOUTH, THROAT, and FACE: No sore throat, lymphadenopathy, carotid bruits or deformity. Mild sinus congestion RESPIRATORY: No shortness of breath cough wheezes. CARDIOVASCULAR: No CP, Palpitation, PND, Orthopnea, or angina. GASTROINTESTINAL: No Abd pain, Nausea or vomiting, no Diarrhea or constipation, No GI Bleed, no distention or masses. GENITOURINARY: History of incontinence and positive UA for UTI with mild symptoms. INTEGUMENT/BREAST: Negative for any muscular injury with mild osteoarthritis.. HEMATOLOGIC/LYMPHATIC: Negative for bleed or purpura. Chronic neuropathy. MUSCULOSKELTAL: Negative for Myalgia or arthralgia. NEURLOGICAL: Self headache, dizziness, leaning toward the left side and attempt to walk, chronic neuropathy side effect of medication.. BEHAVIORAL/PSYCH: Negative. ENDOCRINE: Negative. PHYSICAL EXAMINATION: General Appearance: Alert, cooperative, no distress, appears stated age. Neck HEENT: Supple, no lymphadenopathy, no thyroid enlargement, no carotid bruits. Mild pressure on the maxillary sinus. Lungs: Clear to auscultation without crackles or wheezes no rhonchi, no deformity. Chest Wall: Chest wall normal expansion with deep inspiration no tenderness and no deformity was found on exam, no costochondral pain or discomfort. Heart: Regular rate and rhythm, S1, S2 normal, no murmur, rub or gallop. Back: Symmetric, no curvature, ROM normal, no CVA tenderness. Abdomen: Soft, non-tender, bowel sounds active all four quadrants, no masses, no organomegaly. Slight discomfort lower abdominal region area. Extremities: Extremities normal, atraumatic, no cyanosis or edema. Pulses: 2+ and symmetric. Skin: Skin color, texture, tugor normal, no rashes or lesions. Neurologic: Alert oriented x3 cranial nerves II through XII intact, no motor deficit, sensation is normal equal bilaterally, she is rested when attempting to walk there is no leaning toward the left side at this time. ASSESSMENT AND PLAN: _Abnormal balance and gait: Can be consistent with TIA versus psychogenic versus acute infectious process such as sinusitis or UTI could be sign of her hypokalemia as well. Treat her UTI, sinusitis and hypokalemia and reevaluate. She still evaluated by neurology and physical therapy. _? Of side effect medication patient is on multi medication between Lyrica 150 mg 3 times a day, tramadol, Myrbetriq, midodrine which defeat the purpose of being on lisinopril. Change medication again watch patient for any further side effects. _UTI without sepsis, patient be started on antibiotic, culture will be done to try to get the same antibiotic to treat sinusitis as well. _Sinusitis: Patient can be on Amoxil/clavicle acid orally combined with Zyrtec and Flonase no steroid needed at this point. _Hypokalemia: Will start patient on replacement therapy, repeat potassium magnesium again in 12 hours. _Acute kidney injury: Continue gentle hydration repeat CMP again 24 hours continue to watch for any urinary retention our significant decline in kidney function. _Type 2 diabetes: Has been on Ozempic 1 mg weekly, pioglitazone 30 mg a day, NovoLog 70/30 15-20 at bedtime and 40 units in the morning should watch for any hypoglycemia she is also still on Jardiance 10 mg a day. Accu-Cheks sliding scale coverage will be done. _Hypo-/hypertension: Despite being on Zestril 20 mg a day she is again on midodrine 10 mg 3 times a day with meals. Watch symptoms carefully maybe we should take her off both for the time being if she is on Zestril for renal prot ection should be able to get replace it to 2.5 mg a day only. _Hyperlipidemia: Has been on rosuvastatin 20 mg a day resume medication. _Severe neuropathy: With her Lyrica at 150 mg 3 times a day can cause side effect of abnormal balance and gait that can be one of the reason why leaning toward the left side in the problem does not understand why the higher dose and more frequency dose should be reduced down to 100 mg twice a day possibly and watch patient carefully on it. _Severe GERD: Has been on omeprazole 40 mg a day resume medication. _Overflow urinary incontinence: Has been on Myrbetriq 50 mg daily will hold medication for now they can maybe do does need to be reduced to 25 mg. _Chronic depression: Has been on Lexapro 20 mg a day. _GI prophylaxis: Patient is on omeprazole. _DVT prophylaxis: Knee-high YARED hose and early mobilization. CODE STATUS: Full code. Admit patient to the inpatient service for 1-2 night stay. Past Medical History Past Medical History: Diabetes Mellitus, Eye Disorder, Hyperlipidemia, Hypertension Additional Past Medical History / Comment(s): 05/04/14 Pt presented to [facility] ER with substernal chest pain that started 24 hhours before coming to ER. She noticed the chest pain when she woke up yesterday. It is a heaviness and is intermittent with variable duration. She also states she had alittle nausea with it. Other HX: Pt had recent (03/30/14)cataract surgery with lens implants bilaterally at [facility]-post op she had low O2 saturations and was told she had a very narrow airway-instead of going home same day, she was in the hospital for a couple days until her saturations improved. She was discharged with home O2 which she wears at 2L/[facility] at [facility] and was to follow up today for testing for sleep apnea. Pt states she also has diarrhea fairly frequently. 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 2018 - intermittently in hospital for 3 months for fluid on lungs, had fluid removed History of Any Multi-Drug Resistant Organisms: MRSA Date of last positivie culture/infection: 2010 MDRO Source:: legs and breasts. Past Surgical History: Bariatric Surgery, Cholecystectomy, Hysterectomy, Orthopedic Surgery Additional Past Surgical History / Comment(s): Bilateral cataract sx with lens implants, bilateral retinal repair. Cervical rodding for 3 ruptured discs. 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 She was told she has a very narrow airway. Pt has never recieved blood. Past Psychological History: No Psychological Hx Reported Smoking Status: Former smoker Past Alcohol Use History: None Reported Past Drug Use History: None Reported - Past Family History Father Family Medical History: Cancer, Myocardial Infarction (HI) Additional Family Medical History / Comment(s): Father had 5 HI's and of bone cancer. Mother Family Medical History: Cancer Additional Family Medical History / Comment(s): cervical cancer Medications and Allergies Home Medications Medication Instructions Recorded Confirmed Type Montelukast [Singulair] 10 mg PO DAILY 04/22/17 04/17/23 History Mirabegron [Myrbetriq] 50 mg PO DAILY 11/10/19 04/17/23 History Aspirin EC [Ecotrin Low Dose] 81 mg PO HS 05/15/20 04/17/23 History Empagliflozin [Jardiance] 10 mg PO DAILY 12/05/21 04/17/23 History Ergocalciferol [Vitamin D2 (1250 1,250 mcg PO SA 12/05/21 04/17/23 History Mcg = [id number] Iu)] Midodrine HCl [ProAmatine] 10 mg PO TID-W/MEALS 12/05/21 04/17/23 History Pioglitazone HCl 30 mg PO DAILY 12/05/21 04/17/23 History traMADol HCL 50 mg PO Q6H PRN 12/05/21 04/17/23 History Escitalopram [Lexapro] 20 mg PO DAILY 04/17/23 04/17/23 History Insuln Asp Prt/Insulin Aspart 15 - 20 unit SQ HS 04/17/23 04/17/23 History [NovoLOG MIX 70-30 VIAL] Insuln Asp Prt/Insulin Aspart 40 unit SQ DAILY 04/17/23 04/17/23 History [NovoLOG MIX 70-30 VIAL] Omeprazole 40 mg PO DAILY 04/17/23 04/17/23 History Potassium Chloride ER [K-Dur 20] 20 meq PO DAILY #3 tab 04/17/23 Rx Pregabalin [Lyrica] 150 mg PO TID 04/17/23 04/17/23 History Rosuvastatin [Crestor] 20 mg PO HS 04/17/23 04/17/23 History Semaglutide [Ozempic] 1 mg SQ TU 04/17/23 04/17/23 History lisinopriL [Zestril] 20 mg PO DAILY 04/17/23 04/17/23 History Allergies Allergy/AdvReac Type Severity Reaction Status Date / Time Sulfa (Sulfonamide Allergy Rash, Verified 07/08/23 16:56 Antibiotics) hives, swelling Physical Exam Vitals: Vital Signs Temp Pulse Resp BP Pulse Ox 07/09/23 05:00 70 18 107/56 98 07/09/23 03:00 72 07/09/23 01:05 70 18 124/61 97 07/08/23 23:00 73 18 128/66 97 07/08/23 21:21 74 18 126/70 98 07/08/23 16:45 97.4 F L 74 18 87/56 99 Intake and Output 07/08/23 07/08/23 07/09/23 14:59 22:59 06:59 Other: Weight 99.79 kg Results CBC & Chem 7: 07/08/23 17:04 07/08/23 17:04 Labs: Abnormal Lab Results - Last 24 Hours (Table) 07/08/23 07/08/23 07/08/23 Range/Units 17:04 17:04 17:04 WBC 12.8 H (3.8-10.6) k/uL PT 9.6 L (10.0-12.5) sec Potassium 3.0 L (3.5-5.1) mmol/L Carbon Dioxide 31 H (22-30) mmol/L BUN 19 H (7-17) mg/dL Creatinine 1.30 H (0.52-1.04) mg/dL Glucose 65 L (74-99) mg/dL POC Glucose (mg/dL) (70-110) mg/dL Urine Appearance (Clear) Urine Protein (Negative) Urine Glucose (UA) (Negative) Urine Blood (Negative) Ur Leukocyte Esterase (Negative) Urine RBC (0-5) /hpf Urine WBC (0-5) /hpf Urine WBC Clumps (None) /hpf Urine Mucus (None) /hpf Urine Yeast (Budding) (None) /hpf 07/08/23 07/08/23 Range/Units 23:21 23:28 WBC (3.8-10.6) k/uL PT (10.0-12.5) sec Potassium (3.5-5.1) mmol/L Carbon Dioxide (22-30) mmol/L BUN (7-17) mg/dL Creatinine (0.52-1.04) mg/dL Glucose (74-99) mg/dL POC Glucose (mg/dL) 275 H (70-110) mg/dL Urine Appearance Cloudy H (Clear) Urine Protein 1+ H (Negative) Urine Glucose (UA) 4+ H (Negative) Urine Blood Small H (Negative) Ur Leukocyte Esterase Large H (Negative) Urine RBC 10 H (0-5) /hpf Urine WBC >182 H (0-5) /hpf Urine WBC Clumps Moderate H (None) /hpf Urine Mucus Rare H (None) /hpf Urine Yeast (Budding) Many H (None) /hpf
[2023-07-09] MEDS: INSULIN ASPART (NovoLOG) 100 UNIT/ML VIAL SQ SCH (09:36)
[2023-07-09] MEDS: AMOXIC-POT CLAV 875-125MG 1 EACH TAB PO SCH (09:39)
[2023-07-09] MEDS: PANTOPRAZOLE 40 MG TABLET PO SCH (09:39)
[2023-07-09] MEDS: DAPAGLIFLOZIN PROPANEDIOL 5 MG TABLET PO SCH (09:39)
[2023-07-09] MEDS: ESCITALOPRAM 20 MG TAB PO SCH (09:40)
[2023-07-09] MEDS: MONTELUKAST 10 MG TAB PO SCH (09:40)
[2023-07-09] MEDS: lisinopriL 20 MG TAB PO SCH (09:40)
[2023-07-09] MEDS: LORATADINE 10 MG TAB PO SCH (09:40)
[2023-07-09] MEDS: POTASSIUM CHLORIDE ER 20 MEQ TAB.ER PO SCH (09:41)
[2023-07-09] MEDS: NON FORMULARY DRUG (Mirabegron [Myrbetriq] 50 MG Tab.Er.24h) PO SCH (09:41)
[2023-07-09] MEDS: INSULN ASP PRT/INSULIN ASPART 100 UNIT/ML 10 ML VIAL SQ SCH ×2 (10:56→22:18)
--- NOTE | 2023-07-09 12:07 | CA ---
Transthoracic Echo Report Name: Colt June Age: 58 Gender: F : 1965 Exam Date: 07/09/2023 09:01 Exam Location: [facility] Ht (in): 66 Wt (lb): 220 Ordering Physician: Favian Phillips MD Attending/Referring Phys: Certified Nurse Practitioner Rufina Bernstein RDCS Procedure CPT: Indications: lvfunction Cardiac Hx: Technical Quality: Fair Contrast 1: Total Dose (mL): Contrast 2: Total Dose (mL): MEASUREMENTS (Male / Female) Normal Values 2D ECHO LV Diastolic Diameter PLAX 5.1 cm 4.2 - 5.9 / 3.9 - 5.3 cm LV Systolic Diameter PLAX 3.5 cm IVS Diastolic Thickness 1.1 cm 0.6 - 1.0 / 0.6 - 0.9 cm LVPW Diastolic Thickness 1.0 cm 0.6 - 1.0 / 0.6 - 0.9 cm LV Relative Wall Thickness 0.4 RV Internal Dim ED PLAX 2.1 cm LA Systolic Diameter LX 3.8 cm 3.0 - 4.0 / 2.7 - 3.8 cm LV Diastolic Volume MOD BP 78.6 cm??? 67 - 155 / 56 - 104 cm??? LV Systolic Volume MOD BP 44.9 cm??? 22 - 58 / 19 - 49 cm??? LV Ejection Fraction MOD BP 42.9 % >= 55 % LV Cardiac Index MOD BP 1166.1 cm???/min???m??? LV Diastolic Volume MOD 4C 84.2 cm??? LV Systolic Volume MOD 4C 34.3 cm??? LV Ejection Fraction MOD 4C 59.2 % LV Cardiac Index MOD 4C 1724.0 cm???/min???m??? LV Diastolic Length 4C 7.5 cm LV Systolic Length 4C 5.9 cm LV Diastolic Volume MOD 2C 73.5 cm??? LV Systolic Volume MOD 2C 45.4 cm??? LV Ejection Fraction MOD 2C 38.2 % LV Cardiac Index MOD 2C 972.2 cm???/min???m??? LV Diastolic Length 2C 7.5 cm LV Systolic Length 2C 6.8 cm LA Volume 62.5 cm??? 18 - 58 / 22 - 52 cm??? LA Volume Index 28.4 cm???/m??? 16 - 28 cm???/m??? M-MODE Aortic Root Diameter MM 2.7 cm LA Systolic Diameter MM 3.1 cm LA Ao Ratio MM 1.2 AV Cusp Separation MM 1.6 cm DOPPLER MV Area PHT 2.8 cm??? Mitral E Point Velocity 92.3 cm/s Mitral A Point Velocity 103.6 cm/s Mitral E to A Ratio 0.9 MV Deceleration Time 275.5 ms FINDINGS Left Ventricle Left ventricular ejection fraction is estimated at 55-60 %. Mildly increased septal wall thickness. Mildly increased posterior wall thickness. No obvious regional wall motion abnormalities. Right Ventricle Normal right ventricular size and function. Unable to estimate the right ventricular systolic pressure. Right Atrium Mild right atrial dilatation. Left Atrium Mildly increased left atrial volume. Mitral Valve Mitral valve not well visualized. Mild mitral regurgitation. No mitral stenosis. Aortic Valve The aortic valve was poorly visualized but appears to be extremely calcified. Tricuspid Valve Structurally normal tricuspid valve. Trace tricuspid regurgitation. Pulmonic Valve Structurally normal pulmonic valve. Trace pulmonic regurgitation. Pericardium No pericardial or pleural effusion. Aorta Normal size aortic root and proximal ascending aorta. CONCLUSIONS Normal LV systolic function. Mild left ventricular hypertrophy The aortic valve was poorly visualized but appeared to be extremely calcified. No significant gradient was identified across it Previewed by: Dr. Young Leavitt MD (Electronically Signed) Final Date: 09 Jul 2023 12:06
[2023-07-09 12:21] LABS: Glucose,Whole Blood 425 mg/dL (70-110)
[2023-07-09 16:48] LABS: Glucose,Whole Blood 170 mg/dL (70-110)
[2023-07-09 20:50] LABS: Glucose,Whole Blood 230 mg/dL (70-110)
--- NOTE | 2023-07-09 20:55 | P.CNNES ---
History of Present Illness Consult date: 07/09/23 Requesting physician: Fco Navarrete Reason for Consult: Dizziness, difficulty ambulating History of Present Illness: Patient is a 58-year-old female with history of diabetes, came to the hospital yesterday at 4:09 PM for dizziness/lightheadedness. Patient has been having some dizzy spells off and on for last 1 year. Sometimes weeks would pass without having 1 and then it pops up on her. Just in the last 3 days it is occurring every day consistently. The dizziness only occurs when she gets up on her feet, but it lasts somewhere between few seconds to a minute or 2. Sometimes she has to hold onto something until it passes, or if she sits down and it goes away. Sometimes her legs want to give out and wants to go on her knees until she grabs onto stuff. Patient states that she did pass out once about 5 months ago just for a brief moment. Patient denies any dizziness on rolling over in the bed, looking upwards or bending down. It never happens when she is laying in the bed or sitting. She describes it as lightheadedness, no vertigo. Patient denies any tinnitus, loss of hearing, any polyps or pressure in the ears. Vital signs on arrival blood pressure 87/56, pulse rate 74 temperature 97.4. Subsequent blood pressure was better 126/70. Blood test shows WBC 12.8 hemoglobin 12.8. Platelets are normal. PT PTT normal, sodium normal potassium 3.0, BUN 19, creatinine 1.30. Hepatic panel is normal. Troponin negative. UA shows large amount of leukocyte esterase and more than 182 WBCs and moderate WBC clumps and negative nitrite. Chest x-ray showed minimal left basilar plate atelectasis. CT head revealed no acute intracranial process. Follow-up MRI can be performed as clinically indicated. Clinical consideration for acute right maxillary sinusitis. I personally reviewed CT head, agree with the findings, very small air-fluid level in the right maxillary sinus. Patient does admit to having sinus congestion lately. 2D echo revealed normal left ventricular EF 55 to 60%. Mildly increased septal wall thickness. Mildly increased posterior wall thickness. No obvious regional wall motion abnormalities. Mild right atrial dilation. Mildly increased left atrial volume. Aortic valve was poorly visualized but appears to be extremely calcified. No significant gradient was identified across aortic valve but the gradient could be underestimated. We will defer to IM to address this. Patient has history of diabetes for 20 years, which is controlled. She has smoked half pack per day for 5 years, quit 15 years ago. Denies any alcohol use. Patient does have diabetic peripheral neuropathy. 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 Review of Systems Constitutional: Denies chills, Denies fever Eyes: right loss of vision (From diabetic retinopathy), denies blurred vision, denies diplopia, denies pain Ears: deny: decreased hearing, ear discharge, earache, tinnitus Ears, nose, mouth and throat: Reports nasal congestion, Denies headache, Denies sore throat, Denies vertigo Cardiovascular: Denies chest pain, Denies shortness of breath Respiratory: Denies cough, Denies excessive sputum Gastrointestinal: Denies abdominal pain, Denies diarrhea, Denies nausea, Denies vomiting Genitourinary: Denies mixed incontinence, Denies urge incontinence Musculoskeletal: Denies low back pain, Denies neck pain Integumentary: Denies pruritus, Denies rash Neurological: Reports as per HPI, Reports numbness Psychiatric: Denies anxiety, Denies depression Hematologic/Lymphatic: Denies easy bleeding, Denies easy bruising Past Medical History Past Medical History: Diabetes Mellitus, Eye Disorder, Hyperlipidemia, Hypertension Additional Past Medical History / Comment(s): 05/04/14 Pt presented to [facility] ER with substernal chest pain that started 24 hhours before coming to ER. She noticed the chest pain when she woke up yesterday. It is a heaviness and is intermittent with variable duration. She also states she had alittle nausea with it. Other HX: Pt had recent (03/30/14)cataract surgery with lens implants bilaterally at [place] [facility]-post op she had low O2 saturations and was told she had a very narrow airway-instead of going home same day, she was in the hospital for a couple days until her saturations improved. She was discharged with home O2 which she wears at 2L/NC at [facility] and was to follow up today for testing for sleep apnea. Pt states she also has diarrhea fairly frequently. 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 2018 - intermittently in hospital for 3 months for fluid on lungs, had fluid removed History of Any Multi-Drug Resistant Organisms: MRSA Date of last positivie culture/infection: 2010 MDRO Source:: legs and breasts. Past Surgical History: Bariatric Surgery, Cholecystectomy, Hysterectomy, Orthopedic Surgery Additional Past Surgical History / Comment(s): Bilateral cataract sx with lens implants, bilateral retinal repair. Cervical rodding for 3 ruptured discs. sleeve gastrectomy 05-08-20 Past Anesthesia/Blood Transfusion Reactions: Postoperative Nausea & Vomiting (PONV) Additional Past Anesthesia/Blood Transfusion Reaction / Comment(s): Pt had cataract and lens implant at [facility] on 03/30/14 and afterwards she desaturated and was hospitalized. She was told she has a very narrow airway. Pt has never recieved blood. Past Psychological History: No Psychological Hx Reported Smoking Status: Former smoker Past Alcohol Use History: None Reported Past Drug Use History: None Reported - Past Family History Father Family Medical History: Cancer, Myocardial Infarction (MN) Additional Family Medical History / Comment(s): Father had 5 MN's and of bone cancer. Mother Family Medical History: Cancer Additional Family Medical History / Comment(s): cervical cancer Medications and Allergies Home Medications Medication Instructions Recorded Confirmed Type Montelukast [Singulair] 10 mg PO DAILY 04/22/17 07/09/23 History Mirabegron [Myrbetriq] 50 mg PO DAILY 11/10/19 07/09/23 History Aspirin EC [Ecotrin Low Dose] 81 mg PO HS 05/15/20 07/09/23 History Empagliflozin [Jardiance] 10 mg PO DAILY 12/05/21 07/09/23 History Ergocalciferol [Vitamin D2 (1250 1,250 mcg PO Q14D 12/05/21 07/09/23 History Mcg = 88944 Iu)] traMADol HCL 50 mg PO Q6H PRN 12/05/21 07/09/23 History Escitalopram [Lexapro] 20 mg PO DAILY 04/17/23 07/09/23 History Insuln Asp Prt/Insulin Aspart 20 unit SQ AC-SUPPER 04/17/23 07/09/23 History [NovoLOG MIX 70-30 VIAL] Insuln Asp Prt/Insulin Aspart 40 unit SQ AC-BRKFST 04/17/23 07/09/23 History [NovoLOG MIX 70-30 VIAL] Omeprazole 40 mg PO DAILY 04/17/23 07/09/23 History Rosuvastatin [Crestor] 20 mg PO HS 04/17/23 07/09/23 History Semaglutide [Ozempic] 1 mg SQ TU 04/17/23 07/09/23 History Amoxic-Pot Clav 875-125Mg 1 each PO Q12HR #20 tab 07/10/23 Rx [Augmentin 875-125] Loratadine [Claritin] 10 mg PO DAILY #30 tab 07/10/23 Rx Pregabalin [Lyrica] 150 mg PO BID #0 07/10/23 07/09/23 Rx lisinopriL [Zestril] 10 mg PO DAILY #0 07/10/23 07/09/23 Rx Allergies Allergy/AdvReac Type Severity Reaction Status Date / Time Sulfa (Sulfonamide Allergy Rash, Verified 07/09/23 07:10 Antibiotics) hives, swelling Physical Examination - Vital Signs Vital Signs: Vital Signs Temp Pulse Resp BP Pulse Ox 07/09/23 17:30 98.1 F 78 16 126/63 98 07/09/23 09:00 98.0 F 86 16 131/58 96 07/09/23 05:00 70 18 107/56 98 07/09/23 03:00 72 07/09/23 01:05 70 18 124/61 97 07/08/23 23:00 73 18 128/66 97 07/08/23 21:21 74 18 126/70 98 Patient is a middle aged female, very pleasant, in no acute distress. Patient is alert awake oriented to time place and person. Speech and language functions are normal. Patient can name and repeat very well. No aphasia or dysarthria. Attention, concentration and fund of knowledge is adequate. On cranial nerve examination, pupils are equal, round and reacting to light, patient states she is blind in the right eye. Her visual ocasio are full on confrontation, with no neglect on double simultaneous stimulation. Extraocular muscles are intact with no nystagmus. Face is symmetric, tongue protrudes to the midline. Palatal elevation and sensation normal, hearing and shoulder shrug normal, facial sensation normal. On muscle strength testing, there is no pronator drift and the strength is normal in arms and legs distally and proximally. Deep tendon reflexes are symmetric very hypoactive in the arms and legs and plantars downgoing. Sensory to touch is equal with no neglect on double simultaneous stimulation. Cerebellar function showed no ataxia for [id number] testing. No dysdiadochokinesia. No ataxia for [id number] testing on either side. Tone and bulk of muscles normal. Gait deferred.. On general examination, there is no carotid bruit or murmur, S1-S2 audible. Chest is clear on consultation. Abdomen is soft nontender. No organomegaly, bowel sounds present. Peripheral pulses are present. No peripheral edema. Results - Laboratory Findings CBC and BMP: 07/08/23 17:04 07/08/23 17:04 Abnormal Lab Findings: Abnormal Labs 07/08/23 07/08/23 07/08/23 17:04 17:04 17:04 WBC 12.8 H PT 9.6 L Potassium 3.0 L Carbon Dioxide 31 H BUN 19 H Creatinine 1.30 H Glucose 65 L POC Glucose (mg/dL) Urine Appearance Urine Protein Urine Glucose (UA) Urine Blood Ur Leukocyte Esterase Urine RBC Urine WBC Urine WBC Clumps Urine Mucus Urine Yeast (Budding) 07/08/23 07/08/23 07/09/23 23:21 23:28 07:36 WBC PT Potassium Carbon Dioxide BUN Creatinine Glucose POC Glucose (mg/dL) 275 H 202 H Urine Appearance Cloudy H Urine Protein 1+ H Urine Glucose (UA) 4+ H Urine Blood Small H Ur Leukocyte Esterase Large H Urine RBC 10 H Urine WBC >182 H Urine WBC Clumps Moderate H Urine Mucus Rare H Urine Yeast (Budding) Many H 07/09/23 07/09/23 12:19 16:47 WBC PT Potassium Carbon Dioxide BUN Creatinine Glucose POC Glucose (mg/dL) 425 H 170 H Urine Appearance Urine Protein Urine Glucose (UA) Urine Blood Ur Leukocyte Esterase Urine RBC Urine WBC Urine WBC Clumps Urine Mucus Urine Yeast (Budding) Assessment and Plan Assessment: * Recurrent dizziness/lightheadedness on standing up, suggestive of orthostasis. Rule out hypovolemia/infection related versus diabetic autonomic neuropathy. * Right maxillary sinusitis * Abnormal UA, rule out UTI. * Acute kidney injury, mild degree. * Diabetes poorly controlled * Diabetic peripheral neuropathy * Ex tobacco use Plan: * Patient states that the dizziness only occurs when she stands up from sitting or laying position. It last for only couple seconds to a couple minutes. It does not happen when she rolls over in the bed, bending down, looking up, or in a sitting or laying position. * Check orthostatics. * Patient has been started on course of antibiotic (Augmentin), hopefully which will help. * Hydration * 2D echo revealed normal left ventricular EF 55 to 60%. Mildly increased septal wall thickness. Mildly increased posterior wall thickness. No obvious regional wall motion abnormalities. Mild right atrial dilation. Mildly increased left atrial volume. Aortic valve was poorly visualized but appears to be extremely calcified. No significant gradient was identified across aortic valve but the gradient could be underestimated. We will defer to IM to address this. * Carotid Doppler revealed less than 50% stenosis of the carotid bifurcation. Antegrade flow in both vertebral arteries. * Last hemoglobin A1c 11.7 on 01/21/2022. Recommend optimize control of diabe travis. * Continue aspirin 81 mg daily and Crestor 20 mg. * If the symptoms resolve, then clear for discharge. * If the symptoms recur in the future, then may consider tilt table testing. * Thank you for the consult. Addendum: Orthostatics checked, supine blood pressure 117/71, sitting was 144/82 and standing 123/80. Continue hydration, and recheck orthostatics in the morning. Continue Augmentin
[2023-07-09] MEDS: ATORVASTATIN 40 MG TAB PO SCH (22:18)
[2023-07-09] MEDS: ASPIRIN 81 MG PO SCH (22:18)
[2023-07-10 03:42] VITALS: PULSE 79
[2023-07-10 06:23] LABS: Glucose,Whole Blood 119 mg/dL (70-110)
[2023-07-10] MEDS: ACETAMINOPHEN TAB 325 MG TAB PO PRN (06:47)
[2023-07-10 07:51] VITALS: BP 125/74; RESP 18; TEMP 98.1
--- NOTE | 2023-07-11 06:25 | P.DS ---
Providers Date of admission: 07/08/23 21:33 Attending physician: Favian Phillips Consults: 07/08/23 21:32 Consult Physician Urgent Consulting Provider: Monserrat Medrano Consult Reason/Comments: Dizziness, difficulty ambulating Do you want consulting provider notified?: Yes Primary care physician: Kizzy Taniya [facility] Course: HISTORY OF PRESENT ILLNESS: 58-year-old morbidly obese with active medical history of type 2 diabetes, hypertension, hyperlipidemia, chronic neuropathy, chronic GERD, depression, incontinence, vitamin D deficiency, chronic pain syndrome. She presented to the emergency department late last night with complaining of headache and dizziness has been symptomatic for 3 months with 3 days seems to be much worse and has been having weird symptoms of leaning toward the left side an attempt to walk and ambulate her dizziness has been associated with headache denies any other symptoms such as migraine, aura, numbness or weakness on one side of her body or the other, no seizure or lack of consciousness no syncope or presyncope. Patient has not had any change in medication recently no trauma of any type. On the presentation to the hospital her workup shows positive UA for UTI, acute kidney injury with creatinine 1.23 bun 19 GFR at 46 with significantly low potassium at 3.0 and hypo-/hyper glycemia also found to have white blood cell of 12.8 with normal hemoglobin hematocrit and differential. Chest x-ray showed minimal left base plate atelectasis, CAT scan of the brain shows no acute intracranial process Anacal consideration for acute right maxillary sinusitis. Patient was seen and evaluated by the emergency department and admit patient for possible need an MRI of the brain along with evaluation and seen by neurology. July 10, 2023: Patient is feeling much better she was seen neurology who agree with the current plan and believe combination of her recurrent dizziness lightheadedness suggestive of orthostatic along with hypovolemia with diabetic autonomic neuropathy also treating her maxillary sinus and UTI might help significantly and with better control of her diabetes with neuropathy along with adjusting her medication might make a huge difference on her outcome. Review her echocardiogram showed ejection fraction of 60 percentile with no major valvular abnormality no sign of patent luo ovale. Diabetic management franco with her A1c being 11.7 despite seeing endocrinology this is poorly controlled diabetes. Carotid ultrasound showed less than 50 percentile blockage of the carotid artery. Patient's symptoms are much better and patient was very clear for discharge on 07/10/2023. REVIEW OF SYSTEMS: CONSTITUTIONAL: Obese no acute respiratory distress EYES: No icterus sclerae, no conjunctivitis. EARS, NOSE, MOUTH, THROAT, and FACE: No sore throat, lymphadenopathy, carotid bruits or deformity. Mild sinus congestion RESPIRATORY: No shortness of breath cough wheezes. CARDIOVASCULAR: No CP, Palpitation, PND, Orthopnea, or angina. GASTROINTESTINAL: No Abd pain, Nausea or vomiting, no Diarrhea or constipation, No GI Bleed, no distention or masses. GENITOURINARY: History of incontinence and positive UA for UTI with mild symptoms. INTEGUMENT/BREAST: Negative for any muscular injury with mild osteoarthritis.. HEMATOLOGIC/LYMPHATIC: Negative for bleed or purpura. Chronic neuropathy. MUSCULOSKELTAL: Negative for Myalgia or arthralgia. NEURLOGICAL: Self headache, dizziness, leaning toward the left side and attempt to walk, chronic neuropathy side effect of medication.. BEHAVIORAL/PSYCH: Negative. ENDOCRINE: Negative. PHYSICAL EXAMINATION: General Appearance: Alert, cooperative, no distress, appears stated age. Neck HEENT: Supple, no lymphadenopathy, no thyroid enlargement, no carotid bruits. Mild pressure on the maxillary sinus. Lungs: Clear to auscultation without crackles or wheezes no rhonchi, no deformity. Chest Wall: Chest wall normal expansion with deep inspiration no tenderness and no deformity was found on exam, no costochondral pain or discomfort. Heart: Regular rate and rhythm, S1, S2 normal, no murmur, rub or gallop. Back: Symmetric, no curvature, ROM normal, no CVA tenderness. Abdomen: Soft, non-tender, bowel sounds active all four quadrants, no masses, no organomegaly. Slight discomfort lower abdominal region area. Extremities: Extremities normal, atraumatic, no cyanosis or edema. Pulses: 2+ and symmetric. Skin: Skin color, texture, tugor normal, no rashes or lesions. Neurologic: Alert oriented x3 cranial nerves II through XII intact, no motor deficit, sensation is normal equal bilaterally, she is rested when attempting to walk there is no leaning toward the left side at this time. ASSESSMENT AND PLAN: _Abnormal balance and gait: Can be consistent with TIA versus psychogenic versus acute infectious process such as sinusitis or UTI could be sign of her hypokalemia as well. Treat her UTI, sinusitis and hypokalemia and reevaluate. She still evaluated by neurology and physical therapy. _? Of side effect medication patient is on multi medication between Lyrica 150 mg 3 times a day, tramadol, Myrbetriq, midodrine which defeat the purpose of being on lisinopril. Change medication again watch patient for any further side effects. _UTI without sepsis, patient be started on antibiotic, culture will be done to try to get the same antibiotic to treat sinusitis as well. _Sinusitis: Patient can be on Amoxil/clavicle acid orally combined with Zyrtec and Flonase no steroid needed at this point. _Hypokalemia: Will start patient on replacement therapy, repeat potassium magnesium again in 12 hours. _Acute kidney injury: Continue gentle hydration repeat CMP again 24 hours continue to watch for any urinary retention our significant decline in kidney function. _Type 2 diabetes: Has been on Ozempic 1 mg weekly, pioglitazone 30 mg a day, NovoLog 70/30 15-20 at bedtime and 40 units in the morning should watch for any hypoglycemia she is also still on Jardiance 10 mg a day. Accu-Cheks sliding scale coverage will be done. _Hypo-/hypertension: Despite being on Zestril 20 mg a day she is again on midodrine 10 mg 3 times a day with meals. Watch symptoms carefully maybe we should take her off both for the time being if she is on Zestril for renal protection should be able to get replace it to 2.5 mg a day only. _Hyperlipidemia: Has been on rosuvastatin 20 mg a day resume medication. _Severe neuropathy: With her Lyrica at 150 mg 3 times a day can cause side effect of abnormal balance and gait that can be one of the reason why leaning toward the left side in the problem does not understand why the higher dose and more frequency dose should be reduced down to 100 mg twice a day possibly and watch patient carefully on it. _Severe GERD: Has been on omeprazole 40 mg a day resume medication. _Overflow urinary incontinence: Has been on Myrbetriq 50 mg daily will hold medication for now they can maybe do does need to be reduced to 25 mg. _Chronic depression: Has been on Lexapro 20 mg a day. _GI prophylaxis: Patient is on omeprazole. _DVT prophylaxis: Knee-high YARED hose and early mobilization. Hospital course: Patient was admitted to the hospital on July 08 with severe abnormal balance and gait leaning toward the left side with possible TIA versus encephalopathy finding consistent with acute sinusitis, UTI, severe hypokalemia and severe side effect of multi medication with complication. Also patient has left type of diabetic autonomic neuropathy especially with her blood sugar not in control to go back to endocrinology and primary care for better management. Blood pressure was better controlled. Testing including echocardiogram showed good ejection fraction with no major abnormality. Carotid ultrasound revealed less than 50% blockage in the carotid. Ambulate and being active her symptoms have resolved the patient was very clear for discharge on July 10, 2023. Patient was seen and evaluated by neurology who agree with the current management at this point. Time spent on patient discharge was over 32 minutes. Patient Condition at Discharge: Good Plan - Discharge Summary Discharge Rx Participant: No New Discharge Prescriptions: New Amoxic-Pot Clav 875-125Mg [Augmentin 875-125] 1 each PO Q12HR #20 tab Loratadine [Claritin] 10 mg PO DAILY #30 tab Continue Montelukast [Singulair] 10 mg PO DAILY Mirabegron [Myrbetriq] 50 mg PO DAILY Aspirin EC [Ecotrin Low Dose] 81 mg PO HS traMADol HCL 50 mg PO Q6H PRN PRN Reason: Pain Empagliflozin [Jardiance] 10 mg PO DAILY Semaglutide [Ozempic] 1 mg SQ TU Omeprazole 40 mg PO DAILY Escitalopram [Lexapro] 20 mg PO DAILY Ergocalciferol [Vitamin D2 (1250 Mcg = 72197 Iu)] 1,250 mcg PO Q14D Rosuvastatin [Crestor] 20 mg PO HS Insuln Asp Prt/Insulin Aspart [NovoLOG MIX 70-30 VIAL] 40 unit SQ AC-BRKFST Insuln Asp Prt/Insulin Aspart [NovoLOG MIX 70-30 VIAL] 20 unit SQ AC-SUPPER Changed Pregabalin [Lyrica] 150 mg PO BID #0 lisinopriL [Zestril] 10 mg PO DAILY #0 Discontinued Midodrine HCl [ProAmatine] 10 mg PO AC-TID Pioglitazone HCl 30 mg PO DAILY Discharge Medication List Montelukast [Singulair] 10 mg PO DAILY 04/22/17 [History] Mirabegron [Myrbetriq] 50 mg PO DAILY 11/10/19 [History] Aspirin EC [Ecotrin Low Dose] 81 mg PO HS 05/15/20 [History] Empagliflozin [Jardiance] 10 mg PO DAILY 12/05/21 [History] Ergocalciferol [Vitamin D2 (1250 Mcg = 69001 Iu)] 1,250 mcg PO Q14D 12/05/21 [History] traMADol HCL 50 mg PO Q6H PRN 12/05/21 [History] Escitalopram [Lexapro] 20 mg PO DAILY 04/17/23 [History] Insuln Asp Prt/Insulin Aspart [NovoLOG MIX 70-30 VIAL] 20 unit SQ AC-SUPPER 04/17/23 [History] Insuln Asp Prt/Insulin Aspart [NovoLOG MIX 70-30 VIAL] 40 unit SQ AC-BRKFST 04/17/23 [History] Omeprazole 40 mg PO DAILY 04/17/23 [History] Rosuvastatin [Crestor] 20 mg PO HS 04/17/23 [History] Semaglutide [Ozempic] 1 mg SQ TU 04/17/23 [History] Amoxic-Pot Clav 875-125Mg [Augmentin 875-125] 1 each PO Q12HR #20 tab 07/10/23 [Rx] Loratadine [Claritin] 10 mg PO DAILY #30 tab 07/10/23 [Rx] Pregabalin [Lyrica] 150 mg PO BID #0 07/10/23 [Rx] lisinopriL [Zestril] 10 mg PO DAILY #0 07/10/23 [Rx] Follow up Appointment(s)/Referral(s): Kizzy Monahan MD [Primary Care Provider] - 1-2 days Hoang Ramirez MD [REFERRING] - 1 Week Discharge Disposition: HOME SELF-CARE
[2023-07-12] MEDS ORDERED: ERGOCALCIFEROL 1,250 MCG (50,000 IU) CAPSULE PO SCH (09:00)
== END 2023-07-10 11:30 | disposition home or self-care (01) ==
LOC: EC 16:09 → 6NMEDSUR 21:33
PROVIDERS: ADMIT Internal Medicine Geriatric Medicine; ATTEND Internal Medicine Geriatric Medicine
DX: R42 Dizziness and giddiness (principal); R26.9 Unspecified abnormalities of gait and mobility; J32.0 Chronic maxillary sinusitis; N39.0 Urinary tract infection, site not specified; R82.90 Unspecified abnormal findings in urine; N17.9 Acute kidney failure, unspecified; I10 Essential (primary) hypertension; E78.5 Hyperlipidemia, unspecified; E11.42 Type 2 diabetes mellitus with diabetic polyneuropathy; E11.65 Type 2 diabetes mellitus with hyperglycemia; K21.9 Gastro-esophageal reflux disease without esophagitis; F32.A Depression, unspecified; G89.4 Chronic pain syndrome; E87.6 Hypokalemia; R32 Unspecified urinary incontinence; E66.01 Morbid (severe) obesity due to excess calories; Z68.35 Body mass index [BMI] 35.0-35.9, adult; Z87.891 Personal history of nicotine dependence; Z79.899 Other long term (current) drug therapy; Z79.84 Long term (current) use of oral hypoglycemic drugs; Z79.82 Long term (current) use of aspirin; Z79.4 Long term (current) use of insulin; Z79.85 Long-term (current) use of injectable non-insulin antidiabetic drugs; Z88.2 Allergy status to sulfonamides
CPT/HCPCS: 96361; 96360; 99285; 36415; 93005; 93306; 80053; 83735; 84484; 85025; 85610; 85730; 81001; 71046; 93880; 70450; G0378 ×3; J3480

== ENCOUNTER 2023-09-10 17:29 | Emergency (ER) | payer MEDICARE, OTHER ==
--- NOTE | 2023-09-10 18:20 | ED ---
General Adult HPI - General Source: patient, RN notes reviewed Mode of arrival: ambulatory Limitations: no limitations <Gretchen Diaz - Last Filed: 09/10/23 18:18> <Leslie Garcia - Last Filed: 09/11/23 01:36> - General Chief complaint: Fall Stated complaint: fall-leg pain Time Seen by Provider: 09/10/23 17:52 - History of Present Illness Initial comments: This is a 58-year-old female presents the emergency department chief complaint of bilateral lower extremity pain. Patient states that she was at home on ay she had a sensation that her knees give out which has happened many times in the past resulting in her falling backwards onto her buttocks and back. Patient denies hitting her head or loss of consciousness at the time of this fall. Patient states that she went to her primary care provider today where they recommended that she receive an ultrasound of the lower extremities due to concern for erythema and edema. Patient denies history of DVT or PE. She denies recent prolonged travel or surgery. Denies blood thinner use. (Gretchen Diaz) - Related Data Home Medications Medication Instructions Recorded Confirmed Montelukast [Singulair] 10 mg PO DAILY 04/22/17 07/09/23 Mirabegron [Myrbetriq] 50 mg PO DAILY 11/10/19 07/09/23 Aspirin EC [Ecotrin Low Dose] 81 mg PO HS 05/15/20 07/09/23 Empagliflozin [Jardiance] 10 mg PO DAILY 12/05/21 07/09/23 Ergocalciferol [Vitamin D2 (1250 1,250 mcg PO Q14D 12/05/21 07/09/23 Mcg = 49105 Iu)] traMADol HCL 50 mg PO Q6H PRN 12/05/21 07/09/23 Escitalopram [Lexapro] 20 mg PO DAILY 04/17/23 07/09/23 Insuln Asp Prt/Insulin Aspart 20 unit SQ AC-SUPPER 04/17/23 07/09/23 [NovoLOG MIX 70-30 VIAL] Insuln Asp Prt/Insulin Aspart 40 unit SQ AC-BRKFST 04/17/23 07/09/23 [NovoLOG MIX 70-30 VIAL] Omeprazole 40 mg PO DAILY 04/17/23 07/09/23 Rosuvastatin [Crestor] 20 mg PO HS 04/17/23 07/09/23 Semaglutide [Ozempic] 1 mg SQ TU 04/17/23 07/09/23 Previous Rx's Medication Instructions Recorded Amoxic-Pot Clav 875-125Mg 1 each PO Q12HR #20 tab 07/10/23 [Augmentin 875-125] Loratadine [Claritin] 10 mg PO DAILY #30 tab 07/10/23 Pregabalin [Lyrica] 150 mg PO BID #0 07/10/23 lisinopriL [Zestril] 10 mg PO DAILY #0 07/10/23 Allergies Allergy/AdvReac Type Severity Reaction Status Date / Time Sulfa (Sulfonamide Allergy Rash, Verified 09/10/23 17:32 Antibiotics) hives, swelling Review of Systems ROS Other: All systems not noted in ROS Statement are negative. <Gretchen Diaz - Last Filed: 09/10/23 18:18> ROS Other: All systems not noted in ROS Statement are negative. <Leslie Garcia - Last Filed: 09/11/23 01:36> ROS Statement: Those systems with pertinent positive or pertinent negative responses have been documented in the HPI. Past Medical History Past Medical History: Diabetes Mellitus, Eye Disorder, Hyperlipidemia, Hypertension Additional Past Medical History / Comment(s): 05/04/14 Pt presented to [facility] ER with substernal chest pain that started 24 hhours before coming to ER. She noti jori the chest pain when she woke up yesterday. It is a heaviness and is intermittent with variable duration. She also states she had alittle nausea with it. Other HX: Pt had recent (03/30/14)cataract surgery with lens implants bilaterally at [facility]-post op she had low O2 saturations and was told she had a very narrow airway-instead of going home same day, she was in the hospital for a couple days until her saturations improved. She was discharged with home O2 which she wears at 2L/NC at [facility] and was to follow up today for testing for sleep apnea. Pt states she also has diarrhea fairly frequently. Also has hx of 3 ruptured cervical discs with surgery and bilateral retina re pair. 2018 - intermittently in hospital for 3 months for fluid on lungs, had fluid removed History of Any Multi-Drug Resistant Organisms: MRSA Date of last positivie culture/infection: 2010 MDRO Source:: legs and breasts. Past Surgical History: Bariatric Surgery, Cholecystectomy, Hysterectomy, Orth opedic Surgery Additional Past Surgical History / Comment(s): Bilateral cataract sx with lens implants, bilateral retinal repair. Cervical rodding for 3 ruptured discs. sleeve gastrectomy 05-08-20 Past Anesthesia/Blood Transfusion Reactions: Postoperative Nausea & Vomiting (PONV) Additional Past Anesthesia/Blood Transfusion Reaction / Comment(s): Pt had cataract and lens implant at [facility] on 03/30/14 and afterwards she desaturated and was hospitalized. She was told she has a very narrow airway. Pt has never recieved blood. Past Psychological History: No Psychological Hx Reported Smoking Status: Former smoker Past Alcohol Use History: None Reported Past Drug Use History: None Reported - Past Family History Father Family Medical History: Cancer, Myocardial Infarction (IL) Additional Family Medical History / Comment(s): Father had 5 IL's and of bone cancer. Mother Family Medical History: Cancer Additional Family Medical History / Comment(s): cervical cancer <Gretchen Diaz - Last Filed: 09/10/23 18:18> General Exam Limitations: no limitations General appearance: alert, in no apparent distress Head exam: Present: atraumatic, normocephalic, normal inspection Eye exam: Present: normal appearance, PERRL, EOMI. Absent: scleral icterus, conjunctival injection, periorbital swelling ENT exam: Present: normal exam, mucous membranes moist Neck exam: Present: normal inspection. Absent: tenderness, meningismus, lymphadenopathy Respiratory exam: Present: normal lung sounds bilaterally. Absent: respiratory distress, wheezes, rales, rhonchi, stridor Cardiovascular Exam: Present: regular rate, normal rhythm, normal heart sounds. Absent: systolic murmur, diastolic murmur, rubs, gallop, clicks GI/Abdominal exam: Present: soft, normal bowel sounds. Absent: distended, tenderness, guarding, rebound, rigid Left Lower Leg exam: Present: tenderness (Anterior), erythema. Absent: swelling, laceration (Still), ecchymosis, palpable cord, Homans' sign Neurovascular tendon exam: Present: no vascular compromise Gait: observed and normal Right Lower Leg exam: Present: tenderness (Posterior), erythema (Still). Absent: laceration, ecchymosis, palpable cord, Homans' sign Neurovascular tendon exam: Present: no vascular compromise. Absent: pulse deficit Back exam: Present: normal inspection Neurological exam: Present: alert, oriented X3, CN II-XII intact Skin exam: Present: warm, dry, intact, normal color. Absent: rash <Gretchen Diaz - Last Filed: 09/10/23 18:18> Course Vital Signs 09/10/23 09/10/23 09/10/23 17:30 18:57 20:14 Temperature 97.9 F 98 F Pulse Rate 87 81 77 Respiratory 18 18 18 Rate Blood Pressure 114/62 88/59 89/57 O2 Sat by Pulse 97 98 Oximetry 09/10/23 09/10/23 09/11/23 21:23 22:51 00:25 Temperature Pulse Rate 71 72 74 Respiratory 16 17 Rate Blood Pressure 111/65 104/51 86/65 O2 Sat by Pulse 99 99 Oximetry 09/11/23 01:33 Temperature 98.1 F Pulse Rate 72 Respiratory 18 Rate Blood Pressure 101/64 O2 Sat by Pulse 99 Oximetry Medical Decision Making <Gretchen Diaz - Last Filed: 09/10/23 18:18> - Lab Data Result diagrams: 09/10/23 19:28 09/10/23 19:28 <Leslie Garcia - Last Filed: 09/11/23 01:36> - Medical Decision Making Was pt. sent in by a medical professional or institution (MICKIE Chang, TIRE TECHNICIAN, urgent care, hospital, or snf...) When possible be specific @ -Was advised by her primary care provider to report to the emergency department for evaluation via ultrasound for concern of a blood clot. Did you speak to anyone other than the patient for history (EMS, parent, family, police, friend...)? What history was obtained from this source @ -[No] Did you review nursing and triage notes (agree or disagree)? Why? @ -[I reviewed and agree with nursing and triage notes] Were old charts reviewed (outside hosp., previous admission, EMS record, old EKG, old radiological studies, urgent care reports/EKG's, snf records)? Report findings @ -[No old charts were reviewed] Differential Diagnosis (chest pain, altered mental status, abdominal pain women, abdominal pain men, vaginal bleeding, weakness, fever, dyspnea, syncope, headache, dizziness, GI bleed, back pain, seizure, CVA, palpatations, mental health, musculoskeletal)? @ -DVT, superficial thrombophlebitis, muscle strain, calf pain, this list is not all inclusive. EKG interpreted by me (3pts min.). @ -None X-rays interpreted by me (1pt min.). @ -[None done] CT interpreted by me (1pt min.). @ -[None done] U/S interpreted by me (1pt. min.). @ -[None done] What testing was considered but not performed or refused? (CT, X-rays, U/S, labs)? Why? @ -[None] What meds were considered but not given or refused? Why? @ -[None] Did you discuss the management of the patient with other professionals (professionals i.e. , PA, TIRE TECHNICIAN, lab, RT, psych nurse, transition social worker, truss puller helper, teacher, chief business officer, manager of case)? Give summary @ -[No] Was smoking cessation discussed for >3mins.? @ -[No] Was critical care preformed (if so, how long)? @ -[No] Were there social determinants of health that impacted care today? How? (Homelessness, low income, unemployed, alcoholism, drug addiction, transpor tation, low edu. Level, literacy, decrease access to med. care, retirement, rehab)? @ -[No] Was there de-escalation of care discussed even if they declined (Discuss DNR or withdrawal of care, Hospice)? DNR status @ -[No] What co-morbidities impacted this encounter? (DM, HTN, Smoking, COPD, CAD, Cancer, CVA, ARF, Chemo, Hep., AIDS, mental health diagnosis, sleep apnea, morbid obesity)? @ -[None] Was patient admitted / discharged? Hospital course, mention meds given and route, prescriptions, significant lab abnormalities, going to OR and other pertinent info. @ -[hospital course] Undiagnosed new problem with uncertain prognosis? @ -[No] Drug Therapy requiring intensive monitoring for toxicity (Heparin, Nitro, Insulin, Cardizem)? @ -[No] Were any procedures done? @ -[No] Diagnosis/symptom? @ -[default] Acute, or Chronic, or Acute on Chronic? @ -[default] Uncomplicated (without systemic symptoms) or Complicated (systemic symptoms)? @ -[default] Side effects of treatment? @ -[No] Exacerbation, Progression, or Severe Exacerbation? @ -[No] Poses a threat to life or bodily function? How? (Chest pain, USA, [place], pneumonia, PE, COPD, DKA, ARF, appy, cholecystitis, CVA, Diverticulitis, Homicidal, Gleason icidal, threat to staff... and all critical care pts) @ -[No] (Jorge Luisr,Gretchen) Was pt. sent in by a medical professional or institution (, PA, TIRE TECHNICIAN, urgent care, hospital, or snf...) When possible be specific @ -No Did you speak to anyone other than the patient for history (EMS, parent, family, police, friend...)? What history was obtained from this source @ -No Did you review nursing and triage notes (agree or disagree)? Why? @ -I reviewed and agree with nursing and triage notes Were old charts reviewed (outside hosp., previous admission, EMS record, old EK G, old radiological studies, urgent care reports/EKG's, snf records)? Report findings @ -No old charts were reviewed Differential Diagnosis (chest pain, altered mental status, abdominal pain women, abdominal pain men, vaginal bleeding, weakness, fever, dyspnea, syncope, headache, dizziness, GI bleed, back pain, seizure, CVA, palpatations, mental health, musculoskeletal)? @ -DVT, superficial thrombophlebitis, muscle strain, calf pain, hyperglycemia, DKA, HHS, sepsis, this list is not all inclusive EKG interpreted by me (3pts min.). @ -None X-rays interpreted by me (1pt min.). @ -None done CT interpreted by me (1pt min.). @ -None done U/S interpreted by me (1pt. min.). @ -Ultrasound of bilateral lower extremities were negative for acute DVT What testing was considered but not performed or refused? (CT, X-rays, U/S, labs)? Why? @ -None What meds were considered but not given or refused? Why? @ -None Did you discuss the management of the patient with other professionals (hanny valentine i.e., Dr., MICKIE, TIRE TECHNICIAN, lab, RT, psych nurse, transition social worker, truss puller helper, teacher, chief business officer, manager of case)? Give summary @ -No Was smoking cessation discussed for >3mins.? @ -No Was critical care preformed (if so, how long)? @ -No Were there social determinants of health that impacted care today? How? (Homelessness, low income, unemployed, alcoholism, drug addiction, transportation, low edu. Level, literacy, decrease access to med. care, retirement, rehab)? @ -No Was there de-escalation of care discussed even if they declined (Discuss DNR or withdrawal of care, Hospice)? DNR status @ -No What co-morbidities impacted this encounter? (DM, HTN, Smoking, COPD, CAD, Cancer, CVA, ARF, Chemo, Hep., AIDS, mental health diagnosis, sleep apnea, morbid obesity)? @ -None Was patient admitted / discharged? Hospital course, mention meds given and route, prescriptions, significant lab abnormalities, going to OR and other pertinent info. @ -Patient was discharged. Patient was signed out to me by Gretchen Diaz PA-C at 7 PM pending ultrasound results. Patient was seen and evaluated for bilateral lower leg pain. She was sent by her PCP for ultrasounds to rule out DVT. Ultrasounds returned negative for DVT. Blood pressure was low at 88/59, therefore blood glucose was taken and found to be 595. Patient admitted she has not taken her insulin yet today. Patient was given 1 L bolus at this time and lab work including CBC, CMP, acetone, lactic acid, venous blood gas, and serum osmolarity were taken to rule out DKA. Lab work was remarkable for a sodium of 125, chloride of 94, creatinine of 1.12, and glucose 580. Acetone was negative and anion gap is 8. VBG pCO2 was 55. Unlikely DKA at this time, likely hyperglycemia due to missed medication. Patient was given an additional liter bolus and 14 units of insulin. Urine reveals 4+ glucose, negative for ketones, large leukocyte esterase, 8 red blood cells, and 40 white blood cells. Patient denies any urinary symptoms. Opted to wait for urine culture results for treatment. Patient's blood glucose upon reevaluation was 295. Patient would like to be discharged at this time. I believe this is reasonable due to vitals are stable and patient is asymptomatic. Blood pressure has increased to 101/64. Strict return/alarm symptoms discussed with patient and she shows understanding and agrees with plan. Discussed importance of medication adherence. Case discussed with my attending Dr. Park. Patient was discharged in stable condition. Undiagnosed new problem with uncertain prognosis? @ -No Drug Therapy requiring intensive monitoring for toxicity (Heparin, Nitro, Insulin, Cardizem)? @ -No Were any procedures done? @ -No Diagnosis/symptom? @ -Bilateral leg pain, hyperglycemia Acute, or Chronic, or Acute on Chronic? @ -Acute Uncomplicated (without systemic symptoms) or Complicated (systemic symptoms)? @ -Uncomplicated Side effects of treatment? @ -No Exacerbation, Progression, or Severe Exacerbation? @ -No Poses a threat to life or bodily function? How? (Chest pain, USA, [place], pneumonia, PE, COPD, DKA, ARF, appy, cholecystitis, CVA, Diverticulitis, Homicidal, Suicidal, threat to staff... and all critical care pts) @ -Unlikely at this time (Leslie Garcia) - Lab Data Lab Results 09/10/23 09/10/23 09/10/23 Range/Units 19:03 19:28 19:28 WBC 8.9 (3.8-10.6) k/uL RBC 3.97 (3.80-5.40) m/uL Hgb 11.0 L (11.4-16.0) gm/dL Hct 34.1 (34.0-46.0) % MCV 86.0 (80.0-100.0) fL MCH 27.7 (25.0-35.0) pg MCHC 32.2 (31.0-37.0) g/dL RDW 14.4 (11.5-15.5) % Plt Count 284 (150-450) k/uL MPV 9.6 Neutrophils % 53 % Lymphocytes % 36 % Monocytes % 5 % Eosinophils % 3 % Basophils % 0 % Neutrophils # 4.7 (1.3-7.7) k/uL Lymphocytes # 3.2 (1.0-4.8) k/uL Monocytes # 0.5 (0-1.0) k/uL Eosinophils # 0.3 (0-0.7) k/uL Basophils # 0.0 (0-0.2) k/uL VBG pH (7.31-7.41) VBG pCO2 (37-51) mmHg VBG HCO3 (24-28) mmol/L Sodium (137-145) mmol/L Potassium (3.5-5.1) mmol/L Chloride (98-107) mmol/L Carbon Dioxide (22-30) mmol/L Anion Gap mmol/L BUN (7-17) mg/dL Creatinine (0.52-1.04) mg/dL Est GFR (CKD-EPI)AfAm (>60 ml/min/1.73 sqM) Est GFR (CKD-EPI)NonAf (>60 ml/min/1.73 sqM) Glucose (74-99) mg/dL POC Glucose (mg/dL) 595 H* (70-110) mg/dL POC Glu Pharmacist Per Diem ID Juan Jose Dickerson Plasma Lactic Acid Alejandro (0.7-2.0) mmol/L Calcium (8.4-10.2) mg/dL Total Bilirubin (0.2-1.3) mg/dL AST (14-36) U/L ALT (4-34) U/L Alkaline Phosphatase (38-126) U/L Total Protein (6.3-8.2) g/dL Albumin (3.5-5.0) g/dL Urine Color Colorless Urine Appearance Cloudy H (Clear) Urine pH 5.0 (5.0-8.0) Ur Specific Ol[place] 1.026 (1.001-1.035) Urine Protein Negative (Negative) Urine Glucose (UA) 4+ H (Negative) Urine Ketones Negative (Negative) Urine Blood Small H (Negative) Urine Nitrite Negative (Negative) Urine Bilirubin Negative (Negative) Urine Urobilinogen <2.0 (<2.0) mg/dL Ur Leukocyte Esterase Large H (Negative) Urine RBC 8 H (0-5) /hpf Urine WBC 40 H (0-5) /hpf Ur Squamous Epith Cells 1 (0-4) /hpf Urine Mucus Rare H (None) /hpf Urine Yeast (Budding) Few H (None) /hpf Acetone, Qual (Negative) 09/10/23 09/10/23 09/10/23 Range/Units 19:28 19:28 21:46 WBC (3.8-10.6) k/uL RBC (3.80-5.40) m/uL Hgb (11.4-16.0) gm/dL Hct (34.0-46.0) % MCV (80.0-100.0) fL MCH (25.0-35.0) pg MCHC (31.0-37.0) g/dL RDW (11.5-15.5) % Plt Count (150-450) k/uL MPV Neutrophils % % Lymphocytes % % Monocytes % % Eosinophils % % Basophils % % Neutrophils # (1.3-7.7) k/uL Lymphocytes # (1.0-4.8) k/uL Monocytes # (0-1.0) k/uL Eosinophils # (0-0.7) k/uL Basophils # (0-0.2) k/uL VBG pH 7.31 (7.31-7.41) VBG pCO2 55 H (37-51) mmHg VBG HCO3 28 (24-28) mmol/L Sodium 125 L (137-145) mmol/L Potassium 4.0 (3.5-5.1) mmol/L Chloride 94 L (98-107) mmol/L Carbon Dioxide 23 (22-30) mmol/L Anion Gap 8 mmol/L BUN 14 (7-17) mg/dL Creatinine 1.12 H (0.52-1.04) mg/dL Est GFR (CKD-EPI)AfAm 63 (>60 ml/min/1.73 sqM) Est GFR (CKD-EPI)NonAf 54 (>60 ml/min/1.73 sqM) Glucose 580 H* (74-99) mg/dL POC Glucose (mg/dL) (70-110) mg/dL POC Glu Pharmacist Per Diem ID Plasma Lactic Acid Alejandro 1.7 (0.7-2.0) mmol/L Calcium 8.6 (8.4-10.2) mg/dL Total Bilirubin 0.5 (0.2-1.3) mg/dL AST 20 (14-36) U/L ALT 15 (4-34) U/L Alkaline Phosphatase 118 (38-126) U/L Total Protein 6.1 L (6.3-8.2) g/dL Albumin 3.7 (3.5-5.0) g/dL Urine Color Urine Appearance (Clear) Urine pH (5.0-8.0) Ur Specific [place] (1.001-1.035) Urine Protein (Negative) Urine Glucose (UA) (Negative) Urine Ketones (Negative) Urine Blood (Negative) Urine Nitrite (Negative) Urine Bilirubin (Negative) Urine Urobilinogen (<2.0) mg/dL Ur Leukocyte Esterase (Negative) Urine RBC (0-5) /hpf Urine WBC (0-5) /hpf Ur Squamous Epith Cells (0-4) /hpf Urine Mucus (None) /hpf Urine Yeast (Budding) (None) /hpf Acetone, Qual Negative (Negative) 09/11/23 Range/Units 00:14 WBC (3.8-10.6) k/uL RBC (3.80-5.40) m/uL Hgb (11.4-16.0) gm/dL Hct (34.0-46.0) % MCV (80.0-100.0) fL MCH (25.0-35.0) pg MCHC (31.0-37.0) g/dL RDW (11.5-15.5) % Plt Count (150-450) k/uL MPV Neutrophils % % Lymphocytes % % Monocytes % % Eosinophils % % Basophils % % Neutrophils # (1.3-7.7) k/uL Lymphocytes # (1.0-4.8) k/uL Monocytes # (0-1.0) k/uL Eosinophils # (0-0.7) k/uL Basophils # (0-0.2) k/uL VBG pH (7.31-7.41) VBG pCO2 (37-51) mmHg VBG HCO3 (24-28) mmol/L Sodium (137-145) mmol/L Potassium (3.5-5.1) mmol/L Chloride (98-107) mmol/L Carbon Dioxide (22-30) mmol/L Anion Gap mmol/L BUN (7-17) mg/dL Creatinine (0.52-1.04) mg/dL Est GFR (CKD-EPI)AfAm (>60 ml/min/1.73 sqM) Est GFR (CKD-EPI)NonAf (>60 ml/min/1.73 sqM) Glucose (74-99) mg/dL POC Glucose (mg/dL) 295 H (70-110) mg/dL POC Glu Pharmacist Per Diem ID Rowdy Cavazos Plasma Lactic Acid Alejandro (0.7-2.0) mmol/L Calcium (8.4-10.2) mg/dL Total Bilirubin (0.2-1.3) mg/dL AST (14-36) U/L ALT (4-34) U/L Alkaline Phosphatase (38-126) U/L Total Protein (6.3-8.2) g/dL Albumin (3.5-5.0) g/dL Urine Color Urine Appearance (Clear) Urine pH (5.0-8.0) Ur Specific [place] (1.001-1.035) Urine Protein (Negative) Urine Glucose (UA) (Negative) Urine Ketones (Negative) Urine Blood (Negative) Urine Nitrite (Negative) Urine Bilirubin (Negative) Urine Urobilinogen (<2.0) mg/dL Ur Leukocyte Esterase (Negative) Urine RBC (0-5) /hpf Urine WBC (0-5) /hpf Ur Squamous Epith Cells (0-4) /hpf Urine Mucus (None) /hpf Urine Yeast (Budding) (None) /hpf Acetone, Qual (Negative) Disposition <Gretchen Diaz - Last Filed: 09/10/23 18:18> Is patient prescribed a controlled substance at d/c from ED?: No Time of Disposition: 01:33 <Leslie Garcia - Last Filed: 09/11/23 01:36> Clinical Impression: Hyperglycemia, Bilateral leg pain, Asymptomatic bacteriuria Disposition: HOME SELF-CARE Condition: Stable Instructions (If sedation given, give patient instructions): Diabetic Hyperglycemia (ED) Additional Instructions: Follow-up with PCP in 1 to 3 days for reevaluation. Please return to the E mergency Department if symptoms worsen or any other concerns. Referrals: Kizzy Monahan MD [Primary Care Provider] - 1-2 days
--- NOTE | 2023-09-10 19:03 | US ---
EXAMINATION TYPE: US venous doppler duplex LE DATE OF EXAM: 09/10/2023 6:11 PM COMPARISON: NONE CLINICAL INDICATION: Female, 58 years old with history of pain, distal erythema; Patient states she h ad a fall, patient now has pain behind knee. Patient has no hx of DVT. Patient not on blood thinners SIDE PERFORMED: Bilateral TECHNIQUE: The lower extremity deep venous system is examined utilizing real time linear array sonog natividad with graded compression, doppler sonography and color-flow sonography. VESSELS IMAGED: Common Femoral Vein Deep Femoral Vein Greater Saphenous Vein * Femoral Vein Popliteal Vein Small Saphenous Vein * Proximal Calf Veins (* superficial vessels) Right Leg: Appears negative for DVT Left Leg: Appears negative for DVT IMPRESSION: No evidence for DVT within the bilateral lower extremities imaged from the groin to the upper calves.
[2023-09-10] MEDS: SODIUM CHLORIDE 0.9% 1,000 ML IV STA ×2 (19:04→21:46)
[2023-09-10 19:05] LABS: Glucose,Whole Blood 595 mg/dL (70-110)
[2023-09-10 19:51] LABS: Basophils % (A) 0 %; Eosinophils # (A) 0.3 k/uL (0-0.7); Eosinophils % (A) 3 %; HCT 34.1 % (34.0-46.0); Lymphocytes # (A) 3.2 k/uL (1.0-4.8); Lymphocytes % (A) 36 %; MCH 27.7 pg (25.0-35.0); MCHC 32.2 g/dL (31.0-37.0); Mean Platelet Volume 9.6; Monocytes # (A) 0.5 k/uL (0-1.0); Monocytes % (A) 5 %; Neutrophils # (A) 4.7 k/uL (1.3-7.7); Neutrophils % (A) 53 %; Platelet Count 284 k/uL (150-450); RBC 3.97 m/uL (3.80-5.40); RDW 14.4 % (11.5-15.5); WBC 8.9 k/uL (3.8-10.6)
[2023-09-10 19:54] LABS: Appearance,Urine Cloudy (Clear); Bilirubin,Urine Negative (Negative); Blood,Urine Small (Negative); Budding Yeast,Urine Few /hpf; Color,Urine Colorless; Glucose,Urine (UA) 4+ (Negative); Ketones,Urine Negative (Negative); Leukocyte Esterase,Urine Large (Negative); Mucus,Urine Rare /hpf; Nitrite,Urine Negative (Negative); Protein,Urine Negative (Negative); RBC,Urine 8 /hpf (0-5); Specific Gravity,Urine 1.026 (1.001-1.035); Squamous Epithelial Cell,Urine 1 /hpf (0-4); Urobilinogen,Urine <2.0 mg/dL (<2.0); WBC,Urine 40 /hpf (0-5)
[2023-09-10 20:05] LABS: ALT 15 U/L (4-34); AST 20 U/L (14-36); African American GFR (CKD) 63 (>60 ml/min/1.73 sqM); Albumin 3.7 g/dL (3.5-5.0); Alkaline Phosphatase 118 U/L (38-126); Anion Gap 8 mmol/L; Blood Urea Nitrogen 14 mg/dL (7-17); Calcium 8.6 mg/dL (8.4-10.2); Carbon Dioxide 23 mmol/L (22-30); Chloride 94 mmol/L (98-107); Non-African American GFR(CKD) 54 (>60 ml/min/1.73 sqM); Sodium 125 mmol/L (137-145); Total Bilirubin 0.5 mg/dL (0.2-1.3); Total Protein 6.1 g/dL (6.3-8.2)
[2023-09-10 20:22] LABS: Glucose 580 mg/dL (74-99)
[2023-09-10] MEDS ORDERED: SODIUM CHLORIDE 0.9% 1,000 ML IV SCH (21:15)
[2023-09-10] MEDS ORDERED: INSULIN REGULAR 100 UNIT in SODIUM CHLORIDE 0.9% 100 ML IV SCH (21:30)
[2023-09-10 22:03] LABS: VBG PH 7.31 (7.31-7.41)
[2023-09-10] MEDS: INSULIN REGULAR 100 UNIT/ML VIAL (IV) IV ONE (22:49)
[2023-09-11 00:15] LABS: Glucose,Whole Blood 295 mg/dL (70-110)
[2023-09-11 01:35] VITALS: BP 101/64; PULSE 72; RESP 18; TEMP 98.1
== END 2023-09-11 01:47 | disposition home or self-care (01) ==
LOC: EC 17:29
DX: M79.662 Pain in left lower leg (principal); M79.661 Pain in right lower leg; R82.71 Bacteriuria; R73.9 Hyperglycemia, unspecified; Z87.891 Personal history of nicotine dependence; Z88.1 Allergy status to other antibiotic agents; Z88.2 Allergy status to sulfonamides; Z88.8 Allergy status to other drugs, medicaments and biological substances; Z90.49 Acquired absence of other specified parts of digestive tract
CPT/HCPCS: 36415; 80053; 81001; 82009; 82803; 83605; 83930; 85025; 87086; 93970; 96360; 96361; 99283

== ENCOUNTER → 2023-09-22 | Outpatient (CLI) | payer MEDICARE, OTHER ==
--- NOTE | 2023-09-22 13:56 | XR ---
EXAMINATION TYPE: XR lumbar spine 2 or 3V DATE OF EXAM: 09/22/2023 CLINICAL HISTORY: pain TECHNIQUE: Three views of the lumbar spine are submitted. COMPARISON: None. FINDINGS: There are 5 lumbar type vertebral bodies identified. The lumbar spine shows satisfactory alignment w ithout evidence of acute fracture or dislocation. Vertebral body heights are within normal limits. Mo derate-appearing superior endplate loss of height L4 with large ventral spur. Moderate degenerative d isc space narrowing at L 3- 4 and L5-S1 with mild narrowing at L4-5. The overlying soft tissue appear s unremarkable. IMPRESSION: No acute fracture or dislocation is seen in the lumbar spine. ICD 10 NO FRACTURE, INITIAL EVALUATION
--- NOTE | 2023-09-22 14:36 | XR ---
EXAMINATION TYPE: XR knee limited bilateral DATE OF EXAM: 09/22/2023 CLINICAL HISTORY: pain TECHNIQUE: Three views of the right knee are obtained. COMPARISON: None. FINDINGS: There is no acute fracture/dislocation. The tri-compartment joint spaces appear mildly na rrowed. The overlying soft tissue appears unremarkable. IMPRESSION: There is no acute fracture or dislocation.ICD 10 NO FRACTURE, INITIAL EVALUATION
--- NOTE | 2023-09-22 14:46 | US ---
EXAMINATION TYPE: US arterial LE single level DATE OF EXAM: 09/22/2023 2:12 PM CLINICAL INDICATION: Female, 58 years old with history of I70.213 ARTERIOSCLEROSIS; Claudication History of: Smoker: Previous 15 yrs ago Hypertension: Takes medication Diabetic: Yes Hyperlipidemia: Yes TIA/CVA: No Previous Vascular Surgery: No CAD: no OH: No Vascular Ulcers: no Claudication: Yes Gangrene: No Right Brachial Pressure: 188 Left Brachial Pressure: 146 Ankle-Brachial Indices: Right: 0.94 Left: Could not occlude Greater than 20mmHg difference noted between the right and left brachial pressures. Unable to occlude the left posterior tibial artery and left dorsal pedal artery. IMPRESSION: 1. Suspect moderate to severe plaque disease left lower extremity.
== END | disposition home or self-care (01) ==
LOC: RADUSWWP 13:01
PROVIDERS: ATTEND Internal Medicine Geriatric Medicine
DX: I70.213 Atherosclerosis of native arteries of extremities with intermittent claudication, bilateral legs (principal); M79.605 Pain in left leg; M54.9 Dorsalgia, unspecified
CPT/HCPCS: 72100; 93922

== ENCOUNTER 2023-10-08 15:56 | Observation (INO) | payer MEDICARE, OTHER ==
--- NOTE | 2023-10-08 16:58 | XR ---
EXAMINATION TYPE: XR chest 2V DATE OF EXAM: 10/08/2023 4:46 PM CLINICAL INDICATION:Female, 58 years old with history of Weakness; [facility] COMPARISON: Chest radiographs from 2023. TECHNIQUE: XR chest 2V Frontal view of the chest. FINDINGS: Lungs/Pleura: There is no evidence of pleural effusion, focal consolidation, or pneumothorax. Pulmonary vascularity: Unremarkable. Heart/mediastinum: Cardiomediastinal silhouette is unremarkable. Musculoskeletal: No acute osseous pathology. Midline sternotomy wires are noted. IMPRESSION: No acute cardiopulmonary disease/process.
[2023-10-08 17:39] LABS: Basophils # (A) 0.1 k/uL (0-0.2); Basophils % (A) 1 %; Eosinophils # (A) 0.3 k/uL (0-0.7); Eosinophils % (A) 3 %; HCT 37.5 % (34.0-46.0); HGB 12.2 gm/dL (11.4-16.0); Hypochromasia Slight; Lymphocytes # (A) 3.6 k/uL (1.0-4.8); Lymphocytes % (A) 39 %; MCH 28.2 pg (25.0-35.0); MCHC 32.4 g/dL (31.0-37.0); MCV 86.8 fL (80.0-100.0); Mean Platelet Volume 8.8; Monocytes # (A) 0.6 k/uL (0-1.0); Monocytes % (A) 7 %; Neutrophils # (A) 4.4 k/uL (1.3-7.7); Neutrophils % (A) 48 %; Platelet Count 266 k/uL (150-450); RBC 4.32 m/uL (3.80-5.40); WBC 9.2 k/uL (3.8-10.6)
[2023-10-08 17:51] LABS: INR 0.9 (<1.2); Partial Thromboplastin Time 22.9 sec (22.0-30.0); Prothrombin Time 10.1 sec (10.0-12.5)
[2023-10-08 17:52] LABS: ALT 29 U/L (4-34); AST 47 U/L (14-36); African American GFR (CKD) 41 (>60 ml/min/1.73 sqM); Albumin 4.1 g/dL (3.5-5.0); Alkaline Phosphatase 98 U/L (38-126); Anion Gap 7 mmol/L; Blood Urea Nitrogen 31 mg/dL (7-17); Calcium 9.1 mg/dL (8.4-10.2); Carbon Dioxide 29 mmol/L (22-30); Chloride 103 mmol/L (98-107); Glucose 75 mg/dL (74-99); Magnesium 2.4 mg/dL (1.6-2.3); Non-African American GFR(CKD) 36 (>60 ml/min/1.73 sqM); Phosphorus 4.6 mg/dL (2.5-4.5); Potassium 3.5 mmol/L (3.5-5.1); Sodium 139 mmol/L (137-145); Total Bilirubin 0.4 mg/dL (0.2-1.3); Total Protein 6.8 g/dL (6.3-8.2)
--- NOTE | 2023-10-08 19:15 | ED ---
General Adult HPI - General Chief complaint: Weakness Stated complaint: weakness Time Seen by Provider: 10/08/23 16:49 Source: patient Mode of arrival: wheelchair Limitations: no limitations - History of Present Illness Initial comments: 58-year-old female with past medical history of diabetes, hypertension, hyperlipidemia who presents emergency department for neurologic assessment. Daughter is at bedside and helps read the history. States that the patient has been previously hospitalized for similar complaint however symptoms appear to be getting worse. She states that she has had multiple falls over the past couple of months. She had a fall last week as well as 1 yesterday. The patient reports to weakness in her lower extremities that causes them to give out. She denies having pain. She also has worsening tremor of her mouth and upper extremities. Daughter is concerned for her safety as the falls have become more frequent. She denies headache or visual changes. She denies any recent head injury. No use of blood thinners. No seizure-like activity. No recent medication changes. Patient has concerns for Parkinson's. Denies any changes in her bowel or bladder habits. No other alleviating, precipitating or modify ing factors - Related Data Home Medications Medication Instructions Recorded Confirmed Montelukast [Singulair] 10 mg PO DAILY 04/22/17 10/08/23 Mirabegron [Myrbetriq] 50 mg PO DAILY 11/10/19 10/08/23 Aspirin EC [Ecotrin Low Dose] 81 mg PO HS 05/15/20 10/08/23 Empagliflozin [Jardiance] 10 mg PO DAILY 12/05/21 10/08/23 Ergocalciferol [Vitamin D2 (1250 1,250 mcg PO Q14D 12/05/21 10/08/23 Mcg = 48070 Iu)] Escitalopram [Lexapro] 20 mg PO DAILY 04/17/23 10/08/23 Insuln Asp Prt/Insulin Aspart 20 unit SQ AC-SUPPER 04/17/23 10/08/23 [NovoLOG MIX 70-30 VIAL] Insuln Asp Prt/Insulin Aspart 40 unit SQ -BRKFST 04/17/23 10/08/23 [NovoLOG MIX 70-30 VIAL] Omeprazole 40 mg PO DAILY 04/17/23 10/08/23 Rosuvastatin [Crestor] 20 mg PO HS 04/17/23 10/08/23 Semaglutide [Ozempic] 1 mg SQ TU 04/17/23 10/08/23 Baclofen [Lioresal] 5 mg PO BID PRN 10/08/23 10/08/23 HYDROcodone/APAP 5-325MG [[place] 1 tab PO QID PRN 10/08/23 10/08/23 5-325] buPROPion XL [Wellbutrin XL] 150 mg PO DAILY 10/08/23 10/08/23 Previous Rx's Medication Instructions Recorded Loratadine [Claritin] 10 mg PO DAILY #30 tab 07/10/23 Pregabalin [Lyrica] 150 mg PO BID #0 07/10/23 Cefuroxime [Ceftin] 250 mg PO BID 5 Days #10 tab 10/10/23 Midodrine [ProAmatine] 5 mg PO BID-W/MEALS #60 tab 10/10/23 lisinopriL [Zestril] 5 mg PO DAILY #30 tab 10/10/23 Allergies Allergy/AdvReac Type Severity Reaction Status Date / Time Sulfa (Sulfonamide Allergy Rash, Verified 10/08/23 18:55 Antibiotics) hives, swelling Review of Systems ROS Statement: Those systems with pertinent positive or pertinent negative responses have been documented in the HPI. ROS Other: All systems not noted in ROS Statement are negative. Past Medical History Past Medical History: Diabetes Mellitus, Eye Disorder, Hyperlipidemia, Hypertension Additional Past Medical History / Comment(s): 05/04/14 Pt presented to [facility] ER with substernal chest pain that started 24 hhours before coming to ER. She noticed the chest pain when she woke up yesterday. It is a heaviness and is intermittent with variable duration. She also states she had alittle nausea with it. Other HX: Pt had recent (03/30/14)cataract surgery with lens implants bilaterally at [facility]-post op she had low O2 saturations and was told she had a very narrow airway-instead of going home same day, she was in the hospital for a couple days until her saturations improved. She was discharged with home O2 which she wears at 2L/NC at nite and was to follow up today for testing for sleep apnea. Pt states she also has diarrhea fairly frequently. 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 2018 - intermittently in hospital for 3 months for fluid on lungs, had fluid removed History of Any Multi-Drug Resistant Organisms: MRSA Date of last positivie culture/infection: 2010 MDRO Source:: legs and breasts. Past Surgical History: Bariatric Surgery, Cholecystectomy, Hysterectomy, Orthopedic Surgery Additional Past Surgical History / Comment(s): Bilateral cataract sx with lens implants, bilateral retinal repair. Cervical rodding for 3 ruptured discs. sleeve gastrectomy 05-08-20 Past Anesthesia/Blood Transfusion Reactions: Postoperative Nausea & Vomiting (PONV) Additional Past Anesthesia/Blood Transfusion Reaction / Comment(s): Pt had cataract and lens implant at [facility] on 03/30/14 and afterwards she desaturated and was hospitalized. She was told she has a very narrow airway. Pt has never recieved blood. Past Psychological History: No Psychological Hx Reported Smoking Status: Former smoker Past Alcohol Use History: None Reported Past Drug Use History: None Reported - Past Family History Father Family Medical History: Cancer, Myocardial Infarction ([place]) Additional Family Medical History / Comment(s): Father had 5 [place]'s and of bone cancer. Mother Family Medical History: Cancer Additional Family Medical History / Comment(s): cervical cancer General Exam Limitations: no limitations General appearance: alert, in no apparent distress Head exam: Present: atraumatic, normocephalic, normal inspection Eye exam: Present: normal appearance, PERRL, EOMI. Absent: scleral icterus, conjunctival injection, periorbital swelling ENT exam: Present: normal exam, mucous membranes moist Neck exam: Present: normal inspection. Absent: tenderness, meningismus, lymphadenopathy Respiratory exam: Present: normal lung sounds bilaterally. Absent: respiratory distress, wheezes, rales, rhonchi, stridor Cardiovascular Exam: Present: regular rate, normal rhythm, normal heart sounds. Absent: systolic murmur, diastolic murmur, rubs, gallop, clicks GI/Abdominal exam: Present: soft, normal bowel sounds. Absent: distended, tenderness, guarding, rebound, rigid Extremities exam: Present: full ROM, normal capillary refill, other (Appears to have intention tremor bilaterally). Absent: tenderness, pedal edema, joint swelling, calf tenderness Back exam: Present: normal inspection Neurological exam: Present: alert, oriented X3, CN II-XII intact Psychiatric exam: Present: normal affect, normal mood Skin exam: Present: warm, dry, intact, normal color. Absent: rash Course Vital Signs 10/08/23 10/08/23 10/08/23 16:00 17:07 19:57 Temperature 97.8 F Pulse Rate 68 73 75 Respiratory 18 16 18 Rate Blood Pressure 93/43 110/50 104/42 O2 Sat by Pulse 96 99 100 Oximetry Medical Decision Making - Medical Decision Making Was pt. sent in by a medical professional or institution (, MICKIE, FRONT OFFICE MEDICAL ASSISTANT, urgent care, hospital, or assisted...) When possible be specific @ -No Did you speak to anyone other than the patient for history (EMS, parent, family, police, friend...)? What history was obtained from this source @ -Spoke with the daughter for history Did you review nursing and triage notes (agree or disagree)? Why? @ -I reviewed and agree with nursing and triage notes Were old charts reviewed (outside hosp., previous admission, EMS record, old EKG, old radiological studies, urgent care reports/EKG's, assisted records)? Report findings @ -No old charts were reviewed Differential Diagnosis (chest pain, altered mental status, abdominal pain women, abdominal pain men, vaginal bleeding, weakness, fever, dyspnea, syncope, headache, dizziness, GI bleed, back pain, seizure, CVA, palpatations, mental health, musculoskeletal)? @ -Intention tremor, Parkinson's, MS, CVA EKG interpreted by me (3pts min.). @ -Yes and demonstrates sinus rhythm with a rate of 72. CA interval 187. QRS 105. QTc of 461. Q wave in lead III. No acute ST segment elevations X-rays interpreted by me (1pt min.). @ -Yes and demonstrates no acute process CT interpreted by me (1pt min.). @ -Yes and demonstrates no acute process U/S interpreted by me (1pt. min.). @ -None done What testing was considered but not performed or refused? (CT, X-rays, U/S, labs)? Why? @ -None What meds were considered but not given or refused? Why? @ -None Did you discuss the management of the patient with other professionals (professionals i.e. , MICKIE, FRONT OFFICE MEDICAL ASSISTANT, lab, RT, psych nurse, child welfare social worker, splitting machine operator helper, teacher, chief digital media officer, hospice case manager)? Give summary @ -Spoke with Dr. Sr for admission Was smoking cessation discussed for >3mins.? @ -No Was critical care preformed (if so, how long)? @ -No Were there social determinants of health that impacted care today? How? (Homelessness, low income, unemployed, alcoholism, drug addiction, transpo rtation, low edu. Level, literacy, decrease access to med. care, long term, rehab)? @ -No Was there de-escalation of care discussed even if they declined (Discuss DNR or withdrawal of care, Hospice)? DNR status @ -No What co-morbidities impacted this encounter? (DM, HTN, Smoking, COPD, CAD, Cancer, CVA, ARF, Chemo, Hep., AIDS, mental health diagnosis, sleep apnea, morbid obesity)? @ -Obesity, diabetes Was patient admitted / discharged? Hospital course, mention meds given and route, prescriptions, significant lab abnormalities, going to OR and other pertinent info. @ -Upon arrival patient seen and evaluated in room 15. Thorough history and physical exam was performed. IV was established. Laboratory study reduction. CT of the brain was performed. Upon return the results they are discussed with the patient. Daughter is concerned about the patient's safety due to falls. Called and spoke with Dr. Mar was agreeable to admit the patient for neurology consultation Undiagnosed new problem with uncertain prognosis? @ -Yes Drug Therapy requiring intensive monitoring for toxicity (Heparin, Nitro, Insulin, Cardizem)? @ -No Were any procedures done? @ -No Diagnosis/symptom? @ -Acute tremor, multiple falls Acute, or Chronic, or Acute on Chronic? @ -Acute Uncomplicated (without systemic symptoms) or Complicated (systemic symptoms)? @ -Complicated Side effects of treatment? @ -No Exacerbation, Progression, or Severe Exacerbation? @ -No Poses a threat to life or bodily function? How? (Chest pain, [place], [place], pneumonia, PE, COPD, DKA, ARF, appy, cholecystitis, CVA, Diverticulitis, Homicidal, Suicidal, threat to staff... and all critical care pts) @ -No - Lab Data Result diagrams: 10/09/23 05:40 10/09/23 05:40 Lab Results 09/10/23 10/08/23 10/08/23 Range/Units 16:40 16:40 16:40 WBC 9.2 (3.8-10.6) k/uL RBC 4.32 (3.80-5.40) m/uL Hgb 12.2 (11.4-16.0) gm/dL Hct 37.5 (34.0-46.0) % MCV 86.8 (80.0-100.0) fL MCH 28.2 (25.0-35.0) pg MCHC 32.4 (31.0-37.0) g/dL RDW 15.0 (11.5-15.5) % Plt Count 266 (150-450) k/uL MPV 8.8 Neutrophils % 48 % Lymphocytes % 39 % Monocytes % 7 % Eosinophils % 3 % Basophils % 1 % Neutrophils # 4.4 (1.3-7.7) k/uL Lymphocytes # 3.6 (1.0-4.8) k/uL Monocytes # 0.6 (0-1.0) k/uL Eosinophils # 0.3 (0-0.7) k/uL Basophils # 0.1 (0-0.2) k/uL Hypochromasia Slight PT 10.1 (10.0-12.5) sec INR 0.9 (<1.2) APTT 22.9 (22.0-30.0) sec Sodium (137-145) mmol/L Potassium (3.5-5.1) mmol/L Chloride (98-107) mmol/L Carbon Dioxide (22-30) mmol/L Anion Gap mmol/L BUN (7-17) mg/dL Creatinine (0.52-1.04) mg/dL Est GFR (CKD-EPI)AfAm (>60 ml/min/1.73 sqM) Est GFR (CKD-EPI)NonAf (>60 ml/min/1.73 sqM) Glucose (74-99) mg/dL Plasma Lactic Acid Alejandro (0.7-2.0) mmol/L Calcium (8.4-10.2) mg/dL Phosphorus (2.5-4.5) mg/dL Magnesium (1.6-2.3) mg/dL Total Bilirubin (0.2-1.3) mg/dL AST (14-36) U/L ALT (4-34) U/L Alkaline Phosphatase (38-126) U/L Troponin I (0.000-0.034) ng/mL Total Protein (6.3-8.2) g/dL Albumin (3.5-5.0) g/dL TSH 1.020 (0.350-5.500) UIU/ML Urine Color Urine Appearance (Clear) Urine pH (5.0-8.0) Ur Specific Bureau (1.001-1.035) Urine Protein (Negative) Urine Glucose (UA) (Negative) Urine Ketones (Negative) Urine Blood (Negative) Urine Nitrite (Negative) Urine Bilirubin (Negative) Urine Urobilinogen (<2.0) mg/dL Ur Leukocyte Esterase (Negative) Urine RBC (0-5) /hpf Urine WBC (0-5) /hpf Urine WBC Clumps (None) /hpf Ur Squamous Epith Cells (0-4) /hpf Urine Bacteria (None) /hpf Urine Mucus (None) /hpf Urine Yeast (Budding) (None) /hpf Influenza Type A (PCR) (Not Detectd) Influenza Type B (PCR) (Not Detectd) RSV (PCR) (Not Detectd) SARS-CoV-2 (PCR) (Not Detectd) 10/08/23 10/08/23 10/08/23 Range/Units 16:40 16:40 16:40 WBC (3.8-10.6) k/uL RBC (3.80-5.40) m/uL Hgb (11.4-16.0) gm/dL Hct (34.0-46.0) % MCV (80.0-100.0) fL MCH (25.0-35.0) pg MCHC (31.0-37.0) g/dL RDW (11.5-15.5) % Plt Count (150-450) k/uL MPV Neutrophils % % Lymphocytes % % Monocytes % % Eosinophils % % Basophils % % Neutrophils # (1.3-7.7) k/uL Lymphocytes # (1.0-4.8) k/uL Monocytes # (0-1.0) k/uL Eosinophils # (0-0.7) k/uL Basophils # (0-0.2) k/uL Hypochromasia PT (10.0-12.5) sec INR (<1.2) APTT (22.0-30.0) sec Sodium 139 (137-145) mmol/L Potassium 3.5 (3.5-5.1) mmol/L Chloride 103 (98-107) mmol/L Carbon Dioxide 29 (22-30) mmol/L Anion Gap 7 mmol/L BUN 31 H (7-17) mg/dL Creatinine 1.58 H (0.52-1.04) mg/dL Est GFR (CKD-EPI)AfAm 41 (>60 ml/min/1.73 sqM) Est GFR (CKD-EPI)NonAf 36 (>60 ml/min/1.73 sqM) Glucose 75 (74-99) mg/dL Plasma Lactic Acid Alejandro 0.9 (0.7-2.0) mmol/L Calcium 9.1 (8.4-10.2) mg/dL Phosphorus 4.6 H (2.5-4.5) mg/dL Magnesium 2.4 H (1.6-2.3) mg/dL Total Bilirubin 0.4 (0.2-1.3) mg/dL AST 47 H (14-36) U/L ALT 29 (4-34) U/L Alkaline Phosphatase 98 (38-126) U/L Troponin I (0.000-0.034) ng/mL Total Protein 6.8 (6.3-8.2) g/dL Albumin 4.1 (3.5-5.0) g/dL TSH (0.350-5.500) UIU/ML Urine Color Colorless Urine Appearance Turbid H (Clear) Urine pH 5.0 (5.0-8.0) Ur Specific Bureau 1.016 (1.001-1.035) Urine Protein Trace H (Negative) Urine Glucose (UA) 4+ H (Negative) Urine Ketones Negative (Negative) Urine Blood Small H (Negative) Urine Nitrite Negative (Negative) Urine Bilirubin Negative (Negative) Urine Urobilinogen <2.0 (<2.0) mg/dL Ur Leukocyte Esterase Large H (Negative) Urine RBC 70 H (0-5) /hpf Urine WBC >182 H (0-5) /hpf Urine WBC Clumps Many H (None) /hpf Ur Squamous Epith Cells 1 (0-4) /hpf Urine Bacteria Occasional H (None) /hpf Urine Mucus Rare H (None) /hpf Urine Yeast (Budding) Many H (None) /hpf Influenza Type A (PCR) (Not Detectd) Influenza Type B (PCR) (Not Detectd) RSV (PCR) (Not Detectd) SARS-CoV-2 (PCR) (Not Detectd) 10/08/23 10/08/23 Range/Units 16:40 16:40 WBC (3.8-10.6) k/uL RBC (3.80-5.40) m/uL Hgb (11.4-16.0) gm/dL Hct (34.0-46.0) % MCV (80.0-100.0) fL MCH (25.0-35.0) pg MCHC (31.0-37.0) g/dL RDW (11.5-15.5) % Plt Count (150-450) k/uL MPV Neutrophils % % Lymphocytes % % Monocytes % % Eosinophils % % Basophils % % Neutrophils # (1.3-7.7) k/uL Lymphocytes # (1.0-4.8) k/uL Monocytes # (0-1.0) k/uL Eosinophils # (0-0.7) k/uL Basophils # (0-0.2) k/uL Hypochromasia PT (10.0-12.5) sec INR (<1.2) APTT (22.0-30.0) sec Sodium (137-145) mmol/L Potassium (3.5-5.1) mmol/L Chloride (98-107) mmol/L Carbon Dioxide (22-30) mmol/L Anion Gap mmol/L BUN (7-17) mg/dL Creatinine (0.52-1.04) mg/dL Est GFR (CKD-EPI)AfAm (>60 ml/min/1.73 sqM) Est GFR (CKD-EPI)NonAf (>60 ml/min/1.73 sqM) Glucose (74-99) mg/dL Plasma Lactic Acid Alejandro (0.7-2.0) mmol/L Calcium (8.4-10.2) mg/dL Phosphorus (2.5-4.5) mg/dL Magnesium (1.6-2.3) mg/dL Total Bilirubin (0.2-1.3) mg/dL AST (14-36) U/L ALT (4-34) U/L Alkaline Phosphatase (38-126) U/L Troponin I <0.012 (0.000-0.034) ng/mL Total Protein (6.3-8.2) g/dL Albumin (3.5-5.0) g/dL TSH (0.350-5.500) UIU/ML Urine Color Urine Appearance (Clear) Urine pH (5.0-8.0) Ur Specific Bureau (1.001-1.035) Urine Protein (Negative) Urine Glucose (UA) (Negative) Urine Ketones (Negative) Urine Blood (Negative) Urine Nitrite (Negative) Urine Bilirubin (Negative) Urine Urobilinogen (<2.0) mg/dL Ur Leukocyte Esterase (Negative) Urine RBC (0-5) /hpf Urine WBC (0-5) /hpf Urine WBC Clumps (None) /hpf Ur Squamous Epith Cells (0-4) /hpf Urine Bacteria (None) /hpf Urine Mucus (None) /hpf Urine Yeast (Budding) (None) /hpf Influenza Type A (PCR) Not Detected (Not Detectd) Influenza Type B (PCR) Not Detected (Not Detectd) RSV (PCR) Not Detected (Not Detectd) SARS-CoV-2 (PCR) Not Detected (Not Detectd) Disposition Clinical Impression: Falls, Tremor, Dysarthria Disposition: ADMITTED IP TO THIS [facility] Condition: Stable Is patient prescribed a controlled substance at d/c from ED?: No Time of Disposition: 20:02 Decision to Admit Reason: Admit from EC Decision Date: 10/08/23 Decision Time: 20:02
--- NOTE | 2023-10-08 19:17 | CT ---
EXAMINATION TYPE: CT brain wo con CT DLP: 1149.4 mGycm, Automated exposure control for dose reduction was used. DATE OF EXAM: 10/08/2023 7:07 PM COMPARISON: CT head 07/08/2023. CLINICAL INDICATION:Female, 58 years old with history of multiple falls, tremor, slurred speech, TECHNIQUE: Brain: Axial CT images of the brain were obtained with coronal and sagittal reformats created and rev iewed. Contrast used: None. Oral contrast used: None. FINDINGS: Brain: Extra-axial spaces: No abnormal extra-axial fluid collections. Ventricular system: Within normal limits Cerebral parenchyma: No acute intraparenchymal hemorrhage or mass effect. The price-white junction is well differentiated. Cerebellum: Hypodensities noted in the cerebellum is felt related to beam artifact. Mass effect: No evidence of midline shift. Intracranial vasculature: Atherosclerotic calcifications of the intracranial vessels. Soft tissues: Normal. Calvarium/osseous structures: No depressed skull fracture. Paranasal sinuses and mastoid air cells: Clear. Visualized orbits: Bilateral aphakia IMPRESSION: No acute intracranial process. Follow-up evaluation with MRI as clinically indicated.
[2023-10-08] MEDS ORDERED: NALOXONE 0.4 MG/ML 1 ML VIAL IV PRN (20:04)
[2023-10-08] MEDS ORDERED: BACLOFEN 10 MG TAB PO PRN (20:10)
[2023-10-08] MEDS ORDERED: HYDROcodone/APAP 5-325MG 1 EACH TAB PO PRN (20:10)
[2023-10-08] MEDS: SODIUM CHLORIDE 0.9% 1,000 ML IV SCH (20:30)
[2023-10-08] MEDS: ATORVASTATIN 40 MG TAB PO SCH (20:32)
[2023-10-08] MEDS: ASPIRIN 81 MG PO SCH (20:32)
[2023-10-08] MEDS: PREGABALIN 75 MG CAP PO SCH (20:32)
[2023-10-08 20:35] LABS: Appearance,Urine Turbid (Clear); Bacteria,Urine Occasional /hpf; Bilirubin,Urine Negative (Negative); Blood,Urine Small (Negative); Budding Yeast,Urine Many /hpf; Color,Urine Colorless; Glucose,Urine (UA) 4+ (Negative); Ketones,Urine Negative (Negative); Leukocyte Esterase,Urine Large (Negative); Mucus,Urine Rare /hpf; Nitrite,Urine Negative (Negative); Protein,Urine Trace (Negative); RBC,Urine 70 /hpf (0-5); Specific Gravity,Urine 1.016 (1.001-1.035); Squamous Epithelial Cell,Urine 1 /hpf (0-4); Urobilinogen,Urine <2.0 mg/dL (<2.0); WBC,Urine >182 /hpf (0-5)
[2023-10-08 21:36] LABS: Glucose,Whole Blood 138 mg/dL (70-110)
[2023-10-09 07:13] LABS: Glucose,Whole Blood 215 mg/dL (70-110)
[2023-10-09 07:31] LABS: African American GFR (CKD) 53 (>60 ml/min/1.73 sqM); Anion Gap 3 mmol/L; Blood Urea Nitrogen 29 mg/dL (7-17); Calcium 8.6 mg/dL (8.4-10.2); Carbon Dioxide 24 mmol/L (22-30); Chloride 108 mmol/L (98-107); Glucose 236 mg/dL (74-99); Non-African American GFR(CKD) 46 (>60 ml/min/1.73 sqM); Potassium 4.4 mmol/L (3.5-5.1); Sodium 135 mmol/L (137-145)
[2023-10-09 07:36] LABS: Basophils % (A) 0 %; Eosinophils # (A) 0.3 k/uL (0-0.7); Eosinophils % (A) 4 %; HCT 35.3 % (34.0-46.0); HGB 11.3 gm/dL (11.4-16.0); Hypochromasia Slight; Lymphocytes # (A) 3.2 k/uL (1.0-4.8); Lymphocytes % (A) 40 %; MCH 28.1 pg (25.0-35.0); MCHC 32.1 g/dL (31.0-37.0); MCV 87.3 fL (80.0-100.0); Mean Platelet Volume 10.6; Monocytes # (A) 0.5 k/uL (0-1.0); Monocytes % (A) 6 %; Neutrophils # (A) 3.9 k/uL (1.3-7.7); Neutrophils % (A) 48 %; Platelet Count 210 k/uL (150-450); RBC 4.04 m/uL (3.80-5.40); RDW 15.3 % (11.5-15.5); WBC 8.2 k/uL (3.8-10.6)
--- NOTE | 2023-10-09 08:47 | P.HPIM ---
History of Present Illness H&P Date: 10/08/23 HISTORY OF PRESENT ILLNESS: 58-year-old morbidly obese with active medical history of type 2 diabetes, hypertension, hyperlipidemia, chronic neuropathy, chronic GERD, depression, incontinence, vitamin D deficiency, chronic pain syndrome. She was hospitalized in June for 2 days with worsening symptoms of headache lightheadedness presyncope like symptoms associated with significant abnormal balance and gait when leaning toward the left side become extremely dizzy and lightheaded was diagnosed with complication related to medication side effect and diabetic autonomic neuropathy. With hydration and change in medication she felt good and was discharged home the following day she was diagnosed with acute sinusitis at the time was fully treated. She presented to the Emergency Department accompanied with her family was concerned about her safety multiple fall 1 last week and 1 yesterday as she walk her legs gave out on her and she has no control of them she has been having worsening of tremor in her mouth and upper extremity much worsening lately than before no associated headache no recent change in medication family have been concerning about Parkinson disease and parkinsonism given from her last discharge she was supposed to see neurology and follow-up with neurology at the time. Her examination lab value shows slight acute kidney injury with creatinine 1.58 bun 31 slightly electrolyte imbalance with abnormal phosphorus normal but high magnesium slightly abnormal liver function test UA was severely positive this time with multiple clumps of WBC and large leukocyte and RBC. Her respiratory panel was negative CBC did not show any abnormality with normal coagulation. Chest x-ray showed no acute pulmonary process CAT scan of the brain without contrast showed no acute intracranial process. REVIEW OF SYSTEMS: CONSTITUTIONAL: Obese no acute respiratory distress EYES: No icterus sclerae, no conjunctivitis. EARS, NOSE, MOUTH, THROAT, and FACE: No sore throat, lymphadenopathy, carotid bruits or deformity. RESPIRATORY: No shortness of breath cough wheezes. CARDIOVASCULAR: No CP, Palpitation, PND, Orthopnea, or angina. GASTROINTESTINAL: No Abd pain, Nausea or vomiting, no Diarrhea or constipation, No GI Bleed, no distention or masses. GENITOURINARY: History of incontinence and positive UA for UTI with mild symptoms. INTEGUMENT/BREAST: Negative for any muscular injury with mild osteoarthritis.. HEMATOLOGIC/LYMPHATIC: Negative for bleed or purpura. Chronic neuropathy. MUSCULOSKELTAL: Mild myalgia or arthralgia. NEURLOGICAL: Self headache, dizziness, slight resting tremor with rigid muscle at the time coordination is a bit off. BEHAVIORAL/PSYCH: Negative. ENDOCRINE: Negative. PHYSICAL EXAMINATION: General Appearance: Alert, cooperative, no distress, appears stated age. Neck HEENT: Supple, no lymphadenopathy, no thyroid enlargement, no carotid bruits. Lungs: Clear to auscultation without crackles or wheezes no rhonchi, no deformity. Chest Wall: Chest wall normal expansion with deep inspiration no tenderness and no deformity was found on exam, no costochondral pain or discomfort. Heart: Regular rate and rhythm, S1, S2 normal, no murmur, rub or gallop. Back: Symmetric, no curvature, ROM normal, no CVA tenderness. Abdomen: Soft, non-tender, bowel sounds active all four quadrants, no masses, no organomegaly. Slight discomfort lower abdominal region area. Extremities: Extremities normal, atraumatic, no cyanosis or edema. Pulses: 2+ and symmetric. Skin: Skin color, texture, tugor normal, no rashes or lesions. Neurologic: Alert oriented x3 cranial nerves II through XII intact, no motor deficit, sensation is normal equal bilaterally, mild tremor. ASSESSMENT AND PLAN: _Altered mental status: Not clear etiology this could be metabolic, could be central nervous system could be worsening parkinsonism or essential tremor. Also carry on multi medication and polypharmacy could be part of the problem at this point. _Metabolic encephalopathy: Most likely caused by the worsening symptoms along with her UTI UA was positive today Was initiated on 1 g of Rocephin. Will follow her lab and watch it carefully. _Urinary tract infection with no sign of sepsis, will continue patient on Rocephin and upon discharge will be on cefuroxime. _Severe and worsening of tremor was supposed to see and finalize her management with neurology not clear whether which she has is more parkinsonism or essential tremor with worsening symptoms with medication. Consult neurology and when discharged she need again to follow-up with neurology as an outpatient. _Type 2 diabetes: Resume her Medication with NovoLog Mix 70/30 40 mg in the morning 20 units in the evening continue Farxiga continue Accu-Chek with sliding scales coverage and apparently was on Ozempic. _Abnormal balance and gait: Could be the effect of her tremor. Due to metabolic encephalopathy patient was going to try to exclude side effect and complication related to medication. _Acute kidney injury: Probably caused by also going for infection and probably dehydration gentle hydration repeat CMP in 24 hours. _Hypertension: Blood pressure has been quite bit low despite being on Zestril and midodrine decrease Zestril to 10 mg and furthermore down to 5 if needed as per her midodrine will be continue only if systolic blood pressure running below 100. _Severe neuropathy: Most likely diabetic continue Lyrica 150 mg twice a day from last admission was claimed to be side effect of Lyrica at the time and dose was decreased from 3 times a day to twice a day patient was supposed to stay under 100 mg twice a day only which probably will help her mental status and her balance and gait. _Hyperlipidemia: Remain on rosuvastatin 20 mg a day continue vacation. _Overflow incontinence: Was on Myrbetriq which will be held for now to be re evaluated specially to reduce any side effect. _Chronic depression and flat affect: Has been on Lexapro along with Wellbutrin XL 150 mg a day. _Chronic pain syndrome: Has been on tramadol and Lyrica will hold tramadol for now to reduce any side effect. _Chronic degenerative disc disease: Again still on baclofen and pain management. _Severe GERD/GI prophylaxis: Continue pantoprazole. _DVT prophylaxis: Knee-high YARED hose and early mobilization. _Debility with multiple falls: Will add physical therapy and Occupational Therapy patient might benefit from going to short-term rehab. CODE STATUS: Full code. Admit patient to the inpatient service for more than 2 night stay Past Medical History Past Medical History: Diabetes Mellitus, Eye Disorder, Hyperlipidemia, Hypertension Additional Past Medical History / Comment(s): 05/04/14 Pt presented to [facility] ER with substernal chest pain that started 24 hhours before coming to ER. She noticed the chest pain when she woke up yesterday. It is a heaviness and is intermittent with variable duration. She also states she had alittle nausea with it. Other HX: Pt had recent (03/30/14)cataract surgery with lens implants bilaterally at [facility]-post op she had low O2 saturations and was told she had a very narrow airway-instead of going home same day, she was in the hospital for a couple days until her saturations improved. She was discharged with home O2 which she wears at 2L/NC at [facility] and was to follow up today for testing for sleep apnea. Pt states she also has diarrhea fairly frequently. 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 2018 - intermittently in hospital for 3 months for fluid on lungs, had fluid removed History of Any Multi-Drug Resistant Organisms: MRSA Date of last positivie culture/infection: 2010 MDRO Source:: legs and breasts. Past Surgical History: Bariatric Surgery, Cholecystectomy, Hysterectomy, Orthopedic Surgery Additional Past Surgical History / Comment(s): Bilateral cataract sx with lens implants, bilateral retinal repair. Cervical rodding for 3 ruptured discs. sleeve gastrectomy 05-08-20 Past Anesthesia/Blood Transfusion Reactions: Postoperative Nausea & Vomiting (PONV) Additional Past Anesthesia/Blood Transfusion Reaction / Comment(s): Pt had cataract and lens implant at [facility] on 03/30/14 and afterwards she desaturated and was hospitalized. She was told she has a very narrow airway. Pt has never recieved blood. Past Psychological History: No Psychological Hx Reported Smoking Status: Former smoker Past Alcohol Use History: None Reported Past Drug Use History: None Reported - Past Family History Father Family Medical History: Cancer, Myocardial Infarction ([place]) Additional Family Medical History / Comment(s): Father had 5 [place]'s and of bone cancer. Mother Family Medical History: Cancer Additional Family Medical History / Comment(s): cervical cancer Medications and Allergies Home Medications Medication Instructions Recorded Confirmed Type Montelukast [Singulair] 10 mg PO DAILY 04/22/17 10/08/23 History Mirabegron [Myrbetriq] 50 mg PO DAILY 11/10/19 10/08/23 History Aspirin EC [Ecotrin Low Dose] 81 mg PO HS 05/15/20 10/08/23 History Empagliflozin [Jardiance] 10 mg PO DAILY 12/05/21 10/08/23 History Ergocalciferol [Vitamin D2 (1250 1,250 mcg PO Q14D 12/05/21 10/08/23 History Mcg = 00236 Iu)] traMADol HCL 50 mg PO Q6H PRN 12/05/21 10/08/23 History Escitalopram [Lexapro] 20 mg PO DAILY 04/17/23 10/08/23 History Insuln Asp Prt/Insulin Aspart 20 unit SQ AC-SUPPER 04/17/23 10/08/23 History [NovoLOG MIX 70-30 VIAL] Insuln Asp Prt/Insulin Aspart 40 unit SQ AC-BRKFST 04/17/23 10/08/23 History [NovoLOG MIX 70-30 VIAL] Omeprazole 40 mg PO DAILY 04/17/23 10/08/23 History Rosuvastatin [Crestor] 20 mg PO HS 04/17/23 10/08/23 History Semaglutide [Ozempic] 1 mg SQ TU 04/17/23 10/08/23 History Loratadine [Claritin] 10 mg PO DAILY #30 tab 07/10/23 10/08/23 Rx Pregabalin [Lyrica] 150 mg PO BID #0 07/10/23 10/08/23 Rx Baclofen [Lioresal] 5 mg PO BID PRN 10/08/23 10/08/23 History HYDROcodone/APAP 5-325MG [[place] 1 tab PO QID PRN 10/08/23 10/08/23 History 5-325] Midodrine HCl [ProAmatine] 10 mg PO DAILY 10/08/23 10/08/23 History buPROPion XL [Wellbutrin XL] 150 mg PO DAILY 10/08/23 10/08/23 History lisinopriL [Zestril] 20 mg PO DAILY 10/08/23 10/08/23 History Allergies Allergy/AdvReac Type Severity Reaction Status Date / Time Sulfa (Sulfonamide Allergy Rash, Verified 10/08/23 18:55 Antibiotics) hives, swelling Physical Exam Vitals: Vital Signs Temp Pulse Pulse Resp BP BP Pulse Ox 10/08/23 21:38 97.9 F 77 16 118/72 98 10/08/23 20:49 97.9 F 73 18 113/64 98 10/08/23 19:57 75 18 104/42 100 10/08/23 17:07 73 16 110/50 99 10/08/23 16:00 97.8 F 68 18 93/43 96 Intake and Output 10/08/23 10/08/23 10/08/23 06:59 14:59 22:59 Other: Weight 108.862 kg Results CBC & Chem 7: 10/08/23 16:40 10/08/23 16:40 Labs: Abnormal Lab Results - Last 24 Hours (Table) 10/08/23 10/08/23 10/08/23 Range/Units 16:40 16:40 21:29 BUN 31 H (7-17) mg/dL Creatinine 1.58 H (0.52-1.04) mg/dL POC Glucose (mg/dL) 138 H (70-110) mg/dL Phosphorus 4.6 H (2.5-4.5) mg/dL Magnesium 2.4 H (1.6-2.3) mg/dL AST 47 H (14-36) U/L Urine Appearance Turbid H (Clear) Urine Protein Trace H (Negative) Urine Glucose (UA) 4+ H (Negative) Urine Blood Small H (Negative) Ur Leukocyte Esterase Large H (Negative) Urine RBC 70 H (0-5) /hpf Urine WBC >182 H (0-5) /hpf Urine WBC Clumps Many H (None) /hpf Urine Bacteria Occasional H (None) /hpf Urine Mucus Rare H (None) /hpf Urine Yeast (Budding) Many H (None) /hpf
[2023-10-09] MEDS: INSULIN ASPART (NovoLOG) 100 UNIT/ML VIAL SQ SCH (08:56)
[2023-10-09] MEDS: INSULN ASP PRT/INSULIN ASPART 100 UNIT/ML 10 ML VIAL SQ SCH ×2 (08:57→17:34)
[2023-10-09] MEDS ORDERED: lisinopriL 20 MG TAB PO SCH (09:00)
[2023-10-09] MEDS ORDERED: NON FORMULARY DRUG (Mirabegron [Myrbetriq] 50 MG Tab.Er.24h) PO SCH (09:00)
[2023-10-09] MEDS: DAPAGLIFLOZIN PROPANEDIOL 5 MG TABLET PO SCH (10:16)
[2023-10-09] MEDS: MONTELUKAST 10 MG TAB PO SCH (10:16)
[2023-10-09] MEDS: LORATADINE 10 MG TAB PO SCH (10:16)
[2023-10-09] MEDS: PANTOPRAZOLE 40 MG TABLET PO SCH (10:17)
[2023-10-09] MEDS: lisinopriL 10 MG TAB PO SCH (10:18)
[2023-10-09] MEDS: ESCITALOPRAM 20 MG TAB PO SCH (10:19)
[2023-10-09] MEDS: buPROPion XL 150 MG TAB.ER.24H PO SCH (10:19)
[2023-10-09] MEDS: MIDODRINE 5 MG TAB PO SCH (10:19)
[2023-10-09 12:03] LABS: Glucose,Whole Blood 82 mg/dL (70-110)
[2023-10-09 13:32] VITALS: RESP 16
--- NOTE | 2023-10-09 14:41 | P.CNNES ---
History of Present Illness Consult date: 10/09/23 Requesting physician: Favian Phillips Reason for Consult: Tremor and AMS History of Present Illness: This is a 58-year-old woman neurology is consulted for tremor. She states that she has been having the tremors of the hands for 1 year and more and she feels it is at rest as well she notices also when she is moving and trying to grab something as well she feels like she is having internal tremors. Patient seems a little bit tangential upon the obtaining the history. She denies any loss of consciousness with these tremors. Denies any urinary or bowel incontinence. Denies any tongue bite. Denies any history of seizures or strokes in the past. She states she is undergoing a divorce process in the last 6-month. Patient does have history of diabetes as well as neuropathy. She states that she is on blood pressure medication that lowers as well as elevates her blood pressure. Denies any focal weakness, any new numbness, any visual disturbance any swallowing difficulty. Some of the workup during this hospital visit consisted of: Patient had episode of hypotensive as low as 80s over 50s once Reviewed the rest of the lab workup Urinalysis seems suggestive of likely urinary tract infection CT of the head is reported as no acute intracranial process. Personally reviewed the CT and I agree with the report. Review of Systems The positive and negative as per HPI. Past Medical History Past Medical History: Diabetes Mellitus, Eye Disorder, Hyperlipidemia, Hypertension Additional Past Medical History / Comment(s): 05/04/14 Pt presented to [facility] ER with substernal chest pain that started 24 hhours before coming to ER. She noticed the chest pain when she woke up yesterday. It is a heaviness and is intermittent with variable duration. She also states she had alittle nausea with it. Other HX: Pt had recent (03/30/14)cataract surgery with lens implants bilaterally at [place]-post op she had low O2 saturations and was told she had a very narrow airway-instead of going home same day, she was in the hospital for a couple days until her saturations improved. She was discharged with home O2 which she wears at 2L/NC at nite and was to follow up today for testing for sleep apnea. Pt states she also has diarrhea fairly frequently. 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 2018 - intermittently in hospital for 3 months for fluid on lungs, had fluid removed History of Any Multi-Drug Resistant Organisms: MRSA Date of last positivie culture/infection: 2010 MDRO Source:: legs and breasts. Past Surgical History: Bariatric Surgery, Cholecystectomy, Hysterectomy, Orthopedic Surgery Additional Past Surgical History / Comment(s): Bilateral cataract sx with lens implants, bilateral retinal repair. Cervical rodding for 3 ruptured discs. sleeve gastrectomy 05-08-20 Past Anesthesia/Blood Transfusion Reactions: Postoperative Nausea & Vomiting (PONV) Additional Past Anesthesia/Blood Transfusion Reaction / Comment(s): Pt had cataract and lens implant at [facility] on 03/30/14 and afterwards she desaturated and was hospitalized. She was told she has a very narrow airway. Pt has never recieved blood. Past Psychological History: No Psychological Hx Reported Smoking Status: Former smoker Past Alcohol Use History: None Reported Past Drug Use History: None Reported - Past Family History Father Family Medical History: Cancer, Myocardial Infarction ([place]) Additional Family Medical History / Comment(s): Father had 5 [place]'s and of bone cancer. Mother Family Medical History: Cancer Additional Family Medical History / Comment(s): cervical cancer Medications and Allergies Home Medications Medication Instructions Recorded Confirmed Type Montelukast [Singulair] 10 mg PO DAILY 04/22/17 10/08/23 History Mirabegron [Myrbetriq] 50 mg PO DAILY 11/10/19 10/08/23 History Aspirin EC [Ecotrin Low Dose] 81 mg PO HS 05/15/20 10/08/23 History Empagliflozin [Jardiance] 10 mg PO DAILY 12/05/21 10/08/23 History Ergocalciferol [Vitamin D2 (1250 1,250 mcg PO Q14D 12/05/21 10/08/23 History Mcg = 91724 Iu)] traMADol HCL 50 mg PO Q6H PRN 12/05/21 10/08/23 History Escitalopram [Lexapro] 20 mg PO DAILY 04/17/23 10/08/23 History Insuln Asp Prt/Insulin Aspart 20 unit SQ AC-SUPPER 04/17/23 10/08/23 History [NovoLOG MIX 70-30 VIAL] Insuln Asp Prt/Insulin Aspart 40 unit SQ AC-BRKFST 04/17/23 10/08/23 History [NovoLOG MIX 70-30 VIAL] Omeprazole 40 mg PO DAILY 04/17/23 10/08/23 History Rosuvastatin [Crestor] 20 mg PO HS 04/17/23 10/08/23 History Semaglutide [Ozempic] 1 mg SQ TU 04/17/23 10/08/23 History Loratadine [Claritin] 10 mg PO DAILY #30 tab 07/10/23 10/08/23 Rx Pregabalin [Lyrica] 150 mg PO BID #0 07/10/23 10/08/23 Rx Baclofen [Lioresal] 5 mg PO BID PRN 10/08/23 10/08/23 History HYDROcodone/APAP 5-325MG [[place] 1 tab PO QID PRN 10/08/23 10/08/23 History 5-325] Midodrine HCl [ProAmatine] 10 mg PO DAILY 10/08/23 10/08/23 History buPROPion XL [Wellbutrin XL] 150 mg PO DAILY 10/08/23 10/08/23 History lisinopriL [Zestril] 20 mg PO DAILY 10/08/23 10/08/23 History Allergies Allergy/AdvReac Type Severity Reaction Status Date / Time Sulfa (Sulfonamide Allergy Rash, Verified 10/08/23 18:55 Antibiotics) hives, swelling Physical Examination - Vital Signs Vital Signs: Vital Signs Temp Pulse Pulse Resp BP BP BP 10/09/23 13:25 98.2 F 74 16 104/65 10/09/23 10:29 100/60 10/09/23 10:18 84/52 10/09/23 07:40 98.1 F 79 10/09/23 07:14 97.9 F 78 18 10/09/23 01:43 98.3 F 76 16 120/76 10/08/23 21:38 97.9 F 77 16 118/72 10/08/23 20:49 97.9 F 73 18 113/64 10/08/23 19:57 75 18 104/42 10/08/23 17:07 73 16 110/50 10/08/23 16:00 97.8 F 68 18 93/43 BP Pulse Ox 10/09/23 13:25 100 10/09/23 10:29 10/09/23 10:18 10/09/23 07:40 106/70 95 10/09/23 07:14 134/72 99 10/09/23 01:43 97 10/08/23 21:38 98 10/08/23 20:49 98 10/08/23 19:57 100 10/08/23 17:07 99 10/08/23 16:00 96 Intake and Output 10/08/23 10/09/23 10/09/23 22:59 06:59 14:59 Intake Total 590 Balance 590 Intake: Oral 590 Other: # Voids 2 1 # Bowel Movements 1 Weight 108.862 kg GENERAL: The patient is lying in bed and is not in acute distress. NEUROLOGICAL: Higher mental function: The patient is awake, alert, oriented to self, place and time. Patient is following commands. No aphasia and no neglect. Cranial nerves: The pupils are round, equal and reactive to light and accommodation. Visual ocasio are full to confrontation throughout. Extraocular movement is intact no nystagmus is noted. Facial sensation is normal to touch throughout. The facial strength is normal throughout. Hearing is normal bilaterally to hand rub. Tongue is midline and moved [id number] without any difficulty. No dysarthria is noted. Shoulder shrug is normal bilaterally. Motor: Gait is normal. The strength is 5 over 5 throughout. Normal tone and bulk. Her tremor of bilateral upper extremity was exacerbated when I asked her about tremor but improved when I change topic. She has resting tremor and with action but again but limited since when patient was asked about tremor it got worse but when distracted it resolved. Cerebellum: Normal finger to nose heel to chin bilaterally. Sensation: Sensation is normal to touch throughout. Reflexes (right/left): 2+ in uppers while lowers are 1+. Plantars are mute bilaterally. Results - Laboratory Findings CBC and BMP: 10/09/23 05:40 10/09/23 05:40 Abnormal Lab Findings: Abnormal Labs 10/08/23 10/08/23 10/08/23 16:40 16:40 21:29 Hgb Sodium Chloride BUN 31 H Creatinine 1.58 H Glucose POC Glucose (mg/dL) 138 H Phosphorus 4.6 H Magnesium 2.4 H AST 47 H Urine Appearance Turbid H Urine Protein Trace H Urine Glucose (UA) 4+ H Urine Blood Small H Ur Leukocyte Esterase Large H Urine RBC 70 H Urine WBC >182 H Urine WBC Clumps Many H Urine Bacteria Occasional H Urine Mucus Rare H Urine Yeast (Budding) Many H 10/09/23 10/09/23 10/09/23 05:40 05:40 07:12 Hgb 11.3 L Sodium 135 L Chloride 108 H BUN 29 H Creatinine 1.29 H Glucose 236 H POC Glucose (mg/dL) 215 H Phosphorus Magnesium AST Urine Appearance Urine Protein Urine Glucose (UA) Urine Blood Ur Leukocyte Esterase Urine RBC Urine WBC Urine WBC Clumps Urine Bacteria Urine Mucus Urine Yeast (Budding) Assessment and Plan Assessment: This is a 58-year-old woman with history of diabetes, neuropathy, hypertension who has episodes of hypertension as well as hypotension who states is having tremor bilateral upper extremity with rest and with action for the last at least 1 year or more. She states she is in the middle of a divorce process in the last 6 months. On examination her tremor was limited since 1 addressing the tremor the symptoms got worse but when distracted tremor resolved. Tremor and unsure if it is exacerbated because of her acute stress situation and medical condition. She denies losing consciousness, urinary or bowel incontinence and this does not seem like a seizure. Unsure if she has some component of essential tremor. The head is unremarkable. Likely acute urinary tract infection Hypotensive episode Diabetes Diabetic neuropathy History of hypertension Plan: I ordered TSH I highly recommend the patient to follow-up with a neurologist as an outpatient for her tremor since she has been having symptoms for a year or more and I feel it is exacerbated with stress Please avoid hypotensive episode. Otherwise will defer the rest of the medical management to primary and other special Plan discussed with the patient and her nurse. If TSH is normal then there is no further neurological workup. Time with Patient: Greater than 30
[2023-10-09 17:04] LABS: Glucose,Whole Blood 96 mg/dL (70-110)
[2023-10-09 20:15] LABS: Glucose,Whole Blood 67 mg/dL (70-110)
[2023-10-09 20:29] LABS: Glucose,Whole Blood 74 mg/dL (70-110)
[2023-10-09 21:21] LABS: Glucose,Whole Blood 120 mg/dL (70-110)
[2023-10-10 07:13] LABS: Glucose,Whole Blood 98 mg/dL (70-110)
[2023-10-10 08:03] VITALS: BP 108/66; PULSE 73; TEMP 98.2
--- NOTE | 2023-10-10 10:06 | P.PN ---
Subjective Progress Note Date: 10/09/23 HISTORY OF PRESENT ILLNESS: 58-year-old morbidly obese with active medical history of type 2 diabetes, hypertension, hyperlipidemia, chronic neuropathy, chronic GERD, depression, inc ontinence, vitamin D deficiency, chronic pain syndrome. She was hospitalized in June for 2 days with worsening symptoms of headache lightheadedness presyncope like symptoms associated with significant abnormal balance and gait when leaning toward the left side become extremely dizzy and lightheaded was diagnosed with complication related to medication side effect and diabetic autonomic neuropathy. With hydration and change in medication she felt good and was discharged home the following day she was diagnosed with acute sinusitis at the time was fully treated. She presented to the Emergency Department accompanied with her family was concerned about her safety multiple fall 1 last week and 1 yesterday as she walk her legs gave out on her and she has no control of them she has been having worsening of tremor in her mouth and upper extremity much worsening lately than before no associated headache no recent change in medication family have been concerning about Parkinson disease and parkinsonism given from her last discharge she was supposed to see neurology and follow-up with neurology at the time. Her examination lab value shows slight acute kidney injury with creatinine 1.58 bun 31 slightly electrolyte imbalance with abnormal phosphorus normal but high magnesium slightly abnormal liver function test UA was severely positive this time with multiple clumps of WBC and large leukocyte and RBC. Her respiratory panel was negative CBC did not show any abnormality with normal coagulation. Chest x-ray showed no acute pulmonary process CAT scan of the brain without contrast showed no acute intracranial process. October 09, 2023: Patient is doing much better and that seen neurology who address the tremor and believe the minute she is distracted the tremor is resolved this is not a sign of parkinsonism or Parkinson disease for the most can be situational tremor aggravated by stress also can be essential tremor. She has urinary tract infection which can be contributing factor to the severe weakness and abnormal balance with fall order TSH came back normal and the matter of managing her hypo-/hypertension we will make an adjustment of her midodrine and significantly reduce her lisinopril down further to 5 mg a day and prepare for helping and not to have any hypotension might be causing symptoms of lightheadedness or dizziness. In the meanwhile wait for physical therapy to help patient to ambulate walk and decide afterward whether we have a problem require further help or not. The patient will remain in the hospital till tomorrow we will continue physical therapy keep working on her hypertension if she is stable tomorrow we will switch her medical management of UTI to oral and send her home. REVIEW OF SYSTEMS: CONSTITUTIONAL: Obese no acute respiratory distress EYES: No icterus sclerae, no conjunctivitis. EARS, NOSE, MOUTH, THROAT, and FACE: No sore throat, lymphadenopathy, carotid bruits or deformity. RESPIRATORY: No shortness of breath cough wheezes. CARDIOVASCULAR: No CP, Palpitation, PND, Orthopnea, or angina. GASTROINTESTINAL: No Abd pain, Nausea or vomiting, no Diarrhea or constipation, No GI Bleed, no distention or masses. GENITOURINARY: History of incontinence and positive UA for UTI with mild symptoms. INTEGUMENT/BREAST: Negative for any muscular injury with mild osteoarthritis.. HEMATOLOGIC/LYMPHATIC: Negative for bleed or purpura. Chronic neuropathy. MUSCULOSKELTAL: Mild myalgia or arthralgia. NEURLOGICAL: Self headache, dizziness, slight resting tremor with rigid muscle at the time coordination is a bit off. BEHAVIORAL/PSYCH: Negative. ENDOCRINE: Negative. PHYSICAL EXAMINATION: General Appearance: Alert, cooperative, no distress, appears stated age. Neck HEENT: Supple, no lymphadenopathy, no thyroid enlargement, no carotid bruits. Lungs: Clear to auscultation without crackles or wheezes no rhonchi, no deformity. Chest Wall: Chest wall normal expansion with deep inspiration no tenderness and no deformity was found on exam, no costochondral pain or discomfort. Heart: Regular rate and rhythm, S1, S2 normal, no murmur, rub or gallop. Back: Symmetric, no curvature, ROM normal, no CVA tenderness. Abdomen: Soft, non-tender, bowel sounds active all four quadrants, no masses, no organomegaly. Slight discomfort lower abdominal region area. Extremities: Extremities normal, atraumatic, no cyanosis or edema. Pulses: 2+ and symmetric. Skin: Skin color, texture, tugor normal, no rashes or lesions. Neurologic: Alert oriented x3 cranial nerves II through XII intact, no motor deficit, sensation is normal equal bilaterally, mild tremor. ASSESSMENT AND PLAN: _Altered mental status: Much better so far more clear than yesterday still looking into tremor as a possibility of parkinsonism versus essential tremor out circumstances coarse tremor versus medication medication side effect. She is doing better so far continue to follow instruction with neuro. _Metabolic encephalopathy: Again this is combination of UTI along with medication side effect continue current management for now hoping this is beverly clear her metabolic encephalopathy and bring her memory function back to his normal. _Urinary tract infection with no sign of sepsis, will continue patient on Rocephin and upon discharge will be on cefuroxime. _worsening tremor: Again is not sign of parkinsonism it can be essential tremor no acute treatment or management required for now we will continue conservative management keep watching her symptoms and seems like patient is stressed out quite a bit we will continue antidepression anxiety and with her primary care and probably outpatient neuro management can help to manage her tremor on the long run. _Debility with multiple falls: Continue physical therapy seen the patient has done well so far. _Abnormal balance and gait: Combination of medication, side effect, UTI and the effect of her, treat underlying disease hopefully her balance will be much bett er. Should be little bit more conservative with her pregabalin which can be probably cause more side effects. _Type 2 diabetes: Resume her Medication with NovoLog Mix 70/30 40 mg in the mo rning 20 units in the evening continue Farxiga continue Accu-Chek with sliding scales coverage and apparently was on Ozempic. _Acute kidney injury: Kidney function is back to normal. _Hypertension: Blood pressure has been quite bit low despite being on Zestril and midodrine decrease Zestril to 10 mg and furthermore down to 5 if needed as per her midodrine will be continue only if systolic blood pressure running below 100. _Severe neuropathy: Most likely diabetic continue Lyrica 150 mg twice a day from last admission was claimed to be side effect of Lyrica at the time and dose was decreased from 3 times a day to twice a day patient was supposed to stay under 100 mg twice a day only which probably will help her mental status and her balance and gait. _Hyperlipidemia: Remain on rosuvastatin 20 mg a day continue vacation. _Overflow incontinence: Was on Myrbetriq which will be held for now to be reevaluated specially to reduce any side effect. _Chronic depression and flat affect: Has been on Lexapro along with Wellbutrin XL 150 mg a day. _Chronic pain syndrome: Has been on tramadol and Lyrica will hold tramadol for now to reduce any side effect. _Chronic degenerative disc disease: Again still on baclofen and pain management. _Severe GERD/GI prophylaxis: Continue pantoprazole. Discussion: Patient seen neuro service no further testing required at this point, continue physical therapy and continue to treat her UTI to clear her metabolic encephalopathy if she is doing well by tomorrow should be able to send her home with slight endplate help and a quick follow-up appointment as an outpatient. Objective - Vital Signs Vital signs: Vital Signs Temp 98.3 F 10/09/23 01:43 Pulse 76 10/09/23 01:43 Resp 16 10/09/23 01:43 BP 120/76 10/09/23 01:43 Pulse Ox 97 10/09/23 01:43 FiO2 Intake & Output 10/08/23 10/08/23 10/09/23 06:59 18:59 06:59 Intake Total 590 Balance 590 Weight 108.862 kg 108.862 kg Intake: Oral 590 Other: # Voids 2 # Bowel Movements 1 - Labs CBC & Chem 7: 10/09/23 05:40 10/09/23 05:40 Labs: Abnormal Lab Results - Last 24 Hours (Table) 10/08/23 10/08/23 10/08/23 Range/Units 16:40 16:40 21:29 BUN 31 H (7-17) mg/dL Creatinine 1.58 H (0.52-1.04) mg/dL POC Glucose (mg/dL) 138 H (70-110) mg/dL Phosphorus 4.6 H (2.5-4.5) mg/dL Magnesium 2.4 H (1.6-2.3) mg/dL AST 47 H (14-36) U/L Urine Appearance Turbid H (Clear) Urine Protein Trace H (Negative) Urine Glucose (UA) 4+ H (Negative) Urine Blood Small H (Negative) Ur Leukocyte Esterase Large H (Negative) Urine RBC 70 H (0-5) /hpf Urine WBC >182 H (0-5) /hpf Urine WBC Clumps Many H (None) /hpf Urine Bacteria Occasional H (None) /hpf Urine Mucus Rare H (None) /hpf Urine Yeast (Budding) Many H (None) /hpf
--- NOTE | 2023-10-10 10:12 | P.DS ---
Providers Date of admission: 10/08/23 20:08 Attending physician: Favian Phillips Consults: 10/08/23 22:45 Consult Physician Routine Consulting Provider: Brock Vieira Consult Reason/Comments: Tremor and Altered MS Do you want consulting provider notified?: Yes, Notify in am Primary care physician: Kizzy [facility] Course: HISTORY OF PRESENT ILLNESS: 58-year-old morbidly obese with active medical history of type 2 diabetes, hypertension, hyperlipidemia, chronic neuropathy, chronic GERD, depression, incontinence, vitamin D deficiency, chronic pain syndrome. She was hospitalized in June for 2 days with worsening symptoms of headache lightheadedness presyncope like symptoms associated with significant abnormal balance and gait when leaning toward the left side become extremely dizzy and lightheaded was diagnosed with complication related to medication side effect and diabetic autonomic neuropathy. With hydration and change in medication she felt good and was discharged home the following day she was diagnosed with acute sinusitis at the time was fully treated. She presented to the Emergency Department accompanied with her family was concerned about her safety multiple fall 1 last week and 1 yesterday as she walk her legs gave out on her and she has no control of them she has been having worsening of tremor in her mouth and upper extremity much worsening lately than before no associated headache no recent change in medication family have been concerning about Parkinson disease and parkinsonism given from her last discharge she was supposed to see neurology and follow-up with neurology at the time. Her examination lab value shows slight acute kidney injury with creatinine 1.58 bun 31 slightly electrolyte imbalance with abnormal phosphorus normal but high magnesium slightly abnormal liver function test UA was severely positive this time with multiple clumps of WBC and large leukocyte and RBC. Her respiratory panel was negative CBC did not show any abnormality with normal coagulation. Chest x-ray showed no acute pulmonary process CAT scan of the brain without contrast showed no acute intracranial process. October 09, 2023: Patient is doing much better and that seen neurology who address the tremor and believe the minute she is distracted the tremor is resolved this is not a sign of parkinsonism or Parkinson disease for the most can be situational tremor aggravated by stress also can be essential tremor. She has urinary tract infection which can be contributing factor to the severe weakness and abnormal balance with fall order TSH came back normal and the matter of managing her hypo-/hypertension we will make an adjustment of her midodrine and significantly reduce her lisinopril down further to 5 mg a day and prepare for helping and not to have any hypotension might be causing symptoms of lightheadedness or dizziness. In the meanwhile wait for physical therapy to help patient to ambulate walk and decide afterward whether we have a problem require further help or not. The patient will remain in the hospital till tomorrow we will continue physical therapy keep working on her hypertension if she is stable tomorrow we will switch her medical management of UTI to oral and send her home. 10/10/2023: Patient is feeling much better she is ambulate and walk on her own no further fall, her metabolic encephalopathy is much better, memory has improved significantly and her blood pressure has been better with the combination of changing her lisinopril and midodrine. Continue current management for UTI to improve her infection ambulate and walk him patient is asking to go home today, was evaluated and seen by physical therapy and Occupational Therapy and she is safe at this point for discharge. REVIEW OF SYSTEMS: CONSTITUTIONAL: Obese no acute respiratory distress EYES: No icterus sclerae, no conjunctivitis. EARS, NOSE, MOUTH, THROAT, and FACE: No sore throat, lymphadenopathy, carotid bruits or deformity. RESPIRATORY: No shortness of breath cough wheezes. CARDIOVASCULAR: No CP, Palpitation, PND, Orthopnea, or angina. GASTROINTESTINAL: No Abd pain, Nausea or vomiting, no Diarrhea or constipation, No GI Bleed, no distention or masses. GENITOURINARY: History of incontinence and positive UA for UTI with mild symptoms. INTEGUMENT/BREAST: Negative for any muscular injury with mild osteoarthritis.. HEMATOLOGIC/LYMPHATIC: Negative for bleed or purpura. Chronic neuropathy. MUSCULOSKELTAL: Mild myalgia or arthralgia. NEURLOGICAL: Self headache, dizziness, slight resting tremor with rigid muscle at the time coordination is a bit off. BEHAVIORAL/PSYCH: Negative. ENDOCRINE: Negative. PHYSICAL EXAMINATION: General Appearance: Alert, cooperative, no distress, appears stated age. Neck HEENT: Supple, no lymphadenopathy, no thyroid enlargement, no carotid bruits. Lungs: Clear to auscultation without crackles or wheezes no rhonchi, no deformity. Chest Wall: Chest wall normal expansion with deep inspiration no tenderness and no deformity was found on exam, no costochondral pain or discomfort. Heart: Regular rate and rhythm, S1, S2 normal, no murmur, rub or gallop. Back: Symmetric, no curvature, ROM normal, no CVA tenderness. Abdomen: Soft, non-tender, bowel sounds active all four quadrants, no masses, no organomegaly. Slight discomfort lower abdominal region area. Extremities: Extremities normal, atraumatic, no cyanosis or edema. Pulses: 2+ and symmetric. Skin: Skin color, texture, tugor normal, no rashes or lesions. Neurologic: Alert oriented x3 cranial nerves II through XII intact, no motor deficit, sensation is normal equal bilaterally, mild tremor. ASSESSMENT AND PLAN: _Altered mental status: Much better so far more clear than yesterday still looking into tremor as a possibility of parkinsonism versus essential tremor out circumstances coarse tremor versus medication medication side effect. She is doing better so far continue to follow instruction with neuro. _Metabolic encephalopathy: Again this is combination of UTI along with medication side effect continue current management for now hoping this is beverly clear her metabolic encephalopathy and bring her memory function back to his normal. _Urinary tract infection with no sign of sepsis, will continue patient on Rocephin and upon discharge will be on cefuroxime. _worsening tremor: Again is not sign of parkinsonism it can be essential tremor no acute treatment or management required for now we will continue conservative management keep watching her symptoms and seems like patient is stressed out quite a bit we will continue antidepression anxiety and with her primary care and probably outpatient neuro management can help to manage her tremor on the long run. _Debility with multiple falls: Continue physical therapy seen the patient has done well so far. _Abnormal balance and gait: Combination of medication, side effect, UTI and the effect of her, treat underlying disease hopefully her balance will be much better. Should be little bit more conservative with her pregabalin which can be probably cause more side effects. _Type 2 diabetes: Resume her Medication with NovoLog Mix 70/30 40 mg in the morning 20 units in the evening continue Farxiga continue Accu-Chek with sliding scales coverage and apparently was on Ozempic. _Acute kidney injury: Kidney function is back to normal. _Hypertension: Blood pressure has been quite bit low despite being on Zestril and midodrine decrease Zestril to 10 mg and furthermore down to 5 if needed as per her midodrine will be continue only if systolic blood pressure running below 100. _Severe neuropathy: Most likely diabetic continue Lyrica 150 mg twice a day from last admission was claimed to be side effect of Lyrica at the time and dose was decreased from 3 times a day to twice a day patient was supposed to stay under 100 mg twice a day only which probably will help her mental status and her balance and gait. _Hyperlipidemia: Remain on rosuvastatin 20 mg a day continue vacation. _Overflow incontinence: Was on Myrbetriq which will be held for now to be reevaluated specially to reduce any side effect. _Chronic depression and flat affect: Has been on Lexapro along with Wellbutrin XL 150 mg a day. _Chronic pain syndrome: Has been on tramadol and Lyrica will hold tramadol for now to reduce any side effect. _Chronic degenerative disc disease: Again still on baclofen and pain management. _Severe GERD/GI prophylaxis: Continue pantoprazole. Discussion: Patient is doing very well will be stable to be discharged home today to follow-up as an outpatient by her primary care and make an arrangement to see neurology as an outpatient for her tremor. Hospital course: Patient admitted to the hospital on October 08, 2023 for severe episode of altered mental status with confusion severe lightheadedness and dizziness with severe abnormal balance gait and tremor, finding consistent with overmedicated with hypo-/hypertension management also overmedicated with neuropathy management. Also patient found to have UTI which ended up being claim for metabolic encephalopathy causing some of her problem. Patient also found to have acute kidney injury with creatinine at 1.58 on admission with better hydration and management improved and creatinine dropped down to 1.29 continue hydration. Her urine culture is still pending currently but she has done very well with Rocephin which will be continue as an outpatient treatment with cefuroxime for the next 5 days. Patient was seen and evaluated by physical therapy and has done very well able to ambulate and walk safely. Also patient found to have quite a bit of problem with hypo-/hypertension with the medication she is doing midodrine and lisinopril most of her lisinopril is done for diabetic nephropathy which the dose will be decreased to 5 mg from 20 mg and midodrine will be changed to 5 mg twice a day to keep her blood pressure on the softer side around 1 10-1 20 not to have it too high or too low. For the purpose nurse outreach case manager has provided patient with help to get blood pressure monitor at home for further help to manage her medical problem as well. The patient is stable for discharge home today she is beverly follow-up with her primary care shortly this time also for follow-up with neurology service as an outpatient for further management of her tremor and gait. Time spent on patient discharge was over 35 minutes. Patient Condition at Discharge: Stable Plan - Discharge Summary Discharge Rx Participant: No New Discharge Prescriptions: New Midodrine [ProAmatine] 5 mg PO BID-W/MEALS #60 tab lisinopriL [Zestril] 5 mg PO DAILY #30 tab Cefuroxime [Ceftin] 250 mg PO BID 5 Days #10 tab Continue Montelukast [Singulair] 10 mg PO DAILY Mirabegron [Myrbetriq] 50 mg PO DAILY Aspirin EC [Ecotrin Low Dose] 81 mg PO HS Empagliflozin [Jardiance] 10 mg PO DAILY Semaglutide [Ozempic] 1 mg SQ TU Omeprazole 40 mg PO DAILY Escitalopram [Lexapro] 20 mg PO DAILY Loratadine [Claritin] 10 mg PO DAILY #30 tab Pregabalin [Lyrica] 150 mg PO BID #0 HYDROcodone/APAP 5-325MG [[place] 5-325] 1 tab PO QID PRN PRN Reason: Pain buPROPion XL [Wellbutrin XL] 150 mg PO DAILY Ergocalciferol [Vitamin D2 (1250 Mcg = 96560 Iu)] 1,250 mcg PO Q14D Rosuvastatin [Crestor] 20 mg PO HS Insuln Asp Prt/Insulin Aspart [NovoLOG MIX 70-30 VIAL] 40 unit SQ AC-BRKFST Insuln Asp Prt/Insulin Aspart [NovoLOG MIX 70-30 VIAL] 20 unit SQ AC-SUPPER Baclofen [Lioresal] 5 mg PO BID PRN PRN Reason: Muscle Spasm Discontinued traMADol HCL 50 mg PO Q6H PRN PRN Reason: Pain lisinopriL [Zestril] 20 mg PO DAILY Midodrine HCl [ProAmatine] 10 mg PO DAILY Discharge Medication List Montelukast [Singulair] 10 mg PO DAILY 04/22/17 [History] Mirabegron [Myrbetriq] 50 mg PO DAILY 11/10/19 [History] Aspirin EC [Ecotrin Low Dose] 81 mg PO HS 05/15/20 [History] Empagliflozin [Jardiance] 10 mg PO DAILY 12/05/21 [History] Ergocalciferol [Vitamin D2 (1250 Mcg = 36367 Iu)] 1,250 mcg PO Q14D 12/05/21 [History] Escitalopram [Lexapro] 20 mg PO DAILY 04/17/23 [History] Insuln Asp Prt/Insulin Aspart [NovoLOG MIX 70-30 VIAL] 20 unit SQ AC-SUPPER 04/17/23 [History] Insuln Asp Prt/Insulin Aspart [NovoLOG MIX 70-30 VIAL] 40 unit SQ AC-BRKFST 04/17/23 [History] Omeprazole 40 mg PO DAILY 04/17/23 [History] Rosuvastatin [Crestor] 20 mg PO HS 04/17/23 [History] Semaglutide [Ozempic] 1 mg SQ TU 04/17/23 [History] Loratadine [Claritin] 10 mg PO DAILY #30 tab 07/10/23 [Rx] Pregabalin [Lyrica] 150 mg PO BID #0 07/10/23 [Rx] Baclofen [Lioresal] 5 mg PO BID PRN 10/08/23 [History] HYDROcodone/APAP 5-325MG [[place] 5-325] 1 tab PO QID PRN 10/08/23 [History] buPROPion XL [Wellbutrin XL] 150 mg PO DAILY 10/08/23 [History] Cefuroxime [Ceftin] 250 mg PO BID 5 Days #10 tab 10/10/23 [Rx] Midodrine [ProAmatine] 5 mg PO BID-W/MEALS #60 tab 10/10/23 [Rx] lisinopriL [Zestril] 5 mg PO DAILY #30 tab 10/10/23 [Rx] Follow up Appointment(s)/Referral(s): Kizzy Monahan MD [Primary Care Provider] - 1-2 days Lidia Mendez MD [REFERRING] - 1 Week Discharge Disposition: HOME SELF-CARE
[2023-10-10 12:12] LABS: Glucose,Whole Blood 191 mg/dL (70-110)
--- NOTE | 2023-10-10 13:25 | P.PN ---
Subjective Progress Note Date: 10/10/23 I am following-up with patient and she feels her tremors are drastically better today. Objective - Vital Signs Vital signs: Vital Signs Temp 98.2 F 10/10/23 07:09 Pulse 73 10/10/23 07:09 Resp 16 10/10/23 07:09 BP 108/66 10/10/23 07:09 Pulse Ox 96 10/10/23 07:09 FiO2 Intake & Output 10/09/23 10/10/23 10/10/23 18:59 06:59 18:59 Intake Total 950 590 Balance 950 590 Intake: Intake, IV Titration 950 Amount Sodium Chloride 0.9% 1, 900 000 ml @ 75 mls/hr IV . [id number] DENNISE Rx#:[id number] cefTRIAXone 1 gm In 50 Sodium Chloride 0.9% 50 ml @ 100 mls/hr IVPB Q24HR DENNISE Rx#:[id number] Oral 590 Other: # Voids 1 2 - Exam GENERAL: The patient is lying in bed and is not in acute distress. NEUROLOGICAL: Higher mental function: The patient is awake, alert, oriented to self, place and time. Patient is following commands. No aphasia and no neglect. Cranial nerves: The pupils are round, equal and reactive to light and accommodation. Visual ocasio are full to confrontation throughout. Extraocular movement is intact no nystagmus is noted. Facial sensation is normal to touch throughout. The facial strength is normal throughout. Hearing is normal bilaterally to hand rub. Tongue is midline and moved [id number] without any difficulty. No dysarthria is noted. Shoulder shrug is normal bilaterally. Motor: Gait is normal. The strength is 5 over 5 throughout. Normal tone and bulk. No tremors today at rest or with movement. Cerebellum: Normal finger to nose heel to chin bilaterally. Sensation: Sensation is normal to touch throughout. Reflexes (right/left): 2+ in uppers while lowers are 1+. Plantars are mute bilaterally. Some of the workup during this hospital visit consisted of: Patient had episode of hypotensive as low as 80s over 50s once Reviewed the rest of the lab workup Urinalysis seems suggestive of likely urinary tract infection TSH: 1.020 CT of the head is reported as no acute intracranial process. Personally reviewed the CT and I agree with the report. - Labs CBC & Chem 7: 10/09/23 05:40 10/09/23 05:40 Labs: Abnormal Lab Results - Last 24 Hours (Table) 10/09/23 10/09/23 10/10/23 Range/Units 20:14 21:19 12:11 POC Glucose (mg/dL) 67 L 120 H 191 H (70-110) mg/dL Assessment and Plan Assessment: This is a 58-year-old woman with history of diabetes, neuropathy, hypertension who has episodes of hypertension as well as hypotension who states is having tremor bilateral upper extremity with rest and with action for the last at least 1 year or more. She states she is in the middle of a divorce process in the last 6 months. On examination her tremor was limited since 1 addressing the tremor the symptoms got worse but when distracted tremor resolved. Tremor and seems exacerbated because of her acute stress situation and medical condition. She denies losing consciousness, urinary or bowel incontinence and t his does not seem like a seizure. Tremor is drastically better and has resolved. I feel there is some functional component in addition. Likely acute urinary tract infection Hypotensive episode Diabetes Diabetic neuropathy History of hypertension Plan: I highly recommend the patient to follow-up with a neurologist as an outpatient for her tremor since she has been having symptoms for a year or more and I feel it is exacerbated with stress Please avoid hypotensive episode. Recommend following-up with a psychiatrist as outpatient Otherwise will defer the rest of the medical management to primary and other special There is no additional neurological work-up. Will sign off. Please reconsult if needed. Time with Patient: Less than 30
== END 2023-10-10 13:55 | disposition home or self-care (01) ==
LOC: EC 15:56 → 5NMEDONC 20:08
PROVIDERS: ADMIT Internal Medicine Geriatric Medicine; ATTEND Internal Medicine Geriatric Medicine
DX: G93.41 Metabolic encephalopathy (principal); I10 Essential (primary) hypertension; E11.40 Type 2 diabetes mellitus with diabetic neuropathy, unspecified; E11.21 Type 2 diabetes mellitus with diabetic nephropathy; E66.01 Morbid (severe) obesity due to excess calories; E78.5 Hyperlipidemia, unspecified; F32.A Depression, unspecified; F41.9 Anxiety disorder, unspecified; G25.0 Essential tremor; G89.4 Chronic pain syndrome; J01.90 Acute sinusitis, unspecified; N17.9 Acute kidney failure, unspecified; N39.0 Urinary tract infection, site not specified; N39.490 Overflow incontinence; Z96.1 Presence of intraocular lens; Z90.710 Acquired absence of both cervix and uterus; Z87.891 Personal history of nicotine dependence; Z86.2 Personal history of diseases of the blood and blood-forming organs and certain disorders involving the immune mechanism; Z82.49 Family history of ischemic heart disease and other diseases of the circulatory system; Z80.49 Family history of malignant neoplasm of other genital organs; Z79.899 Other long term (current) drug therapy; Z79.84 Long term (current) use of oral hypoglycemic drugs; Z79.4 Long term (current) use of insulin; K21.9 Gastro-esophageal reflux disease without esophagitis; E55.9 Vitamin D deficiency, unspecified; R29.6 Repeated falls
CPT/HCPCS: 36415; 93005; 97162; 80053; 80048; 84443; 83605; 83735; 84100; 84484; 85025 ×2; 85610; 85730; 81001; 87324; 87636; 71046; 70450; G0378 ×3; J0696 ×2; 96360; 96361; 99285

== ENCOUNTER 2023-10-30 15:27 | Emergency (ER) | payer MEDICARE, OTHER ==
[2023-10-30] MEDS ORDERED: KETOROLAC 15 MG/ML 1 ML VIAL ONE (16:27)
--- NOTE | 2023-11-25 13:09 | XR ---
synapse default - Radiology Report Patient: Abhijeet June, Ordering Physician: Unknown, Unknown ID: [id number] Phone, Pager: Phone: N/A Pager: N/A : 1965 Age/Gender: 58Y, F Primary Location: N/A Procedure: XR hand complete LT Study Date: 10/30/2023 5:02:08 PM Order #: N/A Report Status: Unknown EXAMINATION TYPE: XR hand left and left wrist DATE OF EXAM: 10/30/2023 CLINICAL HISTORY: pain TECHNIQUE: Frontal, lateral and oblique images of the left hand and left wrist are obtained. COMPARISON: None. FINDINGS: There is no acute fracture/dislocation evident. The joint spaces appear within normal limi ts. The overlying soft tissue appears unremarkable. IMPRESSION: There is no acute fracture or dislocation ICD 10 NO FRACTURE, INITIAL EVALUATION
== END 2023-10-30 17:32 | disposition home or self-care (01) ==
LOC: EC 15:27
CPT/HCPCS: 29125; 96372; 99283

== ENCOUNTER → 2024-02-25 | Outpatient (CLI) | payer MEDICARE, OTHER ==
[~2024-02-25] MED LIST changes: -ACETAMINOPHEN TAB 500 MG TAB PO STA; -CHLORHEXIDINE GLUCONATE 15 ML CUP MUCOUS MEM PRN; -DEXAMETHASONE SOD PHOSPHATE 4 MG/ML 1 ML VIAL IV ONE; -ENOXAPARIN 40 MG/0.4 ML SYRINGE SQ PRN; -GABAPENTIN 300 MG CAP PO STA; +IODINE/POTASSIUM IODIDE 14 ML BOTTLE ONE; -LIDOCAINE 1% (10MG/ML) FOR IV START INTRADERMA PRN; -MELOXICAM 7.5 MG TAB PO STA; -MIDAZOLAM 2 MG/2 ML VIAL IV PRN; -PANTOPRAZOLE 40 MG/10 ML VIAL IVP PRN; -SCOPOLAMINE 1.5MG/72HR PATCH TRANSDERM SCH; -ceFAZolin 3 GM in SODIUM CHLORIDE 0.9% 100 ML IVPB PRN
--- NOTE | 2024-02-26 06:36 | NM ---
EXAMINATION TYPE: NM DatScan Brain SPECT DATE OF EXAM: 02/25/2024 COMPARISON: CT brain October 08, 2023 CLINICAL INDICATION: Female, 58 years old with history of R25.1 TREMOR; TECHNIQUE: 10 drops of Lugol's solution was administered 1 hour prior to injection as a thyroid bloc juan agent. After the administration of 4.9 mCi I-123 Ioflupane DaTscan. Images obtained [address] injection. SPECT images of the brain were acquired with axial and coronal reconstructions. FINDINGS: The DaTSCAN demonstrates reduced uptake of tracer to the right posterior putamen. IMPRESSION: This indicates the loss of the pre-synaptic dopaminergic terminals and is usually supportive of a cli nical diagnosis of either idiopathic PD or PS. However, given the asymmetry of the two sides, an MRI may be considered to ensure that this appearance is not due to a vascular etiology affecting the rig ht striatal pathways. [facility], , 02/26/2024 6:33 AM
== END | disposition home or self-care (01) ==
LOC: RADNMMAIN 09:05
PROVIDERS: ATTEND Psychiatry & Neurology Neurology
DX: R25.1 Tremor, unspecified (principal)
CPT/HCPCS: 78803; A9584

== ENCOUNTER → 2024-09-15 | Outpatient (CLI) | payer MEDICARE, OTHER ==
[2024-09-15 15:54] VITALS: BP 108/70; PULSE 80; RESP 16; TEMP 98; BMI 35.9
--- NOTE | 2024-09-15 16:20 | P.HPBAR ---
Bariatric H&P - History & Physicial H&P Date: 09/15/24 History & Physicial: Visit/CC: f/u Patient initial contact: Initial weight: 157.397 kg Initial weight in pounds: 347.00 Height: 5 ft 5 in Initial BMI: 57.7 Last weight: Current weight: 97.976 kg Current weight in pounds: 216.00 Current BMI: 35.9 [place] body weight (based on NIH guidelines): 57 kg Excess body weight loss: 59.1% The patient is a 59 year-old F who presents for Bariatric Assessment. New parkinsons diagnosis for chronic fall and she has shaking. Parkinsons for tremores. No heartburn. She burps a lot. NO food stuck. Lower abdominal pain present. No BMs for 4 to 5 day. Last colonoscopy. She is due for colonoscopy. H. 357 pounds now 216 pounds. No blood in stools. No blood work this month. She is drinking cola 8 cans per day. She refuses coke. She is drinking zero. She has sleep apnea. She lost 140 pounds. She wants skin removal. Pannus 30 pounds. Grade 3-4. PCP gave cream for panniculitis. She saw pad extractor tender. Pannulitis advised. Need upper scope to check for gastritis. Past Medical History Past Medical History: Diabetes Mellitus, Eye Disorder, Hyperlipidemia, Hypertension, Sleep Apnea/CPAP/BIPAP Additional Past Medical History / Comment(s): HX: (03/30/14)cataract surgery with lens implants bilaterally at [facility]-post op she had low O2 saturations and was told she had a very narrow airway-instead of going home same day, she was in the hospital for a couple days until her saturations improved. She was discharged with home O2 which she wears at 2L/NC at nite-no longer on. a Pt states she also has diarrhea fairly frequently. 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 Parkinsons. 2018 - intermittently in hospital for 3 months for fluid on lungs, had fluid removed History of Any Multi-Drug Resistant Organisms: MRSA Year Discovered:: 2010 MDRO Source:: legs and breasts. Past Surgical History: Bariatric Surgery, Cholecystectomy, Hysterectomy, Orthopedic Surgery Additional Past Surgical History / Comment(s): Bilateral cataract sx with lens implants, bilateral retinal repair. Cervical rodding for 3 ruptured discs. sleeve gastrectomy 05-08-20 Past Anesthesia/Blood Transfusion Reactions: Postoperative Nausea & Vomiting (PONV) Additional Past Anesthesia/Blood Transfusion Reaction / Comm: Pt had cataract and lens implant at [facility] on 03/30/14 and afterwards she desaturated and was hospitalized. She was told she has a very narrow airway. Pt has never recieved blood. Past Psychological History: No Psychological Hx Reported Additional Psychological History / Comment(s): Pt has severe clausterphobia which is getting worse as she ages, uses cane/walker for parkinsons Smoking Status: Former smoker Past Alcohol Use History: None Reported Additional Past Alcohol Use History / Comment(s): quit smoking 2013, smoked 1 ppd, started smoking age 18. Past Drug Use History: None Reported - Past Family History Father Family Medical History: Cancer, Myocardial Infarction (ID) Additional Family Medical History / Comment(s): Father had 5 ID's and of bone cancer. Mother Family Medical History: Cancer Additional Family Medical History / Comment(s): cervical cancer Surgical - Exam Vital Signs Temp Pulse Resp BP 98.0 F 80 16 108/70 09/15/24 15:42 09/15/24 15:42 09/15/24 15:42 09/15/24 15:42 Bariatric Checklist Checklist: Plan: Checklist: EGD: 1. Hiatal hernia: 2. H. Pylori: HgbA1c: Vitamin D: Smoking: Former smoker Primary care physician referral: Dr. Monahan Psychiatry clearance: Cardiology clearance: Sleep study: Diet journal: VTE risk score: VTE risk level: Rehab needs at discharge:
== END ==
LOC: BARWHC3 14:38
PROVIDERS: ATTEND Surgery Plastic and Reconstructive Surgery
DX: E66.01 Morbid (severe) obesity due to excess calories (principal); Z68.35 Body mass index [BMI] 35.0-35.9, adult; Z88.2 Allergy status to sulfonamides; Z87.891 Personal history of nicotine dependence
CPT/HCPCS: 99211

== ENCOUNTER → 2024-09-20 | Outpatient (CLI) | payer MEDICARE, OTHER ==
[2024-09-20 11:31] LABS: INR 0.9 (<1.2); Partial Thromboplastin Time 22.1 sec (22.0-30.0); Prothrombin Time 10.5 sec (10.0-12.5)
[2024-09-20 15:48] LABS: Prealbumin 22.6 mg/dL (18.0-42.0)
[2024-09-20 16:04] LABS: HCT 35.4 % (37.2-46.3); HGB 11.5 g/dL (12.0-15.0); MCH 27.5 pg (27.0-32.0); MCHC 32.5 g/dL (32.0-37.0); MCV 84.7 FL (80.0-97.0); NRBC Per 100 WBC 0 X 10*3/uL (0.00-0.01); Platelet Count 238 X 10*3/uL (140-440); RBC 4.18 X 10*6/uL (4.10-5.20); RDW 14.5 % (11.5-14.5); WBC 7.05 X 10*3/uL (4.50-10.00)
[2024-09-20 16:33] LABS: Cholesterol 182.00 mg/dL (0.00-200.00); HDL Cholesterol 61.60 mg/dL (40.00-60.00); LDL Cholesterol,Calculated 89.8 mg/dL (0.0-131.0); Magnesium 2.5 mg/dL (1.5-2.4); Triglycerides 153.00 mg/dL (0.00-149.00); VLDL Calculation 30.60 mg/dL (5.00-40.00)
[2024-09-20 16:34] LABS: ALT 44 U/L (8-44); AST 55 U/L (13-35); Albumin 4.3 g/dL (3.8-4.9); Albumin/Globulin Ratio 1.54 Ratio (1.60-3.17); Alkaline Phosphatase 135 U/L (41-126); Anion Gap 10.40 mmol/L (4.00-12.00); BUN/Creat Ratio 19.18 Ratio (12.00-20.00); Blood Urea Nitrogen 21.1 mg/dL (9.0-27.0); Calcium 9.1 mg/dL (8.7-10.3); Carbon Dioxide 26.6 mmol/L (21.6-31.8); Chloride 97 mmol/L (96-109); Ferritin 615.0 ng/mL (10.0-291.0); Globulin 2.8 g/dL (1.6-3.3); Glucose 408 mg/dL (70-110); Iron 98 UG/DL (50-170); Potassium 5.5 mmol/L (3.5-5.5); Sodium 134 mmol/L (135-145); Total Iron Binding Capacity 335 UG/DL (228-460); Total Protein 7.1 g/dL (6.2-8.2); Vitamin B12 484.0 pg/mL (200.0-944.0)
[2024-09-20 18:51] LABS: Urine Alcohol Positive (Negative); Urine Barbiturate Negative (Negative)
[2024-09-21 12:35] LABS: Zinc, Serum 64 ug/dL (60-130)
== END | disposition home or self-care (01) ==
LOC: LABWHC1 09:58
PROVIDERS: ATTEND Surgery Plastic and Reconstructive Surgery
DX: E66.01 Morbid (severe) obesity due to excess calories (principal); E89.1 Postprocedural hypoinsulinemia; E44.0 Moderate protein-calorie malnutrition; E45 Retarded development following protein-calorie malnutrition; E55.9 Vitamin D deficiency, unspecified; N19 Unspecified kidney failure; T56.894A Toxic effect of other metals, undetermined, initial encounter; D50.8 Other iron deficiency anemias; K50.80 Crohn's disease of both small and large intestine without complications; K74.1 Hepatic sclerosis
CPT/HCPCS: 84255; 84134; 84425; 80061; 80053; 82607; 82728; 82525; 82746; 83540; 83550; 83735; 84100; 84443; 84590; 84630; 85027; 85610; 85730; 82306; 80306; 83970; 83036; 93005; 36415; G0480; 80323